=== PATIENT | male | born 1945 | race Caucasian/White ===

== ENCOUNTER 2017-06-15 21:25 | Emergency (ER) | payer OTHER ==
[~2017-06-15] VITALS: Ht 170.2 cm; Wt 99.0 kg
[2017-06-15 21:25] VITALS: BP 122/78; PULSE 65; RESP 16; TEMP 97.7; O2SAT 96
[~2017-06-15 21:25] MED LIST: DILT240C7 PO; HYDR10SO PO; PRAV40 PO; RANI150C PO; RIVA20 PO; XANA2TAB2 PO
--- NOTE | 2017-06-15 22:15 | PD ---
HPI Chief Complaint: Fall Time Seen by Provider: 22:10 Travel History International Travel<30 days: No Contact w/Intl Traveler<30days: No Traveled to known affect area: No History of Present Illness HPI WHILE DRINKING AT A PUB, GOT UP AND APPARENTLY STUMBLED AND FELL, EMS WAS CALLED AND BROUGHT INTO ER FOR FURTHER EVAL PER WITNESSES NO LOC, AND PATIENT GOT UP BY HIMSELF. 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) Musculoskeletal: Yes (LUMBAR DISCOMFORT, ARTHRITIS) Neurologic: No Psychiatric: Yes Reproductive: No Respiratory: Yes (SOB WITH WALKING) Radiation Therapy: Yes Sleep Apnea: Yes Thyroid Disease: No Tetanus Vaccination: Unknown Past Surgical History Abdominal Surgery: Yes (UMBILICAL HERNIA REPAIR CHILD) AICD: No Body Medical Devices: NONE Cardiac Surgery: No Ear Surgery: No Eye Surgery: No Genitourinary Surgery: No Joint Replacement: Yes (LEFT KNEE, RIGHT KNEE) Neurologic Surgery: Yes (LUMBAR FUSION X4) Oral Surgery: No Pacemaker: No Thoracic Surgery: No Other Surgery: Yes Social History Alcohol Use: Yes (6 PK WEEK) Tobacco Use: Yes (4-5 CIGS DAILY) Substance Use: No Allergies-Medications (Allergen,Severity, Reaction): Coded Allergies: Bee Sting (Verified Allergy, Severe, 06/16/17) Valium (Verified Allergy, Severe, BECOMES VIOLENT, 06/16/17) Reported Meds & Prescriptions Reported Meds & Active Scripts Active Walker/Adult/Folding (Device) 1 Mis Mis 1 Ea .ROUTE DIRECTED Keflex (Cephalexin) 500 Mg Cap 500 Mg PO Q8H 5 Days Reported Lortab (Hydrocodone-Acetaminophen) 10-325 Mg Tab 1 Tab PO Q6H PRN Pravastatin 40 Mg Tab 40 Mg PO DAILY Diltiazem HCl ER (Diltiazem HCl Coated Beads) 240 Mg Cap Alprazolam 2 Mg Tab 2 Mg PO Q8H PRN Review of Systems Except as stated in HPI: all other systems reviewed are Neg Physical Exam Narrative GENERAL: SKIN: Warm and dry. ABRASION TO SUPERIOR LIP, AND TO RUE WITHOUT LACERATION HEAD: Atraumatic. Normocephalic. EYES: Pupils equal and round. No scleral icterus. No injection or drainage. ENT: No nasal bleeding or discharge. Mucous membranes pink and moist. NO HEMOTYMPANUM NECK: Trachea midline. No JVD. CARDIOVASCULAR: Regular rate and rhythm. RESPIRATORY: No accessory muscle use. Clear to auscultation. Breath sounds equal bilaterally. GASTROINTESTINAL: Abdomen soft, non-tender, nondistended. MUSCULOSKELETAL: Extremities without clubbing, cyanosis, or edema. No obvious deformities. NEUROLOGICAL: Awake and alert. No obvious cranial nerve deficits. Motor grossly within normal limits. Five out of 5 muscle strength in the arms and legs. Normal speech. PSYCHIATRIC: Appropriate mood and affect; insight and judgment normal. Data Data Last Documented VS Vital Signs Date Time Temp Pulse Resp B/P Pulse Ox O2 Delivery O2 Flow Rate FiO2 06/16/17 02:25 55 16 119/74 97 Room Air 06/15/17 21:[address] Facial Bones W/O Iv Cont (06/15/17 ) Ct Brain W/O Iv Contrast(Rout) (06/15/17 ) Silver Nitrate Applicators (Silver Nitra (06/16/17 02:15) MDM Medical Decision Making Medical Screen Exam Complete: Yes Emergency Medical Condition: Yes Medical Record Reviewed: Yes Differential Diagnosis ICH V FACIAL FRACTURES V ABRASION Narrative Course PATIENT WAS ABLE TO AMBULATE ON OWN BY THE TIME CT HEAD/FACE WERE RETURNED, NO SKULL FX, NO ICH , NO FACIAL FX NOTED EITHER Procedures Procedure Narrative cleaned right lateral tib fib area where there was a 10cm blood blister in place , superiorly there was a 4cm opening which was cauterized with silver nitrate and then dermabond on top. no active bleeding dressed with telfa/dressing. Diagnosis Primary Impression: FACIAL ABRASION Additional Impression: abrasion s/p dermabond Patient Instructions: Abrasion (ED), General Instructions Disposition: 01 DISCHARGE HOME Condition: Stable Vignesh Wheeler MD Jun 15, 2017 22:15
[2017-06-16] VITALS: BP 124/84; PULSE 68; RESP 16; O2SAT 98
--- NOTE | 2017-06-16 00:37 | RADRPT ---
EXAM DATE/TIME: 06/16/2017 00:02 [facility] COMPARISON: No previous studies available for comparison. INDICATIONS : Trauma, pt fell and hit face. RADIATION DOSE: 63.92 CTDIvol (mGy) MEDICAL HISTORY : None SURGICAL HISTORY : None. ENCOUNTER: Initial ACUITY: 1 day PAIN SCALE: 7/10 LOCATION: cranial TECHNIQUE: Multiple contiguous axial images were obtained of the head. Using automated exposure control and adj ustment of the mA and/or kV according to patient size, radiation dose was kept as low as reasonably a chievable to obtain optimal diagnostic quality images. DICOM format image data is available electro nically for review and comparison. FINDINGS: There is mild motion artifact. CEREBRUM: The ventricles are normal for age. No evidence of midline shift, mass lesion, hemorrhage or acute in farction. No extra-axial fluid collections are seen. POSTERIOR FOSSA: The cerebellum and brainstem are intact. The 4th ventricle is midline. The cerebellopontine angle i s unremarkable. EXTRACRANIAL: The visualized portion of the orbits is intact. There is retention cyst in the right maxillary sinus. SKULL: The calvaria is intact. No evidence of skull fracture. CONCLUSION: Negative trauma study. Elder Hyde MD on June 16, 2017 at 0:34 Board Certified Radiologist. This report was verified electronically.
--- NOTE | 2017-06-16 00:39 | RADRPT ---
EXAM DATE/TIME: 06/16/2017 00:02 [facility] COMPARISON: No previous studies available for comparison. INDICATIONS : Trauma, pt fell on face. RADIATION DOSE: 35.57 CTDIvol (mGy) MEDICAL HISTORY : None SURGICAL HISTORY : None. ENCOUNTER: Initial ACUITY: 1 day PAIN SCORE: 7/10 LOCATION: face TECHNIQUE: Volumetric scanning of the facial bones was performed. Using automated exposure control and adjustme nt of the mA and/or kV according to patient size, radiation dose was kept as low as reasonably achiev able to obtain optimal diagnostic quality images. DICOM format image data is available electronicall y for review and comparison. FINDINGS: ORBITS: The orbital and infraorbital osseous structures are intact. The retroconal structures have a normal configuration. No radiopaque foreign bodies are seen. NASAL BONE: The nasal bone and maxillary spine are intact ZYGOMATIC ARCHES: Symmetric without evidence of fracture. SINUSES: The maxillary, ethmoid and frontal sinuses are intact. No air-fluid levels seen. There is a retentio n cyst in inferior right maxillary sinus and mild mucosal thickening in inferior left maxillary sinus . There is also small retention cysts in the left ethmoidal air cells. NASAL CAVITY: The nasal septum is intact and midline. The lacrimal ducts are intact. SOFT TISSUES: No radiopaque foreign bodies seen. No soft-tissue swelling is seen. INTRACRANIAL: No intracranial air seen. CRIBIFORM PLATE: Grossly intact. CONCLUSION: Negative trauma study. Elder Hyde MD on June 16, 2017 at 0:35 Board Certified Radiologist. This report was verified electronically.
[2017-06-16] MEDS ORDERED: SILVER NITR/POTASSIUM NITRATE APPLICATORS TOPICAL ONE (02:15)
[2017-06-16 02:25] VITALS: BP 119/74; PULSE 55; RESP 16; O2SAT 97
[2017-06-16] MEDS ORDERED: HYDR-3535 PO (17:18)
[2017-06-16] MEDS ORDERED: DILT240C (17:18)
[2017-06-16] MEDS ORDERED: PRAV40TA2 PO (17:18)
[2017-06-16] MEDS ORDERED: ALPR2TAB3 PO (17:18)
[2017-06-16] MEDS ORDERED: WALKER/ADULT/FO1 MIS (18:56)
[2017-06-16] MEDS ORDERED: CEPH-460 PO (18:56)
== END 2017-06-16 02:55 | disposition home or self-care (01) ==
LOC: PHED 21:25
DX: S00.511A Abrasion of lip, initial encounter (principal); S80.821A Blister (nonthermal), right lower leg, initial encounter; W01.0XXA Fall on same level from slipping, tripping and stumbling without subsequent striking against object, initial encounter; Y93.9 Activity, unspecified; Y92.9 Unspecified place or not applicable; I10 Essential (primary) hypertension; E78.00 Pure hypercholesterolemia, unspecified; K21.9 Gastro-esophageal reflux disease without esophagitis; F17.210 Nicotine dependence, cigarettes, uncomplicated
CPT/HCPCS: 12013; 70450; 70486

== ENCOUNTER 2017-06-16 16:24 | Emergency (ER) | payer OTHER ==
[~2017-06-16] VITALS: Ht 170.2 cm; Wt 97.0 kg
[2017-06-16 16:32] VITALS: BP 155/92; PULSE 98; RESP 16; TEMP 97.5; O2SAT 97
[2017-06-16] MEDS ORDERED: LIDOCAINE 1%/EPINEPHrine 1:100,000 SOLN 20 ML VIAL INFIL ONE (16:45)
[2017-06-16] MEDS ORDERED: HYDR-3535 PO (17:18)
[2017-06-16] MEDS ORDERED: ALPR2TAB3 PO (17:18)
[2017-06-16] MEDS ORDERED: DILT240C (17:18)
[2017-06-16] MEDS ORDERED: PRAV40TA2 PO (17:18)
--- NOTE | 2017-06-16 17:50 | PD ---
HPI Chief Complaint: Skin Problem Time Seen by Provider: 17:00 Travel History International Travel<30 days: No Contact w/Intl Traveler<30days: No Traveled to known affect area: No History of Present Illness HPI 72-year-old male presents for evaluation of wound on the right lower leg. The patient was seen here yesterday after a fall. He had CT imaging the face and head which were negative. He was sent home. He reports that he had some wounds on the right leg and right arm which were bandaged. He changed the bandages on the right lower leg today and there is no obvious bleeding. He reports that he was sitting and then he noticed that he was bleeding from a wound on the right lower leg. This was bandaged by paramedics according to the patient. He is not on any anticoagulants. He denies any new injuries. No other complaints. 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) Musculoskeletal: Yes (LUMBAR DISCOMFORT, ARTHRITIS) Neurologic: No Psychiatric: Yes Reproductive: No Respiratory: Yes (SOB WITH WALKING) Radiation Therapy: Yes Sleep Apnea: Yes Thyroid Disease: No Tetanus Vaccination: Unknown Influenza Vaccination: No ?: Not Past Surgical History Abdominal Surgery: Yes (UMBILICAL HERNIA REPAIR CHILD) AICD: No Body Medical Devices: NONE Cardiac Surgery: No Ear Surgery: No Eye Surgery: No Genitourinary Surgery: No Joint Replacement: Yes (LEFT KNEE, RIGHT KNEE) Neurologic Surgery: Yes (LUMBAR FUSION X4) Oral Surgery: No Pacemaker: No Thoracic Surgery: No Other Surgery: Yes Social History Alcohol Use: Yes (6 PK WEEK) Tobacco Use: Yes (4-5 CIGS DAILY) Substance Use: No Allergies-Medications (Allergen,Severity, Reaction): Coded Allergies: Bee Sting (Verified Allergy, Severe, 06/16/17) Valium (Verified Allergy, Severe, BECOMES VIOLENT, 06/16/17) Reported Meds & Prescriptions Reported Meds & Active Scripts Active Walker/Adult/Folding (Device) 1 Mis Mis 1 Ea .ROUTE DIRECTED Keflex (Cephalexin) 500 Mg Cap 500 Mg PO Q8H 5 Days Reported Lortab (Hydrocodone-Acetaminophen) 10-325 Mg Tab 1 Tab PO Q6H PRN Pravastatin 40 Mg Tab 40 Mg PO DAILY Diltiazem HCl ER (Diltiazem HCl Coated Beads) 240 Mg Cap Alprazolam 2 Mg Tab 2 Mg PO Q8H PRN Review of Systems Except as stated in HPI: all other systems reviewed are Neg Physical Exam Narrative GENERAL: Well-developed well-nourished male in no acute distress SKIN: Warm and dry. Bandages noted on the right arm, abrasion to the face. The bandage in the right leg was removed revealing a very large hematoma to the lateral right lower leg with a linear 15 cm laceration across. There is some bleeding, no pulsating blood. HEAD: Atraumatic. Normocephalic. EYES: Pupils equal and round. No scleral icterus. No injection or drainage. ENT: No nasal bleeding or discharge. Mucous membranes pink and moist. NECK: Trachea midline. No JVD. CARDIOVASCULAR: Regular rate and rhythm. No murmur appreciated. RESPIRATORY: No accessory muscle use. Clear to auscultation. Breath sounds equal bilaterally. GASTROINTESTINAL: Abdomen soft, non-tender, nondistended. Hepatic and splenic margins not palpable. MUSCULOSKELETAL: Skin as noted above. The compartments of the right lower leg are soft. Distal pulses are intact or distal sensation is intact. He is able to dorsiflex and plantarflex his right ankle and move his toes with no difficulty. NEUROLOGICAL: Awake and alert. No obvious cranial nerve deficits. Motor grossly within normal limits. Normal speech. Data Data Last Documented VS Vital Signs Date Time Temp Pulse Resp B/P Pulse Ox O2 Delivery O2 Flow Rate FiO2 06/16/17 16:32 97.5 98 16 155/92 97 Orders Lidocai-Epi 1%-1:100,000 Inj (Xylocaine- (06/16/17 16:45) Tibia/Fibula (Ap/Lat) (06/16/17 ) Cefazolin Inj (Ancef Inj) (06/16/17 18:00) MDM Medical Decision Making Medical Screen Exam Complete: Yes Emergency Medical Condition: Yes Medical Record Reviewed: Yes Differential Diagnosis Laceration, dehisced hematoma, arterial injury, compartment syndrome, fracture Narrative Course The patient appears to have developed a very large hematoma to the right lower leg from his fall yesterday. It appears that the hematoma has opened up in a linear fashion and he now has a 15 cm laceration across it. After verbal consent was obtained I cleansed the wound and explored it. There was large amount of clotted blood and some oozing blood. There is no obvious arterial bleeding. There is no obvious muscle or bone injury. There is no obvious tendon injury. Laceration was repaired with sutures, he does have quite thin skin and this is likely the reason that his hematoma opened. This will require very close follow-up. He is monitored for 2 hours afterwards with no wound dehiscence. Ice packs were applied and the leg was elevated during this time. He was given IV Ancef. His be discharged with a prescription for walker and Keflex. Recommended that he return tomorrow for wound recheck. Procedures Procedure Narrative Location: Right lower leg Length: 15 cm Number of kleber/sutures: 21 The area was prepped with Betadine. The area was anesthetized locally with 1% lidocaine with epinephrine The area was thoroughly irrigated and explored with no signs of tendon, vascular injury or foreign body. The wound was closed using 3-0 prolene simple interrupted . This was a single layer repair. Patient tolerated procedure well Diagnosis Primary Impression: Hematoma Additional Impression: Laceration of right lower leg Qualified Code: S81.811A - Laceration of right lower leg, initial encounter Additional Instructions: As discussed, return in one day for wound recheck. Elevate the leg as much as possible over the next few days. Ice pack several times a day 20 minutes at a time to the affected area. Sutures need to be removed in approximately 14-18 days. Med/Other Pt SpecificInfo: Prescription(s) given, Wound Care Scripts Walker/Adult/Folding 1 Mis Mis #1 EA .ROUTE DIRECTED Ref 0 Prov:Cici Vega DO 06/16/17 Cephalexin (Keflex)500 Mg [id number] Mg PO Q8H 5 Days Ref 0 Prov:Cici Vega DO 06/16/17 Disposition: 01 DISCHARGE HOME Condition: Stable Bart Duque Jun 16, 2017 17:50
--- NOTE | 2017-06-16 18:25 | RADRPT ---
EXAM DATE/TIME: 06/16/2017 17:55 [facility] COMPARISON: No previous studies available for comparison. INDICATIONS : Right leg pain after falling over curb. MEDICAL HISTORY : None. SURGICAL HISTORY : None. ENCOUNTER: Initial ACUITY: 1 day PAIN SCORE: 8/10 LOCATION: Right Tibia/Fibula FINDINGS: Total knee arthroplasty. Soft tissue injury about the anterior and lateral leg with multiple small a reas of soft tissue gas. There are also several rounded densities in the soft tissues of the anterio r mid calf suggesting radiopaque foreign bodies. The shaft of the tibia and fibula are intact. Ther e is some bowing of the proximal metaphysis of the fibula without evidence of fracture. CONCLUSION: Soft tissue injury mid calf with possible multiple faint radiopaque foreign bodies. No evidence of a cute fracture. Derrell Green MD on June 16, 2017 at 18:22 Board Certified Radiologist. This report was verified electronically.
[2017-06-16] MEDS ORDERED: WALKER/ADULT/FO1 MIS (18:56)
[2017-06-16] MEDS ORDERED: CEPH-460 PO (18:56)
== END 2017-06-16 19:53 | disposition home or self-care (01) ==
LOC: PHEFT 16:24
DX: S81.811A Laceration without foreign body, right lower leg, initial encounter (principal); I10 Essential (primary) hypertension; Z72.0 Tobacco use; W19.XXXA Unspecified fall, initial encounter
CPT/HCPCS: 12005; 73590; 96365; 99284; J0690

== ENCOUNTER 2018-03-29 12:37 | Inpatient (IN) | payer OTHER, MEDICARE ==
--- NOTE | 2018-03-28 20:36 | MH ---
cc: Pedro Luis Acosta DMD DATE OF ADMISSION: 03/29/2018 DATE OF : 1945 HISTORY OF PRESENT ILLNESS: Mr. 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 He had previously undergone resection of that lesion. He was asymptomatic. He was later on noncompliant for followup. Now he presented back to the office recently with pain on the anterior aspect of the mandible with loose dentition. He was complaining about pain into the site. He had a lesion on the anterior floor of the mouth below the tongue coming up to the inferior aspect on the lingual aspect of the mandible with some soft tissue dehiscence that is noted there. The roots of the teeth are noted at that point. An incisional biopsy was done and it came back as squamous cell carcinoma, moderately differentiated. So the patient is going to require a corticotomy of the anterior mandible, extraction of his lower anterior teeth, specific teeth #23, 24, 25, 26, and biopsy of the mandible bone and biopsy of the tissue as we try to excise this tissue. Benefits, risks and indication of the procedure, the procedure in detail and the options of no treatment including alternatives were discussed with this patient. The risks are not limited to any postop pain, infection, bleeding, damage to the adjacent teeth, soft tissue, hard tissue, anesthesia, complications, which include , recurrence of this lesion, further surgeries including resection, radiation, chemo. The patient has been told to be compliant with followups and cessation of alcohol has been reviewed with the patient. PAST MEDICAL HISTORY: Atrial fibrillation, knee replacements, hypertension, arthritis, bruising easily, diabetes, lesion medial aspect of the left eye, snoring, depression, anxiety, fibromyalgia, esophagitis, hyperlipidemia, dementia, edema, heart failure, insomnia, malignant neoplasm of the skin. PAST SURGICAL HISTORY: He had an ablation to his heart, bilateral knee replacements, ablation. INFECTIOUS DISEASES: Past history of MRSA on the left knee. AUTOIMMUNE DISORDER: Fibromyalgia. MEDICATIONS: 1. Lovastatin 20 mg 1 tablet with meal orally once a day. 2. Alprazolam 2 mg, 1 tab orally once a day for 30 days. 3. He is on Empire 10/325 every 6 hours as needed for pain. 4. Ranitidine hydrochloride 300 mg 1 capsule at bedtime. 5. Tamsulosin hydrochloride 0.4 mg 1 capsule orally a day. 6. Diltiazem hydrochloride extended release 180 mg 1 capsule in the morning. He was taking Glucophage extended release 750 mg 1 tablet, but based on his current medication summary by his primary, does not appear that he takes that anymore. ALLERGIES: DENIED. FAMILY HISTORY: Denies any significant family history or any inherited familial disease. SOCIAL HISTORY: Home: He lives alone. He used to smoke previously, still smokes occasionally. Eating: Fair. Alcohol: 6-pack x1 week. Sleeping: Poor. He is retired. Denies any illicit drug use. REVIEW OF SYSTEMS: CONSTITUTIONAL: Weight 200 pounds, height 5 feet, 7 inches. Recent significant weight loss: He reports some due to tongue pain. HEAD: Denies any headache, dizziness, injury or any seizures. Reports some balance problems. EYES: Denies any vision problem, double vision, tearing or blind spots. NOSE: Denies any bleeding, obstruction or discharges. MOUTH: Dental Difficulties: Yes. Denies any gingival bleeding or any dentures. Reports catching of the lower tongue, closure of the of the mouth caused decay to his lower teeth and has caused him pain in that site. THROAT: Denies any hoarseness, soreness any thyroid disease. LYMPH NODES: Denies any local glandular enlargement. RESPIRATORY: Denies any TB or any cough. Has shortness of breath. Denies any asthma, COPD and sleep apnea. Can walk for distances secondary to his generalized pain, arthritis and knee replacement. CARDIOVASCULAR: Denies any pericardial pain. History of hypertension, murmurs, has shortness of breath on excursions, edema. Denies any phlebitis, any rheumatic fever or any heart surgeries. He did have previously atrial fibrillation had an ablation to correct that. GASTROINTESTINAL: Denies any gallbladder or any peptic ulcer disease. GENITOURINARY: Denies UTI, any kidney disease or any venereal disease. MUSCULOSKELETAL: Denies any pain or any muscular weakness, but he does have limitation of movement. He walks very slowly secondary to arthritis and knee replacements. ENDOCRINE: Diabetes mellitus, borderline. Any hormone therapy , any growth disturbances are denied. HEMATOLOGICAL: Denies any anemia, history of bleeding tendencies. Denies any temporary debility. The patient is on aspirin 325 mg. NEUROLOGICAL: Denies any sensory or motor disturbances. PHYSICAL EXAMINATION: VITAL SIGNS: Pulse 79, Blood pressure is 138/92 with oxygen saturation of 97%, ASA 3. GENERAL: Alert, awake and oriented x 3, in no acute distress. HEAD: Normocephalic. EYES: Pupils are equal, round and reactive to light and accommodation. Extraocular movements intact. NOSE: Symmetrical. Airways patent. MOUTH/ORAL: He has a lesion that is noted on the anterior mandible, floor of the mouth on the lingual aspect. There is bony exposure noted towards the lower anterior dentition with mobility of these teeth. Also, there is a well-circumscribed lesion; it is firm, slightly raised on the anterior floor of the mouth of the tongue. It is about 1.5 cm x about 1.5 cm, nonulcerated, tender to palpation. The previous region where the previous cancer was taken at the right lateral border of the tongue, floor of the mouth is asymptomatic. There is no lesion noted, no recurrence of any lesions noted. There is mobility of the tongue, good shape of the tongue. Otherwise the rest of the tissues are pink and well perfused. Mallampati II. Bite is in occlusion. There is no edema intraorally. Good mobility of the tongue. NECK: Positive range of movement. No veronica involvement that is noted. Trachea is midline. CARDIOVASCULAR: Regular rate and rhythm but we can auscultate a murmur. RESPIRATORY: Lungs clear to auscultation bilaterally. ABDOMEN: Nontender, nondistended, soft. GASTROINTESTINAL: Positive bowel sounds. EXTREMITIES: Positive range of movement upper extremities, lower extremities, but they moves slowly. NEUROLOGIC: Cranial nerves II-XII grossly intact. LABORATORY DATA: 01/28/2016: White count is 7.7, H and H 15.0 and 46.2 with platelets of 245. PATHOLOGY REPORT: Dated 02/11/2018, moderately differentiated squamous cell carcinoma, anterior lingual vestibule/tongue, floor of mouth. IMAGING: CT scan of the soft tissues of the neck shows some involvement of the anterior mandible, erosion of the roots of this teeth. No veronica involvement or lymphadenopathy that is noted. There is some soft tissue involvement in he mental region, sublingual region. Chest x-ray PA and lateral: No acute cardiopulmonary disease noted. Normal chest for age. No evidence of metastatic disease. The patient has been cleared by Dr. Mallory of cardiology, moderate risk for general anesthesia. ASSESSMENT AND PLAN: This is a 72-year-old male with squamous cell carcinoma, appears to be in a new location now, anterior mandible, floor of the mouth soft tissue with involvement of teeth. The radiograph in the office shows a periapical radiolucency, it could be secondary to the decay of these teeth, does not appear to be involvement secondary to the malignant neoplasm. So, the plan is to remove his lower anterior dentition, corticotomy which is to remove some of that bone, send the bone for a biopsy, and then removal and biopsy of this lesion, squamous cell carcinoma anterior floor of the mouth of the tongue and send that for biopsy, will send for frozens also. The patient is aware that he may require further surgery including radiation or chemo. Patient has been counseled on smoking/alcohol cessation. The patient is also made aware of risks involving the glands, recurrence of this cancer, further surgeries as required. All questions and concerns were addressed. Pedro Luis Acosta DMD RT/SB , 07:23 PM , 08:35 PM
[~2018-03-29] VITALS: Ht 170.2 cm; Wt 92.2 kg
[~2018-03-29 12:37] MED LIST changes: +ALPR2TAB3 PO; +CEPH-460 PO; +DEXAMETHASONE SOD PHOS 4 MG/ML VIAL IV ONE; +DILT240C PO; -DILT240C7 PO; +GLYCOPYRROLATE 1 MG/5 ML SYRINGE IV PUSH ONE; +HYDR-3583 PO; -HYDR10SO PO; +LACTATED RINGER'S 1000 ML INJ 1,000 ML IV ONE; +LIDOCAINE HCL 1% PF 5 ML SYRINGE OTHER ONE; +NEOSTIGMINE 5 MG/5 ML SYRINGE IV PUSH ONE; +ONDANSETRON HCL 4 MG/2 ML VIAL IV ONE; +PHENYLEPH/NS 1000 MCG/10 ML SYR IV ONE; -PRAV40 PO; +PRAV40TA2 PO; +PROPOFOL 200 MG/20 ML AMP IV ONE; -RANI150C PO; -RIVA20 PO; +ROCURONIUM INJ 50 MG/5 ML SYRINGE IV PUSH ONE; +WALKER/ADULT/FO1 MIS; -XANA2TAB2 PO; +ePHEDrine/NS 25 MG/5 ML SYRINGE IV ONE
[2018-03-29] MEDS ORDERED: METOPROLOL TARTRATE 25 MG TAB PO PRN (13:00)
[2018-03-29] MEDS ORDERED: SODIUM CHLORID 0.9% 500 ML IV PRN (13:00)
[2018-03-29] MEDS ORDERED: CHLORHEXIDINE GLUCONATE 2 % 1 PACK (2 CLOTHS) TOPICAL PRN (13:00)
[2018-03-29] MEDS ORDERED: LACTATED RINGER'S 1000 ML IV PRN (13:00)
[2018-03-29] MEDS ORDERED: POVIDONE IODINE 5% (ANTISEPSIS KIT) 4 APPLICATIONS EACH NARE PRN (13:00)
[2018-03-29] MEDS ORDERED: RANI300T PO (13:53)
[2018-03-29] MEDS ORDERED: TAMS0.4C4 PO (13:53)
[2018-03-29] MEDS ORDERED: GABA100C4 PO (13:53)
[2018-03-29] MEDS ORDERED: FURO40TA PO (13:53)
[2018-03-29] MEDS ORDERED: ASPI-183 PO (13:53)
[2018-03-29] MEDS ORDERED: ceFAZolin INJ 1,000 MG VIAL ONE (14:12)
[2018-03-29] MEDS ORDERED: SODIUM CHLORIDE 0.9% INJ 100 ML ONE (14:13)
[2018-03-29 14:23] LABS: AUTOMATED NEUTROPHIL # 3.4 TH/MM3 (1.8-7.7); BASOPHIL # 0.1 TH/MM3 (0-0.2); EOSINOPHIL # 0.1 TH/MM3 (0-0.4); EOSINOPHIL % 1.5 % (0.0-4.0); HEMATOCRIT 42.5 % (39.0-51.0); HEMOGLOBIN 14.2 GM/DL (13.0-17.0); LYMPH % 27.4 % (9.0-44.0); LYMPHOCYTE # 1.6 TH/MM3 (1.0-4.8); MEAN CELL VOLUME 92.9 FL (80.0-100.0); MEAN CORPUSCULAR HEMOGLOBIN 31.1 PG (27.0-34.0); MEAN CORPUSCULAR HGB CONC 33.5 % (32.0-36.0); MEAN PLATELET VOLUME 8.6 FL (7.0-11.0); MONOCYTE # 0.7 TH/MM3 (0-0.9); NEUT % 58.1 % (16.0-70.0); PLATELET COUNT 178 TH/MM3 (150-450); RED BLOOD COUNT 4.58 MIL/MM3 (4.50-5.90); RED CELL DISTRIBUTION WIDTH 16.1 % (11.6-17.2); WHITE BLOOD COUNT 5.9 TH/MM3 (4.0-11.0)
[2018-03-29] MEDS ORDERED: ACETAMINOPHEN 1000 MG/100 ML 100 ML IV ONE (14:53)
[2018-03-29] MEDS ORDERED: CHLORHEXIDINE GLUCONATE 0.12% 15 ML CUP ONE (15:09)
[2018-03-29] MEDS ORDERED: BACITRACIN TOP OINT 15 GM TUBE ONE (15:10)
[2018-03-29] MEDS ORDERED: LIDOCAINE 2%/EPINEPHrine PF 1:200,000 20ML SDV ONE (15:10)
[2018-03-29] MEDS ORDERED: MICROFIBRILLAR COLLAGEN HEMOSTAT 1 GM PKT ONE (15:11)
[2018-03-29] MEDS ORDERED: BUPIVACAINE/EPINEPHRINE 0.5% PF 10 ML VIAL ONE (16:56)
[2018-03-29] MEDS ORDERED: LIDOCAINE 0.5%/EPINEPHrine 1:200,000 SOLN 50 ML VIAL ONE (16:56)
[2018-03-29] MEDS ORDERED: DO NOT ADM ANY ANTICOAGULANT DRUGS PRN (18:39)
[2018-03-29] MEDS: SODIUM CHLOR 0.9% 1000 ML INJ 1,000 ML IV SCH (19:00)
[2018-03-29] MEDS ORDERED: methylPREDNISolone SOD SUCC 125 MG/2 ML VIAL ONE (19:01)
--- NOTE | 2018-03-29 19:01 | HHI.PR ---
Immediate Post Op Note Procedure Date: March 29, 2018 Pre Op Diagnosis: scca - anterior mandible/floor of mouth , [id number] periodontally involved teeth 23, 24, 25, 26, 27 Post Op Diagnosis: darek Surgeon: Pedro Luis Acosta Ball Maker(s): don colon Procedure: extraction of teeth 23, 24,25,26,27, coricotomy anterior mandible excision of lesion anterior mandible - biopsy of soft tissue/bone with soft tissue frozen sections Complications: none Specimen(s) removed: bone, lesion anterior floor of mouth, with frozens Estimated blood loss: 30cc Anesthesia: General, Local (2%lidocaine with 1:200,000 epi 6 cc; 0.5 marcaine with 1:200,000 epi 6cc) Drains: None Patient to: PACU Patient Condition: Good Date/Time of Procedure: SEE SURGICAL CARE RECORD Pedro Luis Acosta DMD March 29, 2018 19:01
[2018-03-29] MEDS ORDERED: MORPHINE SULFATE 4 MG/ML INJ IV PUSH PRN ×2 (19:30)
[2018-03-29] MEDS ORDERED: NALOXONE HCL 0.4 MG/ML AMP IV PUSH PRN (19:30)
[2018-03-29] MEDS ORDERED: SODIUM CHLORIDE 0.9% FLUSH 10 ML FLUSH IV FLUSH PRN (19:30)
[2018-03-29] MEDS ORDERED: BISACODYL 10 MG SUPP RECTAL PRN (19:30)
[2018-03-29] MEDS ORDERED: MORPHINE SULFATE 4 MG/ML INJ IV PRN (19:45)
[2018-03-29] MEDS ORDERED: ONDANSETRON ODT 4 MG TAB PO PRN (19:45)
[2018-03-29] MEDS ORDERED: ALPRAZolam 1 MG TAB PO PRN (20:00)
[2018-03-29 20:15] VITALS: BP 148/100; PULSE 74; RESP 17; TEMP 97.9; O2SAT 98
[2018-03-29] MEDS ORDERED: TAMSULOSIN HCL 0.4 MG CAP PO SCH (21:00)
--- NOTE | 2018-03-29 21:10 | PD.CONS ---
[facility] By [facility]. Acosta . Reason for Consult Medical management/Perform as attending medical team . Primary Care Physician Non-Staff Diagnoses: (1) Floor of mouth squamous cell carcinoma History of Present Illness Mr. Worrell is a 72-year-old male with a history of squamous cell carcinoma of the tongue, atrial fibrillation, hyperlipidemia, hypertension, gastroesophageal reflux disease, BPH, and arthritis who presented to the hospital on 03/29/2018 for surgical excision of anterior mandible lesion with soft tissue frozen sections and teeth extraction #[address] Acosta[address] [facility] hospitalists were consulted for medical management and pain control in the postoperative period and asked to take over as attending for hospital admission. The patient is seen postoperatively in the ISC unit. He is drowsy and falls asleep frequently during my interview. He reports adequate pain control with current pain regimen. He reports feeling in his normal state of health prior to admission. Review of Systems Except as stated in HPI: all other systems reviewed are Neg Past Family Social History Allergies: Coded Allergies: No Known Allergies (Unverified , 03/29/18) Past Medical History history of squamous cell carcinoma of the tongue, atrial fibrillation, hyperlipidemia, hypertension, gastroesophageal reflux disease, BPH, and arthritis . Past Surgical History Umbilical hernia repair Right rotator cuff repair Bilateral total knee replacement Ablation for atrial fibrillation . Reported Medications Reported Meds & Active Scripts Active Walker/Adult/Folding (Device) 1 Mis Mis 1 Ea .ROUTE DIRECTED Reported Furosemide 40 Mg Tab 40 Mg PO DAILY Ranitidine (Ranitidine HCl) 300 Mg Tab 300 Mg PO DAILY Tamsulosin (Tamsulosin HCl) 0.4 Mg Cap 0.4 Mg PO HS Gabapentin 100 Mg Cap 200 Mg PO TID Aspirin 325 Mg Tab 325 Mg PO DAILY Hydrocodone-Acetaminophen 10-325 mg Tab 1 Tab PO Q4H PRN Pravastatin 40 Mg Tab 40 Mg PO DAILY Diltiazem HCl ER (Diltiazem HCl Coated Beads) 240 Mg Cap 1 Cap PO DAILY Alprazolam 2 Mg Tab 2 Mg PO Q8H PRN . Family History Denies any family history of cancer . Social History Tobacco: States he is smoking 2-3 cigarettes per day and has been smoking off and on for "many years" Alcohol: Denies any alcohol use Illicit Drugs: Denies any illicit drug use . Physical Exam Vital Signs Vital Signs Date Time Temp Pulse Resp B/P (MAP) Pulse Ox O2 Delivery O2 Flow Rate FiO2 03/29/18 20:00 98.5 68 14 144/96 (112) 98 Nasal Cannula 2 03/29/18 19:45 69 14 143/92 (109) 98 Nasal Cannula 2 03/29/18 19:30 72 12 146/87 (106) 99 Nasal Cannula 2 03/29/18 19:15 71 12 148/85 (106) 98 Nasal Cannula 2 03/29/18 19:00 69 12 155/91 (112) 96 Nasal Cannula 2 03/29/18 18:45 82 13 154/94 (114) 100 Nasal Cannula 2 03/29/18 18:38 98.3 68 12 136/90 (105) 100 Simple Mask 8 03/29/18 13:56 97.6 79 20 126/87 (100) 97 Physical Exam CONSTITUTIONAL: This is a chronically ill appearing 72-year-old male patient, in no apparent distress. INTEGUMENTARY: Multiple areas of ecchymosis noted on forearms bilaterally. Dressing over right lower mandible is clean and dry and intact. Cool and dry. HEAD: Normocephalic. EYES: No scleral icterus. No injection or drainage. ENT: Nose without bleeding, purulent drainage. NECK: Trachea midline. No JVD. CARDIOVASCULAR: Regular rate and rhythm without murmurs, gallops, or rubs. Bilateral trace ankle edema noted. Darkish discoloration of bilateral lower extremities consistent with chronic venous insufficiency. RESPIRATORY: Clear to auscultation. Breath sounds diminished at bases but equal bilaterally. No wheezes, rales, or rhonchi. GASTROINTESTINAL: Abdomen soft, non-tender, nondistended. No guarding. MUSCULOSKELETAL: Extremities without clubbing, cyanosis. No calf tenderness. NEUROLOGICAL: Drowsy in the postoperative period but awakened easily. Oriented to person place time and situation. . Laboratory Laboratory Tests Test 03/29/18 14:07 White Blood Count 5.9 Red Blood Count 4.58 Hemoglobin 14.2 Hematocrit 42.5 Mean Corpuscular Volume 92.9 Mean Corpuscular Hemoglobin 31.1 Mean Corpuscular Hemoglobin Concent 33.5 Red Cell Distribution Width 16.1 Platelet Count 178 Mean Platelet Volume 8.6 Neutrophils (%) (Auto) 58.1 Lymphocytes (%) (Auto) 27.4 Monocytes (%) (Auto) 12.0 Eosinophils (%) (Auto) 1.5 Basophils (%) (Auto) 1.0 Neutrophils # (Auto) 3.4 Lymphocytes # (Auto) 1.6 Monocytes # (Auto) 0.7 Eosinophils # (Auto) 0.1 Basophils # (Auto) 0.1 CBC Comment DIFF FINAL Differential Comment Result Diagram: 03/29/18 2929 Assessment and Plan Problem List: (1) Floor of mouth squamous cell carcinoma ICD Code: C04.9 - Malignant neoplasm of floor of mouth, unspecified Status: Acute Assessment and Plan Mr. Worrell is a 72-year-old male with a history of squamous cell carcinoma of the tongue, atrial fibrillation, hyperlipidemia, hypertension, gastroesophageal reflux disease, BPH, and arthritis who presented to the hospital on 03/29/2018 for surgical excision of anterior mandible lesion with soft tissue frozen sections and teeth extraction #[address] Acosta[address] [facility] and pain control in the postoperative period and asked to take over as attending for hospital admission. Squamous cell carcinoma anterior mandible/floor of mouth -Status post teeth extraction #23 through #27, corticotomy of anterior mandible , excision of lesion anterior mandible biopsy soft tissue bone with soft tissue frozen sections by Dr. Acosta -Continue liquid [place] and IV morphine as needed depending on level of pain -Clear liquid diet to advance to full liquid as tolerated per Dr. Acosta's instruction -Post-op management per Dr. Acosta -consult PT to prevent debility Atrial fibrillation status post ablation -Continuous cardiac telemetry to monitor for arrhythmia -Resume home Cardizem BPH -Continue home tamsulosin Hyperlipidemia -Continue home pravastatin GERD -Start formulary Pepcid 20 mg p.o. twice daily to substitute for Zantac 300 mg daily DVT prophylaxis -SCDs/TEDs -chemoprophylaxis when okay with surgeon Discussed Condition With Dr. Singh, patient, and RN Jennifer Jalloh March 29, 2018 21:10
[2018-03-29] MEDS: ceFAZolin 1,000 MG/NS 100 ML IV SCH ×2 (21:48)
[2018-03-29] MEDS: SODIUM CHLORIDE 0.9% FLUSH 10 ML FLUSH IV FLUSH SCH (21:50)
[2018-03-29] MEDS: ACETAMINOPHEN 325MG/HYDROcodone 7.5MG/15ML UDC PO PRN (22:02)
[2018-03-30] VITALS (8 sets, daily range): BP systolic 136–153; BP diastolic 79–111; PULSE 60–88; RESP 12–15; TEMP 97.5–98; O2SAT 94–96
[2018-03-30] MEDS: methylPREDNISolone SOD SUCC 125 MG/2 ML VIAL IV SCH ×2 (00:57→06:29)
[2018-03-30] MEDS: ACETAMINOPHEN 325MG/HYDROcodone 7.5MG/15ML UDC PO PRN (04:05)
[2018-03-30] MEDS: ceFAZolin 1,000 MG/NS 100 ML IV SCH ×2 (04:05)
[2018-03-30 05:05] LABS: AUTOMATED NEUTROPHIL # 4.1 TH/MM3 (1.8-7.7); BASOPHIL % 0.1 % (0.0-2.0); HEMATOCRIT 46.3 % (39.0-51.0); HEMOGLOBIN 15.5 GM/DL (13.0-17.0); LYMPH % 15.8 % (9.0-44.0); LYMPHOCYTE # 0.8 TH/MM3 (1.0-4.8); MEAN CELL VOLUME 93.3 FL (80.0-100.0); MEAN CORPUSCULAR HEMOGLOBIN 31.3 PG (27.0-34.0); MEAN CORPUSCULAR HGB CONC 33.5 % (32.0-36.0); MEAN PLATELET VOLUME 8.9 FL (7.0-11.0); MONO % 1.2 % (0.0-8.0); MONOCYTE # 0.1 TH/MM3 (0-0.9); NEUT % 82.9 % (16.0-70.0); PLATELET COUNT 180 TH/MM3 (150-450); RED BLOOD COUNT 4.96 MIL/MM3 (4.50-5.90); RED CELL DISTRIBUTION WIDTH 16.2 % (11.6-17.2); WHITE BLOOD COUNT 4.9 TH/MM3 (4.0-11.0)
[2018-03-30 05:54] LABS: BICARBONATE 25.1 MEQ/L (21.0-32.0); CALCIUM 8.5 MG/DL (8.5-10.1); CREATININE 0.76 MG/DL (0.60-1.30)
[2018-03-30] MEDS: SODIUM CHLOR 0.9% 1000 ML INJ 1,000 ML IV SCH (06:29)
--- NOTE | 2018-03-30 07:46 | HHI.PR ---
Subjective Remarks POD 1 s/p excision of SCCA anterior mandible/floor of mouth soft tissue/bone biopsy extraction of teeth 23-27 and coricotomy pt seen and examined aaox3 nad tolerating po no complaints, reports feeling the best in 1 month denies f/c/n/v/sob/difficulty breathing/difficulty swallowing wants to go home Objective Vital Signs Date Time Temp Pulse Resp B/P (MAP) Pulse Ox O2 Delivery O2 Flow Rate FiO2 03/30/18 06:00 60 03/30/18 04:00 77 03/30/18 04:00 97.5 77 14 153/111 (125) 96 03/30/18 02:00 69 03/30/18 00:00 77 03/30/18 00:00 97.7 77 12 136/103 (114) 94 03/29/18 20:15 74 03/29/18 20:15 Nasal Cannula 2.00 03/29/18 20:15 97.9 74 17 148/100 (116) 98 03/29/18 20:00 98.5 68 14 144/96 (112) 98 Nasal Cannula 2 03/29/18 19:45 69 14 143/92 (109) 98 Nasal Cannula 2 03/29/18 19:30 72 12 146/87 (106) 99 Nasal Cannula 2 03/29/18 19:15 71 12 148/85 (106) 98 Nasal Cannula 2 03/29/18 19:00 69 12 155/91 (112) 96 Nasal Cannula 2 03/29/18 18:45 82 13 154/94 (114) 100 Nasal Cannula 2 03/29/18 18:38 98.3 68 12 136/90 (105) 100 Simple Mask 8 03/29/18 13:56 97.6 79 20 126/87 (100) 97 I/O 03/29/18 03/29/18 03/29/18 03/30/18 03/30/18 03/30/18 07:00 15:00 23:00 07:00 15:00 23:00 Intake Total 1000 ml 1670 ml Output Total 30 ml 120 ml Balance 970 ml 1550 ml Intake Oral 480 ml IV Total 1000 ml 1190 ml Output Urine Total 120 ml Estimated Blood Loss 30 ml Result Diagram: 03/30/182 03/30/18401 Objective Remarks vss stable, afebrile intraorally - all wound margins well approximated sutures intact no bleeding noted, tissues pink/well perfused good speech/movement of tongue no neck edema/ no elevation floor of mouth/tongue path- pending Assessment and Plan Assessment and Plan POD 1 s/p excision of SCCA anterior mandible/floor of mouth soft tissue/bone biopsy extraction of teeth 23-27 and coricotomy oob to chair/encourage ambulation ok to d/c to home later this afternoon from oms standpoint f/up dr acosta 1 week full liquid diet - avoid hot food x 1 week resume home meds no strenuous activity smoking/alcohol counseling Pedro Luis Acosta DMD March 30, 2018 07:46
[2018-03-30] MEDS: SODIUM CHLORIDE 0.9% FLUSH 10 ML FLUSH IV FLUSH SCH (08:22)
[2018-03-30] MEDS: GABAPENTIN 100 MG CAP PO SCH ×2 (08:23→12:55)
[2018-03-30] MEDS ORDERED: DILTIAZEM-CD 240 MG CAP ER PO SCH (09:00)
[2018-03-30] MEDS ORDERED: FUROSEMIDE 40 MG TAB PO SCH (09:00)
[2018-03-30] MEDS ORDERED: FAMOTIDINE 20 MG TAB PO SCH (09:00)
[2018-03-30] MEDS ORDERED: PRAVASTATIN SOD 40 MG TAB PO SCH (09:00)
--- NOTE | 2018-03-30 09:46 | EKG ---
Date Performed: 03/29/2018 Time Performed: 13:30:01 PTAGE: 72 years EKG: ATRIAL FIBRILLATION RIGHT BUNDLE BRANCH BLOCK ANTERIOR MYOCARDIAL INFARCTION , OF INDETERMI TWIN AGE ABNORMAL ECG Compared to PREVIOUS TRACING , the patient now appears to be in atrial fibrillation. PREVIOUS TRACING : 01/09/2012 06.32 DOCTOR: Kirti Mallory Interpretating Date/Time 03/30/2018 09:45:27
[2018-03-30] MEDS ORDERED: HYDR-3288 PO (10:46)
[2018-03-30] MEDS ORDERED: AUGM500T7 PO (10:47)
[2018-03-30] MEDS ORDERED: PERI0.126 SWISH-SPIT (10:47)
[2018-03-30] MEDS ORDERED: methylPREDNISolone ACETATE 80 MG/ML VIAL IM ONE (13:00)
--- NOTE | 2018-03-30 13:48 | MP ---
cc: Pedro Luis Acosta DMD DATE OF OPERATION: 03/29/2018 PREOPERATIVE DIAGNOSIS: Squamous cell carcinoma, anterior mandible of the floor of mouth, T1 N0 M0, periodontally involved teeth 23, 24, 25, 26, 27. POSTOPERATIVE DIAGNOSIS: Squamous cell carcinoma, anterior mandible of the floor of mouth, T1 N0 M0, periodontally involved teeth 23, 24, 25, 26, 27. PROCEDURES PERFORMED: Extraction of teeth #23, 24, 25, 26 and 27. Also, corticotomy anterior mandible, excision of lesion anterior mandible, biopsy of the soft tissue in the bone, with soft tissue frozen sections. SURGEON: Pedro Luis Acosta DMD [employer]ATOR: Mikhail Coleman. ANESTHESIA: General, also 2% lidocaine with 1:200,000 epinephrine, approximately 6 mL, at the end of the case 0.5% Marcaine with 1:200,000 epinephrine, approximately 6 mL. COMPLICATIONS: None. ESTIMATED BLOOD LOSS: 30 mL. DISPOSITION: The patient tolerated the procedure well, extubated and taken to the PACU. INDICATIONS FOR PROCEDURE: Mr. Worrell had previously history of squamous cell carcinoma that was removed to right lateral tongue and down to the floor of the mouth. He presents again with another area, anterior mandible soft tissue floor of the mouth. He continues to smoke and drink. He also has some periodontally involved teeth that is coming into that region. They are mobile. It is necessary that the patient undergo the extraction of the above teeth, corticotomy and excision of this lesion with frozen specimens. Benefits, risks and indication of the procedure, procedure in detail and the options of no treatment, including alternatives were discussed with this patient. Risks not limited to any postop pain, infection, bleeding, damage to adjacent soft tissue or hard tissue, anesthesia complications, numbness, recurrence of this lesion, partial denture fabricated by his dentist later on, possible implants. Possible further surgeries as required. Possible other teeth may need] chemo and radiation. Did discuss perioperatively again, the plan with his daughter, who lives out of state, Wendi Ansari, phone number is [phone]. All questions and concerns were addressed. Consent is signed and in the chart. PROCEDURE IN DETAIL: The patient was admitted perioperatively. Past medical history reviewed, updated, no changes noted. The patient was taken to the operating suite, put on the table in the supine position. He underwent oral intubation. Eyes were taped shut and all pressure points were padded. At this time, a timeout was taken to identify the patient, the site, the procedure and the surgeon. All were in agreement. The patient was prepped with Betadine solution. The patient was draped in normal sterile fashion. At this point, a bite block was gently placed on the left side of the mouth, back of the throat was suctioned. A moistened Ray-Yvonne was used as a throat pack. 2% lidocaine with 1:200,000 epinephrine was injected inferiorly in a bilateral mental nerve block and over the operative site. The mouth was irrigated with Peridex solution. Examination showed periodontally involved anterior dentition. A 15 blade was used to make an incision sulcular around these teeth, canine to canine and a flap was reflected and the teeth were removed with elevator and forceps. A lot of granulation to inflammatory tissue, it feels very spongy, mushy. I cleaned all that thing out and sent also for a biopsy. I then went down to the bone, healthy bone that is noted. Bleeding good healthy bone. No porosity. No weakness in the bone. I took a rongeur and took a piece of the bone out for biopsy. I took a football bur and split down to bone for a corticotomy. Once again, good healthy, solid, dense bone. No porosity and no weakness noted. Attention was now diverted to the floor of the mouth, near the caruncle, the region where the lesion of the squamous cell carcinoma is, going laterally and over the sites of that region. A lacrimal probe was placed inside the end of the duct and the whole duct was removed. An area around that was dissected for lesions. Frozen specimens were sent, sampling on the right side of the lesion was also done down to the floor of the mouth and to the anterior aspect of the mandible. It came back as not clear, including the deep and the left lateral margin. Went back and took out more tissue. It came back the second time as cleare. We went all the way down to floor of the mouth and region of the muscle. I could see the muscle attachment to the mandible. Once all the frozens were clear, the site was now closed with 3-0 Vicryl suture. It was all irrigated with saline solution. Any bleeders were closed cauterized. I noted some areas since the tissue was removed, unable to attach the soft tissue on the anterior aspect of the mandible down to the floor of the tongue. We will wait for that to granulate in. There is high risk of restriction movement of the tongue or pulling the lip into the mouth. To help facilitate the attachment, we put Elastoplast chin dressing with Mastisol on the outside, just to help suspend the lip back into an approximate area. Good salivary flow that is noted from the ducts at this point. The patient was admitted to the ICU for observation. Pain management. At the end of the case, all sponge and needle counts were all accounted for. LASHAY Etienne/THANIA/maritza , 06:55 PM , 07:57 PM
== END 2018-03-30 13:04 | disposition home or self-care (01) | DRG 129 ==
LOC: HSDC 12:37 → HPAC 19:26 → N03A 20:10
PROVIDERS: ADMIT Hospitalist; ATTEND Hospitalist
PROC: 0WB30ZZ Excision of Oral Cavity and Throat, Open Approach (ICD-10-PCS; 2018-03-29)
PROC: 3E0T3BZ Introduction of Anesthetic Agent into Peripheral Nerves and Plexi, Percutaneous Approach (ICD-10-PCS; 2018-03-29)
PROC: 0CDXXZ1 Extraction of Lower Tooth, Multiple, External Approach (ICD-10-PCS; 2018-03-29)
PROC: 0CB Mouth and Throat, Excision (ICD-10-PCS; 2018-03-29)
PROC: 0NBV0ZX Excision of Left Mandible, Open Approach, Diagnostic (ICD-10-PCS; 2018-03-29)
PROC: 0NBT0ZZ Excision of Right Mandible, Open Approach (ICD-10-PCS; principal; 2018-03-29 15:45)
DX: C04.9 Malignant neoplasm of floor of mouth, unspecified (principal); C79.51 Secondary malignant neoplasm of bone; I11.0 Hypertensive heart disease with heart failure; I50.9 Heart failure, unspecified; F03.90 Unspecified dementia, unspecified severity, without behavioral disturbance, psychotic disturbance, mood disturbance, and anxiety; I48.91 Unspecified atrial fibrillation; M79.7 Fibromyalgia; E78.5 Hyperlipidemia, unspecified; E11.9 Type 2 diabetes mellitus without complications; G47.00 Insomnia, unspecified; I87.2 Venous insufficiency (chronic) (peripheral); N40.0 Benign prostatic hyperplasia without lower urinary tract symptoms; K21.9 Gastro-esophageal reflux disease without esophagitis; R01.1 Cardiac murmur, unspecified; M19.90 Unspecified osteoarthritis, unspecified site; F32.9 Major depressive disorder, single episode, unspecified; F41.9 Anxiety disorder, unspecified; F17.210 Nicotine dependence, cigarettes, uncomplicated; Z79.84 Long term (current) use of oral hypoglycemic drugs; Z85.810 Personal history of malignant neoplasm of tongue; Z86.14 Personal history of Methicillin resistant Staphylococcus aureus infection; Z91.19 Patient's noncompliance with other medical treatment and regimen; Z96.653 Presence of artificial knee joint, bilateral
CPT/HCPCS: 80048; 85025; 88305; 88311; 88331; 93005; J0131; J0690; J1100; J2270; J2370; J2405; J2710; J2930; J3010; J7030; J7120

== ENCOUNTER 2018-12-19 00:32 | Inpatient (IN) ==
[2018-12-19] MEDS ORDERED: Piperacil/Tazo 4.5 GM Premix 4.5 GM/100 ML BAG IV.SIG SCH (00:45)
--- NOTE | 2018-12-19 00:52 | ED ---
HPI General Chief complaint: Altered Mental Status Stated complaint: Poss Ams Time Seen by Provider: 12/19/18 00:38 Source: patient and EMS Mode of arrival: EMS Limitations: no limitations History of Present Illness HPI narrative: 73-year-old male with history of hyperlipidemia, malignant neoplasm of the mandible, pneumonia, A. fib, diabetes type 2, COPD, brought in from [facility] and rehab for evaluation cough, congestion, change in mental status. Patient reports that the symptoms have been going on for a couple of days. His chart was reviewed and shows that he was recently admitted for A. fib with RVR. He presents febrile and slightly hypotensive. He denies chest pain. No abdominal pain. Related Data Home Medications Medication Instructions Recorded Confirmed chlorhexidine gluconate [Paroex 1 dose MUCOUS MEMBRANE DIRECTED 08/31/1802/01 Oral Rinse] lovastatin 20 mg PO HS 08/31/18 12/19/18 ranitidine HCl 300 mg PO DAILY 08/31/18 12/19/18 docusate sodium 50 mg PO DAILY 11/17/18 12/19/18 clotrimazole 10 mg MUCOUS MEMBRANE 5 TIMES A DAY 12/01/18 12/19/18 finasteride 5 mg PO DAILY 12/01/18 12/19/18 gabapentin 300 mg PO TID 12/01/18 12/19/18 acetaminophen [Tylenol] 650 mg PO Q6H PRN 12/19/18 12/19/18 hydrocodone-acetaminophen [[place]] 1 tab PO Q6H PRN 12/19/18 12/19/18 insulin lispro [Humalog U-100 1 sliding scale dose SUBCUT UD 12/19/18 12/19/18 Insulin] Previous Rx's Medication Instructions Recorded apixaban [Eliquis] 5 mg PO BID 30 Days #60 tab 11/22/18 alprazolam 2 mg PO HS #10 mg 12/08/18 aspirin 81 mg PO DAILY tab 12/08/18 metoprolol tartrate 12.5 mg PO BID #60 tab 12/08/18 Allergies Allergy/AdvReac Type Severity Reaction Status Date / Time No Known Allergies Allergy Verified 12/01/18 17:43 Review of Systems ROS: all other systems reviewed are negative [facility] Social History Social History Substance History: No History of Abuse Second Hand Smoke Exposure: No Smoking Status: Never smoker Tobacco Type: Cigarettes How Often Do You Have a Drink Containing Alcohol: Never Recent Travel in [facility] within the Last 8 Weeks: No Recent Out of Country Travel within the Last 8 Weeks: No Exam Narrative Exam Narrative: GENERAL: Well-developed, well-nourished, awake, elderly appearing male, intermittent coughing SKIN: Focused skin assessment warm/dry. HEAD: Atraumatic. Normocephalic. EYES: Pupils equal and round. No scleral icterus. No injection or drainage. ENT: No nasal bleeding or discharge. Mucous membranes pink and dry. Obvious deformity to mandible with several missing teeth NECK: Trachea midline. No JVD. CARDIOVASCULAR: Regular rate and rhythm. RESPIRATORY: Coarse breath sounds bilaterally. GASTROINTESTINAL: Abdomen soft, non-tender, nondistended. Hepatic and splenic margins not palpable. MUSCULOSKELETAL: No obvious deformities. No clubbing. No cyanosis. No edema. NEUROLOGICAL: Awake and alert. No obvious cranial nerve deficits. Motor grossly within normal limits. Normal speech. PSYCHIATRIC: Appropriate mood and affect; insight and judgment normal. Course Initial Documented Vital Signs Temperature 99.2 F 12/19/18 00:37 Pulse Rate 95 H 12/19/18 00:37 Respiratory Rate 20 12/19/18 00:37 Blood Pressure 92/60 L 12/19/18 00:37 Pulse Oximetry 99 12/19/18 00:37 Last Documented Vital Signs Temperature 98.0 F 12/19/18 06:38 Pulse Rate 88 12/19/18 06:38 Respiratory Rate 20 12/19/18 06:38 Blood Pressure 109/69 12/19/18 06:38 Pulse Oximetry 100 12/19/18 06:38 Critical Care Time Critical Care Time: Yes Total Critical Care Time: 38 Attestation: Aggregate critical care time was 38 minutes. Time to perform other separately billable procedures was not included in the critical care time. My time did not include minutes spent treating any other patients simultaneously or on activities that did not directly contribute to the patient's treatment. The services I provided to this patient were to treat and/or prevent clinically significant deterioration that could result in: , permanent disability, worsening clinical condition, septic shock I provided critical care services requiring my management, as noted below: Chart data review, documentation time, medication orders and management, vital sign assessments/reviewing monitor data, ordering and reviewing lab tests, ordering and interpreting/reviewing x-rays and diagnostic studies, care of the patient and discussion of the patient with the admitting physicians. Medical Decision Making MDM Narrative Medical decision making narrative: Vital signs reviewed. The patient presents from a assisted with tachycardia, hypoxia, and fever. He was empirically given IV vancomycin and IV Zosyn to cover for possible H CAP as the patient presents with cough and coarse breath sounds bilaterally with recent hospital admission. Chest x-ray: CONCLUSION: No acute cardiopulmonary process. CBC is essentially unremarkable. CMP is essentially unremarkable. BNP is 1074. Troponin is 4.24. CT pulmonary antrum: CONCLUSION:1. No pulmonary embolus.2. Diffuse process in interstitial markings which could suggest mild edema or underlying interstitial disease. Case discussed with hospitalist Dr. Singh who will admit the patient to her service for cardiology consultation. Patient will be started on a heparin drip. Medical Screen Exam Complete: Yes Emergency Medical Condition: Yes Differential Diagnosis Differential Diagnosis: Sepsis, pneumonia, influenza, colitis, COPD exacerbation , URI, PE Lab Data Result diagrams: 12/19/18 01:06 12/19/18 01:06 Lab Results 12/19/18 12/19/18 12/19/18 Range/Units 01:06 01:06 01:06 WBC 10.2 (4.0-11.0) th/mm3 RBC 4.15 L (4.50-5.90) mil/mm3 Hgb 13.0 (13.0-17.0) gm/dL Hct 39.0 (39.0-51.0) % MCV 94.0 (80.0-100.0) fL MCH 31.2 (27.0-34.0) pg MCHC 33.2 (32.0-36.0) % RDW 14.0 (11.6-17.2) % Plt Count 162 (150-450) th/mm3 MPV 9.6 (7.0-11.0) fL Neut % (Auto) 76.7 H (16.0-70.0) % Lymph % (Auto) 12.8 (9.0-44.0) % [place] % (Auto) 9.9 H (0.0-8.0) % Eos % (Auto) 0.1 (0.0-4.0) % Baso % (Auto) 0.5 (0.0-2.0) % Neut # (Auto) 7.8 H (1.8-7.7) th/mm3 Lymph # (Auto) 1.3 (1.0-4.8) th/mm3 [place] # (Auto) 1.0 H (0.0-0.9) th/mm3 Eos # (Auto) 0.0 (0.0-0.4) th/mm3 Baso # (Auto) 0.0 (0.0-0.2) th/mm3 WBC Differential . Differential Comment Auto diff final PT 12.7 H (9.8-11.6) sec INR 1.3 Ratio APTT 36.7 H (23.4-31.7) sec Sodium (136-145) meq/L Potassium (3.5-5.1) meq/L Chloride (98-107) meq/L Carbon Dioxide (21.0-32.0) meq/L Anion Gap (5-15) meq/L BUN (7-18) mg/dL Creatinine (0.60-1.30) mg/dL Estimated GFR (>89) mL/min Random Glucose (74-106) mg/dL Lactic Acid (0.4-2.0) mmol/L Calcium (8.5-10.1) mg/dL Magnesium (1.5-2.5) mg/dL Total Bilirubin (0.2-1.0) mg/dL AST (15-37) U/L ALT (12-78) U/L Alkaline Phosphatase (45-117) U/L Total Creatine Kinase (39-308) U/L Troponin I (0.02-0.05) ng/mL B-Natriuretic Peptide 1074 H (0-100) pg/mL Total Protein (6.4-8.2) g/dL Albumin (3.4-5.0) g/dL Urine Color (Yellw/Straw) Urine Clarity (Clear) Urine pH (5.0-8.5) Ur Specific [place] (1.002-1.035) Urine Protein (Neg-Trace) mg/dL Urine Glucose (UA) (Negative) mg/dL Urine Ketones (Negative) mg/dL Urine Occult Blood (Negative) Urine Nitrate (Negative) Urine Bilirubin (Negative) Urine Urobilinogen (Less than 2) mg/dL Ur Leukocyte Esterase (Negative) Urine RBC (0-3) /hpf Urine WBC (0-5) /hpf Ur Squamous Epith Cells (0-5) /hpf Urine Mucus (Occasional) /lpf Micro UA Comment Ur Microscopic Review Urine Culture Comments 12/19/18 12/19/18 12/19/18 Range/Units 01:06 01:06 01:55 WBC (4.0-11.0) th/mm3 RBC (4.50-5.90) mil/mm3 Hgb (13.0-17.0) gm/dL Hct (39.0-51.0) % MCV (80.0-100.0) fL MCH (27.0-34.0) pg MCHC (32.0-36.0) % RDW (11.6-17.2) % Plt Count (150-450) th/mm3 MPV (7.0-11.0) fL Neut % (Auto) (16.0-70.0) % Lymph % (Auto) (9.0-44.0) % [place] % (Auto) (0.0-8.0) % Eos % (Auto) (0.0-4.0) % Baso % (Auto) (0.0-2.0) % Neut # (Auto) (1.8-7.7) th/mm3 Lymph # (Auto) (1.0-4.8) th/mm3 [place] # (Auto) (0.0-0.9) th/mm3 Eos # (Auto) (0.0-0.4) th/mm3 Baso # (Auto) (0.0-0.2) th/mm3 WBC Differential Differential Comment PT (9.8-11.6) sec INR Ratio APTT (23.4-31.7) sec Sodium 139 (136-145) meq/L Potassium 3.9 (3.5-5.1) meq/L Chloride 102 (98-107) meq/L Carbon Dioxide 31.1 (21.0-32.0) meq/L Anion Gap 6 (5-15) meq/L BUN 20 H (7-18) mg/dL Creatinine 0.78 (0.60-1.30) mg/dL Estimated GFR Greater than 89 (>89) mL/min Random Glucose 114 H (74-106) mg/dL Lactic Acid 1.7 (0.4-2.0) mmol/L Calcium 7.8 L (8.5-10.1) mg/dL Magnesium 2.1 (1.5-2.5) mg/dL Total Bilirubin 1.3 H (0.2-1.0) mg/dL AST 43 H (15-37) U/L ALT 33 (12-78) U/L Alkaline Phosphatase 134 H (45-117) U/L Total Creatine Kinase 86 (39-308) U/L Troponin I 4.24 H* (0.02-0.05) ng/mL B-Natriuretic Peptide (0-100) pg/mL Total Protein 6.7 (6.4-8.2) g/dL Albumin 2.1 L (3.4-5.0) g/dL Urine Color [place] (Yellw/Straw) Urine Clarity Hazy H (Clear) Urine pH 7.0 (5.0-8.5) Ur Specific [place] 1.020 (1.002-1.035) Urine Protein 100 H (Neg-Trace) mg/dL Urine Glucose (UA) Negative (Negative) mg/dL Urine Ketones Negative (Negative) mg/dL Urine Occult Blood Negative (Negative) Urine Nitrate Negative (Negative) Urine Bilirubin Negative (Negative) Urine Urobilinogen 4.0 H (Less than 2) mg/dL Ur Leukocyte Esterase Negative (Negative) Urine RBC 30 H (0-3) /hpf Urine WBC 4 (0-5) /hpf Ur Squamous Epith Cells <1 (0-5) /hpf Urine Mucus Few H (Occasional) /lpf Micro UA Comment Culture not ind Ur Microscopic Review Not Reportable Urine Culture Comments Culture not ind Imaging Data Radiologist's impression: Chest X-Ray 12/19/18 00:42 CONCLUSION: No acute cardiopulmonary process. Chest CTA 12/19/18 02:39 CONCLUSION: 1. No pulmonary embolus. 2. Diffuse process in interstitial markings which could suggest mild edema or underlying interstitial disease. ECG Data Attestation: I personally reviewed and interpreted this ECG as follows: (A. fib rate 106, chronic changes with old appearing Q waves, no acute ST segment abnormalities, essentially unchanged from prior) Discharge Plan Discharge Disposition Patient Disposition: ED Admit(ED Internal Use Only) Discharge Condition Condition: Stable Discharge Order Discharge Orders: ED Use Only Admit Order (Routine); Ordered 12/19/18 Ordered By: Tu Camara Discharge Details Diagnosis: Non-ST elevation [place] (NSTEMI), Pulmonary edema Physicians Team ED Provider: Tu Camara Primary Care Provider: Primary Care Refugio,Shilpi Attending Provider: Valentín Flaherty Other Providers: Ange Fitzpatrick Status ED Status: Admitted Patient
[2018-12-19] MEDS ORDERED: Vancomycin Inj 1,000 MG in Sodium Chlor 0.9% Inj 250 ML IV.SIG SCH (01:00)
--- NOTE | 2018-12-19 01:13 | XR ---
EXAM DATE: 12/19/2018 1:02 AM EST AGE/SEX: 73 years / Male INDICATIONS: Fever. Congestion. CLINICAL DATA: This is the patient's subsequent encounter. Patient reports that signs and symptoms h ave been present for 3 days and indicates a pain score of Nonresponsive. MEDICAL/SURGICAL HISTORY: Non-responsive. Non-responsive. COMPARISON: [facility] [place], CHEST 1V SINGLE AP, 12/01/2018. . FINDINGS: A single AP view of the chest demonstrates the lungs to be symmetrically aerated without evidence of mass, infiltrate or effusion. The cardiomediastinal contours are unremarkable. There is degenerative change at the glenohumeral joints being worse on the right.. CONCLUSION: No acute cardiopulmonary process. Electronically signed by: Chris Nolen MD Board Certified Radiologist 12/19/2018 1:11 AM EST
[2018-12-19] MEDS ORDERED: Acetaminophen 650 MG Supp RECTAL ONE (01:28)
[2018-12-19 01:38] LABS: Baso % (Auto) 0.5 % (0.0-2.0); Eos % (Auto) 0.1 % (0.0-4.0); Lymph # (Auto) 1.3 th/mm3 (1.0-4.8); Lymph % (Auto) 12.8 % (9.0-44.0); Mean Corpuscular HGB Conc 33.2 % (32.0-36.0); Mean Corpuscular Hemoglobin 31.2 pg (27.0-34.0); Mean Platelet Volume 9.6 fL (7.0-11.0); Mono % (Auto) 9.9 % (0.0-8.0); Neut # (Auto) 7.8 th/mm3 (1.8-7.7); Neut % (Auto) 76.7 % (16.0-70.0); Platelet Count 162 th/mm3 (150-450); Red Blood Count 4.15 mil/mm3 (4.50-5.90); White Blood Count 10.2 th/mm3 (4.0-11.0)
[2018-12-19 01:45] LABS: Activated Partial Thrombo Time 36.7 sec (23.4-31.7); INR 1.3 Ratio; Prothrombin Time 12.7 sec (9.8-11.6)
[2018-12-19 02:02] LABS: Alanine Aminotransferase 33 U/L (12-78); Albumin 2.1 g/dL (3.4-5.0); Anion Gap 6 meq/L (5-15); Aspartate Aminotransferase 43 U/L (15-37); Blood Urea Nitrogen 20 mg/dL (7-18); Calcium 7.8 mg/dL (8.5-10.1); Carbon Dioxide 31.1 meq/L (21.0-32.0); Chloride 102 meq/L (98-107); Glomerular Filtration Rate Greater Than 89 mL/min (>89); Glucose,Random 114 mg/dL (74-106); Magnesium 2.1 mg/dL (1.5-2.5); Potassium 3.9 meq/L (3.5-5.1); Sodium 139 meq/L (136-145)
[2018-12-19 02:04] LABS: Alkaline Phosphatase 134 U/L (45-117); Total Protein 6.7 g/dL (6.4-8.2)
[2018-12-19 02:52] LABS: Creatine Kinase 86 U/L (39-308)
[2018-12-19 02:58] LABS: Bilirubin,Urine Negative (Negative); Clarity,Urine Hazy (Clear); Color,Urine Amber (Yellw/Straw); Glucose,Urine (UA) Negative (Negative); Leukocyte Esterase,Urine Negative (Negative); Mucus,Urine Few /lpf (Occasional); Nitrite,Urine Negative (Negative); Squamous Epithelial Cell,Urine <1 /hpf (0-5)
[2018-12-19 03:30] LABS: Troponin I 4.24 ng/mL (0.02-0.05)
--- NOTE | 2018-12-19 03:38 | CT ---
EXAM DATE: 12/19/2018 3:23 AM EST AGE/SEX: 73 years / Male INDICATIONS: Shortness of breath; rule out pulmonary embolus. CLINICAL DATA: This is the patient's initial encounter. Patient reports that signs and symptoms have been present for 1 day and indicates a pain score of 3/10. MEDICAL/SURGICAL HISTORY: Carcinoma, tongue. Dementia. Diabetes. GERD, Hypertension, COPD, Cardi ovascular disease, Aortic stenosis Total knee replacement, left. Total knee replacement, right. Lum bar fusion RADIATION DOSE: 10.70 CTDI (mGy) COMPARISON: [facility], CHEST 1V SINGLE AP, 12/19/2018. . TECHNIQUE: Volumetric scanning was performed using a multi-row detector CT scanner during bolus infu christopher of 75 ml Visipaque 320 (iodixanol) nonionic water-soluble contrast as a single exam dose. The d lizzette was post processed with a variety of visualization algorithms including full volume maximum inten sity projection and sliding thin slab reformation. Using automated exposure control and adjustment of the mA and/or kV according to patient size, radiation dose was kept as low as reasonably achievable to obtain optimal diagnostic quality images. DICOM format image data is available electronically for review and comparison. FINDINGS: Pulmonary Arteries: No filling defects are seen in the pulmonary arteries out to the subsegmental ve ssels. The left and right pulmonary arteries are normal in diameter. Lung: There is diffuse prominence in interstitial markings. There is calcified granuloma in the post erior medial right lower lobe. Effusion: None. Mediastinum: No evidence of mediastinal or hilar adenopathy. Coronary artery calcifications are pres ent. The spaces are seen at the aortic valve level and at the mitral valve annulus. Other: There is degenerative change in the thoracic and upper lumbar spine. Degenerative changes see n in the glenohumeral joints. The patient has a G-tube. CONCLUSION: 1. No pulmonary embolus. 2. Diffuse process in interstitial markings which could suggest mild edema or underlying interstitia l disease. Electronically signed by: Chris Nolen MD Board Certified Radiologist 12/19/2018 3:37 AM EST
[2018-12-19] MEDS ORDERED: Heparin Drip 25,000 UNIT/250 ML BAG IV.CONT STA (04:11)
[2018-12-19] MEDS: Finasteride 5 MG Tablet PO SCH (09:48)
[2018-12-19 10:03] LABS: Activated Partial Thrombo Time 38.7 sec (23.4-31.7); INR 1.2 Ratio
[2018-12-19] MEDS: Heparin Drip 25,000 UNIT/250 ML BAG IV.CONT PRN (10:39)
[2018-12-19 10:47] LABS: Troponin I 2.89 ng/mL (0.02-0.05)
--- NOTE | 2018-12-19 14:06 | ECG ---
Date Performed: 12/19/2018 Time Performed: 01:39:21 PTAGE: 73 years EKG: ATRIAL FIBRILLATION WITH RAPID VENTRICULAR RESPONSE MARKED RIGHT AXIS DEVIATION RIGHT BUNDL E BRANCH BLOCK ANTEROLATERAL MYOCARDIAL INFARCTION MODERATE T-WAVE ABNORMALITY, CONSIDER INFERIOR ISC HEMIA ABNORMAL ECG Since PREVIOUS TRACING , ST-T changes inferiorly slightly more prominent, heart rate is somewha t faster. PREVIOUS TRACIN12/01/2018 22.27 DOCTOR: Carmelo Manning Interpretating Date/Time 12/19/2018 14:04:34
[2018-12-19] MEDS ORDERED: Dextrose 50% in Water 50 ML Vial IV.PUSH PRN (14:36)
--- NOTE | 2018-12-19 14:42 | P.HPIM ---
History of Present Illness Primary Care Physician: No Primary Care Physician Chief Complaint: Shortness of Breath History of Present Illness: Mr. Worrell is a 73-year-old male. He was sent here from his care facility due to altered mental status in the precense of cough and congestion. He came in secondary to cough and congestion and a change in his mental status. He is found to have A. fib RVR at time of admit. Evidence for NSTEMI is present. Pulmonary Edema is present. 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 fib, hyperlipidemia, diabetes type 2, and COPD. On treatment he is improving thus far. Inpatient Certification Inpatient Certification: I certify that the inpatient services were ordered in accordance with Medicare regulations governing the order. This includes certification that hospital inpatient services are reasonable and necessary and in the case of services not specified as inpatient-only under 42 CFR 419.22(n), that they are appropriately provided as inpatient services in accordance to with the 2-midnight benchmark under 43 CFR 412.3(e) Estimated Total Length of Stay (Days): 3 Plans for Post Hospital Care: Not yet determined Review of Systems Constitutional: No fevers, no chills no night sweats, no fatigue, no weakness Eyes: No eye pain, no blurry vision, no loss of vision ENT: No sore throat, no ear pain, no rhinorrhea Cardiovascular: No chest pain, no tachycardia, no palpitations, no syncope Respiratory: No wheezing, cough, shortness of breath Gastrointestinal: No abdominal pain, no black tarry stools, no bright red blood per rectum, no vomiting, no diarrhea Musculoskeletal: No joint pain, no muscle cramps, no stiffness Integumentary: No rash, no ulcers, no drainage Neurologic: No sensory loss, no loss of motor function, no dizziness Psychiatric: No behavioral changes, no hallucinations, no suicidal ideations [facility] Family History Family History Other Osteoarthritis Social History Social History Substance History: No History of Abuse Second Hand Smoke Exposure: No Smoking Status: Never smoker Tobacco Type: Cigarettes How Often Do You Have a Drink Containing Alcohol: Never Recent Travel in [facility] within the Last 8 Weeks: No Recent Out of Country Travel within the Last 8 Weeks: No Immunization History Tetanus Immunization: <5 Years Medications and Allergies Allergies Allergy/AdvReac Type Severity Reaction Status Date / Time No Known Allergies Allergy Verified 12/01/18 17:43 Home Medications Medication Instructions Recorded Confirmed Type chlorhexidine gluconate [Paroex 1 dose MUCOUS MEMBRANE DIRECTED 08/31/1802/01 History Oral Rinse] lovastatin 20 mg PO HS 08/31/18 12/19/18 History ranitidine HCl 300 mg PO DAILY 08/31/18 12/19/18 History docusate sodium 50 mg PO DAILY 11/17/18 12/19/18 History clotrimazole 10 mg MUCOUS MEMBRANE 5 TIMES A DAY 12/01/18 12/19/18 History finasteride 5 mg PO DAILY 12/01/18 12/19/18 History gabapentin 300 mg PO TID 12/01/18 12/19/18 History acetaminophen [Tylenol] 650 mg PO Q6H PRN 12/19/18 12/19/18 History hydrocodone-acetaminophen [[place]] 1 tab PO Q6H PRN 12/19/18 12/19/18 History insulin lispro [Humalog U-100 1 sliding scale dose SUBCUT UD 12/19/18 12/19/18 History Insulin] Active Medications: Active Medications Albuterol (Albuterol Neb (Prn)) 2.5 mg NEB Q4HR NEB PRN PRN Reason: Dyspnea or Wheezing Aspirin (Ecotrin) 325 mg PO DAILY [facility] Last Admin: 12/19/18 09:49 Dose: 325 mg Finasteride (Proscar) 5 mg PO DAILY [facility] Last Admin: 12/19/18 09:48 Dose: 5 mg Piperacillin/Tazobactam/Dextrose (Zosyn 4.5 Gm Premix) 4.5 gm in 100 mls @ 200 mls/hr IV.SIG ONCE [facility] Last Infusion: 12/19/18 01:59 Dose: Infused Vancomycin HCl 1,000 mg/ (Sodium Chloride) 250 mls @ 250 mls/hr IV.SIG FEEDER CATCHER TOBACCO [facility] Last Infusion: 12/19/18 02:36 Dose: Infused Heparin Sodium/Dextrose (Heparin/D5w 25,000 U/250 Ml) 25,000 unit in 250 mls @ 0 mls/hr IV.CONT TITRATE PRN; Protocol PRN Reason: Per Protocol Last Admin: 12/19/18 10:39 Dose: 1,100 units/hr, 11 mls/hr Ondansetron HCl (Zofran Inj) 4 mg IV.PUSH Q6H PRN PRN Reason: NAUSEA OR VOMITING Pravastatin Sodium (Pravachol) 20 mg PO HS [facility] Sodium Chloride (Ns Inj) 2 ml IV.FLUSH BID [facility] Last Admin: 12/19/18 09:52 Dose: 2 ml Sodium Chloride (Ns Inj) 2 ml IV.FLUSH UNSCH PRN PRN Reason: FLUSH AFTER USING IV ACCESS Physical Exam Vital signs: Vital Signs 12/19/18 00:37 12/19/18 00:55 12/19/18 01:46 Temperature 99.2 F Pulse Rate 95 H 97 H 106 H Respiratory Rate 20 20 20 Blood Pressure 92/60 L 90/65 L 100/65 Pulse Oximetry 99 98 100 12/19/18 03:37 12/19/18 04:39 12/19/18 06:38 Temperature 98.6 F 98.0 F Pulse Rate 92 H 96 H 88 Respiratory Rate 20 18 20 Blood Pressure 92/60 L 107/62 109/69 Pulse Oximetry 99 98 100 12/19/18 07:15 12/19/18 08:24 12/19/18 10:50 Temperature 97.7 F 98.3 F Pulse Rate 90 105 H Respiratory Rate 20 20 16 Blood Pressure 108/77 95/70 L Pulse Oximetry 93 L 100 12/19/18 12:48 12/19/18 12:58 Temperature Pulse Rate 105 H Respiratory Rate 16 Blood Pressure 99/74 L 91/67 L Pulse Oximetry Intake & Output 12/18/18 12/19/18 12/19/18 18:59 06:59 18:59 Intake Total 350 / 350 480 / 480 Output Total 0 / 0 Balance 350 / 350 480 / 480 Weight 81.647 kg Intake: IV 350 / 350 Zosyn 4.5 GM Premix 4.5 gm In 100 / 100 100 ml @ 200 mls/hr IV.SIG ONCE [facility] Rx#:[id number] Vancomycin Inj 1,000 MG In NS 250 / 250 Inj 250 ML @ 250 mls/hr IV.SIG FEEDER CATCHER TOBACCO [facility] Rx#:[id number] Water Bolus Amount 480 / 480 Output: Gastric Drainage 0 / 0 Pre-Hospital Left Upper 0 / 0 Quadrant Narrative: GENERAL: NAD, A&Ox3 HEAD: Normocephalic. NECK: Supple, trachea midline. No lymphadenopathy. EYES: No scleral icterus. No injection or drainage. CARDIOVASCULAR: Regular rate and rhythm without murmurs, gallops, or rubs. RESPIRATORY: Breath sounds equal bilaterally. No accessory muscle use. GASTROINTESTINAL: Abdomen soft, non-tender, nondistended. MUSCULOSKELETAL: No cyanosis, or edema. SKIN: Warm and dry. NEURO: No focal neurological deficits. Results Labs CBC & Chem 7: 12/19/18 01:06 12/19/18 01:06 Imaging Impressions Chest X-Ray 12/19/18 00:42 CONCLUSION: No acute cardiopulmonary process. Chest CTA 12/19/18 02:39 CONCLUSION: 1. No pulmonary embolus. 2. Diffuse process in interstitial markings which could suggest mild edema or underlying interstitial disease. Caprini VTE Risk Assessment Caprini VTE Risk Assessment: Moderate/High Risk (score >= 2) Caprini Risk Assessment Model: Point Value = 1 Point Value = 2 Point Value = 3 Point Value = 5 Age 41-60 Minor surgery BMI > 25 kg/m2 Swollen legs Varicose veins or History of unexplained or recurrent spontaneous Oral contraceptives or hormone replacement Sepsis (< 1 month) Serious lung disease, including pneumonia (< 1 month) Abnormal pulmonary function Acute myocardial infarction Congestive heart failure (< 1 month) History of inflammatory bowel disease Medical patient at bed rest Age 61-74 Arthroscopic surgery Major open surgery (> 45 min) Laparoscopic surgery (> 45 min) Malignancy Confined to bed (> 72 hours) Immobilizing plaster cast Central venous access Age >= 75 History of VTE Family history of VTE Factor V Leiden Prothrombin 40303P Lupus anticoagulant Anticardiolipin antibodies Elevated serum homocysteine Heparin-induced thrombocytopenia Other congenital or acquired thrombophilia Stroke (< 1 month) Elective arthroplasty Hip, pelvis, or leg fracture Acute spinal cord injury (< 1 month) Prophylaxis Regimen: Total Risk Factor Score Risk Level Prophylaxis Regimen 0-1 Low Early ambulation 2 Moderate Order ONE of the following: *Sequential Compression Device (SCD) *Heparin 5000 units SQ BID 3-4 Higher Order ONE of the following medications: *Heparin 5000 units SQ TID *Enoxaparin/Lovenox 40 mg SQ daily (WT < 150 kg, CrCl > 30 mL/min) *Enoxaparin/Lovenox 30 mg SQ daily (WT < 150 kg, CrCl > 10-29 mL/min) *Enoxaparin/Lovenox 30 mg SQ BID (WT < 150 kg, CrCl > 30 mL/min) AND/OR *Sequential Compression Device (SCD) 5 or more Highest Order ONE of the following medications: *Heparin 5000 units SQ TID (Preferred with Epidurals) *Enoxaparin/Lovenox 40 mg SQ daily (WT < 150 kg, CrCl > 30 mL/min) *Enoxaparin/Lovenox 30 mg SQ daily (WT < 150 kg, CrCl > 10-29 mL/min) *Enoxaparin/Lovenox 30 mg SQ BID (WT < 150 kg, CrCl > 30 mL/min) AND *Sequential Compression Device (SCD) Assessment and Plan Plan 73-year-old male admitted secondary to shortness of breath with cough. A. fib RVR present at time of admit. A. fib with RVR NSTEMI Evaluate for ACS Follow cardiac enzymes Aspirin daily When necessary oxygen PRN pain treatments When necessary nitroglycerin for chest pain Follow on telemetry Cardiology consult Heparin IV Pulmonary Edema Rate control Diuresis as needed Respiratory support as needed Oxygen Right bundle branch block Aortic stenosis Mitral stenosis History of myocardial infarction Cardiomyopathy Follow on telemetry Continue baseline treatments Possible HealthCare associated Pneumonia Vancomycin Zosyn Follow clinically Follow CBC Hyperlipidemia Continue present treatment Follow as an outpatient General anxiety disorder Benign prostatic hypertrophy Dementia Gastroesophageal reflux disease Osteoarthritis Fibromyalgia No change to baseline management No exacerbations Cancer of the neck Tongue cancer History of skin cancer Follow as an outpatient Hypertension Continue baseline treatment Follow blood pressures Adjust treatments as needed Diabetes mellitus type 2 Follow blood sugars Insulin sliding scale Diabetic diet Chronic kidney disease Avoid nephrotoxins Follow renal function COPD No exacerbation Follow clinically As needed nebulized treatments Nicotine abuse history Patient counseled to quit DVT prophylaxis Heparin
[2018-12-19] MEDS: Insulin NovoLOG Aspart Correctional Sugar Inj SQ SCH ×2 (14:52→22:07)
[2018-12-19 16:57] LABS: Troponin I 2.21 ng/mL (0.02-0.05)
[2018-12-19] MEDS: Morphine Inj 4 MG/ML Vial IV.PUSH PRN (17:10)
[2018-12-19] MEDS: Clotrimazole 10 MG Troche BUCCAL SCH ×2 (18:26→22:07)
[2018-12-19] MEDS: Gabapentin Liq 250 MG/5 ML UDC PO SCH (22:28)
[2018-12-20 01:25] LABS: Baso # (Auto) 0.1 th/mm3 (0.0-0.2); Baso % (Auto) 0.6 % (0.0-2.0); Hematocrit 35.8 % (39.0-51.0); Hemoglobin 11.9 gm/dL (13.0-17.0); Lymph # (Auto) 1.4 th/mm3 (1.0-4.8); Lymph % (Auto) 9.7 % (9.0-44.0); Mean Corpuscular HGB Conc 33.2 % (32.0-36.0); Mean Corpuscular Hemoglobin 31.2 pg (27.0-34.0); Mean Corpuscular Volume 93.9 fL (80.0-100.0); Mean Platelet Volume 9.1 fL (7.0-11.0); Mono # (Auto) 1.3 th/mm3 (0.0-0.9); Mono % (Auto) 9.1 % (0.0-8.0); Neut # (Auto) 11.4 th/mm3 (1.8-7.7); Neut % (Auto) 80.6 % (16.0-70.0); Platelet Count 177 th/mm3 (150-450); Red Blood Count 3.81 mil/mm3 (4.50-5.90); White Blood Count 14.1 th/mm3 (4.0-11.0)
[2018-12-20 01:37] LABS: Alanine Aminotransferase 27 U/L (12-78); Anion Gap 8 meq/L (5-15); Aspartate Aminotransferase 30 U/L (15-37); Blood Urea Nitrogen 20 mg/dL (7-18); Calcium 8.1 mg/dL (8.5-10.1); Carbon Dioxide 28.9 meq/L (21.0-32.0); Chloride 101 meq/L (98-107); Glomerular Filtration Rate Greater Than 89 mL/min (>89); Glucose,Random 101 mg/dL (74-106); Potassium 3.8 meq/L (3.5-5.1); Sodium 138 meq/L (136-145)
[2018-12-20 01:41] LABS: Alkaline Phosphatase 111 U/L (45-117); Total Protein 6.3 g/dL (6.4-8.2)
[2018-12-20 01:50] LABS: Troponin I 2.61 ng/mL (0.02-0.05)
[2018-12-20] MEDS: Heparin Drip 25,000 UNIT/250 ML BAG IV.CONT PRN (03:31)
[2018-12-20] MEDS: Clotrimazole 10 MG Troche BUCCAL SCH ×5 (05:57→21:06)
[2018-12-20] MEDS: Insulin NovoLOG Aspart Correctional Sugar Inj SQ SCH ×3 (06:57→21:21)
[2018-12-20] MEDS: Finasteride 5 MG Tablet PO SCH (09:37)
[2018-12-20] MEDS: Gabapentin Liq 250 MG/5 ML UDC PO SCH ×3 (09:37→17:53)
[2018-12-20] MEDS: Docusate Sodium 100 MG Capsule PO SCH (09:40)
--- NOTE | 2018-12-20 10:12 | MB ---
cc: Ange Fitzpatrick MD DATE: 12/19/2018 REASON FOR CONSULTATION: Atrial fibrillation, altered mental status, increased troponin, non-ST elevation myocardial infarction. HISTORY OF PRESENT ILLNESS: Mr. Worrell is a 73-year-old gentleman with severe hyperlipidemia, malignant neoplasm of mandible, pneumonia, atrial fibrillation, diabetes mellitus, apparently CVA. He was at [facility]. He was brought to the emergency room due to altered mental status and unresponsiveness. Troponin increased. I was consulted for further evaluation and management. The chart was reviewed. The patient was evaluated. Most information obtained from medical record and talking to the nurses. ALLERGIES: NONE. SOCIAL HISTORY: Negative for smoking and drinking. FAMILY HISTORY: Noncontributory to his current medical condition. MEDICATIONS AT SENIOR LIVING: 1. Lovastatin 20 mg a day. 2. Ranitidine. 3. Clotrimazole. 4. Finasteride 5 mg a day. 5. Neurontin 200 mg 3 times a day. 6. Tylenol. 7. [place]. 8. Insulin. HOSPITAL MEDICATIONS: 1. Heparin drip. 2. Piperacillin and tazobactam were added as well as vancomycin. REVIEW OF SYSTEMS: Cannot be performed. The patient can barely respond. PHYSICAL EXAMINATION: GENERAL: Obtunded. I cannot understand what is he pronouncing. Poorly responds. Can barely open his eyes. VITAL SIGNS: Blood pressure 95/70, pulse 105, respiratory rate 20. LUNGS: Ventilated. CARDIOVASCULAR: S1, S2. Regular. There is a systolic ejection murmur 3/6. ABDOMEN: Soft. No mass. No bruits. EXTREMITIES: No edema. DIAGNOSTIC STUDY: Electrocardiogram showed a junctional rhythm with atrial fibrillation with a very controlled heart rate. LABORATORY DATA: Hemoglobin 13, white blood cell 10.0. INR 1.2. Potassium 3.9. Troponin 4.24 on hospitalization. Currently it is coming down to 2.89. Creatinine 0.78. BNP over 8000. ASSESSMENT AND RECOMMENDATIONS: Mr. Worrell's neurological condition is deteriorating. He can barely respond. His blood pressure is borderline. Troponin is 4.24 on hospitalization, but currently it is coming down. He is DO NOT RESUSCITATE. He has multiple comorbidities. This is not a good candidate for left heart catheterization. My recommendation at this point is continue medical management. I will follow him during hospitalization. His condition is critical. His prognosis is poor. MD TYLER Sadler/jacoby , 11:25 AM , 11:35 AM BETZAIDA
--- NOTE | 2018-12-20 10:27 | P.PN ---
Subjective Interval history: Feeling better Physical Exam Vital signs: Vital Signs 12/19/18 10:50 12/19/18 12:48 12/19/18 12:58 Temperature 98.3 F Pulse Rate 105 H 105 H Respiratory Rate 16 16 Blood Pressure 95/70 L 99/74 L 91/67 L Pulse Oximetry 100 12/19/18 16:05 12/19/18 19:00 12/19/18 20:00 Temperature 98.8 F 99.8 F H Pulse Rate 102 H 117 H 114 H Respiratory Rate 18 20 Blood Pressure 104/69 136/87 Pulse Oximetry 98 95 12/19/18 21:00 12/19/18 22:00 12/19/18 23:00 Temperature Pulse Rate 116 H 118 H 111 H Respiratory Rate Blood Pressure Pulse Oximetry 12/20/18 00:00 12/20/18 01:00 12/20/18 02:00 Temperature 99.5 F Pulse Rate 118 H 112 H 116 H Respiratory Rate 20 Blood Pressure 117/85 Pulse Oximetry 96 12/20/18 03:00 12/20/18 03:46 12/20/18 04:00 Temperature 99.2 F Pulse Rate 114 H 112 H 116 H Respiratory Rate 20 Blood Pressure 129/91 H Pulse Oximetry 95 12/20/18 05:00 12/20/18 06:00 12/20/18 07:00 Temperature Pulse Rate 118 H 116 H 102 H Respiratory Rate Blood Pressure Pulse Oximetry 12/20/18 08:00 Temperature 99.2 F Pulse Rate 111 H Respiratory Rate 18 Blood Pressure 113/64 Pulse Oximetry 96 Intake & Output 12/19/18 12/20/18 12/20/18 18:59 06:59 18:59 Intake Total 720 / 720 650 / 650 Output Total 400 / 400 600 / 600 Balance 320 / 320 50 / 50 Weight 80.1 kg Intake: IV 500 / 500 Heparin/D5W 25,000 U/250 mL 25, 250 / 250 000 unit In 250 ml @ Per Protocol IV.CONT TITRATE PRN Rx #:[id number] Water Bolus Amount 720 / 720 150 / 150 Output: Urine 400 / 400 600 / 600 Gastric Drainage 0 / 0 Pre-Hospital Left Upper 0 / 0 Quadrant - Constitutional no acute distress - Routine HEENT Exam Head: Present: normocephalic Eye: Present: PERRL ENT: Present: mucous membranes moist - Routine Respiratory Exam Present: CTA bilaterally - Routine Cardiovascular Exam Present: S1, S2 - Routine Neurological Exam Present: oriented X3 - Detailed Neurological Exam: Coma Scale Eye Opening: Spontaneous Verbal Response: Oriented Motor Response: Obey commands Matteo Coma Scale Total: 15 Results - Labs CBC & Chem 7: 12/20/18 01:12 12/20/18 01:12 Laboratory Results - last 24 hr 12/19/18 12/19/18 12/19/18 09:43 14:51 16:00 WBC RBC Hgb Hct MCV MCH MCHC RDW Plt Count MPV Neut % (Auto) Lymph % (Auto) Stark % (Auto) Eos % (Auto) Baso % (Auto) Neut # (Auto) Lymph # (Auto) Stark # (Auto) Eos # (Auto) Baso # (Auto) WBC Differential Differential Comment APTT Sodium Potassium Chloride Carbon Dioxide Anion Gap BUN Creatinine Estimated GFR POC Glucose 87 Random Glucose Calcium Total Bilirubin AST ALT Alkaline Phosphatase Total Creatine Kinase 122 121 Troponin I 2.89 H* 2.21 H* Total Protein Albumin 12/19/18 12/19/18 12/20/18 17:57 21:01 01:12 WBC RBC Hgb Hct MCV MCH MCHC RDW Plt Count MPV Neut % (Auto) Lymph % (Auto) Stark % (Auto) Eos % (Auto) Baso % (Auto) Neut # (Auto) Lymph # (Auto) Stark # (Auto) Eos # (Auto) Baso # (Auto) WBC Differential Differential Comment APTT 37.1 H 39.9 H Sodium Potassium Chloride Carbon Dioxide Anion Gap BUN Creatinine Estimated GFR POC Glucose 91 Random Glucose Calcium Total Bilirubin AST ALT Alkaline Phosphatase Total Creatine Kinase Troponin I Total Protein Albumin 12/20/18 12/20/18 12/20/18 01:12 01:12 06:32 WBC 14.1 H RBC 3.81 L Hgb 11.9 L Hct 35.8 L MCV 93.9 MCH 31.2 MCHC 33.2 RDW 14.0 Plt Count 177 MPV 9.1 Neut % (Auto) 80.6 H Lymph % (Auto) 9.7 Stark % (Auto) 9.1 H Eos % (Auto) 0.0 Baso % (Auto) 0.6 Neut # (Auto) 11.4 H Lymph # (Auto) 1.4 Stark # (Auto) 1.3 H Eos # (Auto) 0.0 Baso # (Auto) 0.1 WBC Differential . Differential Comment Auto diff final APTT Sodium 138 Potassium 3.8 Chloride 101 Carbon Dioxide 28.9 Anion Gap 8 BUN 20 H Creatinine 0.69 Estimated GFR Greater than 89 POC Glucose 110 Random Glucose 101 Calcium 8.1 L Total Bilirubin 2.0 H AST 30 ALT 27 Alkaline Phosphatase 111 Total Creatine Kinase Troponin I 2.61 H* Total Protein 6.3 L Albumin 2.0 L Assessment and Plan - Assessment (1) NSTEMI (non-ST elevated myocardial infarction) Code(s): I21.4 - Non-ST elevation (NSTEMI) myocardial infarction Status: Acute Plan: Troponin 2.611 No chest pain Out of bed t9oday No SOB multiple comorbidities Not a good candidate for [facility] Medical management for now Will be observed for an extra 24 hrs (2) Chronic atrial fibrillation Code(s): I48.2 - Chronic atrial fibrillation Status: Chronic Plan: HR controlled Doing better today
--- NOTE | 2018-12-20 11:04 | MB ---
cc: Ange Fitzpatrick MD DATE: 12/19/2018 REASON FOR CONSULTATION: Atrial fibrillation, altered mental status, increased troponin, non-ST elevation myocardial infarction. HISTORY OF PRESENT ILLNESS: Mr. Worrell is a 73-year-old gentleman with severe hyperlipidemia, malignant neoplasm of mandible, pneumonia, atrial fibrillation, diabetes mellitus, apparently CVA. He was at [facility]. He was brought to the emergency room due to altered mental status and unresponsiveness. Troponin increased. I was consulted for further evaluation and management. The chart was reviewed. The patient was evaluated. Most information obtained from medical record and talking to the nurses. ALLERGIES: NONE. SOCIAL HISTORY: Negative for smoking and drinking. FAMILY HISTORY: Noncontributory to his current medical condition. MEDICATIONS AT CUSTODIAL: 1. Lovastatin 20 mg a day. 2. Ranitidine. 3. Clotrimazole. 4. Finasteride 5 mg a day. 5. Neurontin 200 mg 3 times a day. 6. Tylenol. 7. [place]. 8. Insulin. HOSPITAL MEDICATIONS: 1. Heparin drip. 2. Piperacillin and tazobactam were added as well as vancomycin. REVIEW OF SYSTEMS: Cannot be performed. The patient can barely respond. PHYSICAL EXAMINATION: GENERAL: Obtunded. I cannot understand what is he pronouncing. Poorly responds. Can barely open his eyes. VITAL SIGNS: Blood pressure 95/70, pulse 105, respiratory rate 20. LUNGS: Ventilated. CARDIOVASCULAR: S1, S2. Regular. There is a systolic ejection murmur 3/6. ABDOMEN: Soft. No mass. No bruits. EXTREMITIES: No edema. DIAGNOSTIC STUDY: Electrocardiogram showed a junctional rhythm with atrial fibrillation with a very controlled heart rate. LABORATORY DATA: Hemoglobin 13, white blood cell 10.0. INR 1.2. Potassium 3.9. Troponin 4.24 on hospitalization. Currently it is coming down to 2.89. Creatinine 0.78. BNP over 8000. ASSESSMENT AND RECOMMENDATIONS: Mr. Worrell's neurological condition is deteriorating. He can barely respond. His blood pressure is borderline. Troponin is 4.24 on hospitalization, but currently it is coming down. He is DO NOT RESUSCITATE. He has multiple comorbidities. This is not a good candidate for left heart catheterization. My recommendation at this point is continue medical management. I will follow him during hospitalization. His condition is critical. His prognosis is poor. MD TYLER Sadler/jacoby , 11:25 AM , 11:35 AM
[2018-12-20] MEDS ORDERED: Acetaminophen 325 MG Tablet PO PRN (11:22)
[2018-12-20] MEDS ORDERED: Chlorhexidine Gluconate 0.12% Liq 15 ML UDC OROPHARYNG SCH (11:30)
--- NOTE | 2018-12-20 12:14 | P.PNIM ---
Subjective Interval history: No further cardiac workup needed. Patient asymptomatic today. Blood cultures are showing positivity, further monitoring needed. Physical Exam Vital signs: Vital Signs 12/19/18 12:48 12/19/18 12:58 12/19/18 16:05 Temperature 98.8 F Pulse Rate 105 H 102 H Respiratory Rate 16 18 Blood Pressure 99/74 L 91/67 L 104/69 Pulse Oximetry 98 12/19/18 19:00 12/19/18 20:00 12/19/18 21:00 Temperature 99.8 F H Pulse Rate 117 H 114 H 116 H Respiratory Rate 20 Blood Pressure 136/87 Pulse Oximetry 95 12/19/18 22:00 12/19/18 23:00 12/20/18 00:00 Temperature 99.5 F Pulse Rate 118 H 111 H 118 H Respiratory Rate 20 Blood Pressure 117/85 Pulse Oximetry 96 12/20/18 01:00 12/20/18 02:00 12/20/18 03:00 Temperature Pulse Rate 112 H 116 H 114 H Respiratory Rate Blood Pressure Pulse Oximetry 12/20/18 03:46 12/20/18 04:00 12/20/18 05:00 Temperature 99.2 F Pulse Rate 112 H 116 H 118 H Respiratory Rate 20 Blood Pressure 129/91 H Pulse Oximetry 95 12/20/18 06:00 12/20/18 07:00 12/20/18 08:00 Temperature 99.2 F Pulse Rate 116 H 102 H 111 H Respiratory Rate 18 Blood Pressure 113/64 Pulse Oximetry 96 12/20/18 09:00 12/20/18 10:00 Temperature Pulse Rate 115 H 112 H Respiratory Rate Blood Pressure Pulse Oximetry Intake & Output 12/19/18 12/20/18 12/20/18 18:59 06:59 18:59 Intake Total 720 / 720 650 / 650 Output Total 400 / 400 600 / 600 Balance 320 / 320 50 / 50 Weight 80.1 kg Intake: IV 500 / 500 Heparin/D5W 25,000 U/250 mL 25, 250 / 250 000 unit In 250 ml @ Per Protocol IV.CONT TITRATE PRN Rx #:[id number] Water Bolus Amount 720 / 720 150 / 150 Output: Urine 400 / 400 600 / 600 Gastric Drainage 0 / 0 Pre-Hospital Left Upper 0 / 0 Quadrant Narrative: GENERAL: NAD, A&Ox3 HEAD: Normocephalic. NECK: Supple, trachea midline. No lymphadenopathy. Jaw deformity status post surgery. EYES: No scleral icterus. No injection or drainage. CARDIOVASCULAR: Regular rate and rhythm without murmurs, gallops, or rubs. RESPIRATORY: Breath sounds equal bilaterally. No accessory muscle use. GASTROINTESTINAL: Abdomen soft, non-tender, nondistended. MUSCULOSKELETAL: No cyanosis, or edema. SKIN: Warm and dry. NEURO: No focal neurological deficits. Results Labs CBC & Chem 7: 12/20/18 01:12 12/20/18 01:12 Labs: Microbiology 12/19/18 01:00 Blood - Peripheral Aerobic Blood Culture - Preliminary gram variable rods 12/19/18 01:00 Blood - Peripheral Anaerobic Blood Culture - Preliminary gram variable rods 12/19/18 01:06 Blood - Peripheral Aerobic Blood Culture - Preliminary gram variable rods 12/19/18 01:06 Blood - Peripheral Anaerobic Blood Culture - Preliminary gram variable rods Assessment and Plan (1) NSTEMI (non-ST elevated myocardial infarction): Code(s): I21.4 - Non-ST elevation (NSTEMI) myocardial infarction Status: Acute Troponin 2.611 No chest pain Out of bed t9oday No SOB multiple comorbidities Not a good candidate for [facility] Medical management for now Will be observed for an extra 24 hrs (2) Chronic atrial fibrillation: Code(s): I48.2 - Chronic atrial fibrillation Status: Chronic HR controlled Doing better today Plan 73-year-old male admitted secondary to shortness of breath with cough. A. fib RVR present at time of admit. No further cardiac workup needed. Patient's neck and rate controlled rhythm. Resume diet. Resume baseline treatments. Continue monitoring blood cultures. Positive blood cultures Possible bacteremia Continue monitoring blood cultures. Continue vancomycin and Zosyn If blood cultures developing continue to show positivity rather than contaminant , consider ID consult A. fib with RVR NSTEMI RVR resolved Evaluate for ACS Follow cardiac enzymes Aspirin daily When necessary oxygen PRN pain treatments When necessary nitroglycerin for chest pain Follow on telemetry Cardiology consult Heparin IV Pulmonary Edema Rate control Diuresis as needed Respiratory support as needed Oxygen Right bundle branch block Aortic stenosis Mitral stenosis History of myocardial infarction Cardiomyopathy Follow on telemetry Continue baseline treatments Possible HealthCare associated Pneumonia Vancomycin Zosyn Follow clinically Follow CBC Hyperlipidemia Continue present treatment Follow as an outpatient General anxiety disorder Benign prostatic hypertrophy Dementia Gastroesophageal reflux disease Osteoarthritis Fibromyalgia No change to baseline management No exacerbations Cancer of the neck Tongue cancer History of skin cancer Follow as an outpatient Hypertension Continue baseline treatment Follow blood pressures Adjust treatments as needed Diabetes mellitus type 2 Follow blood sugars Insulin sliding scale Diabetic diet Chronic kidney disease Avoid nephrotoxins Follow renal function COPD No exacerbation Follow clinically As needed nebulized treatments Nicotine abuse history Patient counseled to quit DVT prophylaxis Heparin Progress Note: Quality VTE Deep Vein Thrombosis/Pulmonary Embolism Present on Admission: No
--- NOTE | 2018-12-20 14:21 | ECG ---
Date Performed: 12/19/2018 Time Performed: 16:09:38 PTAGE: 73 years EKG: Atrial fibrillation with rapid ventricular response with frequent PVCs or aberrant ventricu lar conduction. Lead(s) unsuitable for analysis: V2 Rightward axis Right bundle branch block Lateral infarct - age undetermined Inferior ST-T changes may be due to myocardial ischemia R-wave progression , cannot rule out old anterior infarction Abnormal ECG Compared to PREVIOUS TRACING , frequent PVCs are now noted. PREVIOUS TRACING DOCTOR: Justin Murrieta Interpretating Date/Time 12/20/2018 14:20:31
--- NOTE | 2018-12-20 15:13 | P.DIET ---
Nutritional Evaluation Type of nutrition evaluation: initial Nutrition consult regarding: Tube Feeding Nutrition screening: [facility] [place] (New TF 12/20/2018) Objective - Diagnosis NSTEMI, pulmonary edema - Objective Body Mass Index: 24.6 [place] body weight: 78 kg (172lbs) % IBW: 102 Body Weight Used for Calculations: Actual (80kg) Energy Needs - Lower Range (kCal/kg): 25 Energy Needs - Upper Range (kCal/kg): 30 Lower Limit kCal/kg (kCals): 2,000 Upper Limit kCal/kg (kCals): 2,400 Lower Limit Protein Factor (Grams per Kg): 1.0 Upper Limit Protein Factor (Grams per Kg): 1.2 Lower Protein Needs (Protein): 80 Upper Protein Needs (Protein): 96 Dietitian Reviewed in Medical Record: Curent medications, Labs, Medical history , Tube feeding Diet Order: TF Objective Comments: PMH; extensive PMH Labs; nutritionally unremarkable Medications; insulin Assessment Assessment: New TF; Pt presents to ED from [facility] with AMS, cough and congestion and is currently at nutritional risk related to dependance on TF. Pt currently has PEG in place and TF order is Jevity 1.5 running @50ml/ hour. Will recommend to increase TF to Jevity 1.5 running at 60mls/ hour to provide 2160kcal, 92g protein and 1094ml free water to best meet pt's assessed nutritional needs. Important to note pt is a diabetic however blood sugars are currently under good control which makes Jevity an appropriate formula at this time. Discussed TF order with RN. Labs and medications reviewed. Will continue to monitor tolerance to TF, blood sugars and clinical course. Recommendations: 1. TF recs; Jevity 1.5 running at 60ml/hour to best meet pt's assessed nutritional needs 2. Monitor blood glucose 3. Monitor tolerance to TF Dietitian to Monitor: Lab values, Glucose level, Intake & Output, Tube feeding tolerance, Medical course
[2018-12-20] MEDS: Metoprolol Tartrate 25 MG Tablet PO SCH (21:05)
[2018-12-20] MEDS: Chlorhexidine Gluconate 0.12% Liq 15 ML UDC SWISH-SPIT SCH (21:12)
[2018-12-21] MEDS: Heparin Drip 25,000 UNIT/250 ML BAG IV.CONT PRN (01:18)
[2018-12-21] MEDS: Clotrimazole 10 MG Troche BUCCAL SCH ×5 (05:27→23:26)
[2018-12-21] MEDS: Insulin NovoLOG Aspart Correctional Sugar Inj SQ SCH ×3 (05:27→23:28)
[2018-12-21 06:24] LABS: Baso # (Auto) 0.1 th/mm3 (0.0-0.2); Baso % (Auto) 0.3 % (0.0-2.0); Eos % (Auto) 0.1 % (0.0-4.0); Hematocrit 39.1 % (39.0-51.0); Lymph # (Auto) 2.1 th/mm3 (1.0-4.8); Lymph % (Auto) 10.9 % (9.0-44.0); Mean Corpuscular HGB Conc 33.3 % (32.0-36.0); Mean Corpuscular Volume 93.1 fL (80.0-100.0); Mean Platelet Volume 10.2 fL (7.0-11.0); Mono # (Auto) 1.8 th/mm3 (0.0-0.9); Mono % (Auto) 9.3 % (0.0-8.0); Neut # (Auto) 15.4 th/mm3 (1.8-7.7); Neut % (Auto) 79.4 % (16.0-70.0); Platelet Count 176 th/mm3 (150-450); Red Cell Distribution Width 14.2 % (11.6-17.2); White Blood Count 19.4 th/mm3 (4.0-11.0)
[2018-12-21 06:59] LABS: Alanine Aminotransferase 31 U/L (12-78); Alkaline Phosphatase 130 U/L (45-117); Total Protein 6.4 g/dL (6.4-8.2)
[2018-12-21 07:00] LABS: Albumin 1.9 g/dL (3.4-5.0); Anion Gap 7 meq/L (5-15); Aspartate Aminotransferase 36 U/L (15-37); Blood Urea Nitrogen 22 mg/dL (7-18); Calcium 8.5 mg/dL (8.5-10.1); Carbon Dioxide 30.7 meq/L (21.0-32.0); Chloride 103 meq/L (98-107); Glomerular Filtration Rate Greater Than 89 mL/min (>89); Glucose,Random 149 mg/dL (74-106); Potassium 3.5 meq/L (3.5-5.1); Sodium 141 meq/L (136-145)
--- NOTE | 2018-12-21 07:33 | P.PNCA ---
Subjective Interval history: No chest pain, writes to communicate. Medications and Allergies Active Medications: Active Medications Acetaminophen (Tylenol) 650 mg PO Q6H PRN PRN Reason: Fever Or Pain Last Admin: 12/20/18 21:06 Dose: 650 mg Albuterol (Albuterol Neb (Prn)) 2.5 mg NEB Q4HR NEB PRN PRN Reason: Dyspnea or Wheezing Apixaban (Eliquis) 5 mg PO BID [facility] Last Admin: 12/20/18 21:05 Dose: 5 mg Aspirin (Ecotrin) 81 mg PO DAILY [facility] Chlorhexidine Gluconate (Peridex 0.12% Liq) 10 ml SWISH-SPIT BID [facility] Last Admin: 12/20/18 21:12 Dose: 10 ml Clotrimazole (Mycelex Xavi) 10 mg BUCCAL 5 TIMES A DAY [facility] Last Admin: 12/21/18 05:27 Dose: 10 mg Dextrose (D50w Vial) 50 ml IV.PUSH UNSCH PRN PRN Reason: PER HYPOGLYCEMIA PROTOCOL Docusate Sodium (Colace) 100 mg PO DAILY [facility] Last Admin: 12/20/18 09:40 Dose: Not Given Famotidine (Pepcid) 20 mg PO DAILY [facility] Finasteride (Proscar) 5 mg PO DAILY [facility] Last Admin: 12/20/18 09:37 Dose: 5 mg Gabapentin (Neurontin Liq) 300 mg PO TID [facility] Last Admin: 12/20/18 17:53 Dose: 300 mg Glucagon (Glucagon Inj) 1 mg OTHER PRN PRN PRN Reason: for Hypoglycemia Protocol Piperacillin/Tazobactam/Dextrose (Zosyn 4.5 Gm Premix) 4.5 gm in 100 mls @ 200 mls/hr IV.SIG ONCE [facility] Last Infusion: 12/19/18 01:59 Dose: Infused Vancomycin HCl 1,000 mg/ (Sodium Chloride) 250 mls @ 250 mls/hr IV.SIG VENDING [employer]AND [employer]PER[employer] [facility] Last Infusion: 12/19/18 02:36 Dose: Infused Heparin Sodium/Dextrose (Heparin/D5w 25,000 U/250 Ml) 25,000 unit in 250 mls @ 0 mls/hr IV.CONT TITRATE PRN; Protocol PRN Reason: Per Protocol Last Admin: 12/21/18 01:18 Dose: 1,400 units/hr, 14 mls/hr Insulin Aspart (Novolog Insulin Correctional Sugar Inj) 0 unit SQ Q8HR [facility]; Protocol Last Admin: 12/21/18 05:27 Dose: Not Given Metoprolol Tartrate (Lopressor) 12.5 mg PO BID [facility] Last Admin: 12/20/18 21:05 Dose: 12.5 mg Morphine Sulfate (Morphine Inj) 2 mg IV.PUSH Q4H PRN PRN Reason: Pain 3 to 6 Last Admin: 12/19/18 17:10 Dose: 2 mg Morphine Sulfate (Morphine Inj) 4 mg IV.PUSH Q4H PRN PRN Reason: Pain 7 to 10 Ondansetron HCl (Zofran Inj) 4 mg IV.PUSH Q6H PRN PRN Reason: NAUSEA OR VOMITING Pravastatin Sodium (Pravachol) 20 mg PO [facility] Last Admin: 12/20/18 21:06 Dose: 20 mg Sodium Chloride (Ns Inj) 2 ml IV.FLUSH BID [facility] Last Admin: 12/20/18 21:06 Dose: 2 ml Sodium Chloride (Ns Inj) 2 ml IV.FLUSH UNSCH PRN PRN Reason: FLUSH AFTER USING IV ACCESS Allergies Allergy/AdvReac Type Severity Reaction Status Date / Time No Known Allergies Allergy Verified 12/01/18 17:43 Home Medications Medication Instructions Recorded Confirmed Type chlorhexidine gluconate [Paroex 1 dose MUCOUS MEMBRANE DIRECTED 08/31/1802/01 History Oral Rinse] lovastatin 20 mg PO HS 08/31/18 12/19/18 History ranitidine HCl 300 mg PO DAILY 08/31/18 12/19/18 History docusate sodium 50 mg PO DAILY 11/17/18 12/19/18 History clotrimazole 10 mg MUCOUS MEMBRANE 5 TIMES A DAY 12/01/18 12/19/18 History finasteride 5 mg PO DAILY 12/01/18 12/19/18 History gabapentin 300 mg PO TID 12/01/18 12/19/18 History acetaminophen [Tylenol] 650 mg PO Q6H PRN 12/19/18 12/19/18 History hydrocodone-acetaminophen [[place]] 1 tab PO Q6H PRN 12/19/18 12/19/18 History insulin lispro [Humalog U-100 1 sliding scale dose SUBCUT UD 12/19/18 12/19/18 History Insulin] Physical Exam Vital signs: Vital Signs 12/20/18 08:00 12/20/18 09:00 12/20/18 10:00 Temperature 99.2 F Pulse Rate 111 H 115 H 112 H Respiratory Rate 18 Blood Pressure 113/64 Pulse Oximetry 96 12/20/18 11:00 12/20/18 12:00 12/20/18 13:00 Temperature 97.9 F Pulse Rate 107 H 105 H 107 H Respiratory Rate 18 Blood Pressure 112/90 Pulse Oximetry 99 12/20/18 14:00 12/20/18 15:00 12/20/18 16:00 Temperature 98.9 F Pulse Rate 111 H 105 H 101 H Respiratory Rate 18 Blood Pressure 147/74 H Pulse Oximetry 100 12/20/18 17:00 12/20/18 18:00 12/20/18 19:00 Temperature Pulse Rate 108 H 100 H 110 H Respiratory Rate Blood Pressure Pulse Oximetry 12/20/18 20:00 12/20/18 21:00 12/20/18 22:00 Temperature 102.1 F H Pulse Rate 116 H 116 H 94 H Respiratory Rate 20 Blood Pressure 108/74 Pulse Oximetry 96 12/20/18 23:00 12/20/18 23:48 12/21/18 00:00 Temperature 100.3 F H Pulse Rate 97 H 99 H 96 H Respiratory Rate 18 Blood Pressure 99/63 L Pulse Oximetry 96 12/21/18 01:00 12/21/18 02:00 12/21/18 02:55 Temperature Pulse Rate 95 H 101 H 98 H Respiratory Rate Blood Pressure Pulse Oximetry 12/21/18 03:04 12/21/18 04:00 12/21/18 05:00 Temperature 98.1 F Pulse Rate 98 H 90 80 Respiratory Rate 16 Blood Pressure 105/69 Pulse Oximetry 96 12/21/18 05:52 Temperature Pulse Rate 91 H Respiratory Rate Blood Pressure Pulse Oximetry Intake & Output 12/20/18 12/21/18 12/21/18 18:59 06:59 18:59 Intake Total 1090 / 1090 Output Total 550 / 550 600 / 600 Balance -550 / -550 490 / 490 Weight 172 lb 2.896 oz Intake: IV 250 / 250 Heparin/D5W 25,000 U/250 mL 25, 250 / 250 000 unit In 250 ml @ Per Protocol IV.CONT TITRATE PRN Rx #:[id number] Tube Feeding 600 / 600 Tube Irrigant 240 / 240 Output: Urine 550 / 550 Urine Amount (Catheter) 600 / 600 Condom 600 / 600 Other: # Incontinent Voids 1 Narrative: GENERAL: Well-developed, well-nourished, NAD. SKIN: Warm and dry. HEAD: Normocephalic. EYES: No scleral icterus. No injection or drainage. NECK: Supple, trachea midline. No JVD or lymphadenopathy. CARDIOVASCULAR: S1, S2, irregular rhythm, mildly tachycardic rate, 2/6 BRADEN, no rub/gallop. RESPIRATORY: Breath sounds equal bilaterally. No accessory muscle use. GASTROINTESTINAL: Abdomen soft, non-tender, nondistended. MUSCULOSKELETAL: No cyanosis, or edema. - Urinary Catheter Management Condom Cath placed during this visit: no Results 12/21/18 05:38 12/21/18 05:38 Cardiac Enzymes 12/19/18 12/19/18 12/20/18 Range/Units 09:43 16:00 01:12 AST 30 (15-37) U/L Troponin I 2.89 H* 2.21 H* 2.61 H* (0.02-0.05) ng/mL 12/21/18 Range/Units 05:38 AST 36 (15-37) U/L Troponin I (0.02-0.05) ng/mL Coagulation 12/19/18 12/19/18 12/20/18 Range/Units 09:43 17:57 01:12 PT 12.0 H (9.8-11.6) sec APTT 38.7 H 37.1 H 39.9 H (23.4-31.7) sec 12/20/18 12/20/18 12/21/18 Range/Units 10:47 21:35 05:38 PT (9.8-11.6) sec APTT 37.8 H 39.4 H 27.3 D (23.4-31.7) sec CBC 12/20/18 Range/Units 01:12 WBC 14.1 H (4.0-11.0) th/mm3 RBC 3.81 L (4.50-5.90) mil/mm3 Hgb 11.9 L (13.0-17.0) gm/dL Hct 35.8 L (39.0-51.0) % Plt Count 177 (150-450) th/mm3 Neut # (Auto) 11.4 H (1.8-7.7) th/mm3 Lymph # (Auto) 1.4 (1.0-4.8) th/mm3 Dane # (Auto) 1.3 H (0.0-0.9) th/mm3 Eos # (Auto) 0.0 (0.0-0.4) th/mm3 Baso # (Auto) 0.1 (0.0-0.2) th/mm3 Comprehensive Metabolic Panel 12/20/18 12/21/18 Range/Units 01:12 05:38 Sodium 138 141 (136-145) meq/L Potassium 3.8 3.5 (3.5-5.1) meq/L Chloride 101 103 (98-107) meq/L Carbon Dioxide 28.9 30.7 (21.0-32.0) meq/L BUN 20 H 22 H (7-18) mg/dL Creatinine 0.69 0.72 (0.60-1.30) mg/dL Calcium 8.1 L 8.5 (8.5-10.1) mg/dL AST 30 36 (15-37) U/L ALT 27 31 (12-78) U/L Alkaline Phosphatase 111 130 H (45-117) U/L Total Protein 6.3 L 6.4 (6.4-8.2) g/dL Albumin 2.0 L 1.9 L (3.4-5.0) g/dL Intake and Output 12/20/18 12/21/18 12/21/18 22:59 06:59 14:59 Intake Total 1090 / 1090 Output Total 550 / 550 600 / 600 Balance -550 / -550 490 / 490 Intake: IV 250 / 250 Heparin/D5W 25,000 U/250 mL 25, 250 / 250 000 unit In 250 ml @ Per Protocol IV.CONT TITRATE PRN Rx #:[id number] Tube Feeding 600 / 600 Tube Irrigant 240 / 240 Output: Urine 550 / 550 Urine Amount (Catheter) 600 / 600 Condom 600 / 600 Other: # Incontinent Voids 1 Weight 172 lb 2.896 oz Assessment and Plan - Assessment (1) NSTEMI (non-ST elevated myocardial infarction) Code(s): I21.4 - Non-ST elevation (NSTEMI) myocardial infarction Status: Acute Plan: Denies chest pain today by shaking his head, difficult to communicate with d/t oral impairment. Writes to communicate, on optimal medical management. Not a good candidate for left heart catheterization or coronary intervention at this time. Stable from cardiology standpoint. Will sign off. Reconsult as needed per my discussion with Dr. Fitzpatrick.
[2018-12-21 07:47] LABS: Lymphocytes 10 % (9-44); Monocytes 4 % (0-8)
[2018-12-21 07:48] LABS: Burr Cells 1+; Platelet Estimate Normal (Normal); Platelet Morphology Normal (Normal)
[2018-12-21] MEDS: Famotidine 20 MG Tablet PO SCH (09:01)
[2018-12-21] MEDS: Finasteride 5 MG Tablet PO SCH (09:02)
[2018-12-21] MEDS: Metoprolol Tartrate 25 MG Tablet PO SCH ×2 (09:02→20:38)
[2018-12-21] MEDS: Gabapentin Liq 250 MG/5 ML UDC PO SCH ×3 (09:02→18:34)
[2018-12-21] MEDS: Docusate Sodium 100 MG Capsule PO SCH (09:03)
[2018-12-21] MEDS: Chlorhexidine Gluconate 0.12% Liq 15 ML UDC SWISH-SPIT SCH ×2 (09:03→20:38)
--- NOTE | 2018-12-21 16:49 | P.CONID ---
History of Present Illness Service: Infectious disease Consult date: 12/21/18 Requesting Physician: Elder Brady Reason for Consult: Evaluate patient with gram-negative bacteremia Primary Care Provider: No Primary Care Physician Chief Complaint: Shortness of Breath History of Present Illness: Patient seen and examined. Records reviewed. Patient is a 73-year-old male, came from a rehab facility, brought into the hospital for evaluation of altered mental status. He was also having cough and congestion. 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 The last surgery was done the first week in November and he had an anterior mandibular resection. He was readmitted December 01 and at that time he had A. fib with RVR. He was evaluated by maxillofacial surgery and he had a PEG tube done to increase his nutrition. Of note during that admission he had 2+ blood cultures with Enterobacter. Patient was felt to have a pneumonia at that time and he was given Levaquin when he was discharged from the hospital. On this admission, patient's mental status seems to have improved. He is awake and interacting. He tries to speak, but his speech is very difficult to understand. He has a cough, and he is pulling a lot of oral secretions that he suctions. He has a cough. He has some shortness of breath, and notes some chest pain in the lower quadrants. He was ruled in for RI during this admission , and cardiology evaluated the patient and was not a good candidate for cardiac catheterization. He had a fever of 102. CT of the chest did not show any pulmonary embolism, but it did show some interstitial infiltrates which could be congestion or interstitial disease. He denies any abdominal pain. He has not had any vomiting. No diarrhea. Patient is voiding without any problem. He currently has a condom cath in place. His urinalysis on this admission is unremarkable. His WBC was 14 on admission, and it is up to 19. 2 blood cultures done on admission are now reported as growing gram-negative neo, possibly on Enterobacter. During his last admission he had an echocardiogram and he has evidence of multiple calcifications in his valve namely mitral and aortic valve. Infectious disease consultation has been requested to assist with evaluation and treatment. Review of Systems Constitutional: Reports chills, Reports fever(s), Denies fatigue, Denies headache(s) Eyes: Denies discharge Ears, Nose, Mouth, and Throat: Reports other (multipe mouth surgeries, secretions pool in his mouth), Denies difficulty swallowing, Denies headache(s) Cardiovascular: Reports chest pain, Reports shortness of breath, Denies foot swelling, Denies generalized swelling, Denies leg swelling Respiratory: Reports chest congestion, Reports cough, Reports excessive phlegm production, Reports shortness of breath, Denies coughing up blood Gastrointestinal: Reports abdominal pain, Denies nausea, Denies pain with swallowing, Denies vomiting Genitourinary: Denies difficulty urinating, Denies painful urination Musculoskeletal: Denies joint pain, Denies joint swelling, Denies neck pain Skin/Breast: Denies sores, Denies wounds PMFSH - History History Provided By: Patient, Medical Record - Medical History Medical History: Medical History (Last Reviewed 12/19/18 @ 01:27 by Maryjane Edward) Aortic stenosis, mild Hyperlipidemia Myocardial infarction Pneumonia Right bundle branch block Afib Anxiety Aortic stenosis Arthritis BPH (benign prostatic hyperplasia) CKD (chronic kidney disease) COPD (chronic obstructive pulmonary disease) Cancer Cancer of neck Cardiomyopathy Dementia Diabetes Fibromyalgia GERD (gastroesophageal reflux disease) History of skin cancer Hypertension Mitral stenosis Presence of orthopedic joint implant Short of breath on exertion Smoker Tongue cancer - Surgical History Surgical History: Surgical History (Last Reviewed 12/19/18 @ 01:27 by Maryjane Edward) History of back surgery History of lumbar fusion History of total bilateral knee replacement Hx of rotator cuff surgery S/P ablation of atrial fibrillation - Family History Family History: Family History Other Osteoarthritis - Tobacco History Second Hand Smoke Exposure: No Smoking Status: Never smoker Tobacco Type: Cigarettes - Alcohol History How Often Do You Have a Drink Containing Alcohol: Never - Substance Use History Substance History: No History of Abuse - Travel History Recent Travel in the [place] Within the Last 8 Weeks: No Recent Travel Out of the Country Within the Last 8 Weeks: No - Immunization History Tetanus Immunization: <5 Years Medications and Allergies Active Medications: Active Medications Acetaminophen (Tylenol) 650 mg PO Q6H PRN PRN Reason: Fever Or Pain Last Admin: 12/20/18 21:06 Dose: 650 mg Albuterol (Albuterol Neb (Prn)) 2.5 mg NEB Q4HR NEB PRN PRN Reason: Dyspnea or Wheezing Apixaban (Eliquis) 5 mg PO BID [facility] Last Admin: 12/21/18 09:02 Dose: 5 mg Aspirin (Ecotrin) 81 mg PO DAILY [facility] Last Admin: 12/21/18 09:02 Dose: 81 mg Chlorhexidine Gluconate (Peridex 0.12% Liq) 10 ml SWISH-SPIT BID [facility] Last Admin: 12/21/18 09:03 Dose: 10 ml Clotrimazole (Mycelex Xavi) 10 mg BUCCAL 5 TIMES A DAY [facility] Last Admin: 12/21/18 14:43 Dose: 10 mg Dextrose (D50w Vial) 50 ml IV.PUSH UNSCH PRN PRN Reason: PER HYPOGLYCEMIA PROTOCOL Docusate Sodium (Colace) 100 mg PO DAILY [facility] Last Admin: 12/21/18 09:03 Dose: Not Given Famotidine (Pepcid) 20 mg PO DAILY [facility] Last Admin: 12/21/18 09:01 Dose: 20 mg Finasteride (Proscar) 5 mg PO DAILY [facility] Last Admin: 12/21/18 09:02 Dose: 5 mg Gabapentin (Neurontin Liq) 300 mg PO TID [facility] Last Admin: 12/21/18 14:43 Dose: 300 mg Glucagon (Glucagon Inj) 1 mg OTHER PRN PRN PRN Reason: for Hypoglycemia Protocol Piperacillin/Tazobactam/Dextrose (Zosyn 4.5 Gm Premix) 4.5 gm in 100 mls @ 200 mls/hr IV.SIG ONCE [facility] Last Infusion: 12/19/18 01:59 Dose: Infused Vancomycin HCl 1,000 mg/ (Sodium Chloride) 250 mls @ 250 mls/hr IV.SIG MANAGER MAINTENANCE [facility] Last Infusion: 12/19/18 02:36 Dose: Infused Insulin Aspart (Novolog Insulin Correctional Sugar Inj) 0 unit SQ Q8HR [facility]; Protocol Last Admin: 12/21/18 15:56 Dose: Not Given Metoprolol Tartrate (Lopressor) 12.5 mg PO BID [facility] Last Admin: 12/21/18 09:02 Dose: 12.5 mg Morphine Sulfate (Morphine Inj) 2 mg IV.PUSH Q4H PRN PRN Reason: Pain 3 to 6 Last Admin: 12/19/18 17:10 Dose: 2 mg Morphine Sulfate (Morphine Inj) 4 mg IV.PUSH Q4H PRN PRN Reason: Pain 7 to 10 Ondansetron HCl (Zofran Inj) 4 mg IV.PUSH Q6H PRN PRN Reason: NAUSEA OR VOMITING Pravastatin Sodium (Pravachol) 20 mg PO [facility] Last Admin: 12/20/18 21:06 Dose: 20 mg Sodium Chloride (Ns Inj) 2 ml IV.FLUSH BID [facility] Last Admin: 12/21/18 09:03 Dose: 2 ml Sodium Chloride (Ns Inj) 2 ml IV.FLUSH UNSCH PRN PRN Reason: FLUSH AFTER USING IV ACCESS Allergies Allergy/AdvReac Type Severity Reaction Status Date / Time No Known Allergies Allergy Verified 12/01/18 17:43 Home Medications Medication Instructions Recorded Confirmed Type chlorhexidine gluconate [Paroex 1 dose MUCOUS MEMBRANE DIRECTED 08/31/1802/01 History Oral Rinse] lovastatin 20 mg PO HS 08/31/18 12/19/18 History ranitidine HCl 300 mg PO DAILY 08/31/18 12/19/18 History docusate sodium 50 mg PO DAILY 11/17/18 12/19/18 History clotrimazole 10 mg MUCOUS MEMBRANE 5 TIMES A DAY 12/01/18 12/19/18 History finasteride 5 mg PO DAILY 12/01/18 12/19/18 History gabapentin 300 mg PO TID 12/01/18 12/19/18 History acetaminophen [Tylenol] 650 mg PO Q6H PRN 12/19/18 12/19/18 History hydrocodone-acetaminophen [[place]] 1 tab PO Q6H PRN 12/19/18 12/19/18 History insulin lispro [Humalog U-100 1 sliding scale dose SUBCUT UD 12/19/18 12/19/18 History Insulin] Exam Vital signs: Vital Signs 12/20/18 17:00 12/20/18 18:00 12/20/18 19:00 Temperature Pulse Rate 108 H 100 H 110 H Respiratory Rate Blood Pressure Pulse Oximetry 12/20/18 20:00 12/20/18 21:00 12/20/18 22:00 Temperature 102.1 F H Pulse Rate 116 H 116 H 94 H Respiratory Rate 20 Blood Pressure 108/74 Pulse Oximetry 96 12/20/18 23:00 12/20/18 23:48 12/21/18 00:00 Temperature 100.3 F H Pulse Rate 97 H 99 H 96 H Respiratory Rate 18 Blood Pressure 99/63 L Pulse Oximetry 96 12/21/18 01:00 12/21/18 02:00 12/21/18 02:55 Temperature Pulse Rate 95 H 101 H 98 H Respiratory Rate Blood Pressure Pulse Oximetry 12/21/18 03:04 12/21/18 04:00 12/21/18 05:00 Temperature 98.1 F Pulse Rate 98 H 90 80 Respiratory Rate 16 Blood Pressure 105/69 Pulse Oximetry 96 12/21/18 05:52 12/21/18 07:00 12/21/18 08:00 Temperature 97.7 F Pulse Rate 91 H 100 H 95 H Respiratory Rate 16 Blood Pressure 119/70 Pulse Oximetry 100 12/21/18 09:00 12/21/18 10:00 12/21/18 11:00 Temperature Pulse Rate 103 H 94 H 100 H Respiratory Rate Blood Pressure Pulse Oximetry 12/21/18 12:00 12/21/18 13:00 12/21/18 14:00 Temperature 98.1 F Pulse Rate 107 H 112 H 117 H Respiratory Rate 18 Blood Pressure 128/76 Pulse Oximetry 97 12/21/18 15:00 12/21/18 16:00 Temperature Pulse Rate 105 H 106 H Respiratory Rate Blood Pressure Pulse Oximetry Intake & Output 12/20/18 12/21/18 12/21/18 18:59 06:59 18:59 Intake Total 1090 / 1090 50 / 50 Output Total 550 / 550 600 / 600 Balance -550 / -550 490 / 490 50 / 50 Weight 78.1 kg Intake: IV 250 / 250 50 / 50 Heparin/D5W 25,000 U/250 mL 25, 250 / 250 50 / 50 000 unit In 250 ml @ Per Protocol IV.CONT TITRATE PRN Rx #:[id number] Tube Feeding 600 / 600 Tube Irrigant 240 / 240 Output: Urine 550 / 550 Urine Amount (Catheter) 600 / 600 Condom 600 / 600 Other: # Incontinent Voids 1 Narrative: Physical examination GENERAL: Patient is a well-nourished, well-developed male, awake and alert, not in respiratory distress. He keeps his mouth open, and secretions pooling in his mouth SKIN: Warm and dry. No generalized rash, no ecchymoses and no evidence of embolic lesions noted HEAD: Atraumatic. Normocephalic. No temporal wasting, or tenderness. EYES: [place] conjunctiva. He has petechia bilateral lower lids. No hemorrhage. Pupils equal, round and reactive to light. Extraocular movements full and intact. No scleral icterus. No injection or drainage. EARS, NOSE AND THROAT: Nose without bleeding or purulent nasal discharge. No sinus tenderness. Mucous membranes pink and moist. A lot of secretions pooling at floor of mouth, some white coating on tongue, tongue not moving. NECK: Supple and not tender, no meningeal signs CARDIOVASCULAR: Regular rate and rhythm. HAs harsh systolic murmur L precordium and base of the heart RESPIRATORY: Coarse BS bilaterally ABDOMEN: Soft, non-tender, nondistended. Bowel sounds present and normoactive. No guarding. No rebound. PEG site ok. EXTREMITIES: No clubbing, cyanosis, or edema. Scars both knees, knees looks ok. No calf tenderness. Well perfused and warm. NEUROLOGICAL: Awake and alert. Cranial nerves grossly intact. Motor grossly within normal limits. PSYCHIATRIC: Normal affect, calm and cooperative. LINE: No evidence of infection Results - Labs CBC & Chem 7: 12/21/18 05:38 12/21/18 05:38 Labs: Laboratory Results - last 24 hr 12/20/18 12/20/18 12/21/18 21:11 21:35 05:02 WBC RBC Hgb Hct MCV MCH MCHC RDW Plt Count MPV Prelim Diff (Auto) Neut % (Auto) Lymph % (Auto) [place] % (Auto) Eos % (Auto) Baso % (Auto) Neut # (Auto) Lymph # (Auto) [place] # (Auto) Eos # (Auto) Baso # (Auto) WBC Differential Seg Neuts % (Manual) Band Neuts % (Manual) Lymphocytes % (Manual) Monocytes % (Manual) Basophils % (Manual) Abs Neuts (Manual) Differential Comment Platelet Estimate Platelet Morphology [place] Cells Keratocytes APTT 39.4 H Sodium Potassium Chloride Carbon Dioxide Anion Gap BUN Creatinine Estimated GFR POC Glucose 147 H 139 H Random Glucose Calcium Total Bilirubin AST ALT Alkaline Phosphatase Total Protein Albumin 12/21/18 12/21/18 12/21/18 05:38 05:38 05:38 WBC 19.4 H RBC 4.20 L Hgb 13.0 Hct 39.1 MCV 93.1 MCH 31.0 MCHC 33.3 RDW 14.2 Plt Count 176 MPV 10.2 Prelim Diff (Auto) Slide review pending Neut % (Auto) 79.4 H Lymph % (Auto) 10.9 [place] % (Auto) 9.3 H Eos % (Auto) 0.1 Baso % (Auto) 0.3 Neut # (Auto) 15.4 H Lymph # (Auto) 2.1 [place] # (Auto) 1.8 H Eos # (Auto) 0.0 Baso # (Auto) 0.1 WBC Differential Manual diff final Seg Neuts % (Manual) 79 H Band Neuts % (Manual) 6 Lymphocytes % (Manual) 10 Monocytes % (Manual) 4 Basophils % (Manual) 1 Abs Neuts (Manual) 16.5 H Differential Comment . Platelet Estimate Normal Platelet Morphology Normal Wood Cells 1+ H Keratocytes Occ H APTT 27.3 D Sodium 141 Potassium 3.5 Chloride 103 Carbon Dioxide 30.7 Anion Gap 7 BUN 22 H Creatinine 0.72 Estimated GFR Greater than 89 POC Glucose Random Glucose 149 H Calcium 8.5 Total Bilirubin 1.3 H AST 36 ALT 31 Alkaline Phosphatase 130 H Total Protein 6.4 Albumin 1.9 L 12/21/18 10:36 WBC RBC Hgb Hct MCV MCH MCHC RDW Plt Count MPV Prelim Diff (Auto) Neut % (Auto) Lymph % (Auto) [place] % (Auto) Eos % (Auto) Baso % (Auto) Neut # (Auto) Lymph # (Auto) [place] # (Auto) Eos # (Auto) Baso # (Auto) WBC Differential Seg Neuts % (Manual) Band Neuts % (Manual) Lymphocytes % (Manual) Monocytes % (Manual) Basophils % (Manual) Abs Neuts (Manual) Differential Comment Platelet Estimate Platelet Morphology Wood Cells Keratocytes APTT Sodium Potassium Chloride Carbon Dioxide Anion Gap BUN Creatinine Estimated GFR POC Glucose 142 H Random Glucose Calcium Total Bilirubin AST ALT Alkaline Phosphatase Total Protein Albumin - Imaging Chest X-Ray 12/19/18 00:42 CONCLUSION: No acute cardiopulmonary process. Chest CTA 12/19/18 02:39 CONCLUSION: 1. No pulmonary embolus. 2. Diffuse process in interstitial markings which could suggest mild edema or underlying interstitial disease. Assessment and Plan - Plan Impression Recurrent Enterobacter sepsis, very worrisome for endovascular infection -He has valvular heart disease on his echocardiogram last November NSTEMI Hx oral CA, has had surgeries Risk for recurrent PNA Recommendation Continue Zosyn for now Also on Vanco Repeat BC Repeat echo - would be difficult to do МАРИНА Follow C/S Monitor progress I will determine course of treatment depending on the results of the workup I will follow along with you Thank you for this consultation Explained plan to the patient Discussed with RN D/W Dr Brady (HEPAS)
--- NOTE | 2018-12-21 17:12 | P.PNIM ---
Subjective Interval history: The patient was getting an echocardiogram done. He indicated he was feeling well. He did try to say and write things on paper that were very unclear. He appeared comfortable. Discussed with nursing and infectious disease. Physical Exam Vital signs: Vital Signs 12/20/18 18:00 12/20/18 19:00 12/20/18 20:00 Temperature 102.1 F H Pulse Rate 100 H 110 H 116 H Respiratory Rate 20 Blood Pressure 108/74 Pulse Oximetry 96 12/20/18 21:00 12/20/18 22:00 12/20/18 23:00 Temperature Pulse Rate 116 H 94 H 97 H Respiratory Rate Blood Pressure Pulse Oximetry 12/20/18 23:48 12/21/18 00:00 12/21/18 01:00 Temperature 100.3 F H Pulse Rate 99 H 96 H 95 H Respiratory Rate 18 Blood Pressure 99/63 L Pulse Oximetry 96 12/21/18 02:00 12/21/18 02:55 12/21/18 03:04 Temperature 98.1 F Pulse Rate 101 H 98 H 98 H Respiratory Rate 16 Blood Pressure 105/69 Pulse Oximetry 96 12/21/18 04:00 12/21/18 05:00 12/21/18 05:52 Temperature Pulse Rate 90 80 91 H Respiratory Rate Blood Pressure Pulse Oximetry 12/21/18 07:00 12/21/18 08:00 12/21/18 09:00 Temperature 97.7 F Pulse Rate 100 H 95 H 103 H Respiratory Rate 16 Blood Pressure 119/70 Pulse Oximetry 100 12/21/18 10:00 12/21/18 11:00 12/21/18 12:00 Temperature 98.1 F Pulse Rate 94 H 100 H 107 H Respiratory Rate 18 Blood Pressure 128/76 Pulse Oximetry 97 12/21/18 13:00 12/21/18 14:00 12/21/18 15:00 Temperature Pulse Rate 112 H 117 H 105 H Respiratory Rate Blood Pressure Pulse Oximetry 12/21/18 16:00 12/21/18 17:00 Temperature 98.9 F Pulse Rate 106 H 97 H Respiratory Rate 18 Blood Pressure 101/72 Pulse Oximetry 97 Intake & Output 12/20/18 12/21/18 12/21/18 18:59 06:59 18:59 Intake Total 1090 / 1090 50 / 50 Output Total 550 / 550 600 / 600 Balance -550 / -550 490 / 490 50 / 50 Weight 78.1 kg Intake: IV 250 / 250 50 / 50 Heparin/D5W 25,000 U/250 mL 25, 250 / 250 50 / 50 000 unit In 250 ml @ Per Protocol IV.CONT TITRATE PRN Rx #:[id number] Tube Feeding 600 / 600 Tube Irrigant 240 / 240 Output: Urine 550 / 550 Urine Amount (Catheter) 600 / 600 Condom 600 / 600 Other: # Incontinent Voids 1 Narrative: GENERAL: NAD, difficult to understand speech. HEAD: Normocephalic. NECK: Supple, trachea midline. No lymphadenopathy. Jaw deformity status post surgery. EYES: No scleral icterus. No injection or drainage. CARDIOVASCULAR: Regular rate and rhythm. Systolic murmur appreciated. RESPIRATORY: Breath sounds equal bilaterally. No accessory muscle use. GASTROINTESTINAL: Abdomen soft, non-tender, nondistended. MUSCULOSKELETAL: No cyanosis, or edema. SKIN: Warm and dry. NEURO: No focal neurological deficits. Urinary Catheter Management Condom: Cath placed during this visit: no Results Labs CBC & Chem 7: 12/21/18 05:38 12/21/18 05:38 Labs: Microbiology 12/19/18 01:00 Blood - Peripheral Aerobic Blood Culture - Preliminary Enterobacter species 12/19/18 01:00 Blood - Peripheral Anaerobic Blood Culture - Preliminary Enterobacter species 12/19/18 01:06 Blood - Peripheral Aerobic Blood Culture - Preliminary Enterobacter species 12/19/18 01:06 Blood - Peripheral Anaerobic Blood Culture - Preliminary Enterobacter species Assessment and Plan (1) NSTEMI (non-ST elevated myocardial infarction): Code(s): I21.4 - Non-ST elevation (NSTEMI) myocardial infarction Status: Acute Plan 73-year-old male admitted secondary to shortness of breath with cough. A. fib RVR present at time of admit. Bacteremia ID consult appreciated. -Continue vancomycin and Zosyn. -echo pending. -repeat BCs. A. fib with RVR/NSTEMI/CAD/ Cardiology consult appreciated. -Aspirin daily -When necessary oxygen -Follow on telemetry -Eliquis. Pulmonary Edema -Diuresis as needed -Respiratory support as needed -Oxygen as needed. -repeat CXR. Possible HealthCare associated Pneumonia -Vancomycin/Zosyn -ID following. Cancer of the neck/Tongue cancer/History of skin cancer Speech following. -continue tube feeds. -Follow as an outpatient Diabetes mellitus type 2 -Follow blood sugars -Insulin sliding scale -Diabetic diet COPD CTA indicative of mild edema or ILD. -nebs. -repeat CXR. -Patient counseled to quit smoking. DVT prophylaxis Heparin Progress Note: Quality VTE Deep Vein Thrombosis/Pulmonary Embolism Present on Admission: No
--- NOTE | 2018-12-21 17:45 | XR ---
EXAM DATE: 12/21/2018 5:39 PM EST AGE/SEX: 73 years / Male INDICATIONS: Short of breath. CLINICAL DATA: This is the patient's subsequent encounter. Patient reports that signs and symptoms h ave been present for 2 weeks and indicates a pain score of 0/10. MEDICAL/SURGICAL HISTORY: . Carcinoma, tongue. Dementia. Diabetes. GERD, Hypertension, COPD, Ca rdiovascular disease, Aortic stenosis . Total knee replacement, left. Total knee replacement, right . Lumbar fusion COMPARISON: C, CHEST 1V SINGLE AP, 12/19/2018. . FINDINGS: A single AP view of the chest demonstrates the lungs to be symmetrically aerated without evidence of mass, infiltrate or effusion. The cardiomediastinal contours are unremarkable. Osseous structures a re intact. CONCLUSION: The lungs are clear. Electronically signed by: Dixon Bingham MD Board Certified Radiologist 12/21/2018 5:43 PM EST
[2018-12-21] MEDS: Morphine Inj 4 MG/ML Vial IV.PUSH PRN (20:37)
[2018-12-22] MEDS: Clotrimazole 10 MG Troche BUCCAL SCH ×4 (05:09→17:24)
[2018-12-22] MEDS: Morphine Inj 4 MG/ML Vial IV.PUSH PRN (05:13)
[2018-12-22 06:32] LABS: Baso # (Auto) 0.1 th/mm3 (0.0-0.2); Baso % (Auto) 0.3 % (0.0-2.0); Eos % (Auto) 0.1 % (0.0-4.0); Lymph # (Auto) 0.8 th/mm3 (1.0-4.8); Lymph % (Auto) 5.3 % (9.0-44.0); Mean Corpuscular HGB Conc 33.4 % (32.0-36.0); Mean Corpuscular Hemoglobin 31.3 pg (27.0-34.0); Mean Corpuscular Volume 93.6 fL (80.0-100.0); Mean Platelet Volume 9.9 fL (7.0-11.0); Mono # (Auto) 1.3 th/mm3 (0.0-0.9); Mono % (Auto) 8.2 % (0.0-8.0); Neut # (Auto) 13.7 th/mm3 (1.8-7.7); Neut % (Auto) 86.1 % (16.0-70.0); Platelet Count 190 th/mm3 (150-450); Red Blood Count 4.17 mil/mm3 (4.50-5.90); Red Cell Distribution Width 14.2 % (11.6-17.2); White Blood Count 15.9 th/mm3 (4.0-11.0)
[2018-12-22 06:45] LABS: Anion Gap 7 meq/L (5-15); Blood Urea Nitrogen 19 mg/dL (7-18); Calcium 8.3 mg/dL (8.5-10.1); Carbon Dioxide 32.5 meq/L (21.0-32.0); Chloride 103 meq/L (98-107); Glomerular Filtration Rate Greater Than 89 mL/min (>89); Glucose,Random 132 mg/dL (74-106); Phosphorus 2.3 mg/dL (2.5-4.9); Potassium 3.5 meq/L (3.5-5.1); Sodium 142 meq/L (136-145)
[2018-12-22] MEDS: Insulin NovoLOG Aspart Correctional Sugar Inj SQ SCH ×2 (07:33→13:16)
[2018-12-22] MEDS: Famotidine 20 MG Tablet PO SCH (09:02)
[2018-12-22] MEDS: Metoprolol Tartrate 25 MG Tablet PO SCH ×2 (09:02→22:15)
[2018-12-22] MEDS: Finasteride 5 MG Tablet PO SCH (09:03)
[2018-12-22] MEDS: Chlorhexidine Gluconate 0.12% Liq 15 ML UDC SWISH-SPIT SCH ×2 (09:03→22:16)
[2018-12-22] MEDS: Docusate Sodium 100 MG Capsule PO SCH (09:04)
[2018-12-22] MEDS: Gabapentin Liq 250 MG/5 ML UDC PO SCH ×3 (09:04→17:24)
--- NOTE | 2018-12-22 10:27 | P.PNID ---
Subjective Remarks: Patient is a 73-year-old male, came from a rehab facility, brought into the hospital for evaluation of altered mental status. He was also having cough and congestion. 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 The last surgery was done the first week in November and he had an anterior mandibular resection. He was readmitted December 01 and at that time he had A. fib with RVR. He was evaluated by maxillofacial surgery and he had a PEG tube done to increase his nutrition. Of note during that admission he had 2+ blood cultures with Enterobacter. Patient was felt to have a pneumonia at that time and he was given Levaquin when he was discharged from the hospital. On this admission, patient's mental status seems to have improved. He is awake and interacting. He tries to speak, but his speech is very difficult to understand. He has a cough, and he is pulling a lot of oral secretions that he suctions. He has a cough. He has some shortness of breath, and notes some chest pain in the lower quadrants. He was ruled in for NE during this admission , and cardiology evaluated the patient and was not a good candidate for cardiac catheterization. He had a fever of 102. CT of the chest did not show any pulmonary embolism, but it did show some interstitial infiltrates which could be congestion or interstitial disease. He denies any abdominal pain. He has not had any vomiting. No diarrhea. Patient is voiding without any problem. He currently has a condom cath in place. His urinalysis on this admission is unremarkable. His WBC was 14 on admission, and it is up to 19. 2 blood cultures done on admission are now reported as growing gram-negative neo, possibly on Enterobacter. During his last admission he had an echocardiogram and he has evidence of multiple calcifications in his valve namely mitral and aortic valve. Infectious disease consultation has been requested to assist with evaluation and treatment. Notes reviewed Temps 99+ BC yesterday all with GNR Adm BC with Enterobacter WBC slightly lower Had some SOB - CXR clear Antibiotics: Zosyn Past Medical History: Reviewed Allergies/Adverse Reactions: Allergies No Known Allergies Allergy (Verified 12/01/18 17:43) Objective Vital Signs 12/21/18 11:00 12/21/18 12:00 12/21/18 13:00 Temperature 98.1 F Pulse Rate 100 H 107 H 112 H Respiratory Rate 18 Blood Pressure 128/76 Pulse Oximetry 97 12/21/18 14:00 12/21/18 15:00 12/21/18 16:00 Temperature 98.9 F Pulse Rate 117 H 105 H 106 H Respiratory Rate 18 Blood Pressure 101/72 Pulse Oximetry 97 12/21/18 17:00 12/21/18 18:00 12/21/18 19:00 Temperature Pulse Rate 97 H 94 H 96 H Respiratory Rate Blood Pressure Pulse Oximetry 12/21/18 20:00 12/21/18 21:00 12/21/18 22:00 Temperature 97.6 F Pulse Rate 96 H 96 H 94 H Respiratory Rate 19 Blood Pressure 106/67 Pulse Oximetry 100 12/21/18 23:00 12/22/18 00:00 12/22/18 01:00 Temperature 97.4 F L Pulse Rate 100 H 100 H 96 H Respiratory Rate 20 Blood Pressure 98/62 L Pulse Oximetry 97 12/22/18 02:00 12/22/18 03:00 12/22/18 04:00 Temperature 99.4 F Pulse Rate 96 H 114 H 100 H Respiratory Rate 22 Blood Pressure 121/88 Pulse Oximetry 94 L 12/22/18 05:00 12/22/18 06:00 12/22/18 07:00 Temperature Pulse Rate 114 H 116 H 122 H Respiratory Rate Blood Pressure Pulse Oximetry 12/22/18 08:00 Temperature 98.2 F Pulse Rate 118 H Respiratory Rate 22 Blood Pressure 102/66 Pulse Oximetry 94 L Intake & Output 12/21/18 12/22/18 12/22/18 18:59 06:59 18:59 Intake Total 50 / 50 544 / 544 Output Total 400 / 400 450 / 450 Balance -350 / -350 94 / 94 Weight 78.4 kg Intake: IV 50 / 50 Heparin/D5W 25,000 U/250 mL 25, 50 / 50 000 unit In 250 ml @ Per Protocol IV.CONT TITRATE PRN Rx #:[id number] Tube Feeding 344 / 344 Water Bolus Amount 200 / 200 Output: Urine 400 / 400 Urine Amount (Catheter) 450 / 450 Condom 450 / 450 Other: Date of Last Bowel Movement 12/20/18 12/19/18 01:06 Blood - Peripheral Aerobic Blood Culture - Final Enterobacter cloacae 12/19/18 01:06 Blood - Peripheral Anaerobic Blood Culture - Final Enterobacter cloacae 12/19/18 01:00 Blood - Peripheral Aerobic Blood Culture - Final Enterobacter cloacae 12/19/18 01:00 Blood - Peripheral Anaerobic Blood Culture - Final Enterobacter cloacae 12/21/18 19:08 Blood - Peripheral Aerobic Blood Culture - Pending 12/21/18 19:08 Blood - Peripheral Anaerobic Blood Culture - Pending 12/21/18 18:32 Blood - Peripheral Aerobic Blood Culture - Pending 12/21/18 18:32 Blood - Peripheral Anaerobic Blood Culture - Pending 12/21/18 18:25 Blood - Peripheral Aerobic Blood Culture - Pending 12/21/18 18:25 Blood - Peripheral Anaerobic Blood Culture - Pending Lab - Hematology Results 12/21/18 12/22/18 05:38 06:07 WBC 19.4 H 15.9 H RBC 4.20 L 4.17 L Hgb 13.0 13.0 Hct 39.1 39.0 MCV 93.1 93.6 MCH 31.0 31.3 MCHC 33.3 33.4 RDW 14.2 14.2 Plt Count 176 190 MPV 10.2 9.9 Prelim Diff (Auto) Slide review pending Neut % (Auto) 79.4 H 86.1 H Lymph % (Auto) 10.9 5.3 L [place] % (Auto) 9.3 H 8.2 H Eos % (Auto) 0.1 0.1 Baso % (Auto) 0.3 0.3 Neut # (Auto) 15.4 H 13.7 H Lymph # (Auto) 2.1 0.8 L [place] # (Auto) 1.8 H 1.3 H Eos # (Auto) 0.0 0.0 Baso # (Auto) 0.1 0.1 WBC Differential Manual diff final . Seg Neuts % (Manual) 79 H Band Neuts % (Manual) 6 Lymphocytes % (Manual) 10 Monocytes % (Manual) 4 Basophils % (Manual) 1 Abs Neuts (Manual) 16.5 H Differential Comment . Auto diff final Platelet Estimate Normal Platelet Morphology Normal [place] Cells 1+ H Keratocytes Occ H Lab - Chemistry Results 12/20/18 12/20/18 12/21/18 12:37 21:11 05:02 Sodium Potassium Chloride Carbon Dioxide Anion Gap BUN Creatinine Estimated GFR POC Glucose 125 H 147 H 139 H Random Glucose Calcium Phosphorus Magnesium Total Bilirubin AST ALT Alkaline Phosphatase Total Protein Albumin 12/21/18 12/21/18 12/21/18 05:38 10:36 23:27 Sodium 141 Potassium 3.5 Chloride 103 Carbon Dioxide 30.7 Anion Gap 7 BUN 22 H Creatinine 0.72 Estimated GFR Greater than 89 POC Glucose 142 H 149 H Random Glucose 149 H Calcium 8.5 Phosphorus Magnesium Total Bilirubin 1.3 H AST 36 ALT 31 Alkaline Phosphatase 130 H Total Protein 6.4 Albumin 1.9 L 12/22/18 06:07 Sodium 142 Potassium 3.5 Chloride 103 Carbon Dioxide 32.5 H Anion Gap 7 BUN 19 H Creatinine 0.70 Estimated GFR Greater than 89 POC Glucose Random Glucose 132 H Calcium 8.3 L Phosphorus 2.3 L Magnesium 2.0 Total Bilirubin AST ALT Alkaline Phosphatase Total Protein Albumin Imaging: ITS Impressions Chest CTA 12/19/18 02:39 CONCLUSION: 1. No pulmonary embolus. 2. Diffuse process in interstitial markings which could suggest mild edema or underlying interstitial disease. Chest X-Ray 12/21/18 17:17 CONCLUSION: The lungs are clear. Physical Exam: GENERAL: awake and alert, not in respiratory distress. He keeps his mouth open, and secretions pooling in his mouth SKIN: Warm and dry. No generalized rash, no ecchymoses and no evidence of embolic lesions noted HEAD: Atraumatic. Normocephalic. No temporal wasting, or tenderness. EYES: [place] conjunctiva. He has petechia bilateral lower lids. No hemorrhage. Pupils equal, round and reactive to light. Extraocular movements full and intact. No scleral icterus. No injection or drainage. EARS, NOSE AND THROAT: Nose without bleeding or purulent nasal discharge. No sinus tenderness. Mucous membranes pink and moist. A lot of secretions pooling at floor of mouth, some white coating on tongue, tongue not moving. NECK: Supple and not tender, no meningeal signs CARDIOVASCULAR: Regular rate and rhythm. HAs harsh systolic murmur L precordium and base of the heart RESPIRATORY: Coarse BS bilaterally ABDOMEN: Soft, non-tender, nondistended. Bowel sounds present and normoactive. No guarding. No rebound. PEG site ok. EXTREMITIES: No clubbing, cyanosis, or edema. Scars both knees, knees looks ok. No calf tenderness. Well perfused and warm. NEUROLOGICAL: Awake and alert. Cranial nerves grossly intact. Motor grossly within normal limits. PSYCHIATRIC: Normal affect, calm and cooperative. LINE: No evidence of infection Assessment and Plan - Plan Impression Recurrent Enterobacter sepsis, very worrisome for endovascular infection -He has valvular heart disease on his echocardiogram last November NSTEMI Hx oral CA, has had surgeries Risk for recurrent PNA Recommendation Continue Zosyn for now Repeat BC to document clearing Repeat echo - would be difficult to do МАРИНА Follow C/S Monitor progress CT A/P
[2018-12-22] MEDS ORDERED: Diatrizoate Meglum/Diatrizoate Sod Liq 9 ML UDC PO ONE (10:45)
--- NOTE | 2018-12-22 11:51 | P.PNIM ---
Subjective Interval history: The patient was resting in bed comfortably. He did not feel like writing on his white board. Discussed with nursing who reported that the patient's daughter wished to speak over the phone. The patient's daughter was curious about the status of water around the patient's heart. She was updated with the clinical condition of her father. Physical Exam Vital signs: Vital Signs 12/21/18 12:00 12/21/18 13:00 12/21/18 14:00 Temperature 98.1 F Pulse Rate 107 H 112 H 117 H Respiratory Rate 18 Blood Pressure 128/76 Pulse Oximetry 97 12/21/18 15:00 12/21/18 16:00 12/21/18 17:00 Temperature 98.9 F Pulse Rate 105 H 106 H 97 H Respiratory Rate 18 Blood Pressure 101/72 Pulse Oximetry 97 12/21/18 18:00 12/21/18 19:00 12/21/18 20:00 Temperature 97.6 F Pulse Rate 94 H 96 H 96 H Respiratory Rate 19 Blood Pressure 106/67 Pulse Oximetry 100 12/21/18 21:00 12/21/18 22:00 12/21/18 23:00 Temperature Pulse Rate 96 H 94 H 100 H Respiratory Rate Blood Pressure Pulse Oximetry 12/22/18 00:00 12/22/18 01:00 12/22/18 02:00 Temperature 97.4 F L Pulse Rate 100 H 96 H 96 H Respiratory Rate 20 Blood Pressure 98/62 L Pulse Oximetry 97 12/22/18 03:00 12/22/18 04:00 12/22/18 05:00 Temperature 99.4 F Pulse Rate 114 H 100 H 114 H Respiratory Rate 22 Blood Pressure 121/88 Pulse Oximetry 94 L 12/22/18 06:00 12/22/18 07:00 12/22/18 08:00 Temperature 98.2 F Pulse Rate 116 H 122 H 118 H Respiratory Rate 22 Blood Pressure 102/66 Pulse Oximetry 94 L Intake & Output 12/21/18 12/22/18 12/22/18 18:59 06:59 18:59 Intake Total 50 / 50 544 / 544 Output Total 400 / 400 450 / 450 Balance -350 / -350 94 / 94 Weight 78.4 kg Intake: IV 50 / 50 Heparin/D5W 25,000 U/250 mL 25, 50 / 50 000 unit In 250 ml @ Per Protocol IV.CONT TITRATE PRN Rx #:[id number] Tube Feeding 344 / 344 Water Bolus Amount 200 / 200 Output: Urine 400 / 400 Urine Amount (Catheter) 450 / 450 Condom 450 / 450 Other: Date of Last Bowel Movement 12/20/18 Narrative: GENERAL: NAD, difficult to understand speech. HEAD: Normocephalic. NECK: Supple, trachea midline. No lymphadenopathy. Jaw deformity status post surgery. EYES: No scleral icterus. No injection or drainage. CARDIOVASCULAR: Regular rate and rhythm. Systolic murmur appreciated. RESPIRATORY: Breath sounds equal bilaterally. No accessory muscle use. GASTROINTESTINAL: Abdomen soft, non-tender, nondistended. MUSCULOSKELETAL: No cyanosis, or edema. SKIN: Warm and dry. NEURO: No focal neurological deficits. Urinary Catheter Management Condom: Cath placed during this visit: no Results Labs CBC & Chem 7: 12/22/18 06:07 12/22/18 06:07 Labs: Microbiology 12/21/18 19:08 Blood - Peripheral Aerobic Blood Culture - Preliminary gram negative rods 12/21/18 19:08 Blood - Peripheral Anaerobic Blood Culture - Preliminary gram negative rods 12/21/18 18:32 Blood - Peripheral Aerobic Blood Culture - Preliminary gram negative rods 12/21/18 18:32 Blood - Peripheral Anaerobic Blood Culture - Preliminary gram negative rods 12/21/18 18:25 Blood - Peripheral Aerobic Blood Culture - Preliminary gram negative rods 12/21/18 18:25 Blood - Peripheral Anaerobic Blood Culture - Preliminary gram negative rods 12/19/18 01:06 Blood - Peripheral Aerobic Blood Culture - Final Enterobacter cloacae 12/19/18 01:06 Blood - Peripheral Anaerobic Blood Culture - Final Enterobacter cloacae 12/19/18 01:00 Blood - Peripheral Aerobic Blood Culture - Final Enterobacter cloacae 12/19/18 01:00 Blood - Peripheral Anaerobic Blood Culture - Final Enterobacter cloacae Imaging Imaging: Impressions Chest X-Ray 12/21/18 17:17 CONCLUSION: The lungs are clear. Assessment and Plan Plan 73-year-old male admitted secondary to shortness of breath with cough. A. fib RVR present at time of admit. Bacteremia ID consult appreciated. Consider abdominal infection vs infection from recent jaw surgery. -Continue vancomycin and Zosyn. -repeat echo pending. -follow repeat BCs. -CT abdomen/pelvis and neck with contrast pending. -follow up with ID. A. fib with RVR/NSTEMI/CAD/ Cardiology consult appreciated. -Aspirin daily -When necessary oxygen -Follow on telemetry -Eliquis. Possible HealthCare associated Pneumonia Repeat CXR with clear lungs. -Vancomycin/Zosyn -ID following. Cancer of the neck/Tongue cancer/History of skin cancer Speech following. -continue tube feeds. -Follow as an outpatient. -ct neck pending. Diabetes mellitus type 2 Well controlled. -Follow blood sugars. -Insulin sliding scale. -Diabetic diet. COPD CTA indicative of mild edema or ILD. -nebs. -Patient counseled to quit smoking. DVT prophylaxis: Heparin Progress Note: Quality VTE Deep Vein Thrombosis/Pulmonary Embolism Present on Admission: No
[2018-12-22] MEDS: Sodium Chloride 0.45 % Inj 1,000 ML IV.CONT SCH (12:27)
--- NOTE | 2018-12-22 15:37 | CT ---
EXAM DATE: 12/22/2018 3:28 PM EST AGE/SEX: 73 years / Male INDICATIONS: Abdominal pain and recent gastrostomy tube placement. Patient being evaluated for possi ble abscess. CLINICAL DATA: This is the patient's initial encounter. Patient reports that signs and symptoms have been present for 2 days and indicates a pain score of 4/10. MEDICAL/SURGICAL HISTORY: Diabetes. Myocardial infarction. Hypertension. Dementia. None. ORAL CONTRAST: Prescribed oral contrast ingested. RADIATION DOSE: 15.75 CTDI (mGy) COMPARISON: No prior exams available for comparison. TECHNIQUE: Multiple contiguous axial images were obtained through the abdomen and pelvis following b olus infusion of 50 ml Omnipaque 350 (iohexol) nonionic water-soluble contrast as a single exam dos e. Prescribed oral contrast ingested. Using automated exposure control and adjustment of the mA and/ or kV according to patient size, radiation dose was kept as low as reasonably achievable to obtain op timal diagnostic quality images. DICOM format image data is available electronically for review and comparison. FINDINGS: Lower Lungs: The visualized lower lungs are clear. Moderate cardiomegaly is noted with transvenous pa cer in place. Coronary artery calcifications are noted. There is a minimal left pleural effusion. The re is a calcified granuloma in the right lower lobe. Liver: The liver has a homogeneous density without space-occupying lesion. There is no dilation of th e biliary tree. There is mild hepatic steatosis. Images are rotated by streak and motion artifact. Th ere are small calcified gallstones layering dependently in the gallbladder. Spleen: Homogeneous density without enlargement. Pancreas: Unremarkable without mass or calcification. Kidneys: Normal in size and shape. No evidence of mass or hydronephrosis. Adrenal Glands: Unremarkable. Aorta: Atherosclerotic changes are noted in the aorta with extensive calcification and tortuosity. There is no focal aneurysm. Bowel/Mesentery: A gastrostomy tube is present with the catheter in the mid stomach. Contrast is not ed segmentally in the colon. There is no focal wall thickening or inflammatory change. There are mult iple loops of nondilated air-containing small bowel with multiple small air-fluid levels. There is no free air or abnormal fluid collection. There is a moderate amount of stool present in the distal col on. Abdominal Wall: Intact. Retroperitoneum: No evidence of adenopathy in the retrocrural, para-aortic, or deep pelvic regions. Bladder: Contours are smooth. Reproductive Organs: No abnormal masses or calcifications seen. Inguinal: The inguinal region is unremarkable without evidence of adenopathy. Bony Structures: Osteopenia, degenerative change and mild scoliosis are present. There are remote po stsurgical changes throughout the lumbar spine. The sacroiliac joints are partially fused. CONCLUSION: 1. Nonspecific, nonobstructive bowel gas pattern with no evidence of abscess. There is a moderate am ount of stool in the distal colon. Could indicate mild fecal impaction. 2. Gastrostomy tube in place with the tip in the mid stomach. 3. Multiple small gallstones. 4. Cardiomegaly and small left pleural effusion. Electronically signed by: Elder Hyde MD Board Certified Radiologist 12/22/2018 3:36 PM EST
--- NOTE | 2018-12-22 15:58 | CT ---
EXAM DATE: 12/22/2018 3:35 PM EST AGE/SEX: 73 years / Male INDICATIONS: Abscess. CLINICAL DATA: This is the patient's initial encounter. Patient reports that signs and symptoms have been present for 3 days and indicates a pain score of 5/10. MEDICAL/SURGICAL HISTORY: Myocardial infarction. Diabetes. Hypertension. Dementia. None. RADIATION DOSE: 14.86 CTDI (mGy) COMPARISON: POI, MR SOFT TISSUE NECK W AND W/O CONTRAST, 08/24/2018. . TECHNIQUE: Helical acquisition was performed using a multirow detector CT scanner during the adminis tration of 50 ml Omnipaque 350 (iohexol) nonionic water-soluble contrast as a single exam dose. Usi ng automated exposure control and adjustment of the mA and/or kV according to patient size, radiation dose was kept as low as reasonably achievable to obtain optimal diagnostic quality images. DICOM fo rmat image data is available electronically for review and comparison. FINDINGS: Patient has a history of previous surgery angle of the mandible to the left of midline for Osteomyelitis with reconstruction. On today's exam a large plate is seen bridging the arch of the mandible a large collection of air pre sent underneath the tongue. There is mild soft tissue induration on the left side of the mandible endplate with a a tiny focal co llection of air present in what looks like a small soft tissue type pimple. Moderate artifact is pres ent from the plate and even with artifact I don't think there is a deep space abscess. The submandibu lar gland and parotid glands appear normal. There is no defined fluid collection present. In the mid neck there is no adenopathy. Extensive atherosclerotic vascular calcifications are seen ab out both carotids worse on the left than the right. There is no adenopathy in the low neck. CONCLUSION: 1. Extensive reconstruction with a mandibular large plate in this patient history of myelitis. 2. Small focal possible pointing abscess measuring less than 1 cm on the left in angle of the mandib le. 3. Extensive artifact with distortion of normal tissue planes however I don't see a deep space absce ss. 4. If subclinical infection suspected a bone gallium scanning may be the only way to sort this out. Electronically signed by: Sean Davenport MD Board Certified Radiologist 12/22/2018 3:56 PM EST
[2018-12-22] MEDS ORDERED: Lidocaine 1%/Epinephrine 1:100,000 Inj 30 ML Vial ONE (17:02)
--- NOTE | 2018-12-22 18:44 | MB ---
cc: Pedro Luis Acosta DMD Pedro Luis Acosta DMD DATE: 12/22/2018 HISTORY OF PRESENT ILLNESS: Mr. 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 This happened on 11/18/2018. Then, he was readmitted back in the hospital several weeks later after that for an atrial fibrillation episode. He is back again in the hospital on 12/19/2018 secondary to cough and congestion and change in his mental status. We did the surgery in 11/2018. I had seen the patient in my office about 1-1/2 weeks ago approximately. He was awake, alert and oriented x3, in no acute distress. All the wounds in the mouth and the neck are all stable. Some food that was sitting underneath the floor of the tongue, but other than that, he had no issues or any problems from a maxillofacial surgery standpoint. I was consulted today because Mr. Worrell has an elevated white count, and his blood cultures are positive for bacteremia. I have seen and examined Mr. Worrell this evening. His nurse is at bedside. He is alert, awake, and oriented x3, in no acute distress, but he is sleeping and easily arousable. PAST MEDICAL HISTORY: Significant for atrial fibrillation. He also has history of fibromyalgia, MRSA the left knee, ablation of his heart, bilateral knee replacements, hypertension, esophagitis, hyperlipidemia, heart failure. PAST SURGICAL HISTORY: Bilateral knee replacements. Ablation to his heart. MEDICATIONS: 1. Ranitidine. 2. Clotrimazole. 3. Lovastatin. 4. Neurontin. 5. Tylenol. 6. [place]. 7. Insulin. 8. He was on heparin drip previously. 9. He was also on Eliquis. PHYSICAL EXAMINATION: FACE AND NECK: Face and neck have been palpated. Upon exam, neck wound margins are well approximated. There a little edema at the inferior border of the mandible on the left side where the plate ends and where the resection was done. Pressing on it just gives me a little area of small amount of straw/clear fluid that came out from previous area where the wound ended on the left side or where the Don[place]son drain previously was removed, but no pus is noted. There is no erythema. There is no tenderness noted. There is no neck edema that is noted. Intraorally, tissues look pink and well perfused. There are no clinical signs of any infection, any bleeding, any pus or any edema. The plate on the lower right hand side is slightly exposed, but rest of it on the left side is all completely closed as far as I can tell at this point. It is clean without any odor or any discharge that is noted. No elevation of floor of the mouth or the tongue. The wound is healing and intact mostly in this point. CT scan of the bones, soft tissue of the neck also shows questionable abscess on the left side of the mandible, but it could be also a collection of air also. Clinically, I am not able to palpate any collection in his neck or in his mouth. VITAL SIGNS: Temperature 98.3, pulse is 109, blood pressure 91/55. LABORATORY DATA: White count is 15.9 today. On admission on 12/19/2018, it was 10.2 with H and H 13.0 and 39.0 with platelets of 190. Microbiology: Aerobic blood cultures coming back as gram-negative rods. Also, aerobic blood culture also came back as Enterobacter cloacae. ASSESSMENT AND PLAN: This is a 73-year-old male status post resection of his mandible and soft tissue floor of the mouth for squamous cell carcinoma in 11/2018. He now re-presents back with another admission for altered mental status/cough and congestion. He was at the [facility]. He had an elevated troponin there. Non-ST elevation myocardial infarction. Atrial fibrillation. At this point, I plan to do just on the lower left side of his mandible just to see where there is a small edema that is just make sure there is no collection there. I prepped that site with Betadine solution. Lidocaine 1% with 1:100,000 epinephrine was injected into this site, about 1-1.5 mL. I then took a needle and aspirated that site. No pus, no discharge, no drainage or anything came out of that area. I think the edema is just where the contour of the bone ends and where the plate is. Questionable seroma, but at this point I do not find any gross evidence again of palpation of the neck. There is no erythema. There are no clinical signs of any pus or any purulence in the wound. The wound is mostly stable intraorally. I did discuss this with Dr. Fitzpatrick. Infectious diseases on board as noted. So, I will continue with his antibiotics. At this point, there is no surgical intervention needed from maxillofacial surgery standpoint. We will continue to monitor him and continue the antibiotics. I did explain all this to Mr. Worrell. His heart is being worked up now just to rule out any endocarditis. Echo will be also done as per Dr. Fitzpatrick. We will continue to follow. LASHAY Etienne/sadia , 05:25 PM , 05:41 PM
[2018-12-22 19:17] LABS: Thyroid Stimulating Hormone 1.26 uIU/mL (0.358-3.740)
[2018-12-23] MEDS: Insulin NovoLOG Aspart Correctional Sugar Inj SQ SCH ×4 (00:04→22:07)
[2018-12-23 05:11] LABS: Baso # (Auto) 0.1 th/mm3 (0.0-0.2); Baso % (Auto) 0.3 % (0.0-2.0); Hematocrit 34.3 % (39.0-51.0); Hemoglobin 11.7 gm/dL (13.0-17.0); Lymph # (Auto) 1.4 th/mm3 (1.0-4.8); Lymph % (Auto) 6.8 % (9.0-44.0); Mean Corpuscular HGB Conc 34.1 % (32.0-36.0); Mean Corpuscular Hemoglobin 31.6 pg (27.0-34.0); Mean Corpuscular Volume 92.4 fL (80.0-100.0); Mean Platelet Volume 10.4 fL (7.0-11.0); Mono # (Auto) 1.5 th/mm3 (0.0-0.9); Mono % (Auto) 7.3 % (0.0-8.0); Neut # (Auto) 17.3 th/mm3 (1.8-7.7); Neut % (Auto) 85.6 % (16.0-70.0); Platelet Count 186 th/mm3 (150-450); Red Blood Count 3.71 mil/mm3 (4.50-5.90); Red Cell Distribution Width 14.4 % (11.6-17.2); White Blood Count 20.2 th/mm3 (4.0-11.0)
[2018-12-23 05:33] LABS: Anion Gap 8 meq/L (5-15); Blood Urea Nitrogen 16 mg/dL (7-18); Calcium 7.6 mg/dL (8.5-10.1); Carbon Dioxide 30.3 meq/L (21.0-32.0); Chloride 99 meq/L (98-107); Glomerular Filtration Rate Greater Than 89 mL/min (>89); Glucose,Random 122 mg/dL (74-106); Potassium 3.4 meq/L (3.5-5.1); Sodium 137 meq/L (136-145)
[2018-12-23 08:10] LABS: Lymphocytes 3 % (9-44); Monocytes 6 % (0-8); Platelet Estimate Normal (Normal); Toxic Granulation 1+; Toxic Vacuolation Present
[2018-12-23 08:11] LABS: Ovalocytes 1+
[2018-12-23] MEDS ORDERED: Potassium Chlor 20 mEq Premix 20 MEQ/100 ML PIGGYBACK IV.SIG ONE (08:39)
[2018-12-23] MEDS: Chlorhexidine Gluconate 0.12% Liq 15 ML UDC SWISH-SPIT SCH ×2 (09:54→22:06)
[2018-12-23] MEDS: Finasteride 5 MG Tablet PO SCH (09:55)
[2018-12-23] MEDS: Famotidine 20 MG Tablet PO SCH (09:55)
[2018-12-23] MEDS: Metoprolol Tartrate 25 MG Tablet PO SCH ×2 (09:55→22:04)
[2018-12-23] MEDS: Gabapentin Liq 250 MG/5 ML UDC PO SCH ×3 (09:55→17:40)
[2018-12-23] MEDS: Docusate Sodium 100 MG Capsule PO SCH ×2 (09:55→10:50)
[2018-12-23] MEDS: Sodium Chloride 0.45 % Inj 1,000 ML IV.CONT SCH (10:01)
--- NOTE | 2018-12-23 11:14 | P.PNIM ---
Subjective Interval history: The patient appeared comfortable in bed. He indicated that he was not sure what was going on. He did not feel like writing on his white board. He had some discomfort in the lower extremities. Physical Exam Vital signs: Vital Signs 12/22/18 12:00 12/22/18 13:00 12/22/18 14:00 Temperature 100.0 F H Pulse Rate 94 H 90 94 H Respiratory Rate 16 Blood Pressure 93/60 L Pulse Oximetry 97 12/22/18 16:00 12/22/18 17:00 12/22/18 18:00 Temperature 98.3 F Pulse Rate 109 H 98 H 96 H Respiratory Rate 16 Blood Pressure 91/55 L Pulse Oximetry 95 12/22/18 19:00 12/22/18 19:29 12/22/18 21:00 Temperature 98.9 F Pulse Rate 93 H 98 H 93 H Respiratory Rate 16 Blood Pressure 103/66 Pulse Oximetry 96 12/22/18 22:00 12/22/18 23:00 12/22/18 23:49 Temperature 98.8 F Pulse Rate 114 H 107 H 109 H Respiratory Rate 16 Blood Pressure 148/69 H Pulse Oximetry 96 12/23/18 00:00 12/23/18 01:00 12/23/18 02:00 Temperature Pulse Rate 113 H 112 H 112 H Respiratory Rate Blood Pressure Pulse Oximetry 12/23/18 02:57 12/23/18 04:00 12/23/18 05:00 Temperature 99 F Pulse Rate 100 H 104 H 111 H Respiratory Rate 18 Blood Pressure 95/60 L Pulse Oximetry 98 12/23/18 06:00 12/23/18 07:57 Temperature 99.1 F Pulse Rate 98 H 103 H Respiratory Rate 15 Blood Pressure 110/67 Pulse Oximetry 97 Intake & Output 12/22/18 12/23/18 12/23/18 18:59 06:59 18:59 Intake Total 862 / 862 490 / 490 Output Total 200 / 200 450 / 450 Balance 662 / 662 -450 / -450 490 / 490 Weight 77.6 kg Intake: IV 255 / 255 490 / 490 1/2 Normal Saline Inj 1,000 ML 255 / 255 490 / 490 @ 50 mls/hr IV.CONT .Q20H [facility] Rx#:[id number] Tube Feeding 382 / 382 Water Bolus Amount 225 / 225 Output: Urine 200 / 200 450 / 450 Other: # Incontinent Voids 3 4 Date of Last Bowel Movement 12/22/18 12/22/18 # Bowel Movements 1 Narrative: GENERAL: NAD, difficult to understand speech. HEAD: Normocephalic. NECK: Supple, trachea midline. No lymphadenopathy. Jaw deformity status post surgery. EYES: No scleral icterus. No injection or drainage. CARDIOVASCULAR: Regular rate and rhythm. Systolic murmur appreciated. RESPIRATORY: Breath sounds equal bilaterally. No accessory muscle use. GASTROINTESTINAL: Abdomen soft, non-tender, nondistended. MUSCULOSKELETAL: No cyanosis, or edema. SKIN: Warm and dry. NEURO: No focal neurological deficits. Urinary Catheter Management Condom: Cath placed during this visit: no Results Labs CBC & Chem 7: 12/23/18 03:31 12/23/18 03:31 Labs: Microbiology 12/21/18 19:08 Blood - Peripheral Aerobic Blood Culture - Final Enterobacter cloacae 12/21/18 19:08 Blood - Peripheral Anaerobic Blood Culture - Final Enterobacter cloacae 12/21/18 18:32 Blood - Peripheral Aerobic Blood Culture - Final Enterobacter cloacae 12/21/18 18:32 Blood - Peripheral Anaerobic Blood Culture - Final Enterobacter cloacae 12/21/18 18:25 Blood - Peripheral Aerobic Blood Culture - Final Enterobacter cloacae 12/21/18 18:25 Blood - Peripheral Anaerobic Blood Culture - Final Enterobacter cloacae 12/19/18 01:06 Blood - Peripheral Aerobic Blood Culture - Final Enterobacter cloacae 12/19/18 01:06 Blood - Peripheral Anaerobic Blood Culture - Final Enterobacter cloacae 12/19/18 01:00 Blood - Peripheral Aerobic Blood Culture - Final Enterobacter cloacae 12/19/18 01:00 Blood - Peripheral Anaerobic Blood Culture - Final Enterobacter cloacae Imaging Imaging: Impressions Abdomen/Pelvis CT 12/22/18 00:00 CONCLUSION: 1. Nonspecific, nonobstructive bowel gas pattern with no evidence of abscess. There is a moderate amount of stool in the distal colon. Could indicate mild fecal impaction. 2. Gastrostomy tube in place with the tip in the mid stomach. 3. Multiple small gallstones. 4. Cardiomegaly and small left pleural effusion. Soft Tissue Neck CT 12/22/18 00:00 CONCLUSION: 1. Extensive reconstruction with a mandibular large plate in this patient history of myelitis. 2. Small focal possible pointing abscess measuring less than 1 cm on the left in angle of the mandible. 3. Extensive artifact with distortion of normal tissue planes however I don't see a deep space abscess. 4. If subclinical infection suspected a bone gallium scanning may be the only way to sort this out. Assessment and Plan Plan 73-year-old male admitted secondary to shortness of breath with cough. A. fib RVR present at time of admit. Bacteremia Blood cultures positive for Enterobacter cloacae. ID consult appreciated. CT abdomen/pelvis negative. CT neck with ? small abscess left mandible. Oral surgery consult appreciated, no infection identified. -Continue vancomycin and Zosyn. -repeat echo pending. -follow repeat BCs. -follow up with ID. A. fib with RVR/NSTEMI/CAD/ Cardiology consult appreciated. -Aspirin daily and Eliquis. -When necessary oxygen -Follow on telemetry. Possible HealthCare associated Pneumonia Repeat CXR with clear lungs. -continue Vancomycin/Zosyn. -ID following. Cancer of the neck/Tongue cancer/History of skin cancer Speech following. -continue tube feeds. -Follow as an outpatient. Diabetes mellitus type 2 Well controlled. -Follow blood sugars. -Insulin sliding scale. -Diabetic diet. COPD CTA indicative of mild edema or ILD. -nebs. -Patient counseled to quit smoking. DVT prophylaxis: Heparin Progress Note: Quality VTE Deep Vein Thrombosis/Pulmonary Embolism Present on Admission: No
--- NOTE | 2018-12-23 13:04 | P.PNID ---
Subjective Remarks: Patient is a 73-year-old male, came from a rehab facility, brought into the hospital for evaluation of altered mental status. He was also having cough and congestion. 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 The last surgery was done the first week in November and he had an anterior mandibular resection. He was readmitted December 01 and at that time he had A. fib with RVR. He was evaluated by maxillofacial surgery and he had a PEG tube done to increase his nutrition. Of note during that admission he had 2+ blood cultures with Enterobacter. Patient was felt to have a pneumonia at that time and he was given Levaquin when he was discharged from the hospital. On this admission, patient's mental status seems to have improved. He is awake and interacting. He tries to speak, but his speech is very difficult to understand. He has a cough, and he is pulling a lot of oral secretions that he suctions. He has a cough. He has some shortness of breath, and notes some chest pain in the lower quadrants. He was ruled in for DC during this admission , and cardiology evaluated the patient and was not a good candidate for cardiac catheterization. He had a fever of 102. CT of the chest did not show any pulmonary embolism, but it did show some interstitial infiltrates which could be congestion or interstitial disease. He denies any abdominal pain. He has not had any vomiting. No diarrhea. Patient is voiding without any problem. He currently has a condom cath in place. His urinalysis on this admission is unremarkable. His WBC was 14 on admission, and it is up to 19. 2 blood cultures done on admission are now reported as growing gram-negative neo, possibly on Enterobacter. During his last admission he had an echocardiogram and he has evidence of multiple calcifications in his valve namely mitral and aortic valve. Infectious disease consultation has been requested to assist with evaluation and treatment. 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 CT A/P no abscess CT neck noted OMFS evaluation - no evidence of infection Has back pain - old problem but worse No knee pain Antibiotics: Zosyn Past Medical History: Reviewed Allergies/Adverse Reactions: Allergies No Known Allergies Allergy (Verified 12/01/18 17:43) Objective Vital Signs 12/22/18 14:00 12/22/18 16:00 12/22/18 17:00 Temperature 98.3 F Pulse Rate 94 H 109 H 98 H Respiratory Rate 16 Blood Pressure 91/55 L Pulse Oximetry 95 12/22/18 18:00 12/22/18 19:00 12/22/18 19:29 Temperature 98.9 F Pulse Rate 96 H 93 H 98 H Respiratory Rate 16 Blood Pressure 103/66 Pulse Oximetry 96 12/22/18 21:00 12/22/18 22:00 12/22/18 23:00 Temperature Pulse Rate 93 H 114 H 107 H Respiratory Rate Blood Pressure Pulse Oximetry 12/22/18 23:49 12/23/18 00:00 12/23/18 01:00 Temperature 98.8 F Pulse Rate 109 H 113 H 112 H Respiratory Rate 16 Blood Pressure 148/69 H Pulse Oximetry 96 12/23/18 02:00 12/23/18 02:57 12/23/18 04:00 Temperature 99 F Pulse Rate 112 H 100 H 104 H Respiratory Rate 18 Blood Pressure 95/60 L Pulse Oximetry 98 12/23/18 05:00 12/23/18 06:00 12/23/18 07:57 Temperature 99.1 F Pulse Rate 111 H 98 H 103 H Respiratory Rate 15 Blood Pressure 110/67 Pulse Oximetry 97 12/23/18 11:18 Temperature Pulse Rate 80 Respiratory Rate 16 Blood Pressure 99/71 L Pulse Oximetry 97 Intake & Output 12/22/18 12/23/18 12/23/18 18:59 06:59 18:59 Intake Total 862 / 862 540 / 540 Output Total 200 / 200 450 / 450 Balance 662 / 662 -450 / -450 540 / 540 Weight 77.6 kg Intake: IV 255 / 255 540 / 540 1/2 Normal Saline Inj 1,000 ML 255 / 255 540 / 540 @ 50 mls/hr IV.CONT .Q20H [facility] Rx#:[id number] Tube Feeding 382 / 382 Water Bolus Amount 225 / 225 Output: Urine 200 / 200 450 / 450 Other: # Incontinent Voids 3 4 Date of Last Bowel Movement 12/22/18 12/22/18 12/22/18 # Bowel Movements 1 12/21/18 19:08 Blood - Peripheral Aerobic Blood Culture - Final Enterobacter cloacae 12/21/18 19:08 Blood - Peripheral Anaerobic Blood Culture - Final Enterobacter cloacae 12/21/18 18:32 Blood - Peripheral Aerobic Blood Culture - Final Enterobacter cloacae 12/21/18 18:32 Blood - Peripheral Anaerobic Blood Culture - Final Enterobacter cloacae 12/21/18 18:25 Blood - Peripheral Aerobic Blood Culture - Final Enterobacter cloacae 12/21/18 18:25 Blood - Peripheral Anaerobic Blood Culture - Final Enterobacter cloacae 12/23/18 03:31 Blood - Peripheral Aerobic Blood Culture - Pending 12/23/18 03:31 Blood - Peripheral Anaerobic Blood Culture - Pending 12/19/18 01:06 Blood - Peripheral Aerobic Blood Culture - Final Enterobacter cloacae 12/19/18 01:06 Blood - Peripheral Anaerobic Blood Culture - Final Enterobacter cloacae 12/19/18 01:00 Blood - Peripheral Aerobic Blood Culture - Final Enterobacter cloacae 12/19/18 01:00 Blood - Peripheral Anaerobic Blood Culture - Final Enterobacter cloacae Lab - Hematology Results 12/22/18 12/23/18 06:07 03:31 WBC 15.9 H 20.2 H RBC 4.17 L 3.71 L Hgb 13.0 11.7 L Hct 39.0 34.3 L MCV 93.6 92.4 MCH 31.3 31.6 MCHC 33.4 34.1 RDW 14.2 14.4 Plt Count 190 186 MPV 9.9 10.4 Prelim Diff (Auto) Slide review pending Neut % (Auto) 86.1 H 85.6 H Lymph % (Auto) 5.3 L 6.8 L [place] % (Auto) 8.2 H 7.3 Eos % (Auto) 0.1 0.0 Baso % (Auto) 0.3 0.3 Neut # (Auto) 13.7 H 17.3 H Lymph # (Auto) 0.8 L 1.4 [place] # (Auto) 1.3 H 1.5 H Eos # (Auto) 0.0 0.0 Baso # (Auto) 0.1 0.1 WBC Differential . Manual diff final Seg Neuts % (Manual) 77 H Band Neuts % (Manual) 14 H Lymphocytes % (Manual) 3 L Monocytes % (Manual) 6 Abs Neuts (Manual) 18.4 H Differential Comment Auto diff final . Toxic Granulation 1+ H Toxic Vacuolation Present H Platelet Estimate Normal Platelet Morphology Enlarged H Ovalocytes 1+ H Keratocytes Occ H Lab - Chemistry Results 12/21/18 12/22/18 12/22/18 23:27 06:07 06:07 Sodium 142 Potassium 3.5 Chloride 103 Carbon Dioxide 32.5 H Anion Gap 7 BUN 19 H Creatinine 0.70 Estimated GFR Greater than 89 POC Glucose 149 H Random Glucose 132 H Calcium 8.3 L Phosphorus 2.3 L Magnesium 2.0 Ammonia Vitamin B12 583 TSH 1.260 12/22/18 12/22/18 12/22/18 13:14 18:00 23:29 Sodium Potassium Chloride Carbon Dioxide Anion Gap BUN Creatinine Estimated GFR POC Glucose 102 123 H Random Glucose Calcium Phosphorus Magnesium Ammonia 11 Vitamin B12 TSH 12/23/18 12/23/18 03:31 05:23 Sodium 137 Potassium 3.4 L Chloride 99 Carbon Dioxide 30.3 Anion Gap 8 BUN 16 Creatinine 0.59 L Estimated GFR Greater than 89 POC Glucose 133 H Random Glucose 122 H Calcium 7.6 L Phosphorus Magnesium Ammonia Vitamin B12 TSH Imaging: ITS Impressions Chest CTA 12/19/18 02:39 CONCLUSION: 1. No pulmonary embolus. 2. Diffuse process in interstitial markings which could suggest mild edema or underlying interstitial disease. Chest X-Ray 12/21/18 17:17 CONCLUSION: The lungs are clear. Abdomen/Pelvis CT 12/22/18 00:00 CONCLUSION: 1. Nonspecific, nonobstructive bowel gas pattern with no evidence of abscess. There is a moderate amount of stool in the distal colon. Could indicate mild fecal impaction. 2. Gastrostomy tube in place with the tip in the mid stomach. 3. Multiple small gallstones. 4. Cardiomegaly and small left pleural effusion. Soft Tissue Neck CT 12/22/18 00:00 CONCLUSION: 1. Extensive reconstruction with a mandibular large plate in this patient history of myelitis. 2. Small focal possible pointing abscess measuring less than 1 cm on the left in angle of the mandible. 3. Extensive artifact with distortion of normal tissue planes however I don't see a deep space abscess. 4. If subclinical infection suspected a bone gallium scanning may be the only way to sort this out. Physical Exam: GENERAL: awake and alert, not in respiratory distress. He keeps his mouth open, and secretions pooling in his mouth SKIN: Warm and dry. No generalized rash, no ecchymoses and no evidence of embolic lesions noted HEAD: Atraumatic. Normocephalic. No temporal wasting, or tenderness. EYES: [place] conjunctiva. He has petechia bilateral lower lids. No hemorrhage. Pupils equal, round and reactive to light. Extraocular movements full and intact. No scleral icterus. No injection or drainage. EARS, NOSE AND THROAT: Nose without bleeding or purulent nasal discharge. No sinus tenderness. Mucous membranes pink and moist. A lot of secretions pooling at floor of mouth, some white coating on tongue, tongue not moving. NECK: Supple and not tender, no meningeal signs CARDIOVASCULAR: Regular rate and rhythm. HAs harsh systolic murmur L precordium and base of the heart RESPIRATORY: Coarse BS bilaterally ABDOMEN: Soft, non-tender, nondistended. Bowel sounds present and normoactive. No guarding. No rebound. PEG site ok. EXTREMITIES: No clubbing, cyanosis, or edema. Scars both knees, knees looks ok. NEUROLOGICAL: Awake and alert. Cranial nerves grossly intact. Motor grossly within normal limits. PSYCHIATRIC: Normal affect, calm and cooperative. LINE: No evidence of infection Assessment and Plan - Plan Impression Recurrent Enterobacter sepsis, very worrisome for endovascular infection -He has valvular heart disease on his echocardiogram last November NSTEMI Hx oral CA, has had surgeries Risk for recurrent PNA Recommendation Change Zosyn to Invanz Await echo Repeat BC to document clearing MRI lumbar spine Follow C/S Monitor progress D/W Dr Brady
[2018-12-23] MEDS: Morphine Inj 4 MG/ML Vial IV.PUSH PRN ×2 (17:12→22:34)
[2018-12-23] MEDS ORDERED: Gadobutrol PF 7.5 MMOL/7.5 ML Vial (for RAD) IV.SIG ONE (20:00)
[2018-12-23] MEDS ORDERED: ASP: Other exception documentation: ( ) OTHER PRN (20:24)
--- NOTE | 2018-12-23 20:30 | MR ---
EXAM DATE: 12/23/2018 8:10 PM EST AGE/SEX: 73 years / Male INDICATIONS: Pain. CLINICAL DATA: This is the patient's initial encounter. Patient reports that signs and symptoms have been present for 3 days and indicates a pain score of 8/10. MEDICAL/SURGICAL HISTORY: Diabetes mellitus type II. Carcinoma, head and neck. Hypertension. Total knee replacement, left. Total knee replacement, right. Resection of anterior mandible. [place] [facility] [place], 12/22/2018. . TECHNIQUE: Multiplanar, multisequence MRI examination of the lumbar spine was performed without and with 7.5 ml Gadavist (gadobutrol) contrast as a single exam dose. FINDINGS: Vertebra: The most caudal-appearing lumbar vertebra is numbered as L5. There is a peripherally enhanc ing peripherally calcified posterior paraspinal fluid collection which measures 2.1 x 3.2 x 7.0 cm. T his appears chronic in etiology. There are likely postsurgical features of prior laminectomies at L2- L5. There is intact sagittal alignment. Prominent Modic endplate changes are noted at L2-3. Discs: Diffuse disc desiccation throughout the lumbar spine with disc space narrowing most notably a t L1-2, L2-3 and L4-5. POST-CONTRAST: No focal abnormal areas of enhancement are seen. Conus: Normal level and configuration. Paraspinal Soft Tissues: No significantfocal renal abnormalities in the visualized kidneys. Visualize d aorta is non-aneurysmal. No Retroperitoneal adenopathy. T12-L1: Diffuse disc bulge with mild bilateral facet hypertrophy. Mild effacement anterior thecal sa c. No significant neural foraminal stenosis. L1-L2: Diffuse disc bulge with broad-based posterior central disc protrusion. Bilateral facet hyper trophy, most notably in the left. Mild effacement of the left lateral recess anteriorly by disc and p osteriorly by facet osteophytes. Mild caudal left neural foraminal narrowing. L2-L3: Probable prior laminectomy. Prominent left facet hypertrophy effacing the posterior lateral recess. Mild diffuse disc bulge effacing the anterior thecal sac. Mild caudal bilateral neural forami nal narrowing. L3-L4: Probable prior laminectomy with posterior disc osteophytes and prominent bilateral facet hyp ertrophy resulting in moderate central canal narrowing. Mild to moderate caudal bilateral neural fora samy narrowing. L4-L5: Probable prior laminectomy with peripherally calcified fluid intensity lesion/collection pos teriorly. Central canal is patent. Neural foramina are patent. L5-S1: Probable prior laminectomy with peripherally calcified fluid intensity lesion/collection pos teriorly. Central canal is patent. Mild caudal bilateral neural foraminal narrowing. CONCLUSION: 1. Suspect postsurgical features of prior laminectomies at L2-L5 with peripherally calcified posteri or paraspinal fluid intensity collection measuring 2.1 x 3.2 x 7.0 cm centered at L4-5 level. This ma y reflect a chronic resolved postoperative hematoma, complicated seroma or infection. Clinical correl ation with prior surgical history is recommended. If patient has no history of previous surgery, diff erential consideration would include a expansile lesion involving the posterior processes of primaril y L3-L5. 2. Multilevel degenerative spondylosis of the lumbar spine with moderate central canal narrowing at L3-4 level. 3. Please see above for detailed description of each level. Electronically signed by: Devin Gardiner MD Board Certified Radiologist 12/23/2018 8:29 PM EST
[2018-12-24] MEDS: Insulin NovoLOG Aspart Correctional Sugar Inj SQ SCH ×3 (06:25→22:26)
[2018-12-24 08:37] LABS: Baso # (Auto) 0.1 th/mm3 (0.0-0.2); Baso % (Auto) 0.3 % (0.0-2.0); Eos % (Auto) 0.1 % (0.0-4.0); Hematocrit 33.9 % (39.0-51.0); Hemoglobin 11.3 gm/dL (13.0-17.0); Lymph # (Auto) 1.3 th/mm3 (1.0-4.8); Lymph % (Auto) 6.9 % (9.0-44.0); Mean Corpuscular HGB Conc 33.4 % (32.0-36.0); Mean Corpuscular Volume 92.7 fL (80.0-100.0); Mean Platelet Volume 9.8 fL (7.0-11.0); Mono # (Auto) 1.5 th/mm3 (0.0-0.9); Mono % (Auto) 8.3 % (0.0-8.0); Neut # (Auto) 15.4 th/mm3 (1.8-7.7); Neut % (Auto) 84.4 % (16.0-70.0); Platelet Count 198 th/mm3 (150-450); Red Blood Count 3.66 mil/mm3 (4.50-5.90); Red Cell Distribution Width 14.3 % (11.6-17.2); White Blood Count 18.2 th/mm3 (4.0-11.0)
[2018-12-24 09:05] LABS: Anion Gap 7 meq/L (5-15); Blood Urea Nitrogen 18 mg/dL (7-18); Calcium 7.9 mg/dL (8.5-10.1); Chloride 99 meq/L (98-107); Glomerular Filtration Rate Greater Than 89 mL/min (>89); Glucose,Random 129 mg/dL (74-106); Magnesium 2.1 mg/dL (1.5-2.5); Potassium 3.6 meq/L (3.5-5.1); Sodium 137 meq/L (136-145)
--- NOTE | 2018-12-24 09:51 | P.PNID ---
Subjective Remarks: Patient is a 73-year-old male, came from a rehab facility, brought into the hospital for evaluation of altered mental status. He was also having cough and congestion. 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 The last surgery was done the first week in November and he had an anterior mandibular resection. He was readmitted December 01 and at that time he had A. fib with RVR. He was evaluated by maxillofacial surgery and he had a PEG tube done to increase his nutrition. Of note during that admission he had 2+ blood cultures with Enterobacter. Patient was felt to have a pneumonia at that time and he was given Levaquin when he was discharged from the hospital. On this admission, patient's mental status seems to have improved. He is awake and interacting. He tries to speak, but his speech is very difficult to understand. He has a cough, and he is pulling a lot of oral secretions that he suctions. He has a cough. He has some shortness of breath, and notes some chest pain in the lower quadrants. He was ruled in for MO during this admission , and cardiology evaluated the patient and was not a good candidate for cardiac catheterization. He had a fever of 102. CT of the chest did not show any pulmonary embolism, but it did show some interstitial infiltrates which could be congestion or interstitial disease. He denies any abdominal pain. He has not had any vomiting. No diarrhea. Patient is voiding without any problem. He currently has a condom cath in place. His urinalysis on this admission is unremarkable. His WBC was 14 on admission, and it is up to 19. 2 blood cultures done on admission are now reported as growing gram-negative neo, possibly on Enterobacter. During his last admission he had an echocardiogram and he has evidence of multiple calcifications in his valve namely mitral and aortic valve. Infectious disease consultation has been requested to assist with evaluation and treatment. 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 - 2/3-12/23, and he has (+) BC from Nov 2017 Patient has had back surgeries, he said 4, last one in 1987, never been treated for any infection in his back CT A/P no abscess CT neck noted OMFS evaluation - no evidence of infection Has back pain - old problem but worse No knee pain - 2 previous knee arthroplasty Antibiotics: Invanz Past Medical History: Reviewed Allergies/Adverse Reactions: Allergies No Known Allergies Allergy (Verified 12/01/18 17:43) Objective Vital Signs 12/23/18 10:00 12/23/18 11:00 12/23/18 11:18 Temperature Pulse Rate 100 H 104 H 80 Respiratory Rate 16 Blood Pressure 99/71 L Pulse Oximetry 97 12/23/18 12:00 12/23/18 13:00 12/23/18 14:00 Temperature Pulse Rate 92 H 92 H 92 H Respiratory Rate Blood Pressure Pulse Oximetry 12/23/18 14:50 12/23/18 15:00 12/23/18 16:00 Temperature Pulse Rate 100 H 106 H 92 H Respiratory Rate 17 Blood Pressure 97/60 L Pulse Oximetry 99 12/23/18 17:00 12/23/18 18:00 12/23/18 19:00 Temperature Pulse Rate 100 H 108 H 138 H Respiratory Rate Blood Pressure Pulse Oximetry 12/23/18 20:00 12/23/18 21:00 12/23/18 22:00 Temperature Pulse Rate 92 H 124 H 116 H Respiratory Rate 20 Blood Pressure 85/64 L Pulse Oximetry 100 12/23/18 23:00 12/23/18 23:08 12/24/18 00:00 Temperature Pulse Rate 110 H 96 H Respiratory Rate 20 22 Blood Pressure 100/62 Pulse Oximetry 98 12/24/18 01:00 12/24/18 02:00 12/24/18 03:00 Temperature Pulse Rate 96 H 94 H 96 H Respiratory Rate Blood Pressure Pulse Oximetry 12/24/18 04:00 12/24/18 05:00 12/24/18 06:00 Temperature Pulse Rate 94 H 94 H 94 H Respiratory Rate 18 Blood Pressure Pulse Oximetry 100 12/24/18 08:00 Temperature 98.2 F Pulse Rate 87 Respiratory Rate 18 Blood Pressure 89/66 L Pulse Oximetry 94 L Intake & Output 12/23/18 12/24/18 12/24/18 18:59 06:59 18:59 Intake Total 740 / 740 1910 / 1910 Output Total 900 / 900 450 / 450 Balance -160 / -160 1460 / 1460 Weight 80.5 kg Intake: IV 740 / 740 1/2 Normal Saline Inj 1,000 ML 540 / 540 @ 50 mls/hr IV.CONT .Q20H [facility] Rx#:[id number] INVanz Inj 1,000 MG In NS Inj 100 / 100 100 ML @ 100 mls/hr IV.SIG Q24H [facility] Rx#:[id number] KCl 20 mEq Premix Inj 20 meq In 100 / 100 100 ml @ 50 mls/hr IV.SIG ONCE ONE Rx#:[id number] Tube Feeding 550 / 550 Water Bolus Amount 1360 / 1360 Output: Urine 900 / 900 Urine Amount (Catheter) 450 / 450 Condom 450 / 450 Gastric Drainage 0 / 0 Pre-Hospital Left Upper 0 / 0 Quadrant Other: # Incontinent Voids 2 Date of Last Bowel Movement 12/23/18 12/23/18 # Bowel Movements 1 1 12/24/18 08:14 Blood - Peripheral Aerobic Blood Culture - Pending 12/24/18 08:14 Blood - Peripheral Anaerobic Blood Culture - Pending 12/23/18 03:31 Blood - Peripheral Aerobic Blood Culture - Pending 12/23/18 03:31 Blood - Peripheral Anaerobic Blood Culture - Preliminary gram negative rods 12/21/18 19:08 Blood - Peripheral Aerobic Blood Culture - Final Enterobacter cloacae 12/21/18 19:08 Blood - Peripheral Anaerobic Blood Culture - Final Enterobacter cloacae 12/21/18 18:32 Blood - Peripheral Aerobic Blood Culture - Final Enterobacter cloacae 12/21/18 18:32 Blood - Peripheral Anaerobic Blood Culture - Final Enterobacter cloacae 12/21/18 18:25 Blood - Peripheral Aerobic Blood Culture - Final Enterobacter cloacae 12/21/18 18:25 Blood - Peripheral Anaerobic Blood Culture - Final Enterobacter cloacae 12/19/18 01:06 Blood - Peripheral Aerobic Blood Culture - Final Enterobacter cloacae 12/19/18 01:06 Blood - Peripheral Anaerobic Blood Culture - Final Enterobacter cloacae 12/19/18 01:00 Blood - Peripheral Aerobic Blood Culture - Final Enterobacter cloacae 12/19/18 01:00 Blood - Peripheral Anaerobic Blood Culture - Final Enterobacter cloacae Lab - Hematology Results 12/23/18 12/24/18 03:31 08:14 WBC 20.2 H 18.2 H RBC 3.71 L 3.66 L Hgb 11.7 L 11.3 L Hct 34.3 L 33.9 L MCV 92.4 92.7 MCH 31.6 31.0 MCHC 34.1 33.4 RDW 14.4 14.3 Plt Count 186 198 MPV 10.4 9.8 Prelim Diff (Auto) Slide review pending Neut % (Auto) 85.6 H 84.4 H Lymph % (Auto) 6.8 L 6.9 L [place] % (Auto) 7.3 8.3 H Eos % (Auto) 0.0 0.1 Baso % (Auto) 0.3 0.3 Neut # (Auto) 17.3 H 15.4 H Lymph # (Auto) 1.4 1.3 [place] # (Auto) 1.5 H 1.5 H Eos # (Auto) 0.0 0.0 Baso # (Auto) 0.1 0.1 WBC Differential Manual diff final . Seg Neuts % (Manual) 77 H Band Neuts % (Manual) 14 H Lymphocytes % (Manual) 3 L Monocytes % (Manual) 6 Abs Neuts (Manual) 18.4 H Differential Comment . Auto diff final Toxic Granulation 1+ H Toxic Vacuolation Present H Platelet Estimate Normal Platelet Morphology Enlarged H Ovalocytes 1+ H Keratocytes Occ H Lab - Chemistry Results 12/22/18 12/22/18 12/22/18 06:07 13:14 18:00 Sodium Potassium Chloride Carbon Dioxide Anion Gap BUN Creatinine Estimated GFR POC Glucose 102 Random Glucose Calcium Magnesium Ammonia 11 Vitamin B12 583 TSH 1.260 12/22/18 12/23/18 12/23/18 23:29 03:31 05:23 Sodium 137 Potassium 3.4 L Chloride 99 Carbon Dioxide 30.3 Anion Gap 8 BUN 16 Creatinine 0.59 L Estimated GFR Greater than 89 POC Glucose 123 H 133 H Random Glucose 122 H Calcium 7.6 L Magnesium Ammonia Vitamin B12 TSH 12/23/18 12/23/18 12/24/18 13:42 22:01 06:19 Sodium Potassium Chloride Carbon Dioxide Anion Gap BUN Creatinine Estimated GFR POC Glucose 139 H 102 152 H Random Glucose Calcium Magnesium Ammonia Vitamin B12 TSH 12/24/18 08:14 Sodium 137 Potassium 3.6 Chloride 99 Carbon Dioxide 31.0 Anion Gap 7 BUN 18 Creatinine 0.64 Estimated GFR Greater than 89 POC Glucose Random Glucose 129 H Calcium 7.9 L Magnesium 2.1 Ammonia Vitamin B12 TSH Imaging: ITS Impressions Chest CTA 12/19/18 02:39 CONCLUSION: 1. No pulmonary embolus. 2. Diffuse process in interstitial markings which could suggest mild edema or underlying interstitial disease. Chest X-Ray 12/21/18 17:17 CONCLUSION: The lungs are clear. Abdomen/Pelvis CT 12/22/18 00:00 CONCLUSION: 1. Nonspecific, nonobstructive bowel gas pattern with no evidence of abscess. There is a moderate amount of stool in the distal colon. Could indicate mild fecal impaction. 2. Gastrostomy tube in place with the tip in the mid stomach. 3. Multiple small gallstones. 4. Cardiomegaly and small left pleural effusion. Soft Tissue Neck CT 12/22/18 00:00 CONCLUSION: 1. Extensive reconstruction with a mandibular large plate in this patient history of myelitis. 2. Small focal possible pointing abscess measuring less than 1 cm on the left in angle of the mandible. 3. Extensive artifact with distortion of normal tissue planes however I don't see a deep space abscess. 4. If subclinical infection suspected a bone gallium scanning may be the only way to sort this out. Lumbar Spine MRI 12/23/18 00:00 CONCLUSION: 1. Suspect postsurgical features of prior laminectomies at L2-L5 with peripherally calcified posterior paraspinal fluid intensity collection measuring 2.1 x 3.2 x 7.0 cm centered at L4-5 level. This may reflect a chronic resolved postoperative hematoma, complicated seroma or infection. Clinical correlation with prior surgical history is recommended. If patient has no history of previous surgery, differential consideration would include a expansile lesion involving the posterior processes of primarily L3-L5. 2. Multilevel degenerative spondylosis of the lumbar spine with moderate central canal narrowing at L3-4 level. 3. Please see above for detailed description of each level. Physical Exam: GENERAL: awake and alert, not in respiratory distress. SKIN: Warm and dry. No generalized rash, no ecchymoses and no evidence of embolic lesions noted HEAD: Atraumatic. Normocephalic. No temporal wasting, or tenderness. EYES: [place] conjunctiva. No scleral icterus. No injection or drainage. EARS, NOSE AND THROAT: Nose without bleeding or purulent nasal discharge. No sinus tenderness. Mucous membranes pink and moist. A lot of secretions pooling at floor of mouth, some white coating on tongue, tongue not moving. NECK: Supple and not tender, no meningeal signs CARDIOVASCULAR: Regular rate and rhythm. HAs harsh systolic murmur L precordium and base of the heart RESPIRATORY: Coarse BS bilaterally ABDOMEN: Soft, non-tender, nondistended. Bowel sounds present and normoactive. No guarding. No rebound. PEG site ok. EXTREMITIES: No clubbing, cyanosis, or edema. Scars both knees, knees looks ok. BACK: Scar noted, no tenderness, no swelling, no redness, no open wound NEUROLOGICAL: Awake and alert. Cranial nerves grossly intact. Motor grossly within normal limits. PSYCHIATRIC: Normal affect, calm and cooperative. LINE: No evidence of infection Assessment and Plan - Plan Impression Recurrent Enterobacter sepsis, very worrisome for endovascular infection -He has valvular heart disease on his echocardiogram last November NSTEMI Hx oral CA, has had surgeries Risk for recurrent PNA Recommendation Continue Invanz Await echo Repeat BC to document clearing Get neurosurgical opinion regarding the abnormal fluid collection WBC scan Follow C/S Ideally МАРИНА, but likely not a good candidate for МАРИНА with all his mouth surgeries done Monitor progress D/W Dr Brady
[2018-12-24] MEDS: Chlorhexidine Gluconate 0.12% Liq 15 ML UDC SWISH-SPIT SCH ×2 (09:56→22:26)
[2018-12-24] MEDS: Docusate Sodium 100 MG Capsule PO SCH (09:57)
[2018-12-24] MEDS: Finasteride 5 MG Tablet PO SCH (09:57)
[2018-12-24] MEDS: Famotidine 20 MG Tablet PO SCH (09:57)
[2018-12-24] MEDS: Metoprolol Tartrate 25 MG Tablet PO SCH ×2 (09:58→22:38)
[2018-12-24] MEDS: Gabapentin Liq 250 MG/5 ML UDC PO SCH ×3 (09:58→19:30)
--- NOTE | 2018-12-24 10:49 | ECHRPT ---
Indication: VEG CONCLUSIONS The left ventricular systolic function is normal with an estimated ejection fraction in the range of 55-60%. Moderate concentric left ventricular hypertrophy. Severe mitral annular calcification. [id number] mitral valve regurgitation. Mild aortic valve regurgitation. There is trace tricuspid valve regurgitation. BP: / HR: Rhythm: MEASUREMENTS (Male / Female) Normal Values Technical Quality:Technically difficult study 2D ECHO LV Diastolic Diameter PLAX 2.6 cm 4.2 - 5.9 / 3.9 - 5.3 cm LV Systolic Diameter PLAX 2.1 cm IVS Diastolic Thickness 1.7 cm 0.6 - 1.0 / 0.6 - 0.9 cm LVPW Diastolic Thickness 1.5 cm 0.6 - 1.0 / 0.6 - 0.9 cm LV Relative Wall Thickness 1.2 RV Internal Dim ED PLAX 4.3 cm Aortic Root Diameter 3.6 cm LA Systolic Diameter LX 4.1 cm 3.0 - 4.0 / 2.7 - 3.8 cm FINDINGS LEFT VENTRICLE Normal left ventricular size. Moderate concentric left ventricular hypertrophy. The left ventricular systolic function is normal with an estimated ejection fraction in the range of 55-60%. RIGHT VENTRICLE Grossly normal LEFT ATRIUM The left atrial size is mildly dilated. RIGHT ATRIUM The right atrial size is mildly dilated. ATRIAL SEPTUM The interatrial septum not well visualized. AORTA The aortic root and proximal ascending aorta are normal in size on limited imaging. MITRAL VALVE [id number] mitral valve regurgitation. Severe mitral annular calcification. AORTIC VALVE Trileaflet aortic valve. Diffuse calcification of the aortic valve. Mild aortic valve regurgitation. Not enough information to evaluate for aortic stenosis TRICUSPID VALVE Mild thickening of the tricuspid valve leaflets. There is trace tricuspid valve regurgitation. No tricuspid valve stenosis. PULMONARY VALVE The pulmonary valve is not well visualized. VESSELS The inferior vena cava was not well visualized. PERICARDIUM No pericardial effusion. Azeem Escobedo DO (Electronically Signed) Final Date:24 December 2018 10:49
--- NOTE | 2018-12-24 11:36 | P.PNIM ---
Subjective Interval history: The patient was resting comfortably in bed. He stated that the pain was tolerable. Nursing was at the bedside. Discussed with his daughter over the phone. Also discussed with infectious disease. Physical Exam Vital signs: Vital Signs 12/23/18 12:00 12/23/18 13:00 12/23/18 14:00 Temperature Pulse Rate 92 H 92 H 92 H Respiratory Rate Blood Pressure Pulse Oximetry 12/23/18 14:50 12/23/18 15:00 12/23/18 16:00 Temperature Pulse Rate 100 H 106 H 92 H Respiratory Rate 17 Blood Pressure 97/60 L Pulse Oximetry 99 12/23/18 17:00 12/23/18 18:00 12/23/18 19:00 Temperature Pulse Rate 100 H 108 H 138 H Respiratory Rate Blood Pressure Pulse Oximetry 12/23/18 20:00 12/23/18 21:00 12/23/18 22:00 Temperature Pulse Rate 92 H 124 H 116 H Respiratory Rate 20 Blood Pressure 85/64 L Pulse Oximetry 100 12/23/18 23:00 12/23/18 23:08 12/24/18 00:00 Temperature Pulse Rate 110 H 96 H Respiratory Rate 20 22 Blood Pressure 100/62 Pulse Oximetry 98 12/24/18 01:00 12/24/18 02:00 12/24/18 03:00 Temperature Pulse Rate 96 H 94 H 96 H Respiratory Rate Blood Pressure Pulse Oximetry 12/24/18 04:00 12/24/18 05:00 12/24/18 06:00 Temperature Pulse Rate 94 H 94 H 94 H Respiratory Rate 18 Blood Pressure Pulse Oximetry 100 12/24/18 08:00 Temperature 98.2 F Pulse Rate 87 Respiratory Rate 18 Blood Pressure 89/66 L Pulse Oximetry 94 L Intake & Output 12/23/18 12/24/18 12/24/18 18:59 06:59 18:59 Intake Total 740 / 740 1910 / 1910 Output Total 900 / 900 450 / 450 Balance -160 / -160 1460 / 1460 Weight 80.5 kg Intake: IV 740 / 740 1/2 Normal Saline Inj 1,000 ML 540 / 540 @ 50 mls/hr IV.CONT .Q20H [facility] Rx#:[id number] INVanz Inj 1,000 MG In NS Inj 100 / 100 100 ML @ 100 mls/hr IV.SIG Q24H [facility] Rx#:[id number] KCl 20 mEq Premix Inj 20 meq In 100 / 100 100 ml @ 50 mls/hr IV.SIG ONCE ONE Rx#:[id number] Tube Feeding 550 / 550 Water Bolus Amount 1360 / 1360 Output: Urine 900 / 900 Urine Amount (Catheter) 450 / 450 Condom 450 / 450 Gastric Drainage 0 / 0 Pre-Hospital Left Upper 0 / 0 Quadrant Other: # Incontinent Voids 2 Date of Last Bowel Movement 12/23/18 12/23/18 # Bowel Movements 1 1 Narrative: GENERAL: NAD, difficult to understand speech. HEAD: Normocephalic. NECK: Supple, trachea midline. No lymphadenopathy. Jaw deformity status post surgery. EYES: No scleral icterus. No injection or drainage. CARDIOVASCULAR: Regular rate and rhythm. Systolic murmur appreciated. RESPIRATORY: Breath sounds equal bilaterally. No accessory muscle use. GASTROINTESTINAL: Abdomen soft, non-tender, nondistended. MUSCULOSKELETAL: No cyanosis, or edema. SKIN: Warm and dry. NEURO: No focal neurological deficits. Urinary Catheter Management Condom: Cath placed during this visit: no Results Labs CBC & Chem 7: 12/24/18 08:14 12/24/18 08:14 Labs: Microbiology 12/23/18 03:31 Blood - Peripheral Aerobic Blood Culture - Preliminary gram negative rods 12/23/18 03:31 Blood - Peripheral Anaerobic Blood Culture - Preliminary gram negative rods 12/21/18 19:08 Blood - Peripheral Aerobic Blood Culture - Final Enterobacter cloacae 12/21/18 19:08 Blood - Peripheral Anaerobic Blood Culture - Final Enterobacter cloacae 12/21/18 18:32 Blood - Peripheral Aerobic Blood Culture - Final Enterobacter cloacae 12/21/18 18:32 Blood - Peripheral Anaerobic Blood Culture - Final Enterobacter cloacae 12/21/18 18:25 Blood - Peripheral Aerobic Blood Culture - Final Enterobacter cloacae 12/21/18 18:25 Blood - Peripheral Anaerobic Blood Culture - Final Enterobacter cloacae Imaging Imaging: Impressions Lumbar Spine MRI 12/23/18 00:00 CONCLUSION: 1. Suspect postsurgical features of prior laminectomies at L2-L5 with peripherally calcified posterior paraspinal fluid intensity collection measuring 2.1 x 3.2 x 7.0 cm centered at L4-5 level. This may reflect a chronic resolved postoperative hematoma, complicated seroma or infection. Clinical correlation with prior surgical history is recommended. If patient has no history of previous surgery, differential consideration would include a expansile lesion involving the posterior processes of primarily L3-L5. 2. Multilevel degenerative spondylosis of the lumbar spine with moderate central canal narrowing at L3-4 level. 3. Please see above for detailed description of each level. Assessment and Plan Plan 73-year-old male admitted secondary to shortness of breath with cough. A. fib RVR present at time of admit. Bacteremia Blood cultures positive for Enterobacter cloacae. ID consult appreciated. CT abdomen/pelvis negative. CT neck with ? small abscess left mandible. Oral surgery consult appreciated, no infection identified. Echo without obvious evidence of vegetation. MRI L spine: Suspect postsurgical features of prior laminectomies at L2-L5 with peripherally calcified posterior paraspinal fluid intensity collection measuring 2.1 x 3.2 x 7.0 cm centered at L4-5 level; This may reflect a chronic resolved postoperative hematoma, complicated seroma or infection. -Continue Invanz per ID. -WBC scan pending. -neurosurgery consult requested. -follow repeat BCs. A. fib with RVR/NSTEMI/CAD/ Cardiology consult appreciated. -Aspirin daily and Eliquis. -When necessary oxygen. -Follow on telemetry. Possible HealthCare associated Pneumonia Repeat CXR with clear lungs. -continue antibiotics per ID. Cancer of the neck/Tongue cancer/History of skin cancer Speech following. -continue tube feeds. -PT eval. -Follow as an outpatient. Diabetes mellitus type 2 Well controlled. -Follow blood sugars. -Insulin sliding scale. -Diabetic diet. COPD CTA indicative of mild edema or ILD. -nebs. -Patient counseled to quit smoking. DVT prophylaxis: Heparin Progress Note: Quality VTE Deep Vein Thrombosis/Pulmonary Embolism Present on Admission: No
[2018-12-24] MEDS ORDERED: Potassium Chlor 20 mEq Premix 20 MEQ/100 ML PIGGYBACK IV.SIG ONE (11:42)
--- NOTE | 2018-12-24 12:19 | P.CONNS ---
History of Present Illness Service: ID Primary Care Provider: No Primary Care Physician Chief Complaint: Shortness of Breath History of Present Illness: Patient is a 73-year-old male, came from a rehab facility, brought into the hospital for evaluation of altered mental status. He was also having cough and congestion. 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 The last surgery was done the first week in November and he had an anterior mandibular resection. He was readmitted December 01 and at that time he had A. fib with RVR. He was evaluated by maxillofacial surgery and he had a PEG tube done to increase his nutrition. Of note during that admission he had 2+ blood cultures with Enterobacter. Patient was felt to have a pneumonia at that time and he was given Levaquin when he was discharged from the hospital. On this admission, patient's mental status seems to have improved. He is awake and interacting. He tries to speak, but his speech is very difficult to understand. He has a cough, and he is pulling a lot of oral secretions that he suctions. He has a cough. He has some shortness of breath, and notes some chest pain in the lower quadrants. He was ruled in for HI during this admission , and cardiology evaluated the patient and was not a good candidate for cardiac catheterization. He had a fever of 102. CT of the chest did not show any pulmonary embolism, but it did show some interstitial infiltrates which could be congestion or interstitial disease. He denies any abdominal pain. He has not had any vomiting. No diarrhea. Patient is voiding without any problem. He currently has a condom cath in place. His urinalysis on this admission is unremarkable. His WBC was 14 on admission, and it is up to 19. 2 blood cultures done on admission are now reported as growing gram-negative neo, possibly on Enterobacter. During his last admission he had an echocardiogram and he has evidence of multiple calcifications in his valve namely mitral and aortic valve. Infectious disease consultation has been requested to assist with evaluation and treatment. 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, and he has (+) BC from Nov 2017 Patient has had back surgeries, he said 4, last one in 1987, never been treated for any infection in his back CT A/P no abscess CT neck noted OMFS evaluation - no evidence of infection Has back pain - old problem but worse No knee pain - 2 previous knee arthroplasty PMFSH - History History Provided By: Patient, Medical Record - Medical History Medical History: Medical History (Last Reviewed 12/23/18 @ 13:43 by Joselyn Eaton) Aortic stenosis, mild Hyperlipidemia Myocardial infarction Pneumonia Right bundle branch block Afib Anxiety Aortic stenosis Arthritis BPH (benign prostatic hyperplasia) CKD (chronic kidney disease) COPD (chronic obstructive pulmonary disease) Cancer Cancer of neck Cardiomyopathy Dementia Diabetes Fibromyalgia GERD (gastroesophageal reflux disease) History of skin cancer Hypertension Mitral stenosis Presence of orthopedic joint implant Short of breath on exertion Smoker Tongue cancer - Surgical History Surgical History: Surgical History (Last Reviewed 12/23/18 @ 13:42 by Joselyn Eaton) History of back surgery History of lumbar fusion History of total bilateral knee replacement Hx of rotator cuff surgery S/P ablation of atrial fibrillation - Family History Family History: Family History (Last Reviewed 12/23/18 @ 13:43 by Joselyn Eaton) Other Osteoarthritis - Tobacco History Second Hand Smoke Exposure: No Smoking Status: Never smoker Tobacco Type: Cigarettes - Alcohol History How Often Do You Have a Drink Containing Alcohol: Never - Substance Use History Substance History: No History of Abuse - Travel History Recent Travel in the [place] Within the Last 8 Weeks: No Recent Travel Out of the Country Within the Last 8 Weeks: No - Immunization History Tetanus Immunization: <5 Years Medications and Allergies Active Medications: Active Medications Acetaminophen (Tylenol) 650 mg PO Q6H PRN PRN Reason: Fever Or Pain Last Admin: 12/20/18 21:06 Dose: 650 mg Albuterol (Albuterol Neb (Prn)) 2.5 mg NEB Q4HR NEB PRN PRN Reason: Dyspnea or Wheezing Apixaban (Eliquis) 5 mg PO BID [facility] Last Admin: 12/24/18 09:57 Dose: 5 mg Aspirin (Ecotrin) 81 mg PO DAILY [facility] Last Admin: 12/24/18 09:57 Dose: 81 mg Chlorhexidine Gluconate (Peridex 0.12% Liq) 10 ml SWISH-SPIT BID [facility] Last Admin: 12/24/18 09:56 Dose: 10 ml Dextrose (D50w Vial) 50 ml IV.PUSH UNSCH PRN PRN Reason: PER HYPOGLYCEMIA PROTOCOL Docusate Sodium (Colace) 100 mg PO DAILY [facility] Last Admin: 12/24/18 09:57 Dose: Not Given Famotidine (Pepcid) 20 mg PO DAILY [facility] Last Admin: 02/08/19 09:57 Dose: 20 mg Finasteride (Proscar) 5 mg PO DAILY [facility] Last Admin: 12/24/18 09:57 Dose: 5 mg Gabapentin (Neurontin Liq) 300 mg PO TID [facility] Last Admin: 12/24/18 09:58 Dose: 300 mg Glucagon (Glucagon Inj) 1 mg OTHER PRN PRN PRN Reason: for Hypoglycemia Protocol Ertapenem 1,000 mg/ Sodium (Chloride) 100 mls @ 100 mls/hr IV.SIG Q24H [facility] Last Infusion: 12/23/18 15:16 Dose: Infused Potassium Chloride (Kcl 20 Meq Premix Inj) 20 meq in 100 mls @ 50 mls/hr IV.SIG ONCE ONE Stop: 12/24/18 13:41 Insulin Aspart (Novolog Insulin Correctional Sugar Inj) 0 unit SQ Q8HR [facility]; Protocol Last Admin: 12/24/18 06:25 Dose: Not Given Metoprolol Tartrate (Lopressor) 12.5 mg PO BID [facility] Last Admin: 12/24/18 09:58 Dose: 12.5 mg Miscellaneous Medication (Asp Crit: Other Exception Documentation) 1 each OTHER UNSCH PRN PRN Reason: PHARMACY DOCUMENTATION Stop: 12/24/18 20:23 Morphine Sulfate (Morphine Inj) 2 mg IV.PUSH Q4H PRN PRN Reason: Pain 3 to 6 Last Admin: 12/23/18 22:34 Dose: 2 mg Morphine Sulfate (Morphine Inj) 4 mg IV.PUSH Q4H PRN PRN Reason: Pain 7 to 10 Last Admin: 12/23/18 17:12 Dose: 4 mg Ondansetron HCl (Zofran Inj) 4 mg IV.PUSH Q6H PRN PRN Reason: NAUSEA OR VOMITING Last Admin: 12/23/18 22:34 Dose: 4 mg Pravastatin Sodium (Pravachol) 20 mg PO HS [facility] Last Admin: 12/23/18 22:04 Dose: 20 mg Sodium Chloride (Ns Inj) 2 ml IV.FLUSH BID [facility] Last Admin: 12/24/18 09:59 Dose: 2 ml Sodium Chloride (Ns Inj) 2 ml IV.FLUSH UNSCH PRN PRN Reason: FLUSH AFTER USING IV ACCESS Allergies Allergy/AdvReac Type Severity Reaction Status Date / Time No Known Allergies Allergy Verified 12/01/18 17:43 Home Medications Medication Instructions Recorded Confirmed Type chlorhexidine gluconate [Paroex 1 dose MUCOUS MEMBRANE DIRECTED 08/31/1802/01 History Oral Rinse] lovastatin 20 mg PO HS 08/31/18 12/19/18 History ranitidine HCl 300 mg PO DAILY 08/31/18 12/19/18 History docusate sodium 50 mg PO DAILY 11/17/18 12/19/18 History clotrimazole 10 mg MUCOUS MEMBRANE 5 TIMES A DAY 12/01/18 12/19/18 History finasteride 5 mg PO DAILY 12/01/18 12/19/18 History gabapentin 300 mg PO TID 12/01/18 12/19/18 History acetaminophen [Tylenol] 650 mg PO Q6H PRN 12/19/18 12/19/18 History hydrocodone-acetaminophen [Hulbert] 1 tab PO Q6H PRN 12/19/18 12/19/18 History insulin lispro [Humalog U-100 1 sliding scale dose SUBCUT UD 12/19/18 12/19/18 History Insulin] Exam Vital signs: Vital Signs 12/23/18 13:00 12/23/18 14:00 12/23/18 14:50 Temperature Pulse Rate 92 H 92 H 100 H Respiratory Rate 17 Blood Pressure 97/60 L Pulse Oximetry 99 12/23/18 15:00 12/23/18 16:00 12/23/18 17:00 Temperature Pulse Rate 106 H 92 H 100 H Respiratory Rate Blood Pressure Pulse Oximetry 12/23/18 18:00 12/23/18 19:00 12/23/18 20:00 Temperature Pulse Rate 108 H 138 H 92 H Respiratory Rate 20 Blood Pressure 85/64 L Pulse Oximetry 100 12/23/18 21:00 12/23/18 22:00 12/23/18 23:00 Temperature Pulse Rate 124 H 116 H 110 H Respiratory Rate Blood Pressure Pulse Oximetry 12/23/18 23:08 12/24/18 00:00 12/24/18 01:00 Temperature Pulse Rate 96 H 96 H Respiratory Rate 20 22 Blood Pressure 100/62 Pulse Oximetry 98 12/24/18 02:00 12/24/18 03:00 12/24/18 04:00 Temperature Pulse Rate 94 H 96 H 94 H Respiratory Rate 18 Blood Pressure Pulse Oximetry 100 12/24/18 05:00 02/08/19 06:00 12/24/18 08:00 Temperature 98.2 F Pulse Rate 94 H 94 H 87 Respiratory Rate 18 Blood Pressure 89/66 L Pulse Oximetry 94 L Intake & Output 12/23/18 12/24/18 12/24/18 18:59 06:59 18:59 Intake Total 740 / 740 1910 / 1910 Output Total 900 / 900 450 / 450 Balance -160 / -160 1460 / 1460 Weight 80.5 kg Intake: IV 740 / 740 1/2 Normal Saline Inj 1,000 ML 540 / 540 @ 50 mls/hr IV.CONT .Q20H [facility] Rx#:[id number] INVanz Inj 1,000 MG In NS Inj 100 / 100 100 ML @ 100 mls/hr IV.SIG Q24H [facility] Rx#:[id number] KCl 20 mEq Premix Inj 20 meq In 100 / 100 100 ml @ 50 mls/hr IV.SIG ONCE ONE Rx#:[id number] Tube Feeding 550 / 550 Water Bolus Amount 1360 / 1360 Output: Urine 900 / 900 Urine Amount (Catheter) 450 / 450 Condom 450 / 450 Gastric Drainage 0 / 0 Pre-Hospital Left Upper 0 / 0 Quadrant Other: # Incontinent Voids 2 Date of Last Bowel Movement 12/23/18 12/23/18 # Bowel Movements 1 1 Narrative: A&O Speech difficult due to mandibular process Moves all extremities x 4 with full strength Able to relate history of 4 back surgeries, last 1987 Results - Laboratory Findings CBC and BMP: 12/24/18 08:14 12/24/18 08:14 Abnormal lab findings: Abnormal Labs 12/19/18 12/19/18 12/19/18 01:06 01:06 01:06 WBC RBC 4.15 L Hgb Hct Neut % (Auto) 76.7 H Lymph % (Auto) [place] % (Auto) 9.9 H Neut # (Auto) 7.8 H Lymph # (Auto) [place] # (Auto) 1.0 H Seg Neuts % (Manual) Band Neuts % (Manual) Lymphocytes % (Manual) Abs Neuts (Manual) Toxic Granulation Toxic Vacuolation Platelet Morphology Ovalocytes Wood Cells Keratocytes PT 12.7 H APTT 36.7 H Potassium Carbon Dioxide BUN Creatinine POC Glucose Random Glucose Calcium Phosphorus Total Bilirubin AST Alkaline Phosphatase Troponin I B-Natriuretic Peptide 1074 H Total Protein Albumin Urine Clarity Urine Protein Urine Urobilinogen Urine RBC Urine Mucus 12/19/18 12/19/18 12/19/18 01:06 01:55 09:43 WBC RBC Hgb Hct Neut % (Auto) Lymph % (Auto) [place] % (Auto) Neut # (Auto) Lymph # (Auto) [place] # (Auto) Seg Neuts % (Manual) Band Neuts % (Manual) Lymphocytes % (Manual) Abs Neuts (Manual) Toxic Granulation Toxic Vacuolation Platelet Morphology Ovalocytes [place] Cells Keratocytes PT 12.0 H APTT 38.7 H Potassium Carbon Dioxide BUN 20 H Creatinine POC Glucose Random Glucose 114 H Calcium 7.8 L Phosphorus Total Bilirubin 1.3 H AST 43 H Alkaline Phosphatase 134 H Troponin I 4.24 H* B-Natriuretic Peptide Total Protein Albumin 2.1 L Urine Clarity Hazy H Urine Protein 100 H Urine Urobilinogen 4.0 H Urine RBC 30 H Urine Mucus Few H 12/19/18 12/19/18 12/19/18 09:43 16:00 17:57 WBC RBC Hgb Hct Neut % (Auto) Lymph % (Auto) [place] % (Auto) Neut # (Auto) Lymph # (Auto) [place] # (Auto) Seg Neuts % (Manual) Band Neuts % (Manual) Lymphocytes % (Manual) Abs Neuts (Manual) Toxic Granulation Toxic Vacuolation Platelet Morphology Ovalocytes Wood Cells Keratocytes PT APTT 37.1 H Potassium Carbon Dioxide BUN Creatinine POC Glucose Random Glucose Calcium Phosphorus Total Bilirubin AST Alkaline Phosphatase Troponin I 2.89 H* 2.21 H* B-Natriuretic Peptide Total Protein Albumin Urine Clarity Urine Protein Urine Urobilinogen Urine RBC Urine Mucus 12/20/18 12/20/18 12/20/18 01:12 01:12 01:12 WBC 14.1 H RBC 3.81 L Hgb 11.9 L Hct 35.8 L Neut % (Auto) 80.6 H Lymph % (Auto) [place] % (Auto) 9.1 H Neut # (Auto) 11.4 H Lymph # (Auto) [place] # (Auto) 1.3 H Seg Neuts % (Manual) Band Neuts % (Manual) Lymphocytes % (Manual) Abs Neuts (Manual) Toxic Granulation Toxic Vacuolation Platelet Morphology Ovalocytes Wood Cells Keratocytes PT APTT 39.9 H Potassium Carbon Dioxide BUN 20 H Creatinine POC Glucose Random Glucose Calcium 8.1 L Phosphorus Total Bilirubin 2.0 H AST Alkaline Phosphatase Troponin I 2.61 H* B-Natriuretic Peptide Total Protein 6.3 L Albumin 2.0 L Urine Clarity Urine Protein Urine Urobilinogen Urine RBC Urine Mucus 12/20/18 12/20/18 12/20/18 10:47 12:37 21:11 WBC RBC Hgb Hct Neut % (Auto) Lymph % (Auto) [place] % (Auto) Neut # (Auto) Lymph # (Auto) [place] # (Auto) Seg Neuts % (Manual) Band Neuts % (Manual) Lymphocytes % (Manual) Abs Neuts (Manual) Toxic Granulation Toxic Vacuolation Platelet Morphology Ovalocytes Wood Cells Keratocytes PT APTT 37.8 H Potassium Carbon Dioxide BUN Creatinine POC Glucose 125 H 147 H Random Glucose Calcium Phosphorus Total Bilirubin AST Alkaline Phosphatase Troponin I B-Natriuretic Peptide Total Protein Albumin Urine Clarity Urine Protein Urine Urobilinogen Urine RBC Urine Mucus 12/20/18 12/21/18 12/21/18 21:35 05:02 05:38 WBC 19.4 H RBC 4.20 L Hgb Hct Neut % (Auto) 79.4 H Lymph % (Auto) [place] % (Auto) 9.3 H Neut # (Auto) 15.4 H Lymph # (Auto) [place] # (Auto) 1.8 H Seg Neuts % (Manual) 79 H Band Neuts % (Manual) Lymphocytes % (Manual) Abs Neuts (Manual) 16.5 H Toxic Granulation Toxic Vacuolation Platelet Morphology Ovalocytes Wood Cells 1+ H Keratocytes Occ H PT APTT 39.4 H Potassium Carbon Dioxide BUN Creatinine POC Glucose 139 H Random Glucose Calcium Phosphorus Total Bilirubin AST Alkaline Phosphatase Troponin I B-Natriuretic Peptide Total Protein Albumin Urine Clarity Urine Protein Urine Urobilinogen Urine RBC Urine Mucus 12/21/18 12/21/18 12/21/18 05:38 10:36 23:27 WBC RBC Hgb Hct Neut % (Auto) Lymph % (Auto) [place] % (Auto) Neut # (Auto) Lymph # (Auto) [place] # (Auto) Seg Neuts % (Manual) Band Neuts % (Manual) Lymphocytes % (Manual) Abs Neuts (Manual) Toxic Granulation Toxic Vacuolation Platelet Morphology Ovalocytes Wood Cells Keratocytes PT APTT Potassium Carbon Dioxide BUN 22 H Creatinine POC Glucose 142 H 149 H Random Glucose 149 H Calcium Phosphorus Total Bilirubin 1.3 H AST Alkaline Phosphatase 130 H Troponin I B-Natriuretic Peptide Total Protein Albumin 1.9 L Urine Clarity Urine Protein Urine Urobilinogen Urine RBC Urine Mucus 12/22/18 12/22/18 12/22/18 06:07 06:07 23:29 WBC 15.9 H RBC 4.17 L Hgb Hct Neut % (Auto) 86.1 H Lymph % (Auto) 5.3 L [place] % (Auto) 8.2 H Neut # (Auto) 13.7 H Lymph # (Auto) 0.8 L [place] # (Auto) 1.3 H Seg Neuts % (Manual) Band Neuts % (Manual) Lymphocytes % (Manual) Abs Neuts (Manual) Toxic Granulation Toxic Vacuolation Platelet Morphology Ovalocytes Wood Cells Keratocytes PT APTT Potassium Carbon Dioxide 32.5 H BUN 19 H Creatinine POC Glucose 123 H Random Glucose 132 H Calcium 8.3 L Phosphorus 2.3 L Total Bilirubin AST Alkaline Phosphatase Troponin I B-Natriuretic Peptide Total Protein Albumin Urine Clarity Urine Protein Urine Urobilinogen Urine RBC Urine Mucus 12/23/18 12/23/18 12/23/18 03:31 03:31 05:23 WBC 20.2 H RBC 3.71 L Hgb 11.7 L Hct 34.3 L Neut % (Auto) 85.6 H Lymph % (Auto) 6.8 L [place] % (Auto) Neut # (Auto) 17.3 H Lymph # (Auto) [place] # (Auto) 1.5 H Seg Neuts % (Manual) 77 H Band Neuts % (Manual) 14 H Lymphocytes % (Manual) 3 L Abs Neuts (Manual) 18.4 H Toxic Granulation 1+ H Toxic Vacuolation Present H Platelet Morphology Enlarged H Ovalocytes 1+ H Wood Cells Keratocytes Occ H PT APTT Potassium 3.4 L Carbon Dioxide BUN Creatinine 0.59 L POC Glucose 133 H Random Glucose 122 H Calcium 7.6 L Phosphorus Total Bilirubin AST Alkaline Phosphatase Troponin I B-Natriuretic Peptide Total Protein Albumin Urine Clarity Urine Protein Urine Urobilinogen Urine RBC Urine Mucus 12/23/18 12/24/18 12/24/18 13:42 06:19 08:14 WBC 18.2 H RBC 3.66 L Hgb 11.3 L Hct 33.9 L Neut % (Auto) 84.4 H Lymph % (Auto) 6.9 L [place] % (Auto) 8.3 H Neut # (Auto) 15.4 H Lymph # (Auto) [place] # (Auto) 1.5 H Seg Neuts % (Manual) Band Neuts % (Manual) Lymphocytes % (Manual) Abs Neuts (Manual) Toxic Granulation Toxic Vacuolation Platelet Morphology Ovalocytes [place] Cells Keratocytes PT APTT Potassium Carbon Dioxide BUN Creatinine POC Glucose 139 H 152 H Random Glucose Calcium Phosphorus Total Bilirubin AST Alkaline Phosphatase Troponin I B-Natriuretic Peptide Total Protein Albumin Urine Clarity Urine Protein Urine Urobilinogen Urine RBC Urine Mucus 12/24/18 08:14 WBC RBC Hgb Hct Neut % (Auto) Lymph % (Auto) [place] % (Auto) Neut # (Auto) Lymph # (Auto) [place] # (Auto) Seg Neuts % (Manual) Band Neuts % (Manual) Lymphocytes % (Manual) Abs Neuts (Manual) Toxic Granulation Toxic Vacuolation Platelet Morphology Ovalocytes Wood Cells Keratocytes PT APTT Potassium Carbon Dioxide BUN Creatinine POC Glucose Random Glucose 129 H Calcium 7.9 L Phosphorus Total Bilirubin AST Alkaline Phosphatase Troponin I B-Natriuretic Peptide Total Protein Albumin Urine Clarity Urine Protein Urine Urobilinogen Urine RBC Urine Mucus - Diagnostic Findings Additional findings: MRI L-spine report 1. Suspect postsurgical features of prior laminectomies at L2-L5 with peripherally calcified posterior paraspinal fluid intensity collection measuring 2.1 x 3.2 x 7.0 cm centered at L4-5 level. This may reflect a chronic resolved postoperative hematoma, complicated seroma or infection. Clinical correlation with prior surgical history is recommended. If patient has no history of previous surgery, differential consideration would include a expansile lesion involving the posterior processes of primarily L3-L5. Assessment and Plan - Plan Given the prior 4 back surgeries, last in 1987 and the calcified nature of the fluid collection correlating CT and MRI, I think this was a seroma that calcified. His incision looks clean and he does not endorse back pain. At this point I feel these fluid collections are benign. If there is difficulty in treating his infection or eradicating the source or there is suspicion that these are infected, IR could try an aspiration. At this point in time, my index of suspicion that these are infected is low. Please call with questions.
[2018-12-24] MEDS: Morphine Inj 4 MG/ML Vial IV.PUSH PRN ×2 (15:11→21:18)
--- NOTE | 2018-12-24 17:51 | P.PN ---
Subjective Interval history: 73-year-old male admitted secondary to shortness of breath/ altered mental status/ cough. A. fib RVR present at admission s/p scca/mandible resection with reconstruction Nov 2018 - discharged home; then subsequent admission for AFIB/ PEG placed and discharged to rehab increase in wbc/ blood cultures + pt seen and examined, aaox3 nad, nurse at bedside talking better/ writing today, no complaints more alert today s/p nuclear imaging today . Physical Exam Vital signs: Vital Signs 12/23/18 18:00 12/23/18 19:00 12/23/18 20:00 Temperature Pulse Rate 108 H 138 H 92 H Respiratory Rate 20 Blood Pressure 85/64 L Pulse Oximetry 100 12/23/18 21:00 12/23/18 22:00 12/23/18 23:00 Temperature Pulse Rate 124 H 116 H 110 H Respiratory Rate Blood Pressure Pulse Oximetry 12/23/18 23:08 12/24/18 00:00 12/24/18 01:00 Temperature Pulse Rate 96 H 96 H Respiratory Rate 20 22 Blood Pressure 100/62 Pulse Oximetry 98 12/24/18 02:00 12/24/18 03:00 12/24/18 04:00 Temperature Pulse Rate 94 H 96 H 94 H Respiratory Rate 18 Blood Pressure Pulse Oximetry 100 12/24/18 05:00 12/24/18 06:00 12/24/18 07:00 Temperature Pulse Rate 94 H 94 H 92 H Respiratory Rate Blood Pressure Pulse Oximetry 12/24/18 08:00 12/24/18 09:00 12/24/18 10:00 Temperature 98.2 F Pulse Rate 94 H 94 H 94 H Respiratory Rate 18 Blood Pressure 89/66 L Pulse Oximetry 94 L 12/24/18 11:00 12/24/18 12:00 12/24/18 13:00 Temperature 97.7 F Pulse Rate 77 73 80 Respiratory Rate 18 Blood Pressure 82/58 L Pulse Oximetry 99 12/24/18 14:00 12/24/18 14:40 12/24/18 15:00 Temperature Pulse Rate 92 H 88 Respiratory Rate Blood Pressure 87/64 L Pulse Oximetry 12/24/18 16:00 Temperature Pulse Rate 97 H Respiratory Rate Blood Pressure Pulse Oximetry Intake & Output 12/23/18 12/24/18 12/24/18 18:59 06:59 18:59 Intake Total 740 / 740 1910 / 1910 Output Total 900 / 900 450 / 450 Balance -160 / -160 1460 / 1460 Weight 80.5 kg Intake: IV 740 / 740 1/2 Normal Saline Inj 1,000 ML 540 / 540 @ 50 mls/hr IV.CONT .Q20H [facility] Rx#:[id number] INVanz Inj 1,000 MG In NS Inj 100 / 100 100 ML @ 100 mls/hr IV.SIG Q24H [facility] Rx#:[id number] KCl 20 mEq Premix Inj 20 meq In 100 / 100 100 ml @ 50 mls/hr IV.SIG ONCE ONE Rx#:[id number] Tube Feeding 550 / 550 Water Bolus Amount 1360 / 1360 Output: Urine 900 / 900 Urine Amount (Catheter) 450 / 450 Condom 450 / 450 Gastric Drainage 0 / 0 Pre-Hospital Left Upper 0 / 0 Quadrant Other: # Incontinent Voids 2 Date of Last Bowel Movement 12/23/18 12/23/18 12/23/18 # Bowel Movements 1 1 - Constitutional no acute distress - Routine HEENT Exam Head: Present: normocephalic ENT: Present: oropharynx clear Comments: no neck edema. trach midline no discharge noted neck/ no palpable collection noted no erythema/no tenderness intraorally , tissues pink/well perfused, small area of plate exposure inside right lower lip region hardware/mandible stable mouth/neck - all wound margins well approximated no signs of infection bleeding pus edema better movement of tongue ct scan neck - no drainable collection noted, hardware in place ID/Neuro input noted - Urinary Catheter Management Condom Cath placed during this visit: no Results - Labs CBC & Chem 7: 12/24/18 08:14 12/24/18 08:14 Laboratory Results - last 24 hr 12/23/18 12/24/18 12/24/18 22:01 06:19 08:14 WBC 18.2 H RBC 3.66 L Hgb 11.3 L Hct 33.9 L MCV 92.7 MCH 31.0 MCHC 33.4 RDW 14.3 Plt Count 198 MPV 9.8 Neut % (Auto) 84.4 H Lymph % (Auto) 6.9 L [place] % (Auto) 8.3 H Eos % (Auto) 0.1 Baso % (Auto) 0.3 Neut # (Auto) 15.4 H Lymph # (Auto) 1.3 [place] # (Auto) 1.5 H Eos # (Auto) 0.0 Baso # (Auto) 0.1 WBC Differential . Differential Comment Auto diff final Sodium Potassium Chloride Carbon Dioxide Anion Gap BUN Creatinine Estimated GFR POC Glucose 102 152 H Random Glucose Calcium Magnesium 12/24/18 08:14 WBC RBC Hgb Hct MCV MCH MCHC RDW Plt Count MPV Neut % (Auto) Lymph % (Auto) [place] % (Auto) Eos % (Auto) Baso % (Auto) Neut # (Auto) Lymph # (Auto) [place] # (Auto) Eos # (Auto) Baso # (Auto) WBC Differential Differential Comment Sodium 137 Potassium 3.6 Chloride 99 Carbon Dioxide 31.0 Anion Gap 7 BUN 18 Creatinine 0.64 Estimated GFR Greater than 89 POC Glucose Random Glucose 129 H Calcium 7.9 L Magnesium 2.1 Microbiology 12/23/18 03:31 Blood - Peripheral Aerobic Blood Culture - Preliminary gram negative rods 12/23/18 03:31 Blood - Peripheral Anaerobic Blood Culture - Preliminary gram negative rods - Imaging Impressions Lumbar Spine MRI 12/23/18 00:00 CONCLUSION: 1. Suspect postsurgical features of prior laminectomies at L2-L5 with peripherally calcified posterior paraspinal fluid intensity collection measuring 2.1 x 3.2 x 7.0 cm centered at L4-5 level. This may reflect a chronic resolved postoperative hematoma, complicated seroma or infection. Clinical correlation with prior surgical history is recommended. If patient has no history of previous surgery, differential consideration would include a expansile lesion involving the posterior processes of primarily L3-L5. 2. Multilevel degenerative spondylosis of the lumbar spine with moderate central canal narrowing at L3-4 level. 3. Please see above for detailed description of each level. Assessment and Plan - Plan 73-year-old male admitted secondary to shortness of breath/ cough/ altered mental status A. fib RVR present at admission s/p scca/mandible resection with reconstruction Nov 2018- discharged home; then subsequent admission for AFIB/ PEG placed and discharged to rehab now with increased wbc/ + blood cultures does not appear to be from oral/neck wounds/surgery- d/w dr. matt kilgore for popsicles
[2018-12-25] MEDS: Insulin NovoLOG Aspart Correctional Sugar Inj SQ SCH ×3 (06:16→21:50)
[2018-12-25] MEDS: Finasteride 5 MG Tablet PO SCH (10:02)
[2018-12-25] MEDS: Famotidine 20 MG Tablet PO SCH (10:02)
[2018-12-25] MEDS: Gabapentin Liq 250 MG/5 ML UDC PO SCH ×3 (10:02→18:30)
[2018-12-25] MEDS: Docusate Sodium 100 MG Capsule PO SCH (10:02)
[2018-12-25] MEDS: Metoprolol Tartrate 25 MG Tablet PO SCH ×2 (10:03→21:39)
--- NOTE | 2018-12-25 12:08 | NM ---
EXAM DATE: 12/25/2018 10:05 AM EST AGE/SEX: 73 years / Male INDICATIONS: Infection. Sepsis. CLINICAL DATA: This is the patient's subsequent encounter. Patient reports that signs and symptoms h ave been present for 1 month and indicates a pain score of 0/10. MEDICAL/SURGICAL HISTORY: Hypertension. Carcinoma, head and neck. Gastroesophageal reflux dis ease. Total knee replacement, left. Total knee replacement, right. COMPARISON: No prior exams available for comparison. DOSE: 20.7 mCi Tc99m Ceretec labeled white blood cells IV PLANAR IMAGIN min 3 hr , 24 hrs SPECT IMAGIN hr IMAGING: SPECT/CT imaging with fusion was performed. RADIATION DOSE: 3.83 CTDIvol(mGy) TECHNIQUE: Following the in vitro labeling of autologous white cells and reinjection, whole body sca n was performed at the specified times. Imaging was performed at specified times in sagittal, axial and coronal planes. Attenuation correction was performed with computed tomography and both the atten uation correction and non-attenuation corrected data sets were reviewed. FINDINGS: Patient is status post resection of the anterior body of the mandible with plate fixation. Along the anterior margin of the left mandibular remnant is some focal uptake. Elongated uptake seen in the soft tissues medially of the left mid leg, potentially artifactual but p lease correlate clinically for any swelling, erythema or other evidence of inflammation/infection. CONCLUSION: 1. Nonspecific uptake along the anterior margin of the left mandibular remnant. 2. Nonspecific uptake in the soft tissues medially of the left leg at the level of the mid tibia sha ft. Electronically signed by: Chris Lee MD Board Certified Radiologist 12/25/2018 12:07 PM EST
[2018-12-25] MEDS: Chlorhexidine Gluconate 0.12% Liq 15 ML UDC SWISH-SPIT SCH ×2 (13:31→21:39)
[2018-12-25] MEDS ORDERED: Hyoscyamine Liq Drops 0.125 MG/ML 15 ML Bottle SL PRN (13:34)
--- NOTE | 2018-12-25 13:38 | P.PNIM ---
Subjective Interval history: The patient was resting comfortably in bed. His daughter was at the bedside. Their questions were answered. The patient was looking forward to drinking Ensure. He wanted to work with speech therapy. He denied any acute complaints. He has been having secretions. Physical Exam Vital signs: Vital Signs 12/24/18 14:00 12/24/18 14:40 12/24/18 15:00 Temperature Pulse Rate 92 H 88 Respiratory Rate Blood Pressure 87/64 L Pulse Oximetry 12/24/18 16:00 12/24/18 17:00 12/24/18 17:24 Temperature 97.6 F Pulse Rate 97 H 88 82 Respiratory Rate 16 Blood Pressure 91/65 L Pulse Oximetry 97 12/24/18 18:00 12/24/18 19:00 12/24/18 20:00 Temperature 98.1 F Pulse Rate 94 H 95 H 88 Respiratory Rate 18 Blood Pressure 88/60 L Pulse Oximetry 100 12/24/18 21:00 12/24/18 22:00 12/24/18 23:00 Temperature Pulse Rate 84 84 97 H Respiratory Rate Blood Pressure Pulse Oximetry 12/25/18 00:00 12/25/18 01:00 12/25/18 02:00 Temperature 97.6 F Pulse Rate 112 H 96 H 105 H Respiratory Rate 17 Blood Pressure 91/71 L Pulse Oximetry 96 12/25/18 03:00 12/25/18 04:00 12/25/18 05:00 Temperature 97.8 F Pulse Rate 100 H 106 H 99 H Respiratory Rate 18 Blood Pressure 103/62 Pulse Oximetry 93 L 12/25/18 06:00 12/25/18 07:00 12/25/18 08:00 Temperature 99.5 F Pulse Rate 116 H 107 H 106 H Respiratory Rate 18 Blood Pressure 81/55 L Pulse Oximetry 96 12/25/18 09:00 12/25/18 10:00 12/25/18 11:00 Temperature Pulse Rate 102 H 90 107 H Respiratory Rate Blood Pressure 90/60 L Pulse Oximetry 12/25/18 11:14 Temperature 97.7 F Pulse Rate 92 H Respiratory Rate 18 Blood Pressure 96/73 L Pulse Oximetry 95 Intake & Output 12/24/18 12/25/18 12/25/18 18:59 06:59 18:59 Intake Total 175 / 175 Output Total 500 / 500 200 / 200 Balance -500 / -500 -25 / -25 Weight 80.1 kg Intake: IV 175 / 175 INVanz Inj 1,000 MG In NS Inj 100 / 100 100 ML @ 100 mls/hr IV.SIG Q24H [facility] Rx#:[id number] KCl 20 mEq Premix Inj 20 meq In 75 / 75 100 ml @ 50 mls/hr IV.SIG ONCE ONE Rx#:[id number] Output: Urine 500 / 500 200 / 200 Other: # Incontinent Voids 1 2 Date of Last Bowel Movement 12/23/18 12/23/18 Narrative: GENERAL: NAD, difficult to understand speech, has secretions. HEAD: Normocephalic. NECK: Supple, trachea midline. No lymphadenopathy. Jaw deformity status post surgery. EYES: No scleral icterus. No injection or drainage. CARDIOVASCULAR: Regular rate and rhythm. Systolic murmur appreciated. RESPIRATORY: Breath sounds equal bilaterally. No accessory muscle use. GASTROINTESTINAL: Abdomen soft, non-tender, nondistended. MUSCULOSKELETAL: No cyanosis, or edema. SKIN: Warm and dry. NEURO: No focal neurological deficits. Urinary Catheter Management Condom: Cath placed during this visit: no Results Labs CBC & Chem 7: 12/24/18 08:14 12/24/18 08:14 Labs: Microbiology 12/24/18 08:14 Blood - Peripheral Aerobic Blood Culture - Preliminary No growth in 1 day 12/24/18 08:14 Blood - Peripheral Anaerobic Blood Culture - Preliminary No growth in 1 day 12/23/18 03:31 Blood - Peripheral Aerobic Blood Culture - Final Enterobacter cloacae 12/23/18 03:31 Blood - Peripheral Anaerobic Blood Culture - Final Enterobacter cloacae Imaging Imaging: Impressions WBC Scan Nuclear Medicine 12/24/18 00:00 CONCLUSION: 1. Nonspecific uptake along the anterior margin of the left mandibular remnant. 2. Nonspecific uptake in the soft tissues medially of the left leg at the level of the mid tibia shaft. Assessment and Plan Plan 73-year-old male admitted secondary to shortness of breath with cough. A. fib RVR present at time of admit. Bacteremia Blood cultures positive for Enterobacter cloacae. ID consult appreciated. CT abdomen/pelvis negative. CT neck with ? small abscess left mandible. Oral surgery consult appreciated, no infection identified. Echo without obvious evidence of vegetation. MRI L spine: Suspect postsurgical features of prior laminectomies at L2-L5 with peripherally calcified posterior paraspinal fluid intensity collection measuring 2.1 x 3.2 x 7.0 cm centered at L4-5 level; This may reflect a chronic resolved postoperative hematoma, complicated seroma or infection. Neurosurgery consult appreciated. Fluid collection unlikely related to infection. White blood cell scan with nonspecific uptake along the anterior margin of the left mandibular remnant as well as nonspecific uptake in the soft tissues medially of the left leg at the level of the mid tibia shaft. -Continue Invanz per ID. -follow repeat BCs. A. fib with RVR/NSTEMI/CAD/ Cardiology consult appreciated. -Aspirin daily and Eliquis. -When necessary oxygen. -Follow on telemetry. Possible HealthCare associated Pneumonia Repeat CXR with clear lungs. -continue antibiotics per ID. 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 -Levsin as needed. -Speech following. -continue tube feeds. -PT and OT. -Follow as an outpatient. Diabetes mellitus type 2 Well controlled. -Follow blood sugars. -Insulin sliding scale. -Diabetic diet. COPD CTA indicative of mild edema or ILD. -nebs. -Patient counseled to quit smoking. DVT prophylaxis: Heparin Progress Note: Quality VTE Deep Vein Thrombosis/Pulmonary Embolism Present on Admission: No
[2018-12-25] MEDS ORDERED: Amikacin Consult Pharmacy OTHER PRN (17:58)
--- NOTE | 2018-12-25 18:00 | P.PNID ---
Subjective Remarks: Patient is a 73-year-old male, came from a rehab facility, brought into the hospital for evaluation of altered mental status. He was also having cough and congestion. 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 The last surgery was done the first week in November and he had an anterior mandibular resection. He was readmitted December 01 and at that time he had A. fib with RVR. He was evaluated by maxillofacial surgery and he had a PEG tube done to increase his nutrition. Of note during that admission he had 2+ blood cultures with Enterobacter. Patient was felt to have a pneumonia at that time and he was given Levaquin when he was discharged from the hospital. On this admission, patient's mental status seems to have improved. He is awake and interacting. He tries to speak, but his speech is very difficult to understand. He has a cough, and he is pulling a lot of oral secretions that he suctions. He has a cough. He has some shortness of breath, and notes some chest pain in the lower quadrants. He was ruled in for GA during this admission , and cardiology evaluated the patient and was not a good candidate for cardiac catheterization. He had a fever of 102. CT of the chest did not show any pulmonary embolism, but it did show some interstitial infiltrates which could be congestion or interstitial disease. He denies any abdominal pain. He has not had any vomiting. No diarrhea. Patient is voiding without any problem. He currently has a condom cath in place. His urinalysis on this admission is unremarkable. His WBC was 14 on admission, and it is up to 19. 2 blood cultures done on admission are now reported as growing gram-negative neo, possibly on Enterobacter. During his last admission he had an echocardiogram and he has evidence of multiple calcifications in his valve namely mitral and aortic valve. Infectious disease consultation has been requested to assist with evaluation and treatment. 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 - 2/3-12/23, and he has (+) BC from Nov 2017 Patient has had back surgeries, he said 4, last one in 1987, never been treated for any infection in his back CT A/P no abscess CT neck noted OMFS evaluation - no evidence of infection Has back pain - old problem but worse No knee pain - 2 previous knee arthroplasty Antibiotics: Invanz Past Medical History: Reviewed Allergies/Adverse Reactions: Allergies No Known Allergies Allergy (Verified 12/01/18 17:43) Objective Vital Signs 12/24/18 19:00 12/24/18 20:00 12/24/18 21:00 Temperature 98.1 F Pulse Rate 95 H 88 84 Respiratory Rate 18 Blood Pressure 88/60 L Pulse Oximetry 100 12/24/18 22:00 12/24/18 23:00 12/25/18 00:00 Temperature 97.6 F Pulse Rate 84 97 H 112 H Respiratory Rate 17 Blood Pressure 91/71 L Pulse Oximetry 96 12/25/18 01:00 12/25/18 02:00 12/25/18 03:00 Temperature Pulse Rate 96 H 105 H 100 H Respiratory Rate Blood Pressure Pulse Oximetry 12/25/18 04:00 12/25/18 05:00 12/25/18 06:00 Temperature 97.8 F Pulse Rate 106 H 99 H 116 H Respiratory Rate 18 Blood Pressure 103/62 Pulse Oximetry 93 L 12/25/18 07:00 12/25/18 08:00 12/25/18 09:00 Temperature 99.5 F Pulse Rate 107 H 106 H 102 H Respiratory Rate 18 Blood Pressure 81/55 L Pulse Oximetry 96 12/25/18 10:00 12/25/18 11:00 12/25/18 11:14 Temperature 97.7 F Pulse Rate 90 107 H 92 H Respiratory Rate 18 Blood Pressure 90/60 L 96/73 L Pulse Oximetry 95 12/25/18 16:00 Temperature 97.5 F L Pulse Rate 81 Respiratory Rate 18 Blood Pressure 85/60 L Pulse Oximetry 95 Intake & Output 12/24/18 12/25/18 12/25/18 18:59 06:59 18:59 Intake Total 175 / 175 100 / 100 Output Total 500 / 500 200 / 200 Balance -500 / -500 -25 / -25 100 / 100 Weight 80.1 kg Intake: IV 175 / 175 100 / 100 INVanz Inj 1,000 MG In NS Inj 100 / 100 100 / 100 100 ML @ 100 mls/hr IV.SIG Q24H [facility] Rx#:[id number] KCl 20 mEq Premix Inj 20 meq In 75 / 75 100 ml @ 50 mls/hr IV.SIG ONCE ONE Rx#:[id number] Output: Urine 500 / 500 200 / 200 Other: # Incontinent Voids 1 2 Date of Last Bowel Movement 12/23/18 12/23/18 12/23/18 12/24/18 08:14 Blood - Peripheral Aerobic Blood Culture - Preliminary No growth in 1 day 12/24/18 08:14 Blood - Peripheral Anaerobic Blood Culture - Preliminary No growth in 1 day 12/23/18 03:31 Blood - Peripheral Aerobic Blood Culture - Final Enterobacter cloacae 12/23/18 03:31 Blood - Peripheral Anaerobic Blood Culture - Final Enterobacter cloacae 12/25/18 06:25 Blood - Peripheral Aerobic Blood Culture - Pending 12/25/18 06:25 Blood - Peripheral Anaerobic Blood Culture - Pending 12/21/18 19:08 Blood - Peripheral Aerobic Blood Culture - Final Enterobacter cloacae 12/21/18 19:08 Blood - Peripheral Anaerobic Blood Culture - Final Enterobacter cloacae 12/21/18 18:32 Blood - Peripheral Aerobic Blood Culture - Final Enterobacter cloacae 12/21/18 18:32 Blood - Peripheral Anaerobic Blood Culture - Final Enterobacter cloacae 12/21/18 18:25 Blood - Peripheral Aerobic Blood Culture - Final Enterobacter cloacae 12/21/18 18:25 Blood - Peripheral Anaerobic Blood Culture - Final Enterobacter cloacae Lab - Hematology Results 12/24/18 08:14 WBC 18.2 H RBC 3.66 L Hgb 11.3 L Hct 33.9 L MCV 92.7 MCH 31.0 MCHC 33.4 RDW 14.3 Plt Count 198 MPV 9.8 Neut % (Auto) 84.4 H Lymph % (Auto) 6.9 L [place] % (Auto) 8.3 H Eos % (Auto) 0.1 Baso % (Auto) 0.3 Neut # (Auto) 15.4 H Lymph # (Auto) 1.3 [place] # (Auto) 1.5 H Eos # (Auto) 0.0 Baso # (Auto) 0.1 WBC Differential . Differential Comment Auto diff final Lab - Chemistry Results 12/23/18 12/24/18 12/24/18 22:01 06:19 08:14 Sodium 137 Potassium 3.6 Chloride 99 Carbon Dioxide 31.0 Anion Gap 7 BUN 18 Creatinine 0.64 Estimated GFR Greater than 89 POC Glucose 102 152 H Random Glucose 129 H Calcium 7.9 L Magnesium 2.1 12/24/18 12/25/18 12/25/18 22:26 06:02 14:34 Sodium Potassium Chloride Carbon Dioxide Anion Gap BUN Creatinine Estimated GFR POC Glucose 118 H 116 H 110 Random Glucose Calcium Magnesium Imaging: ITS Impressions Chest CTA 12/19/18 02:39 CONCLUSION: 1. No pulmonary embolus. 2. Diffuse process in interstitial markings which could suggest mild edema or underlying interstitial disease. Chest X-Ray 12/21/18 17:17 CONCLUSION: The lungs are clear. Abdomen/Pelvis CT 12/22/18 00:00 CONCLUSION: 1. Nonspecific, nonobstructive bowel gas pattern with no evidence of abscess. There is a moderate amount of stool in the distal colon. Could indicate mild fecal impaction. 2. Gastrostomy tube in place with the tip in the mid stomach. 3. Multiple small gallstones. 4. Cardiomegaly and small left pleural effusion. Soft Tissue Neck CT 12/22/18 00:00 CONCLUSION: 1. Extensive reconstruction with a mandibular large plate in this patient history of myelitis. 2. Small focal possible pointing abscess measuring less than 1 cm on the left in angle of the mandible. 3. Extensive artifact with distortion of normal tissue planes however I don't see a deep space abscess. 4. If subclinical infection suspected a bone gallium scanning may be the only way to sort this out. Lumbar Spine MRI 12/23/18 00:00 CONCLUSION: 1. Suspect postsurgical features of prior laminectomies at L2-L5 with peripherally calcified posterior paraspinal fluid intensity collection measuring 2.1 x 3.2 x 7.0 cm centered at L4-5 level. This may reflect a chronic resolved postoperative hematoma, complicated seroma or infection. Clinical correlation with prior surgical history is recommended. If patient has no history of previous surgery, differential consideration would include a expansile lesion involving the posterior processes of primarily L3-L5. 2. Multilevel degenerative spondylosis of the lumbar spine with moderate central canal narrowing at L3-4 level. 3. Please see above for detailed description of each level. WBC Scan Nuclear Medicine 12/24/18 00:00 CONCLUSION: 1. Nonspecific uptake along the anterior margin of the left mandibular remnant. 2. Nonspecific uptake in the soft tissues medially of the left leg at the level of the mid tibia shaft. Physical Exam: GENERAL: awake and alert, not in respiratory distress. SKIN: Warm and dry. No generalized rash, no ecchymoses and no evidence of embolic lesions noted HEAD: Atraumatic. Normocephalic. No temporal wasting, or tenderness. EYES: Grant conjunctiva. No scleral icterus. No injection or drainage. EARS, NOSE AND THROAT: Nose without bleeding or purulent nasal discharge. No sinus tenderness. Mucous membranes pink and moist. A lot of secretions pooling at floor of mouth, some white coating on tongue, tongue not moving. NECK: Supple and not tender, no meningeal signs CARDIOVASCULAR: Regular rate and rhythm. HAs harsh systolic murmur L precordium and base of the heart RESPIRATORY: Coarse BS bilaterally ABDOMEN: Soft, non-tender, nondistended. Bowel sounds present and normoactive. No guarding. No rebound. PEG site ok. EXTREMITIES: No clubbing, cyanosis, or edema. Scars both knees, knees looks ok. BACK: Scar noted, no tenderness, no swelling, no redness, no open wound NEUROLOGICAL: Awake and alert. Cranial nerves grossly intact. Motor grossly within normal limits. PSYCHIATRIC: Normal affect, calm and cooperative. LINE: No evidence of infection Assessment and Plan - Plan Impression Recurrent Enterobacter sepsis, very worrisome for endovascular infection -He has valvular heart disease on his echocardiogram last November NSTEMI Hx oral CA, has had surgeries Risk for recurrent PNA Recommendation Discontinue Invanz Start Meropenem IV (more continuous regimen for endocarditis and spinal abscess treatment. Start Amikacin IV Reviewed literature and found above regimen. ECHO reviewed. discuss with Cardiology if МАРИНА can be done. Patient has a murmur for a long time. Reviewed MRI and WBC scan. Needs a IR guided biopsy in my opinion. Negative WBC scan does not rule out spine infection. Also concern the jaw surgeries (concern for underlying osteomyelitis) or PEG tube insertion as sources of infection. dw patients POA plan of care as well as with patient. Patient nods understanding of plan. Critical thinking,literature review, timmy Sher and pt/family.
[2018-12-25] MEDS: SODIUM CHLOR 0.9% IV.SIG SCH (21:33)
[2018-12-25] MEDS: AMIKACIN IV.SIG SCH (21:33)
[2018-12-26] MEDS: Insulin NovoLOG Aspart Correctional Sugar Inj SQ SCH ×3 (05:40→21:53)
[2018-12-26 06:47] LABS: Baso # (Auto) 0.1 th/mm3 (0.0-0.2); Baso % (Auto) 0.4 % (0.0-2.0); Eos # (Auto) 0.1 th/mm3 (0.0-0.4); Eos % (Auto) 0.3 % (0.0-4.0); Hematocrit 34.6 % (39.0-51.0); Hemoglobin 11.5 gm/dL (13.0-17.0); Lymph % (Auto) 10.9 % (9.0-44.0); Mean Corpuscular HGB Conc 33.3 % (32.0-36.0); Mean Corpuscular Hemoglobin 31.3 pg (27.0-34.0); Mean Corpuscular Volume 94.1 fL (80.0-100.0); Mean Platelet Volume 10.2 fL (7.0-11.0); Mono # (Auto) 1.4 th/mm3 (0.0-0.9); Mono % (Auto) 7.4 % (0.0-8.0); Neut # (Auto) 15.2 th/mm3 (1.8-7.7); Platelet Count 243 th/mm3 (150-450); Red Blood Count 3.68 mil/mm3 (4.50-5.90); Red Cell Distribution Width 14.6 % (11.6-17.2); White Blood Count 18.8 th/mm3 (4.0-11.0)
[2018-12-26 07:25] LABS: Anion Gap 6 meq/L (5-15); Blood Urea Nitrogen 17 mg/dL (7-18); Calcium 7.8 mg/dL (8.5-10.1); Carbon Dioxide 29.5 meq/L (21.0-32.0); Chloride 104 meq/L (98-107); Glomerular Filtration Rate Greater Than 89 mL/min (>89); Glucose,Random 115 mg/dL (74-106); Magnesium 2.1 mg/dL (1.5-2.5); Potassium 3.9 meq/L (3.5-5.1); Sodium 139 meq/L (136-145)
[2018-12-26] MEDS ORDERED: Pharmacy Ordered Lab Info OTHER ONE (08:00)
[2018-12-26] MEDS: Morphine Inj 4 MG/ML Vial IV.PUSH PRN (08:04)
[2018-12-26] MEDS: Metoprolol Tartrate 25 MG Tablet PO SCH ×2 (09:14→21:47)
[2018-12-26] MEDS: Chlorhexidine Gluconate 0.12% Liq 15 ML UDC SWISH-SPIT SCH ×2 (09:14→21:49)
[2018-12-26] MEDS: Gabapentin Liq 250 MG/5 ML UDC PO SCH ×3 (09:14→17:24)
[2018-12-26] MEDS: Famotidine 20 MG Tablet PO SCH (09:15)
[2018-12-26] MEDS: Docusate Sodium 100 MG Capsule PO SCH (09:15)
[2018-12-26] MEDS: Finasteride 5 MG Tablet PO SCH (09:15)
--- NOTE | 2018-12-26 10:39 | P.PNIM ---
Subjective Interval history: The patient was asking if he could drink something. He does not recall working with speech therapy. He denies any prior history of stroke. He understands that we are holding his aspirin and Eliquis in order to attempt a tap of the fluid collection as well as a possible МАРИНА. He had complaints of arthritis pain. Discussed with nursing. Physical Exam Vital signs: Vital Signs 12/25/18 11:00 12/25/18 11:14 12/25/18 12:00 Temperature 97.7 F Pulse Rate 107 H 92 H 92 H Respiratory Rate 18 Blood Pressure 96/73 L Pulse Oximetry 95 12/25/18 13:00 12/25/18 14:00 12/25/18 15:00 Temperature Pulse Rate 90 86 87 Respiratory Rate Blood Pressure Pulse Oximetry 12/25/18 16:00 12/25/18 17:00 12/25/18 18:00 Temperature 97.5 F L Pulse Rate 84 84 90 Respiratory Rate 18 Blood Pressure 85/60 L Pulse Oximetry 95 12/25/18 19:00 12/25/18 20:00 12/25/18 21:00 Temperature 97 F L Pulse Rate 89 82 84 Respiratory Rate 16 Blood Pressure 83/57 L Pulse Oximetry 97 12/25/18 22:00 12/25/18 23:00 12/26/18 00:00 Temperature Pulse Rate 88 82 86 Respiratory Rate 16 Blood Pressure 88/64 L Pulse Oximetry 96 12/26/18 01:00 12/26/18 02:00 12/26/18 03:00 Temperature Pulse Rate 88 88 97 H Respiratory Rate Blood Pressure Pulse Oximetry 12/26/18 03:52 12/26/18 04:00 12/26/18 05:00 Temperature Pulse Rate 87 84 98 H Respiratory Rate 18 Blood Pressure 89/64 L Pulse Oximetry 95 12/26/18 06:00 12/26/18 07:59 Temperature 98.7 F Pulse Rate 90 97 H Respiratory Rate 18 Blood Pressure 105/71 Pulse Oximetry 98 Intake & Output 12/25/18 12/26/18 12/26/18 18:59 06:59 18:59 Intake Total 100 / 100 1453.2 / 1453.2 100 / 100 Output Total 550 / 550 800 / 800 Balance -450 / -450 653.2 / 653.2 100 / 100 Weight 80 kg Intake: IV 100 / 100 453.2 / 453.2 100 / 100 Amikin Inj 800 MG In NS Inj 250 253.2 / 253.2 ML @ 250 mls/hr IV.SIG Q24H [facility] Rx#:[id number] INVanz Inj 1,000 MG In NS Inj 100 / 100 100 ML @ 100 mls/hr IV.SIG Q24H [facility] Rx#:[id number] Merrem Inj 1,000 MG In NS Inj 200 / 200 100 / 100 100 ML @ 200 mls/hr IV.SIG Q8H [facility] Rx#:[id number] Tube Feeding 600 / 600 Water Bolus Amount 400 / 400 Output: Urine 550 / 550 800 / 800 Other: # Incontinent Voids 1 Date of Last Bowel Movement 12/23/18 Narrative: GENERAL: NAD, difficult to understand speech. HEAD: Normocephalic. NECK: Supple, trachea midline. No lymphadenopathy. Jaw deformity status post surgery. EYES: No scleral icterus. No injection or drainage. CARDIOVASCULAR: Regular rate and rhythm. Systolic murmur appreciated. RESPIRATORY: Breath sounds equal bilaterally. No accessory muscle use. GASTROINTESTINAL: Abdomen soft, non-tender, nondistended. PEG tube in place, no signs of infection. MUSCULOSKELETAL: No cyanosis, or edema. SKIN: Warm and dry. NEURO: No focal neurological deficits. Urinary Catheter Management Condom: Cath placed during this visit: no Results Labs CBC & Chem 7: 12/26/18 05:18 12/26/18 05:18 Labs: Microbiology 12/24/18 08:14 Blood - Peripheral Aerobic Blood Culture - Preliminary No growth in 1 day 12/24/18 08:14 Blood - Peripheral Anaerobic Blood Culture - Preliminary No growth in 1 day 12/23/18 03:31 Blood - Peripheral Aerobic Blood Culture - Final Enterobacter cloacae 12/23/18 03:31 Blood - Peripheral Anaerobic Blood Culture - Final Enterobacter cloacae Imaging Imaging: Impressions WBC Scan Nuclear Medicine 12/24/18 00:00 CONCLUSION: 1. Nonspecific uptake along the anterior margin of the left mandibular remnant. 2. Nonspecific uptake in the soft tissues medially of the left leg at the level of the mid tibia shaft. Assessment and Plan Plan 73-year-old male admitted secondary to shortness of breath with cough. A. fib RVR present at time of admit. Bacteremia Blood cultures positive for Enterobacter cloacae. ID consult appreciated. CT abdomen/pelvis negative. CT neck with ? small abscess left mandible. Oral surgery consult appreciated, no infection identified. Echo without obvious evidence of vegetation. MRI L spine: Suspect postsurgical features of prior laminectomies at L2-L5 with peripherally calcified posterior paraspinal fluid intensity collection measuring 2.1 x 3.2 x 7.0 cm centered at L4-5 level; This may reflect a chronic resolved postoperative hematoma, complicated seroma or infection. Neurosurgery consult appreciated. Fluid collection unlikely related to infection. White blood cell scan with nonspecific uptake along the anterior margin of the left mandibular remnant as well as nonspecific uptake in the soft tissues medially of the left leg at the level of the mid tibia shaft. -Continue meropenem and amikacin per ID. -follow repeat BCs. -Consult IR for tap and culture of fluid collection in the lumbar spine. -Plan for МАРИНА. A. fib with RVR/NSTEMI/CAD/ Cardiology consult appreciated. -Aspirin daily and Eliquis on hold for upcoming procedures. -When necessary oxygen. -Follow on telemetry. Possible HealthCare associated Pneumonia Repeat CXR with clear lungs. -continue antibiotics per ID. 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 -Levsin as needed. -Speech following. Strict n.p.o. recommended. -continue tube feeds. -PT and OT. -Follow as an outpatient. Diabetes mellitus type 2 Well controlled. -Follow blood sugars. -Insulin sliding scale. -Diabetic diet. COPD CTA indicative of mild edema or ILD. -nebs. -Patient counseled to quit smoking. DVT prophylaxis: Heparin Progress Note: Quality VTE Deep Vein Thrombosis/Pulmonary Embolism Present on Admission: No
[2018-12-26] MEDS: Docusate Sodium Liq 100 MG/10 ML UDC G-TUBE SCH (12:25)
--- NOTE | 2018-12-26 15:53 | P.PNID ---
Subjective Remarks: Patient is a 73-year-old male, came from a rehab facility, brought into the hospital for evaluation of altered mental status. He was also having cough and congestion. 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 The last surgery was done the first week in November and he had an anterior mandibular resection. He was readmitted December 01 and at that time he had A. fib with RVR. He was evaluated by maxillofacial surgery and he had a PEG tube done to increase his nutrition. Of note during that admission he had 2+ blood cultures with Enterobacter. Patient was felt to have a pneumonia at that time and he was given Levaquin when he was discharged from the hospital. On this admission, patient's mental status seems to have improved. He is awake and interacting. He tries to speak, but his speech is very difficult to understand. He has a cough, and he is pulling a lot of oral secretions that he suctions. He has a cough. He has some shortness of breath, and notes some chest pain in the lower quadrants. He was ruled in for MT during this admission , and cardiology evaluated the patient and was not a good candidate for cardiac catheterization. He had a fever of 102. CT of the chest did not show any pulmonary embolism, but it did show some interstitial infiltrates which could be congestion or interstitial disease. He denies any abdominal pain. He has not had any vomiting. No diarrhea. Patient is voiding without any problem. He currently has a condom cath in place. His urinalysis on this admission is unremarkable. His WBC was 14 on admission, and it is up to 19. 2 blood cultures done on admission are now reported as growing gram-negative neo, possibly on Enterobacter. During his last admission he had an echocardiogram and he has evidence of multiple calcifications in his valve namely mitral and aortic valve. Infectious disease consultation has been requested to assist with evaluation and treatment. 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 - 2/3-12/23, and he has (+) BC from Nov 2017 Patient has had back surgeries, he said 4, last one in 1987, never been treated for any infection in his back CT A/P no abscess CT neck noted OMFS evaluation - no evidence of infection Has back pain - old problem but worse No knee pain - 2 previous knee arthroplasty Antibiotics: Invanz Past Medical History: Reviewed Allergies/Adverse Reactions: Allergies No Known Allergies Allergy (Verified 12/01/18 17:43) Objective Vital Signs 12/25/18 16:00 12/25/18 17:00 12/25/18 18:00 Temperature 97.5 F L Pulse Rate 84 84 90 Respiratory Rate 18 Blood Pressure 85/60 L Pulse Oximetry 95 12/25/18 19:00 12/25/18 20:00 12/25/18 21:00 Temperature 97 F L Pulse Rate 89 82 84 Respiratory Rate 16 Blood Pressure 83/57 L Pulse Oximetry 97 12/25/18 22:00 12/25/18 23:00 12/26/18 00:00 Temperature Pulse Rate 88 82 86 Respiratory Rate 16 Blood Pressure 88/64 L Pulse Oximetry 96 12/26/18 01:00 12/26/18 02:00 12/26/18 03:00 Temperature Pulse Rate 88 88 97 H Respiratory Rate Blood Pressure Pulse Oximetry 12/26/18 03:52 12/26/18 04:00 12/26/18 05:00 Temperature Pulse Rate 87 84 98 H Respiratory Rate 18 Blood Pressure 89/64 L Pulse Oximetry 95 12/26/18 06:00 12/26/18 07:00 12/26/18 07:59 Temperature 98.7 F Pulse Rate 90 89 97 H Respiratory Rate 18 Blood Pressure 105/71 Pulse Oximetry 98 12/26/18 08:00 12/26/18 09:00 12/26/18 10:00 Temperature Pulse Rate 96 H 96 H 88 Respiratory Rate Blood Pressure Pulse Oximetry 12/26/18 11:00 12/26/18 12:00 Temperature 98.6 F Pulse Rate 93 H 86 Respiratory Rate 18 Blood Pressure 105/64 Pulse Oximetry 97 Intake & Output 12/25/18 12/26/18 12/26/18 18:59 06:59 18:59 Intake Total 100 / 100 1453.2 / 1453.2 100 / 100 Output Total 550 / 550 800 / 800 Balance -450 / -450 653.2 / 653.2 100 / 100 Weight 80 kg Intake: IV 100 / 100 453.2 / 453.2 100 / 100 Amikin Inj 800 MG In NS Inj 250 253.2 / 253.2 ML @ 250 mls/hr IV.SIG Q24H [facility] Rx#:[id number] INVanz Inj 1,000 MG In NS Inj 100 / 100 100 ML @ 100 mls/hr IV.SIG Q24H [facility] Rx#:[id number] Merrem Inj 1,000 MG In NS Inj 200 / 200 100 / 100 100 ML @ 200 mls/hr IV.SIG Q8H [facility] Rx#:[id number] Tube Feeding 600 / 600 Water Bolus Amount 400 / 400 Output: Urine 550 / 550 800 / 800 Other: # Incontinent Voids 1 Date of Last Bowel Movement 12/23/18 12/24/18 08:14 Blood - Peripheral Aerobic Blood Culture - Preliminary No growth in 2 days 12/24/18 08:14 Blood - Peripheral Anaerobic Blood Culture - Preliminary gram negative rods 12/25/18 06:25 Blood - Peripheral Aerobic Blood Culture - Preliminary No growth in 1 day 12/25/18 06:25 Blood - Peripheral Anaerobic Blood Culture - Preliminary No growth in 1 day 12/23/18 03:31 Blood - Peripheral Aerobic Blood Culture - Final Enterobacter cloacae 12/23/18 03:31 Blood - Peripheral Anaerobic Blood Culture - Final Enterobacter cloacae Lab - Hematology Results 12/26/18 05:18 WBC 18.8 H RBC 3.68 L Hgb 11.5 L Hct 34.6 L MCV 94.1 MCH 31.3 MCHC 33.3 RDW 14.6 Plt Count 243 MPV 10.2 Neut % (Auto) 81.0 H Lymph % (Auto) 10.9 [place] % (Auto) 7.4 Eos % (Auto) 0.3 Baso % (Auto) 0.4 Neut # (Auto) 15.2 H Lymph # (Auto) 2.0 [place] # (Auto) 1.4 H Eos # (Auto) 0.1 Baso # (Auto) 0.1 WBC Differential . Differential Comment Auto diff final Lab - Chemistry Results 12/24/18 12/25/18 12/25/18 22:26 06:02 14:34 Sodium Potassium Chloride Carbon Dioxide Anion Gap BUN Creatinine Estimated GFR POC Glucose 118 H 116 H 110 Random Glucose Calcium Magnesium 12/25/18 12/26/18 12/26/18 21:49 05:18 05:39 Sodium 139 Potassium 3.9 Chloride 104 Carbon Dioxide 29.5 Anion Gap 6 BUN 17 Creatinine 0.52 L Estimated GFR Greater than 89 POC Glucose 110 127 H Random Glucose 115 H Calcium 7.8 L Magnesium 2.1 Imaging: ITS Impressions Chest CTA 12/19/18 02:39 CONCLUSION: 1. No pulmonary embolus. 2. Diffuse process in interstitial markings which could suggest mild edema or underlying interstitial disease. Chest X-Ray 12/21/18 17:17 CONCLUSION: The lungs are clear. Abdomen/Pelvis CT 12/22/18 00:00 CONCLUSION: 1. Nonspecific, nonobstructive bowel gas pattern with no evidence of abscess. There is a moderate amount of stool in the distal colon. Could indicate mild fecal impaction. 2. Gastrostomy tube in place with the tip in the mid stomach. 3. Multiple small gallstones. 4. Cardiomegaly and small left pleural effusion. Soft Tissue Neck CT 12/22/18 00:00 CONCLUSION: 1. Extensive reconstruction with a mandibular large plate in this patient history of myelitis. 2. Small focal possible pointing abscess measuring less than 1 cm on the left in angle of the mandible. 3. Extensive artifact with distortion of normal tissue planes however I don't see a deep space abscess. 4. If subclinical infection suspected a bone gallium scanning may be the only way to sort this out. Lumbar Spine MRI 12/23/18 00:00 CONCLUSION: 1. Suspect postsurgical features of prior laminectomies at L2-L5 with peripherally calcified posterior paraspinal fluid intensity collection measuring 2.1 x 3.2 x 7.0 cm centered at L4-5 level. This may reflect a chronic resolved postoperative hematoma, complicated seroma or infection. Clinical correlation with prior surgical history is recommended. If patient has no history of previous surgery, differential consideration would include a expansile lesion involving the posterior processes of primarily L3-L5. 2. Multilevel degenerative spondylosis of the lumbar spine with moderate central canal narrowing at L3-4 level. 3. Please see above for detailed description of each level. WBC Scan Nuclear Medicine 12/24/18 00:00 CONCLUSION: 1. Nonspecific uptake along the anterior margin of the left mandibular remnant. 2. Nonspecific uptake in the soft tissues medially of the left leg at the level of the mid tibia shaft. Physical Exam: GENERAL: awake and alert, not in respiratory distress. SKIN: Warm and dry. No generalized rash, no ecchymoses and no evidence of embolic lesions noted HEAD: Atraumatic. Normocephalic. No temporal wasting, or tenderness. EYES: [place] conjunctiva. No scleral icterus. No injection or drainage. EARS, NOSE AND THROAT: Nose without bleeding or purulent nasal discharge. No sinus tenderness. Mucous membranes pink and moist. A lot of secretions pooling at floor of mouth, some white coating on tongue, tongue not moving. NECK: Supple and not tender, no meningeal signs CARDIOVASCULAR: Regular rate and rhythm. HAs harsh systolic murmur L precordium and base of the heart RESPIRATORY: Coarse BS bilaterally ABDOMEN: Soft, non-tender, nondistended. Bowel sounds present and normoactive. No guarding. No rebound. PEG site ok. EXTREMITIES: No clubbing, cyanosis, or edema. Scars both knees, knees looks ok. BACK: Scar noted, no tenderness, no swelling, no redness, no open wound NEUROLOGICAL: Awake and alert. Cranial nerves grossly intact. Motor grossly within normal limits. PSYCHIATRIC: Normal affect, calm and cooperative. LINE: No evidence of infection Assessment and Plan - Plan Impression Recurrent Enterobacter sepsis, very worrisome for endovascular infection -He has valvular heart disease on his echocardiogram last November NSTEMI Hx oral CA, has had surgeries Risk for recurrent PNA Recommendation Continue Meropenem IV (more continuous regimen for endocarditis and spinal abscess treatment. Continue Amikacin IV ECHO reviewed. to discuss with Cardiology if МАРИНА can be done. Reviewed MRI and WBC scan. Needs a IR guided biopsy in my opinion. Orders entered. Negative WBC scan does not rule out spine infection. Also concern the jaw surgeries (concern for underlying osteomyelitis) or PEG tube insertion as sources of infection. dw patients POA plan of care as well as with patient. Patient nods understanding of plan. dw and pt daughter. Patients daughter says she is also the POA. I updated her about the events. to resume care in am.
[2018-12-26] MEDS: AMIKACIN IV.SIG SCH (21:44)
[2018-12-26] MEDS: SODIUM CHLOR 0.9% IV.SIG SCH (21:44)
[2018-12-27] MEDS: Insulin NovoLOG Aspart Correctional Sugar Inj SQ SCH ×3 (06:05→22:00)
[2018-12-27] MEDS: Docusate Sodium Liq 100 MG/10 ML UDC G-TUBE SCH (09:34)
[2018-12-27] MEDS: Gabapentin Liq 250 MG/5 ML UDC PO SCH ×3 (09:38→18:05)
[2018-12-27] MEDS: Metoprolol Tartrate 25 MG Tablet PO SCH ×2 (09:38→20:32)
[2018-12-27] MEDS: Famotidine 20 MG Tablet PO SCH (09:39)
[2018-12-27] MEDS: Chlorhexidine Gluconate 0.12% Liq 15 ML UDC SWISH-SPIT SCH ×2 (09:39→20:33)
[2018-12-27] MEDS: Finasteride 5 MG Tablet PO SCH (09:39)
[2018-12-27] MEDS ORDERED: fentaNYL Citrate Inj 250 MCG/5 ML Ampul ONE (11:26)
--- NOTE | 2018-12-27 11:57 | P.PNIM ---
Subjective Interval history: The patient was resting comfortably in bed. His daughter was at the bedside. The patient was not very talkative. He did endorse some depression. He was about to go for his procedure. Discussed with nursing. Physical Exam Vital signs: Vital Signs 12/26/18 12:00 12/26/18 13:00 12/26/18 14:00 Temperature 98.6 F Pulse Rate 86 100 H 92 H Respiratory Rate 18 Blood Pressure 105/64 Pulse Oximetry 97 12/26/18 15:00 12/26/18 16:00 12/26/18 17:00 Temperature 98.2 F Pulse Rate 94 H 96 H 92 H Respiratory Rate 16 Blood Pressure 98/69 L Pulse Oximetry 97 12/26/18 18:00 12/26/18 19:00 12/26/18 20:00 Temperature 97.7 F Pulse Rate 96 H 93 H 90 Respiratory Rate 18 Blood Pressure 100/70 Pulse Oximetry 97 12/26/18 21:00 12/26/18 22:00 12/26/18 23:00 Temperature Pulse Rate 92 H 88 90 Respiratory Rate Blood Pressure Pulse Oximetry 12/27/18 00:00 12/27/18 01:00 12/27/18 02:00 Temperature Pulse Rate 88 88 82 Respiratory Rate 18 Blood Pressure 105/71 Pulse Oximetry 98 12/27/18 03:00 12/27/18 04:00 12/27/18 05:00 Temperature Pulse Rate 87 90 90 Respiratory Rate 20 Blood Pressure 120/90 Pulse Oximetry 96 12/27/18 06:00 12/27/18 07:00 12/27/18 08:00 Temperature 97.7 F Pulse Rate 90 98 H 99 H Respiratory Rate 22 Blood Pressure 123/86 Pulse Oximetry 94 L 12/27/18 09:00 12/27/18 10:00 Temperature Pulse Rate 89 92 H Respiratory Rate Blood Pressure Pulse Oximetry Intake & Output 12/26/18 12/27/18 12/27/18 18:59 06:59 18:59 Intake Total 200 / 200 1453.2 / 1453.2 Output Total 400 / 400 825 / 825 Balance -200 / -200 628.2 / 628.2 Weight 79.9 kg Intake: IV 200 / 200 353.2 / 353.2 Amikin Inj 800 MG In NS Inj 250 253.2 / 253.2 ML @ 250 mls/hr IV.SIG Q24H [facility] Rx#:[id number] Merrem Inj 1,000 MG In NS Inj 200 / 200 100 / 100 100 ML @ 200 mls/hr IV.SIG Q8H [facility] Rx#:[id number] Tube Feeding 600 / 600 Water Bolus Amount 500 / 500 Output: Urine 400 / 400 825 / 825 Other: # Incontinent Voids 2 1 Date of Last Bowel Movement 12/23/18 12/27/18 Narrative: GENERAL: NAD, difficult to understand speech. HEAD: Normocephalic. NECK: Supple, trachea midline. No lymphadenopathy. Jaw deformity status post surgery. EYES: No scleral icterus. No injection or drainage. CARDIOVASCULAR: Regular rate and rhythm. Systolic murmur appreciated. RESPIRATORY: Breath sounds equal bilaterally. No accessory muscle use. GASTROINTESTINAL: Abdomen soft, non-tender, nondistended. PEG tube in place, no signs of infection. MUSCULOSKELETAL: No cyanosis, or edema. SKIN: Warm and dry. NEURO: No focal neurological deficits. Urinary Catheter Management Condom: Cath placed during this visit: no Results Labs CBC & Chem 7: 12/26/18 05:18 12/26/18 05:18 Labs: Microbiology 12/24/18 08:14 Blood - Peripheral Aerobic Blood Culture - Preliminary No growth in 3 days 12/24/18 08:14 Blood - Peripheral Anaerobic Blood Culture - Preliminary gram negative rods 12/25/18 06:25 Blood - Peripheral Aerobic Blood Culture - Preliminary No growth in 2 days 12/25/18 06:25 Blood - Peripheral Anaerobic Blood Culture - Preliminary No growth in 2 days Assessment and Plan Plan 73-year-old male admitted secondary to shortness of breath with cough. A. fib RVR present at time of admit. Bacteremia Blood cultures positive for Enterobacter cloacae. ID consult appreciated. CT abdomen/pelvis negative. CT neck with ? small abscess left mandible. Oral surgery consult appreciated, no infection identified. Echo without obvious evidence of vegetation. MRI L spine: Suspect postsurgical features of prior laminectomies at L2-L5 with peripherally calcified posterior paraspinal fluid intensity collection measuring 2.1 x 3.2 x 7.0 cm centered at L4-5 level; This may reflect a chronic resolved postoperative hematoma, complicated seroma or infection. Neurosurgery consult appreciated. Fluid collection unlikely related to infection. White blood cell scan with nonspecific uptake along the anterior margin of the left mandibular remnant as well as nonspecific uptake in the soft tissues medially of the left leg at the level of the mid tibia shaft. -Continue meropenem and amikacin per ID. -follow repeat BCs. -Consulted IR for tap and culture of fluid collection in the lumbar spine. Procedure scheduled for 12/27. -considering МАРИНА. A. fib with RVR/NSTEMI/CAD/ Cardiology consult appreciated. -Aspirin daily and Eliquis on hold for IR procedure 12/27. -When necessary oxygen. -Follow on telemetry. Possible HealthCare associated Pneumonia Repeat CXR with clear lungs. -continue antibiotics per ID. 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 -Levsin as needed. -Speech following. Strict n.p.o. recommended. -continue tube feeds. On hold for procedure 12/27. -PT and OT. -Follow as an outpatient. Diabetes mellitus type 2 Well controlled. -Follow blood sugars. -Insulin sliding scale. -Diabetic diet. COPD CTA indicative of mild edema or ILD. -nebs. -Patient counseled to quit smoking. Social issues Pt's daughter would like to become the health care proxy. -case management consult has been placed. DVT prophylaxis: Eliquis on hold Discharge Planning: Awaiting further work-up for bacteremia. Follow up with ID. Progress Note: Quality VTE Deep Vein Thrombosis/Pulmonary Embolism Present on Admission: No
--- NOTE | 2018-12-27 12:17 | P.DIET ---
Nutritional Evaluation Type of nutrition evaluation: follow-up Nutrition consult regarding: Tube Feeding [place] [facility] [place] Objective - Diagnosis NSTEMI, pulmonary edema - Objective [place] body weight: 78 kg (172lbs) % IBW: 102 Body Weight Used for Calculations: Actual (80kg) Energy Needs - Lower Range (kCal/kg): 25 Energy Needs - Upper Range (kCal/kg): 30 Lower Limit kCal/kg (kCals): 2,000 Upper Limit kCal/kg (kCals): 2,400 Lower Limit Protein Factor (Grams per Kg): 1.0 Upper Limit Protein Factor (Grams per Kg): 1.2 Lower Protein Needs (Protein): 80 Upper Protein Needs (Protein): 96 Dietitian Reviewed in Medical Record: Curent medications, Labs, Medical history , Tube feeding Diet Order: TF Objective Comments: PMH; extensive PMH Labs; POC glucose 116 120 127 Medications; insulin Assessment Assessment: Pt remains at nutritional risk related to dependence on TF. Pt receiving TF of Jev[place] 1.5 @ 50ml/hr via PEG now and tolerating. Per MD note pt may possible undergo a МАРИНА soon. ST recs reviewed, pt failed PO trials, remains strictly NPO and tube feeding via PEG. Will continue to monitor tolerance to TF, blood sugars and clinical course. Brought forward (12/20/18): Important to note pt is a diabetic however blood sugars are currently under good control which makes Jevity an appropriate formula at this time. Discussed TF order with RN. Labs and medications reviewed. Recommendations: 1. TF recs; Jevity 1.5 running at 60ml/hour to best meet pt's assessed nutritional needs 2. Monitor blood glucose 3. Monitor tolerance to TF Dietitian to Monitor: Lab values, Glucose level, Intake & Output, Tube feeding tolerance, Weight change, Medical course
--- NOTE | 2018-12-27 14:41 | P.PNID ---
Subjective Remarks: Patient is a 73-year-old male, came from a rehab facility, brought into the hospital for evaluation of altered mental status. He was also having cough and congestion. 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 The last surgery was done the first week in November and he had an anterior mandibular resection. He was readmitted December 01 and at that time he had A. fib with RVR. He was evaluated by maxillofacial surgery and he had a PEG tube done to increase his nutrition. Of note during that admission he had 2+ blood cultures with Enterobacter. Patient was felt to have a pneumonia at that time and he was given Levaquin when he was discharged from the hospital. On this admission, patient's mental status seems to have improved. He is awake and interacting. He tries to speak, but his speech is very difficult to understand. He has a cough, and he is pooling a lot of oral secretions that he suctions. He has a cough. He has some shortness of breath, and notes some chest pain in the lower quadrants. He was ruled in for [place] during this admission , and cardiology evaluated the patient and was not a good candidate for cardiac catheterization. He had a fever of 102. CT of the chest did not show any pulmonary embolism, but it did show some interstitial infiltrates which could be congestion or interstitial disease. He denies any abdominal pain. He has not had any vomiting. No diarrhea. Patient is voiding without any problem. He currently has a condom cath in place. His urinalysis on this admission is unremarkable. His WBC was 14 on admission, and it is up to 19. 2 blood cultures done on admission are now reported as growing gram-negative neo, possibly on Enterobacter. During his last admission he had an echocardiogram and he has evidence of multiple calcifications in his valve namely mitral and aortic valve. Infectious disease consultation has been requested to assist with evaluation and treatment. Notes reviewed Temps ok Just came back from IR A little sleepy BC from 12/24 with GNR All BC with Enterobacter cloacae - 12/19-12/23, and he has (+) BC from Nov 2017 Echo with significant calcifications in his AV and MV Patient has had back surgeries, he said 4, last one in 1987, never been treated for any infection in his back CT A/P no abscess CT neck noted - no deep abscess seen. has large plate anteriorly OMFS evaluation - no evidence of infection Has back pain - old problem but worse No knee pain - 2 previous knee arthroplasty WBC scan with some uptake in anterior mandible, and L leg Surgery on the mandible - 11/18 Gastrostomy - 12/07 His first (+) BC 12/01 Antibiotics: Meropenem Amikacin Past Medical History: Reviewed Allergies/Adverse Reactions: Allergies No Known Allergies Allergy (Verified 12/01/18 17:43) Objective Vital Signs 12/26/18 15:00 12/26/18 16:00 12/26/18 17:00 Temperature 98.2 F Pulse Rate 94 H 96 H 92 H Respiratory Rate 16 Blood Pressure 98/69 L Pulse Oximetry 97 12/26/18 18:00 12/26/18 19:00 12/26/18 20:00 Temperature 97.7 F Pulse Rate 96 H 93 H 90 Respiratory Rate 18 Blood Pressure 100/70 Pulse Oximetry 97 12/26/18 21:00 12/26/18 22:00 12/26/18 23:00 Temperature Pulse Rate 92 H 88 90 Respiratory Rate Blood Pressure Pulse Oximetry 12/27/18 00:00 12/27/18 01:00 12/27/18 02:00 Temperature Pulse Rate 88 88 82 Respiratory Rate 18 Blood Pressure 105/71 Pulse Oximetry 98 12/27/18 03:00 12/27/18 04:00 12/27/18 05:00 Temperature Pulse Rate 87 90 90 Respiratory Rate 20 Blood Pressure 120/90 Pulse Oximetry 96 12/27/18 06:00 12/27/18 07:00 12/27/18 08:00 Temperature 97.7 F Pulse Rate 90 98 H 99 H Respiratory Rate 22 Blood Pressure 123/86 Pulse Oximetry 94 L 12/27/18 09:00 12/27/18 10:00 12/27/18 11:00 Temperature Pulse Rate 89 92 H 90 Respiratory Rate Blood Pressure Pulse Oximetry 12/27/18 11:15 Temperature Pulse Rate 98 H Respiratory Rate 22 Blood Pressure Pulse Oximetry Intake & Output 12/26/18 12/27/18 12/27/18 18:59 06:59 18:59 Intake Total 200 / 200 1453.2 / 1453.2 100 / 100 Output Total 400 / 400 825 / 825 Balance -200 / -200 628.2 / 628.2 100 / 100 Weight 79.9 kg Intake: IV 200 / 200 353.2 / 353.2 100 / 100 Amikin Inj 800 MG In NS Inj 250 253.2 / 253.2 ML @ 250 mls/hr IV.SIG Q24H [facility] Rx#:[id number] Merrem Inj 1,000 MG In NS Inj 200 / 200 100 / 100 100 / 100 100 ML @ 200 mls/hr IV.SIG Q8H [facility] Rx#:[id number] Tube Feeding 600 / 600 Water Bolus Amount 500 / 500 Output: Urine 400 / 400 825 / 825 Other: # Incontinent Voids 2 1 Date of Last Bowel Movement 12/23/18 12/27/18 12/27/18 11:57 Tissue - Other Gram Stain - Pending 12/27/18 11:57 Tissue - Other Wound Culture - Pending 12/27/18 11:57 Fluid - Other Fungal Smear - Pending 12/27/18 11:57 Fluid - Other Fungal Culture - Pending 12/27/18 11:57 Fluid - Other Acid Fast Bacilli Smear - Pending 12/27/18 11:57 Fluid - Other Mycobacterial Culture - Pending 12/24/18 08:14 Blood - Peripheral Aerobic Blood Culture - Preliminary gram negative rods 12/24/18 08:14 Blood - Peripheral Anaerobic Blood Culture - Preliminary gram negative rods 12/25/18 06:25 Blood - Peripheral Aerobic Blood Culture - Preliminary No growth in 2 days 12/25/18 06:25 Blood - Peripheral Anaerobic Blood Culture - Preliminary No growth in 2 days 12/27/18 06:46 Blood - Peripheral Aerobic Blood Culture - Pending 12/27/18 06:46 Blood - Peripheral Anaerobic Blood Culture - Pending 12/23/18 03:31 Blood - Peripheral Aerobic Blood Culture - Final Enterobacter cloacae 12/23/18 03:31 Blood - Peripheral Anaerobic Blood Culture - Final Enterobacter cloacae Lab - Hematology Results 12/26/18 05:18 WBC 18.8 H RBC 3.68 L Hgb 11.5 L Hct 34.6 L MCV 94.1 MCH 31.3 MCHC 33.3 RDW 14.6 Plt Count 243 MPV 10.2 Neut % (Auto) 81.0 H Lymph % (Auto) 10.9 Schley % (Auto) 7.4 Eos % (Auto) 0.3 Baso % (Auto) 0.4 Neut # (Auto) 15.2 H Lymph # (Auto) 2.0 Schley # (Auto) 1.4 H Eos # (Auto) 0.1 Baso # (Auto) 0.1 WBC Differential . Differential Comment Auto diff final Lab - Chemistry Results 12/25/18 12/25/18 12/26/18 14:34 21:49 05:18 Sodium 139 Potassium 3.9 Chloride 104 Carbon Dioxide 29.5 Anion Gap 6 BUN 17 Creatinine 0.52 L Estimated GFR Greater than 89 POC Glucose 110 110 Random Glucose 115 H Calcium 7.8 L Magnesium 2.1 12/26/18 12/27/18 05:39 13:11 Sodium Potassium Chloride Carbon Dioxide Anion Gap BUN Creatinine Estimated GFR POC Glucose 127 H 123 H Random Glucose Calcium Magnesium Imaging: ITS Impressions Chest CTA 12/19/18 02:39 CONCLUSION: 1. No pulmonary embolus. 2. Diffuse process in interstitial markings which could suggest mild edema or underlying interstitial disease. Chest X-Ray 12/21/18 17:17 CONCLUSION: The lungs are clear. Abdomen/Pelvis CT 12/22/18 00:00 CONCLUSION: 1. Nonspecific, nonobstructive bowel gas pattern with no evidence of abscess. There is a moderate amount of stool in the distal colon. Could indicate mild fecal impaction. 2. Gastrostomy tube in place with the tip in the mid stomach. 3. Multiple small gallstones. 4. Cardiomegaly and small left pleural effusion. Soft Tissue Neck CT 12/22/18 00:00 CONCLUSION: 1. Extensive reconstruction with a mandibular large plate in this patient history of myelitis. 2. Small focal possible pointing abscess measuring less than 1 cm on the left in angle of the mandible. 3. Extensive artifact with distortion of normal tissue planes however I don't see a deep space abscess. 4. If subclinical infection suspected a bone gallium scanning may be the only way to sort this out. Lumbar Spine MRI 12/23/18 00:00 CONCLUSION: 1. Suspect postsurgical features of prior laminectomies at L2-L5 with peripherally calcified posterior paraspinal fluid intensity collection measuring 2.1 x 3.2 x 7.0 cm centered at L4-5 level. This may reflect a chronic resolved postoperative hematoma, complicated seroma or infection. Clinical correlation with prior surgical history is recommended. If patient has no history of previous surgery, differential consideration would include a expansile lesion involving the posterior processes of primarily L3-L5. 2. Multilevel degenerative spondylosis of the lumbar spine with moderate central canal narrowing at L3-4 level. 3. Please see above for detailed description of each level. WBC Scan Nuclear Medicine 12/24/18 00:00 CONCLUSION: 1. Nonspecific uptake along the anterior margin of the left mandibular remnant. 2. Nonspecific uptake in the soft tissues medially of the left leg at the level of the mid tibia shaft. Physical Exam: GENERAL: slightly lethargic, opens eyes, NAD. SKIN: Warm and dry. No generalized rash, no ecchymoses and no evidence of embolic lesions noted HEAD: Atraumatic. Normocephalic. No temporal wasting, or tenderness. EYES: [place] conjunctiva. No scleral icterus. No injection or drainage. EARS, NOSE AND THROAT: Nose without bleeding or purulent nasal discharge. Moist mucosa, a lot of secretions pooling at floor of mouth. Has pink skin on anterior mandible over the healed incision, not swollen. Tongue not moving. NECK: Supple and not tender, no meningeal signs CARDIOVASCULAR: Regular rate and rhythm. HAs harsh systolic murmur L precordium and base of the heart RESPIRATORY: Coarse BS bilaterally. Decreased at bases ABDOMEN: Soft, non-tender, nondistended. Bowel sounds present and normoactive. No guarding. No rebound. PEG site ok. EXTREMITIES: No clubbing, cyanosis, or edema. Scars both knees, knees looks ok. NEUROLOGICAL: Stable, non-focal PSYCHIATRIC: Normal affect, calm and cooperative. LINE: No evidence of infection Assessment and Plan - Plan Impression Recurrent Enterobacter sepsis, high grade bacteremia, very worrisome for endovascular infection -He has valvular heart disease, has significant calcification in AV and MV - ?other focus: had recent mandibular reconstructrion and has plate, and also with fluid collection in lumbar spine region NSTEMI Hx oral CA, has had surgeries Risk for recurrent PNA Recommendation Continue Meropenem IV (more continuous regimen for endocarditis and spinal abscess treatment. Continue Amikacin IV D/W Dr Fitzpatrick - he will evaluate if feasible to do МАРИНА Follow results of back aspiration May need to ask OMFS to reevaluate possibility of the mandibular plate being involved in infection ECHO reviewed. to discuss with Cardiology if МАРИНА can be done.
[2018-12-27] MEDS: SODIUM CHLOR 0.9% IV.SIG SCH (20:26)
[2018-12-27] MEDS: AMIKACIN IV.SIG SCH (20:26)
[2018-12-27] MEDS ORDERED: Pharmacy Ordered Lab Info OTHER ONE (22:00)
[2018-12-28] MEDS: Insulin NovoLOG Aspart Correctional Sugar Inj SQ SCH ×3 (06:31→22:28)
[2018-12-28 07:08] LABS: Baso # (Auto) 0.1 th/mm3 (0.0-0.2); Baso % (Auto) 0.3 % (0.0-2.0); Eos % (Auto) 0.1 % (0.0-4.0); Hematocrit 36.6 % (39.0-51.0); Hemoglobin 12.1 gm/dL (13.0-17.0); Lymph # (Auto) 1.6 th/mm3 (1.0-4.8); Lymph % (Auto) 7.5 % (9.0-44.0); Mean Corpuscular Hemoglobin 30.8 pg (27.0-34.0); Mean Corpuscular Volume 93.3 fL (80.0-100.0); Mean Platelet Volume 9.7 fL (7.0-11.0); Mono # (Auto) 1.4 th/mm3 (0.0-0.9); Mono % (Auto) 6.6 % (0.0-8.0); Neut % (Auto) 85.5 % (16.0-70.0); Platelet Count 270 th/mm3 (150-450); Red Blood Count 3.92 mil/mm3 (4.50-5.90); Red Cell Distribution Width 14.8 % (11.6-17.2)
[2018-12-28 07:53] LABS: Anion Gap 4 meq/L (5-15); Blood Urea Nitrogen 14 mg/dL (7-18); Calcium 8.2 mg/dL (8.5-10.1); Carbon Dioxide 29.9 meq/L (21.0-32.0); Chloride 102 meq/L (98-107); Glomerular Filtration Rate Greater Than 89 mL/min (>89); Glucose,Random 104 mg/dL (74-106); Potassium 3.9 meq/L (3.5-5.1); Sodium 136 meq/L (136-145)
[2018-12-28] MEDS: Docusate Sodium Liq 100 MG/10 ML UDC G-TUBE SCH (09:06)
[2018-12-28] MEDS: Metoprolol Tartrate 25 MG Tablet PO SCH ×2 (09:07→22:23)
[2018-12-28] MEDS: Finasteride 5 MG Tablet PO SCH (09:09)
[2018-12-28] MEDS: Gabapentin Liq 250 MG/5 ML UDC PO SCH ×3 (09:09→17:20)
[2018-12-28] MEDS: Famotidine 20 MG Tablet PO SCH (09:09)
[2018-12-28] MEDS: Chlorhexidine Gluconate 0.12% Liq 15 ML UDC SWISH-SPIT SCH ×2 (09:10→22:23)
--- NOTE | 2018-12-28 09:48 | IR ---
EXAM DATE: 12/27/2018 12:23 PM EST AGE/SEX: 73 years / Male INDICATIONS: Patient with L4-5 paraspinal fluid collection in need of aspiration. CLINICAL DATA: This is the patient's initial encounter. Patient reports that signs and symptoms have been present for 1 week and indicates a pain score of 7/10. MEDICAL/SURGICAL HISTORY: Diabetes. Hypertension. Carcinoma, head and neck. COPD, Pulmonary edema, A-Fib, HLD Total knee replacement, left. Total knee replacement, right. Resection of anterio r mandible, G-tube COMPARISON: No prior exams available for comparison. FLUORO TIME (min): 0 IMAGE SERIES: 3 RADIATION DOSE: 0.6mGy CAK SITE: Right low back FLUID: Total volume of 5 cc of clear, red fluid was removed. Fluid was sent to lab for ordered studie s. MEDICATION(S): 25mcg fentanyl (Sublimaze) IV 0.5mg lorazepam (Ativan) IV DEVICE(S): 22G spinal needle L4-5 . . PROCEDURE : 1. Ultrasound guidance 2. Image guided aspiration and fluid collection. The risks, benefits and alternatives to the procedure were explained and verbal and written consent w as obtained. The site was prepped in sterile fashion. Full sterile technique was used, including ca p, mask, sterile gloves and gown and a large sterile sheet. Hand hygiene and 2% chlorhexidine and/or betadine/alcohol prep was utilized per protocol for cutaneous antisepsis. The skin and subcutaneous tissues were infiltrated with local anesthetic solution. Ultrasound evaluation of the lower posterior lumbar soft tissues confirms a midline echogenic fluid c ollection. Skin overlying the collection was prepped and draped in usual sterile fashion. 21-gauge sp inal needle was advanced into the collection and approximately 5 cc of straw-colored fluid was remove d. No additional fluid could be removed. Needle was then withdrawn. CONCLUSION: 1. Uncomplicated image guided aspiration. Electronically signed by: Devin Gardiner MD Board Certified Radiologist 12/28/2018 9:47 AM EST
--- NOTE | 2018-12-28 15:13 | P.PNID ---
Subjective Remarks: Patient is a 73-year-old male, came from a rehab facility, brought into the hospital for evaluation of altered mental status. He was also having cough and congestion. 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 The last surgery was done the first week in November and he had an anterior mandibular resection. He was readmitted December 01 and at that time he had A. fib with RVR. He was evaluated by maxillofacial surgery and he had a PEG tube done to increase his nutrition. Of note during that admission he had 2+ blood cultures with Enterobacter. Patient was felt to have a pneumonia at that time and he was given Levaquin when he was discharged from the hospital. On this admission, patient's mental status seems to have improved. He is awake and interacting. He tries to speak, but his speech is very difficult to understand. He has a cough, and he is pooling a lot of oral secretions that he suctions. He has a cough. He has some shortness of breath, and notes some chest pain in the lower quadrants. He was ruled in for [place] during this admission , and cardiology evaluated the patient and was not a good candidate for cardiac catheterization. He had a fever of 102. CT of the chest did not show any pulmonary embolism, but it did show some interstitial infiltrates which could be congestion or interstitial disease. He denies any abdominal pain. He has not had any vomiting. No diarrhea. Patient is voiding without any problem. He currently has a condom cath in place. His urinalysis on this admission is unremarkable. His WBC was 14 on admission, and it is up to 19. 2 blood cultures done on admission are now reported as growing gram-negative neo, possibly on Enterobacter. During his last admission he had an echocardiogram and he has evidence of multiple calcifications in his valve namely mitral and aortic valve. Infectious disease consultation has been requested to assist with evaluation and treatment. Notes reviewed Temps 99+ No new complaints Last (+) BC 12/24 All BC with Enterobacter cloacae - 2-12/24, and he has (+) BC from Nov 2017 Echo with significant calcifications in his AV and MV Patient has had back surgeries, he said 4, last one in 1987, never been treated for any infection in his back CT A/P no abscess CT neck noted - no deep abscess seen. has large plate anteriorly OMFS evaluation - no evidence of infection Has back pain - old problem but worse No knee pain - 2 previous knee arthroplasty WBC scan with some uptake in anterior mandible, and L leg Surgery on the mandible - 11/18 Gastrostomy - 12/07 His first (+) BC 12/01 Antibiotics: Meropenem Amikacin Past Medical History: Reviewed Allergies/Adverse Reactions: Allergies No Known Allergies Allergy (Verified 12/01/18 17:43) Objective Vital Signs 12/27/18 16:00 12/27/18 17:00 12/27/18 18:00 Temperature Pulse Rate 100 H 88 100 H Respiratory Rate 20 Blood Pressure 114/79 Pulse Oximetry 98 12/27/18 20:00 12/27/18 21:00 12/27/18 22:00 Temperature 97.7 F Pulse Rate 99 H 90 90 Respiratory Rate 18 Blood Pressure 105/77 Pulse Oximetry 97 12/27/18 23:00 12/28/18 00:00 12/28/18 01:00 Temperature 98.7 F Pulse Rate 92 H 101 H 106 H Respiratory Rate 18 Blood Pressure 112/80 Pulse Oximetry 96 12/28/18 02:00 12/28/18 03:00 12/28/18 04:00 Temperature 99.6 F Pulse Rate 106 H 110 H 110 H Respiratory Rate 18 Blood Pressure 133/98 H Pulse Oximetry 96 12/28/18 05:00 12/28/18 06:00 12/28/18 07:00 Temperature Pulse Rate 106 H 104 H 107 H Respiratory Rate Blood Pressure Pulse Oximetry 12/28/18 08:00 12/28/18 09:00 12/28/18 10:00 Temperature 99.2 F Pulse Rate 106 H 110 H 94 H Respiratory Rate 18 Blood Pressure 102/75 Pulse Oximetry 95 12/28/18 11:00 12/28/18 12:00 12/28/18 13:00 Temperature 97.3 F L Pulse Rate 97 H 96 H 94 H Respiratory Rate 18 Blood Pressure 87/60 L Pulse Oximetry 99 12/28/18 13:25 12/28/18 14:00 Temperature Pulse Rate 91 H Respiratory Rate Blood Pressure 97/70 L Pulse Oximetry Intake & Output 12/27/18 12/28/18 12/28/18 18:59 06:59 18:59 Intake Total 1100 / 1100 1223.2 / 1223.2 100 / 100 Balance 1100 / 1100 1223.2 / 1223.2 100 / 100 Weight 78.9 kg Intake: IV 200 / 200 353.2 / 353.2 100 / 100 Amikin Inj 800 MG In NS Inj 250 253.2 / 253.2 ML @ 250 mls/hr IV.SIG Q24H [facility] Rx#:[id number] Merrem Inj 1,000 MG In NS Inj 200 / 200 100 / 100 100 / 100 100 ML @ 200 mls/hr IV.SIG Q8H [facility] Rx#:[id number] Oral 0 / 0 0 / 0 Tube Feeding 650 / 650 470 / 470 Tube Irrigant 200 / 200 Water Bolus Amount 50 / 50 400 / 400 Other: # Voids 4 # Incontinent Voids 4 3 Date of Last Bowel Movement 12/27/18 12/28/18 12/28/18 # Incontinent Bowel Movements 1 12/27/18 11:57 Tissue - Other Gram Stain - Final 12/27/18 11:57 Tissue - Other Wound Culture - Preliminary No growth in 24 hours 12/27/18 06:46 Blood - Peripheral Aerobic Blood Culture - Preliminary No growth in 1 day 12/27/18 06:46 Blood - Peripheral Anaerobic Blood Culture - Preliminary No growth in 1 day 12/25/18 06:25 Blood - Peripheral Aerobic Blood Culture - Preliminary No growth in 3 days 12/25/18 06:25 Blood - Peripheral Anaerobic Blood Culture - Preliminary No growth in 3 days 12/24/18 08:14 Blood - Peripheral Aerobic Blood Culture - Final Enterobacter cloacae 12/24/18 08:14 Blood - Peripheral Anaerobic Blood Culture - Final Enterobacter cloacae 12/28/18 06:00 Blood - Peripheral Aerobic Blood Culture - Pending 12/28/18 06:00 Blood - Peripheral Anaerobic Blood Culture - Pending 12/27/18 11:57 Fluid - Other Fungal Smear - Final No fungal elements seen 12/27/18 11:57 Fluid - Other Fungal Culture - Pending 12/27/18 11:57 Fluid - Other Acid Fast Bacilli Smear - Pending 12/27/18 11:57 Fluid - Other Mycobacterial Culture - Pending Lab - Hematology Results 12/28/18 06:00 WBC 21.0 H RBC 3.92 L Hgb 12.1 L Hct 36.6 L MCV 93.3 MCH 30.8 MCHC 33.0 RDW 14.8 Plt Count 270 MPV 9.7 Neut % (Auto) 85.5 H Lymph % (Auto) 7.5 L Jack % (Auto) 6.6 Eos % (Auto) 0.1 Baso % (Auto) 0.3 Neut # (Auto) 18.0 H Lymph # (Auto) 1.6 Jack # (Auto) 1.4 H Eos # (Auto) 0.0 Baso # (Auto) 0.1 WBC Differential . Differential Comment Auto diff final Lab - Chemistry Results 12/27/18 12/28/18 12/28/18 13:11 06:00 08:52 Sodium 136 Potassium 3.9 Chloride 102 Carbon Dioxide 29.9 Anion Gap 4 L BUN 14 Creatinine 0.52 L Estimated GFR Greater than 89 POC Glucose 123 H 131 H Random Glucose 104 Calcium 8.2 L 12/28/18 14:37 Sodium Potassium Chloride Carbon Dioxide Anion Gap BUN Creatinine Estimated GFR POC Glucose 126 H Random Glucose Calcium Imaging: ITS Impressions Chest CTA 12/19/18 02:39 CONCLUSION: 1. No pulmonary embolus. 2. Diffuse process in interstitial markings which could suggest mild edema or underlying interstitial disease. Chest X-Ray 12/21/18 17:17 CONCLUSION: The lungs are clear. Abdomen/Pelvis CT 12/22/18 00:00 CONCLUSION: 1. Nonspecific, nonobstructive bowel gas pattern with no evidence of abscess. There is a moderate amount of stool in the distal colon. Could indicate mild fecal impaction. 2. Gastrostomy tube in place with the tip in the mid stomach. 3. Multiple small gallstones. 4. Cardiomegaly and small left pleural effusion. Soft Tissue Neck CT 12/22/18 00:00 CONCLUSION: 1. Extensive reconstruction with a mandibular large plate in this patient history of myelitis. 2. Small focal possible pointing abscess measuring less than 1 cm on the left in angle of the mandible. 3. Extensive artifact with distortion of normal tissue planes however I don't see a deep space abscess. 4. If subclinical infection suspected a bone gallium scanning may be the only way to sort this out. Lumbar Spine MRI 12/23/18 00:00 CONCLUSION: 1. Suspect postsurgical features of prior laminectomies at L2-L5 with peripherally calcified posterior paraspinal fluid intensity collection measuring 2.1 x 3.2 x 7.0 cm centered at L4-5 level. This may reflect a chronic resolved postoperative hematoma, complicated seroma or infection. Clinical correlation with prior surgical history is recommended. If patient has no history of previous surgery, differential consideration would include a expansile lesion involving the posterior processes of primarily L3-L5. 2. Multilevel degenerative spondylosis of the lumbar spine with moderate central canal narrowing at L3-4 level. 3. Please see above for detailed description of each level. WBC Scan Nuclear Medicine 12/24/18 00:00 CONCLUSION: 1. Nonspecific uptake along the anterior margin of the left mandibular remnant. 2. Nonspecific uptake in the soft tissues medially of the left leg at the level of the mid tibia shaft. Abscess Drainage X-Ray 12/27/18 00:00 CONCLUSION: 1. Uncomplicated image guided aspiration. Physical Exam: GENERAL: awake and alert, NAD. SKIN: Warm and dry. No generalized rash, no ecchymoses and no evidence of embolic lesions noted HEAD: Atraumatic. Normocephalic. No temporal wasting, or tenderness. EYES: [place] conjunctiva. No scleral icterus. No injection or drainage. EARS, NOSE AND THROAT: Nose without bleeding or purulent nasal discharge. Moist mucosa, a lot of secretions pooling at floor of mouth. The color on anterior mandible is less pink, tender on right side, not indurated, healed incision, not swollen. Tongue not moving. NECK: Supple and not tender, no meningeal signs CARDIOVASCULAR: Regular rate and rhythm. HAs harsh systolic murmur L precordium and base of the heart RESPIRATORY: Coarse BS bilaterally. Decreased at bases ABDOMEN: Soft, non-tender, nondistended. Bowel sounds present and normoactive. No guarding. No rebound. PEG site ok. EXTREMITIES: No clubbing, cyanosis, or edema. Scars both knees, knees looks ok. NEUROLOGICAL: Stable, non-focal PSYCHIATRIC: Normal affect, calm and cooperative. LINE: No evidence of infection Assessment and Plan - Plan Impression Recurrent Enterobacter sepsis, high grade bacteremia, very worrisome for endovascular infection -He has valvular heart disease, has significant calcification in AV and MV - ?other focus: had recent mandibular reconstructrion and has plate, and also with fluid collection in lumbar spine region NSTEMI Hx oral CA, has had surgeries Risk for recurrent PNA Recommendation Continue Meropenem IV (more continuous regimen for endocarditis and spinal abscess treatment. Continue Amikacin IV D/W Dr Fitzpatrick - he will evaluate if feasible to do МАРИНА Follow results of back aspiration May need to ask OMFS to reevaluate possibility of the mandibular plate being involved in infection Spoke with daughter and answered all her questions
--- NOTE | 2018-12-28 17:09 | P.PNIM ---
Subjective Interval history: Nursing denies any setback since last night. Daughter is at the bedside, says that the patient's right-sided jaw is mostly what is tender. Patient apparently went for procedure yesterday of lumbar biopsy. Physical Exam Vital signs: Vital Signs 12/27/18 18:00 12/27/18 20:00 12/27/18 21:00 Temperature 97.7 F Pulse Rate 100 H 99 H 90 Respiratory Rate 18 Blood Pressure 105/77 Pulse Oximetry 97 12/27/18 22:00 12/27/18 23:00 12/28/18 00:00 Temperature 98.7 F Pulse Rate 90 92 H 101 H Respiratory Rate 18 Blood Pressure 112/80 Pulse Oximetry 96 12/28/18 01:00 12/28/18 02:00 12/28/18 03:00 Temperature Pulse Rate 106 H 106 H 110 H Respiratory Rate Blood Pressure Pulse Oximetry 12/28/18 04:00 12/28/18 05:00 12/28/18 06:00 Temperature 99.6 F Pulse Rate 110 H 106 H 104 H Respiratory Rate 18 Blood Pressure 133/98 H Pulse Oximetry 96 12/28/18 07:00 12/28/18 08:00 12/28/18 09:00 Temperature 99.2 F Pulse Rate 107 H 106 H 110 H Respiratory Rate 18 Blood Pressure 102/75 Pulse Oximetry 95 12/28/18 10:00 12/28/18 11:00 12/28/18 12:00 Temperature 97.3 F L Pulse Rate 94 H 97 H 96 H Respiratory Rate 18 Blood Pressure 87/60 L Pulse Oximetry 99 12/28/18 13:00 12/28/18 13:25 12/28/18 14:00 Temperature Pulse Rate 94 H 91 H Respiratory Rate Blood Pressure 97/70 L Pulse Oximetry 12/28/18 15:00 12/28/18 16:00 Temperature 98.6 F Pulse Rate 86 89 Respiratory Rate 18 Blood Pressure 92/71 L Pulse Oximetry 98 Intake & Output 12/27/18 12/28/18 12/28/18 18:59 06:59 18:59 Intake Total 1100 / 1100 1223.2 / 1223.2 100 / 100 Balance 1100 / 1100 1223.2 / 1223.2 100 / 100 Weight 78.9 kg Intake: IV 200 / 200 353.2 / 353.2 100 / 100 Amikin Inj 800 MG In NS Inj 250 253.2 / 253.2 ML @ 250 mls/hr IV.SIG Q24H [facility] Rx#:[id number] Merrem Inj 1,000 MG In NS Inj 200 / 200 100 / 100 100 / 100 100 ML @ 200 mls/hr IV.SIG Q8H [facility] Rx#:[id number] Oral 0 / 0 0 / 0 Tube Feeding 650 / 650 470 / 470 Tube Irrigant 200 / 200 Water Bolus Amount 50 / 50 400 / 400 Other: # Voids 4 # Incontinent Voids 4 3 Date of Last Bowel Movement 12/27/18 12/28/18 12/28/18 # Incontinent Bowel Movements 1 Narrative: Heart sounds regular rhythm, no murmurs Clear lungs bilaterally, unlabored breathing No lower extremity edema Plate in position over the left jaw Urinary Catheter Management Condom: Cath placed during this visit: no Results Labs CBC & Chem 7: 12/28/18 06:00 12/28/18 06:00 Labs: Microbiology 12/27/18 11:57 Tissue - Other Gram Stain - Final 12/27/18 11:57 Tissue - Other Wound Culture - Preliminary No growth in 24 hours 12/27/18 06:46 Blood - Peripheral Aerobic Blood Culture - Preliminary No growth in 1 day 12/27/18 06:46 Blood - Peripheral Anaerobic Blood Culture - Preliminary No growth in 1 day 12/25/18 06:25 Blood - Peripheral Aerobic Blood Culture - Preliminary No growth in 3 days 12/25/18 06:25 Blood - Peripheral Anaerobic Blood Culture - Preliminary No growth in 3 days 12/24/18 08:14 Blood - Peripheral Aerobic Blood Culture - Final Enterobacter cloacae 12/24/18 08:14 Blood - Peripheral Anaerobic Blood Culture - Final Enterobacter cloacae 12/27/18 11:57 Fluid - Other Fungal Smear - Final No fungal elements seen Imaging Imaging: Impressions Abscess Drainage X-Ray 12/27/18 00:00 CONCLUSION: 1. Uncomplicated image guided aspiration. Assessment and Plan Plan 73-year-old male admitted secondary to shortness of breath with cough. A. fib RVR present at time of admit. Bacteremia Blood cultures positive for Enterobacter cloacae. ID consult appreciated. CT abdomen/pelvis negative. CT neck with ? small abscess left mandible. Oral surgery consult appreciated, no infection identified. Echo without obvious evidence of vegetation. MRI L spine: Suspect postsurgical features of prior laminectomies at L2-L5 with peripherally calcified posterior paraspinal fluid intensity collection measuring 2.1 x 3.2 x 7.0 cm centered at L4-5 level; This may reflect a chronic resolved postoperative hematoma, complicated seroma or infection. Neurosurgery consult appreciated. Fluid collection unlikely related to infection. White blood cell scan with nonspecific uptake along the anterior margin of the left mandibular remnant as well as nonspecific uptake in the soft tissues medially of the left leg at the level of the mid tibia shaft. -Continue meropenem and amikacin per ID. -follow repeat BCs neg -s/p lumbar fluid collection drainage, results pendings -considering МАРИНА. A. fib with RVR/NSTEMI/CAD/ Cardiology consult appreciated. -resume aspirin and continue to hold eliquis while inhouse, cover with lovenox until discharge -When necessary oxygen. -Follow on telemetry. Possible HealthCare associated Pneumonia Repeat CXR with clear lungs. -continue antibiotics per ID. 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 -Levsin as needed. -Speech following. peg tube placed -continue tube feeds. -PT and OT. -Follow as an outpatient. Diabetes mellitus type 2 Well controlled. -Follow blood sugars. -Insulin sliding scale. -Diabetic diet. COPD CTA indicative of mild edema or ILD. -nebs. -Patient counseled to quit smoking. Social issues Pt's daughter would like to become the health care proxy. -case management consult has been placed. DVT prophylaxis: starting lovenox while inpt, eliquis to resume upon discharge Discharge Planning: Awaiting further work-up for bacteremia. Follow up with ID. Progress Note: Quality VTE Deep Vein Thrombosis/Pulmonary Embolism Present on Admission: No
[2018-12-28] MEDS ORDERED: Pharmacy Ordered Lab Info OTHER ONE (19:30)
[2018-12-28] MEDS: SODIUM CHLOR 0.9% IV.SIG SCH (20:12)
[2018-12-28] MEDS: AMIKACIN IV.SIG SCH (20:12)
[2018-12-28] MEDS: Enoxaparin Inj 80 MG/0.8 ML Syringe SQ SCH (22:29)
[2018-12-29] MEDS: Insulin NovoLOG Aspart Correctional Sugar Inj SQ SCH ×3 (06:00→23:16)
[2018-12-29] MEDS ORDERED: Enoxaparin Inj 80 MG/0.8 ML Syringe SQ SCH (09:15)
[2018-12-29] MEDS: Gabapentin Liq 250 MG/5 ML UDC PO SCH ×3 (10:33→19:25)
[2018-12-29] MEDS: Enoxaparin Inj 80 MG/0.8 ML Syringe SQ SCH ×2 (10:36→20:20)
[2018-12-29] MEDS: Famotidine 20 MG Tablet PO SCH (10:37)
[2018-12-29] MEDS: Finasteride 5 MG Tablet PO SCH (10:37)
[2018-12-29] MEDS: Metoprolol Tartrate 25 MG Tablet PO SCH ×2 (10:37→20:19)
[2018-12-29] MEDS: Docusate Sodium Liq 100 MG/10 ML UDC G-TUBE SCH (10:38)
[2018-12-29] MEDS: Chlorhexidine Gluconate 0.12% Liq 15 ML UDC SWISH-SPIT SCH ×2 (10:39→20:19)
[2018-12-29 15:45] LABS: Baso # (Auto) 0.1 th/mm3 (0.0-0.2); Baso % (Auto) 0.4 % (0.0-2.0); Eos % (Auto) 0.1 % (0.0-4.0); Hematocrit 35.1 % (39.0-51.0); Hemoglobin 12.1 gm/dL (13.0-17.0); Lymph # (Auto) 1.9 th/mm3 (1.0-4.8); Lymph % (Auto) 11.9 % (9.0-44.0); Mean Corpuscular HGB Conc 34.4 % (32.0-36.0); Mean Corpuscular Hemoglobin 31.7 pg (27.0-34.0); Mean Corpuscular Volume 92.3 fL (80.0-100.0); Mean Platelet Volume 9.3 fL (7.0-11.0); Mono # (Auto) 1.4 th/mm3 (0.0-0.9); Mono % (Auto) 8.9 % (0.0-8.0); Neut # (Auto) 12.7 th/mm3 (1.8-7.7); Neut % (Auto) 78.7 % (16.0-70.0); Platelet Count 248 th/mm3 (150-450); Red Cell Distribution Width 15.1 % (11.6-17.2); White Blood Count 16.1 th/mm3 (4.0-11.0)
[2018-12-29] MEDS: Morphine Inj 4 MG/ML Vial IV.PUSH PRN (17:16)
[2018-12-29] MEDS: AMIKACIN IV.SIG SCH (20:32)
[2018-12-29] MEDS: SODIUM CHLOR 0.9% IV.SIG SCH (20:32)
[2018-12-30] MEDS: Insulin NovoLOG Aspart Correctional Sugar Inj SQ SCH ×3 (06:23→22:19)
[2018-12-30 06:27] LABS: Glomerular Filtration Rate Greater Than 89 mL/min (>89)
[2018-12-30] MEDS: Famotidine 20 MG Tablet PO SCH (08:11)
[2018-12-30] MEDS: Gabapentin Liq 250 MG/5 ML UDC PO SCH ×3 (08:11→18:17)
[2018-12-30] MEDS: Docusate Sodium Liq 100 MG/10 ML UDC G-TUBE SCH (08:12)
[2018-12-30] MEDS: Metoprolol Tartrate 25 MG Tablet PO SCH ×2 (08:12→20:39)
[2018-12-30] MEDS: Chlorhexidine Gluconate 0.12% Liq 15 ML UDC SWISH-SPIT SCH ×2 (08:13→20:40)
[2018-12-30] MEDS: Finasteride 5 MG Tablet PO SCH (08:15)
[2018-12-30] MEDS: Enoxaparin Inj 80 MG/0.8 ML Syringe SQ SCH ×2 (11:02→20:39)
[2018-12-30] MEDS: Morphine Inj 4 MG/ML Vial IV.PUSH PRN (11:02)
--- NOTE | 2018-12-30 13:10 | P.PNID ---
Subjective Remarks: Patient is a 73-year-old male, came from a rehab facility, brought into the hospital for evaluation of altered mental status. He was also having cough and congestion. 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 The last surgery was done the first week in November and he had an anterior mandibular resection. He was readmitted December 01 and at that time he had A. fib with RVR. He was evaluated by maxillofacial surgery and he had a PEG tube done to increase his nutrition. Of note during that admission he had 2+ blood cultures with Enterobacter. Patient was felt to have a pneumonia at that time and he was given Levaquin when he was discharged from the hospital. On this admission, patient's mental status seems to have improved. He is awake and interacting. He tries to speak, but his speech is very difficult to understand. He has a cough, and he is pooling a lot of oral secretions that he suctions. He has a cough. He has some shortness of breath, and notes some chest pain in the lower quadrants. He was ruled in for TX during this admission , and cardiology evaluated the patient and was not a good candidate for cardiac catheterization. He had a fever of 102. CT of the chest did not show any pulmonary embolism, but it did show some interstitial infiltrates which could be congestion or interstitial disease. He denies any abdominal pain. He has not had any vomiting. No diarrhea. Patient is voiding without any problem. He currently has a condom cath in place. His urinalysis on this admission is unremarkable. His WBC was 14 on admission, and it is up to 19. 2 blood cultures done on admission are now reported as growing gram-negative neo, possibly on Enterobacter. During his last admission he had an echocardiogram and he has evidence of multiple calcifications in his valve namely mitral and aortic valve. Infectious disease consultation has been requested to assist with evaluation and treatment. Notes reviewed Temps ok No new complaints Up in chair Not on O2 Hearing ok NO dizziness Not SOB Last (+) BC 12/24 All BC with Enterobacter cloacae - 12/19-12/24, and he has (+) BC from Nov 2017 Echo with significant calcifications in his AV and MV Patient has had back surgeries, he said 4, last one in 1987, never been treated for any infection in his back CT A/P no abscess CT neck noted - no deep abscess seen. has large plate anteriorly OMFS evaluation - no evidence of infection Spoke with Dr Acosta - yesterday; no clinical evidence of infection of jaw area ; no swelling, no redness No knee pain - 2 previous knee arthroplasty WBC scan with some uptake in anterior mandible, and L leg Surgery on the mandible - 11/18 Gastrostomy - 12/07 His first (+) BC 12/01 Antibiotics: Meropenem Amikacin Past Medical History: Reviewed Allergies/Adverse Reactions: Allergies No Known Allergies Allergy (Verified 12/01/18 17:43) Objective Vital Signs 12/29/18 14:00 12/29/18 15:00 12/29/18 15:45 Temperature 97.3 F L Pulse Rate 88 84 89 Respiratory Rate 16 Blood Pressure 85/55 L Pulse Oximetry 99 12/29/18 16:00 12/29/18 19:00 12/29/18 19:46 Temperature 98.3 F Pulse Rate 86 89 94 H Respiratory Rate 18 Blood Pressure 94/64 L Pulse Oximetry 93 L 12/29/18 19:47 12/29/18 21:00 12/29/18 22:00 Temperature Pulse Rate 88 99 H 97 H Respiratory Rate Blood Pressure Pulse Oximetry 12/30/18 00:00 12/30/18 01:00 12/30/18 02:00 Temperature 98.8 F Pulse Rate 89 91 H 93 H Respiratory Rate 18 Blood Pressure 120/74 Pulse Oximetry 98 12/30/18 03:00 12/30/18 04:00 12/30/18 05:00 Temperature 97.8 F Pulse Rate 92 H 96 H 85 Respiratory Rate 16 Blood Pressure 98/68 L Pulse Oximetry 96 12/30/18 06:00 12/30/18 07:00 12/30/18 08:00 Temperature Pulse Rate 80 95 H 98 H Respiratory Rate Blood Pressure Pulse Oximetry 12/30/18 08:03 12/30/18 09:00 12/30/18 10:00 Temperature 98 F Pulse Rate 101 H 100 H 94 H Respiratory Rate 18 Blood Pressure 114/68 Pulse Oximetry 98 12/30/18 11:14 Temperature 97.9 F Pulse Rate 87 Respiratory Rate 18 Blood Pressure 97/65 L Pulse Oximetry 100 Intake & Output 12/29/18 12/30/18 12/30/18 18:59 06:59 18:59 Intake Total 100 / 100 704 / 704 100 / 100 Output Total 400 / 400 800 / 800 Balance -300 / -300 -96 / -96 100 / 100 Weight 78.6 kg Intake: IV 100 / 100 704 / 704 100 / 100 Amikin Inj 1,000 MG In NS Inj 504 / 504 500 ML @ 250 mls/hr IV.SIG Q24H [facility] Rx#:[id number] Merrem Inj 1,000 MG In NS Inj 100 / 100 200 / 200 100 / 100 100 ML @ 200 mls/hr IV.SIG Q8H [facility] Rx#:[id number] Output: Urine 400 / 400 800 / 800 Other: # Incontinent Voids 2 Date of Last Bowel Movement 12/28/18 12/28/18 12/30/18 12/28/18 06:00 Blood - Peripheral Aerobic Blood Culture - Preliminary No growth in 2 days 12/28/18 06:00 Blood - Peripheral Anaerobic Blood Culture - Preliminary No growth in 2 days 12/27/18 06:46 Blood - Peripheral Aerobic Blood Culture - Preliminary No growth in 3 days 12/27/18 06:46 Blood - Peripheral Anaerobic Blood Culture - Preliminary No growth in 3 days 12/25/18 06:25 Blood - Peripheral Aerobic Blood Culture - Final No growth in 5 days 12/25/18 06:25 Blood - Peripheral Anaerobic Blood Culture - Final No growth in 5 days 12/27/18 11:57 Tissue - Other Gram Stain - Final 12/27/18 11:57 Tissue - Other Wound Culture - Final No growth in 72 hours (aerobically and anaerobically ) 12/27/18 11:57 Fluid - Other Acid Fast Bacilli Smear - Final No acid fast bacilli seen 12/27/18 11:57 Fluid - Other Mycobacterial Culture - Pending 12/24/18 08:14 Blood - Peripheral Aerobic Blood Culture - Final Enterobacter cloacae 12/24/18 08:14 Blood - Peripheral Anaerobic Blood Culture - Final Enterobacter cloacae 12/27/18 11:57 Fluid - Other Fungal Smear - Final No fungal elements seen 12/27/18 11:57 Fluid - Other Fungal Culture - Pending Lab - Hematology Results 12/29/18 15:33 WBC 16.1 H RBC 3.80 L Hgb 12.1 L Hct 35.1 L MCV 92.3 MCH 31.7 MCHC 34.4 RDW 15.1 Plt Count 248 MPV 9.3 Neut % (Auto) 78.7 H Lymph % (Auto) 11.9 Andrews % (Auto) 8.9 H Eos % (Auto) 0.1 Baso % (Auto) 0.4 Neut # (Auto) 12.7 H Lymph # (Auto) 1.9 Andrews # (Auto) 1.4 H Eos # (Auto) 0.0 Baso # (Auto) 0.1 WBC Differential . Differential Comment Auto diff final Lab - Chemistry Results 12/28/18 12/29/18 12/30/18 14:37 19:56 05:34 Creatinine 0.51 L Estimated GFR Greater than 89 POC Glucose 126 H 132 H 12/30/18 06:16 Creatinine Estimated GFR POC Glucose 126 H Imaging: ITS Impressions Chest CTA 12/19/18 02:39 CONCLUSION: 1. No pulmonary embolus. 2. Diffuse process in interstitial markings which could suggest mild edema or underlying interstitial disease. Chest X-Ray 12/21/18 17:17 CONCLUSION: The lungs are clear. Abdomen/Pelvis CT 12/22/18 00:00 CONCLUSION: 1. Nonspecific, nonobstructive bowel gas pattern with no evidence of abscess. There is a moderate amount of stool in the distal colon. Could indicate mild fecal impaction. 2. Gastrostomy tube in place with the tip in the mid stomach. 3. Multiple small gallstones. 4. Cardiomegaly and small left pleural effusion. Soft Tissue Neck CT 12/22/18 00:00 CONCLUSION: 1. Extensive reconstruction with a mandibular large plate in this patient history of myelitis. 2. Small focal possible pointing abscess measuring less than 1 cm on the left in angle of the mandible. 3. Extensive artifact with distortion of normal tissue planes however I don't see a deep space abscess. 4. If subclinical infection suspected a bone gallium scanning may be the only way to sort this out. Lumbar Spine MRI 12/23/18 00:00 CONCLUSION: 1. Suspect postsurgical features of prior laminectomies at L2-L5 with peripherally calcified posterior paraspinal fluid intensity collection measuring 2.1 x 3.2 x 7.0 cm centered at L4-5 level. This may reflect a chronic resolved postoperative hematoma, complicated seroma or infection. Clinical correlation with prior surgical history is recommended. If patient has no history of previous surgery, differential consideration would include a expansile lesion involving the posterior processes of primarily L3-L5. 2. Multilevel degenerative spondylosis of the lumbar spine with moderate central canal narrowing at L3-4 level. 3. Please see above for detailed description of each level. WBC Scan Nuclear Medicine 12/24/18 00:00 CONCLUSION: 1. Nonspecific uptake along the anterior margin of the left mandibular remnant. 2. Nonspecific uptake in the soft tissues medially of the left leg at the level of the mid tibia shaft. Abscess Drainage X-Ray 12/27/18 00:00 CONCLUSION: 1. Uncomplicated image guided aspiration. Physical Exam: GENERAL: awake and alert, NAD. SKIN: Warm and dry. No generalized rash, no ecchymoses and no evidence of embolic lesions noted HEAD: Atraumatic. Normocephalic. No temporal wasting, or tenderness. EYES: [place] conjunctiva. No scleral icterus. No injection or drainage. EARS, NOSE AND THROAT: Nose without bleeding or purulent nasal discharge. Moist mucosa, a lot of secretions pooling at floor of mouth. The color on anterior mandible is normal, tender on right side, not indurated, healed incision, not swollen. NECK: Supple and not tender, no meningeal signs CARDIOVASCULAR: Regular rate and rhythm. HAs harsh systolic murmur L precordium and base of the heart RESPIRATORY: Coarse BS bilaterally. Decreased at bases ABDOMEN: Soft, non-tender, nondistended. Bowel sounds present and normoactive. No guarding. No rebound. PEG site ok. EXTREMITIES: No clubbing, cyanosis, or edema. Scars both knees, knees looks ok. NEUROLOGICAL: Stable, non-focal PSYCHIATRIC: Normal affect, calm and cooperative. LINE: No evidence of infection Assessment and Plan - Plan Impression Recurrent Enterobacter sepsis, high grade bacteremia, very worrisome for endovascular infection -He has valvular heart disease, has significant calcification in AV and MV - ?other focus: had recent mandibular reconstructrion and has plate, and also with fluid collection in lumbar spine region NSTEMI Hx oral CA, has had surgeries Risk for recurrent PNA Recommendation Continue Meropenem IV (more continuous regimen for endocarditis and spinal abscess treatment. Continue Amikacin IV Follow creatinine Follow for side effects of AMikacin (hearing, vestibular, nephrotoxicity) I spoke with [facility] - they will do additional susceptibility testing to Zerbaxa, Avycaz and Vabomere Monitor progress
--- NOTE | 2018-12-30 15:21 | P.PNIM ---
Subjective Interval history: RN denies any setbacks since last night. Pt himself has no new complaints. Physical Exam Vital signs: Vital Signs 12/29/18 15:45 12/29/18 16:00 12/29/18 19:00 Temperature 97.3 F L Pulse Rate 89 86 89 Respiratory Rate 16 Blood Pressure 85/55 L Pulse Oximetry 99 12/29/18 19:46 12/29/18 19:47 12/29/18 21:00 Temperature 98.3 F Pulse Rate 94 H 88 99 H Respiratory Rate 18 Blood Pressure 94/64 L Pulse Oximetry 93 L 12/29/18 22:00 12/30/18 00:00 12/30/18 01:00 Temperature 98.8 F Pulse Rate 97 H 89 91 H Respiratory Rate 18 Blood Pressure 120/74 Pulse Oximetry 98 12/30/18 02:00 12/30/18 03:00 12/30/18 04:00 Temperature 97.8 F Pulse Rate 93 H 92 H 96 H Respiratory Rate 16 Blood Pressure 98/68 L Pulse Oximetry 96 12/30/18 05:00 12/30/18 06:00 12/30/18 07:00 Temperature Pulse Rate 85 80 95 H Respiratory Rate Blood Pressure Pulse Oximetry 12/30/18 08:00 12/30/18 08:03 12/30/18 09:00 Temperature 98 F Pulse Rate 98 H 101 H 100 H Respiratory Rate 18 Blood Pressure 114/68 Pulse Oximetry 98 12/30/18 10:00 12/30/18 11:14 Temperature 97.9 F Pulse Rate 94 H 87 Respiratory Rate 18 Blood Pressure 97/65 L Pulse Oximetry 100 Intake & Output 12/29/18 12/30/18 12/30/18 18:59 06:59 18:59 Intake Total 100 / 100 704 / 704 100 / 100 Output Total 400 / 400 800 / 800 Balance -300 / -300 -96 / -96 100 / 100 Weight 78.6 kg Intake: IV 100 / 100 704 / 704 100 / 100 Amikin Inj 1,000 MG In NS Inj 504 / 504 500 ML @ 250 mls/hr IV.SIG Q24H [facility] Rx#:[id number] Merrem Inj 1,000 MG In NS Inj 100 / 100 200 / 200 100 / 100 100 ML @ 200 mls/hr IV.SIG Q8H [facility] Rx#:[id number] Output: Urine 400 / 400 800 / 800 Other: # Incontinent Voids 2 Date of Last Bowel Movement 12/28/18 12/28/18 12/30/18 Narrative: Heart sounds regular rhythm, no murmurs Clear lungs bilaterally, unlabored breathing No lower extremity edema Plate in position over the left jaw Sitting up in chair, pleasant demeanor and affect no acute distress Urinary Catheter Management Condom: Cath placed during this visit: no Results Labs CBC & Chem 7: 12/29/18 15:33 12/30/18 05:34 Labs: Microbiology 12/24/18 08:14 Blood - Peripheral Aerobic Blood Culture - Final Enterobacter cloacae 12/24/18 08:14 Blood - Peripheral Anaerobic Blood Culture - Preliminary Enterobacter cloacae 12/28/18 06:00 Blood - Peripheral Aerobic Blood Culture - Preliminary No growth in 2 days 12/28/18 06:00 Blood - Peripheral Anaerobic Blood Culture - Preliminary No growth in 2 days 12/27/18 06:46 Blood - Peripheral Aerobic Blood Culture - Preliminary No growth in 3 days 12/27/18 06:46 Blood - Peripheral Anaerobic Blood Culture - Preliminary No growth in 3 days 12/25/18 06:25 Blood - Peripheral Aerobic Blood Culture - Final No growth in 5 days 12/25/18 06:25 Blood - Peripheral Anaerobic Blood Culture - Final No growth in 5 days 12/27/18 11:57 Tissue - Other Gram Stain - Final 12/27/18 11:57 Tissue - Other Wound Culture - Final No growth in 72 hours (aerobically and anaerobically ) 12/27/18 11:57 Fluid - Other Acid Fast Bacilli Smear - Final No acid fast bacilli seen Assessment and Plan Plan 73-year-old male admitted secondary to shortness of breath with cough. A. fib RVR present at time of admit. Bacteremia Blood cultures positive for Enterobacter cloacae. ID consult appreciated. CT abdomen/pelvis negative. CT neck with ? small abscess left mandible. Oral surgery consult appreciated, no infection identified. Echo without obvious evidence of vegetation. MRI L spine: Suspect postsurgical features of prior laminectomies at L2-L5 with peripherally calcified posterior paraspinal fluid intensity collection measuring 2.1 x 3.2 x 7.0 cm centered at L4-5 level; This may reflect a chronic resolved postoperative hematoma, complicated seroma or infection. Neurosurgery consult appreciated. Fluid collection unlikely related to infection. White blood cell scan with nonspecific uptake along the anterior margin of the left mandibular remnant as well as nonspecific uptake in the soft tissues medially of the left leg at the level of the mid tibia shaft. -Continue meropenem and amikacin per ID. -follow repeat BCs neg -s/p lumbar fluid collection drainage, negative culture results -considering МАРИНА. A. fib with RVR/NSTEMI/CAD/ Cardiology consult appreciated. -resume aspirin and continue to hold eliquis while inhouse, cover with lovenox until discharge -When necessary oxygen. -Follow on telemetry. Possible HealthCare associated Pneumonia Repeat CXR with clear lungs. -continue antibiotics per ID. Awaiting further sensitivities. 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 -Levsin as needed. -Speech following. peg tube placed -continue tube feeds. -PT and OT. -Follow as an outpatient. Diabetes mellitus type 2 Well controlled. -Follow blood sugars. -Insulin sliding scale. -Diabetic diet. COPD CTA indicative of mild edema or ILD. -nebs. -Patient counseled to quit smoking. Social issues Pt's daughter would like to become the health care proxy. -case management consult has been placed. DVT prophylaxis: starting lovenox while inpt, eliquis to resume upon discharge Discharge Planning: Awaiting further work-up for bacteremia. Follow up with ID. Progress Note: Quality VTE Deep Vein Thrombosis/Pulmonary Embolism Present on Admission: No
[2018-12-30] MEDS: SODIUM CHLOR 0.9% IV.SIG SCH (20:38)
[2018-12-30] MEDS: AMIKACIN IV.SIG SCH (20:38)
[2018-12-31] MEDS: Insulin NovoLOG Aspart Correctional Sugar Inj SQ SCH ×3 (05:40→23:10)
[2018-12-31] MEDS: Enoxaparin Inj 80 MG/0.8 ML Syringe SQ SCH ×2 (10:07→23:08)
[2018-12-31] MEDS: Finasteride 5 MG Tablet PO SCH (10:07)
[2018-12-31] MEDS: Gabapentin Liq 250 MG/5 ML UDC PO SCH ×3 (10:07→18:16)
[2018-12-31] MEDS: Chlorhexidine Gluconate 0.12% Liq 15 ML UDC SWISH-SPIT SCH ×2 (10:08→23:08)
[2018-12-31] MEDS: Famotidine 20 MG Tablet PO SCH (10:08)
[2018-12-31] MEDS: Docusate Sodium Liq 100 MG/10 ML UDC G-TUBE SCH (10:08)
[2018-12-31] MEDS: Metoprolol Tartrate 25 MG Tablet PO SCH ×2 (10:09→23:09)
[2018-12-31] MEDS: Acetaminophen-HYDROcodone 325/7.5 Liq 15 ML UDC NG/OG PRN ×2 (13:12→23:08)
--- NOTE | 2018-12-31 14:24 | P.PNID ---
Subjective Remarks: Patient is a 73-year-old male, came from a rehab facility, brought into the hospital for evaluation of altered mental status. He was also having cough and congestion. 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 The last surgery was done the first week in November and he had an anterior mandibular resection. He was readmitted December 01 and at that time he had A. fib with RVR. He was evaluated by maxillofacial surgery and he had a PEG tube done to increase his nutrition. Of note during that admission he had 2+ blood cultures with Enterobacter. Patient was felt to have a pneumonia at that time and he was given Levaquin when he was discharged from the hospital. On this admission, patient's mental status seems to have improved. He is awake and interacting. He tries to speak, but his speech is very difficult to understand. He has a cough, and he is pooling a lot of oral secretions that he suctions. He has a cough. He has some shortness of breath, and notes some chest pain in the lower quadrants. He was ruled in for SC during this admission , and cardiology evaluated the patient and was not a good candidate for cardiac catheterization. He had a fever of 102. CT of the chest did not show any pulmonary embolism, but it did show some interstitial infiltrates which could be congestion or interstitial disease. He denies any abdominal pain. He has not had any vomiting. No diarrhea. Patient is voiding without any problem. He currently has a condom cath in place. His urinalysis on this admission is unremarkable. His WBC was 14 on admission, and it is up to 19. 2 blood cultures done on admission are now reported as growing gram-negative neo, possibly on Enterobacter. During his last admission he had an echocardiogram and he has evidence of multiple calcifications in his valve namely mitral and aortic valve. Infectious disease consultation has been requested to assist with evaluation and treatment. Notes reviewed Temps ok No new complaints Has been sitting up in chair almost daily, at least one hour Not on O2 Hearing ok NO dizziness Not SOB No rash or itching No diarrhea Creatinine ok WBC still elevated No new (+) BC Last (+) BC 12/24 All BC with Enterobacter cloacae - 2-12/24, and he has (+) BC from Nov 2017 Echo with significant calcifications in his AV and MV Patient has had back surgeries, he said 4, last one in 1987, never been treated for any infection in his back CT A/P no abscess CT neck noted - no deep abscess seen. has large plate anteriorly OMFS evaluation - no evidence of infection Spoke with Dr Acosta - 12/29, no clinical evidence of infection of jaw area; no swelling, no redness No knee pain - 2 previous knee arthroplasty WBC scan with some uptake in anterior mandible, and L leg Surgery on the mandible - 11/18 Gastrostomy - 12/07 His first (+) BC 12/01 Antibiotics: Meropenem Amikacin Past Medical History: Reviewed Allergies/Adverse Reactions: Allergies No Known Allergies Allergy (Verified 12/01/18 17:43) Objective Vital Signs 12/30/18 18:15 12/30/18 19:00 12/30/18 20:00 Temperature 98.5 F 98.0 F Pulse Rate 92 H 86 102 H Respiratory Rate 18 18 Blood Pressure 106/73 106/73 Pulse Oximetry 100 98 12/30/18 21:00 12/30/18 22:00 12/30/18 23:00 Temperature Pulse Rate 92 H 106 H 92 H Respiratory Rate Blood Pressure Pulse Oximetry 12/31/18 00:00 12/31/18 01:00 12/31/18 02:00 Temperature 97.8 F Pulse Rate 80 88 87 Respiratory Rate 18 Blood Pressure 116/78 Pulse Oximetry 98 12/31/18 03:00 12/31/18 03:54 12/31/18 04:00 Temperature 98.7 F Pulse Rate 93 H 100 H 86 Respiratory Rate 18 Blood Pressure 121/73 Pulse Oximetry 94 L 12/31/18 05:00 12/31/18 05:57 12/31/18 07:00 Temperature Pulse Rate 74 87 99 H Respiratory Rate Blood Pressure Pulse Oximetry 12/31/18 08:00 12/31/18 09:00 12/31/18 10:00 Temperature 97.9 F Pulse Rate 100 H 96 H 110 H Respiratory Rate 16 Blood Pressure 114/72 Pulse Oximetry 97 Intake & Output 12/30/18 12/31/18 12/31/18 18:59 06:59 18:59 Intake Total 680 / 680 604 / 604 Output Total 780 / 780 Balance -100 / -100 604 / 604 Weight 79.2 kg Intake: IV 200 / 200 604 / 604 Amikin Inj 1,000 MG In NS Inj 504 / 504 500 ML @ 250 mls/hr IV.SIG Q24H [facility] Rx#:[id number] Merrem Inj 1,000 MG In NS Inj 200 / 200 100 / 100 100 ML @ 200 mls/hr IV.SIG Q8H [facility] Rx#:[id number] Oral 480 / 480 Output: Urine 780 / 780 Other: Date of Last Bowel Movement 12/30/18 12/31/18 # Bowel Movements 1 12/28/18 06:00 Blood - Peripheral Aerobic Blood Culture - Preliminary No growth in 3 days 12/28/18 06:00 Blood - Peripheral Anaerobic Blood Culture - Preliminary No growth in 3 days 12/27/18 06:46 Blood - Peripheral Aerobic Blood Culture - Preliminary No growth in 4 days 12/27/18 06:46 Blood - Peripheral Anaerobic Blood Culture - Preliminary No growth in 4 days 12/24/18 08:14 Blood - Peripheral Aerobic Blood Culture - Final Enterobacter cloacae 12/24/18 08:14 Blood - Peripheral Anaerobic Blood Culture - Preliminary Enterobacter cloacae 12/25/18 06:25 Blood - Peripheral Aerobic Blood Culture - Final No growth in 5 days 12/25/18 06:25 Blood - Peripheral Anaerobic Blood Culture - Final No growth in 5 days 12/27/18 11:57 Tissue - Other Gram Stain - Final 12/27/18 11:57 Tissue - Other Wound Culture - Final No growth in 72 hours (aerobically and anaerobically ) 12/27/18 11:57 Fluid - Other Acid Fast Bacilli Smear - Final No acid fast bacilli seen 12/27/18 11:57 Fluid - Other Mycobacterial Culture - Pending Lab - Hematology Results 12/29/18 15:33 WBC 16.1 H RBC 3.80 L Hgb 12.1 L Hct 35.1 L MCV 92.3 MCH 31.7 MCHC 34.4 RDW 15.1 Plt Count 248 MPV 9.3 Neut % (Auto) 78.7 H Lymph % (Auto) 11.9 Robertson % (Auto) 8.9 H Eos % (Auto) 0.1 Baso % (Auto) 0.4 Neut # (Auto) 12.7 H Lymph # (Auto) 1.9 Robertson # (Auto) 1.4 H Eos # (Auto) 0.0 Baso # (Auto) 0.1 WBC Differential . Differential Comment Auto diff final Lab - Chemistry Results 12/29/18 12/30/1819 19:56 05:34 06:16 Creatinine 0.51 L Estimated GFR Greater than 89 POC Glucose 132 H 126 H 12/30/18 12/30/18 12/31/18 15:05 22:19 05:40 Creatinine Estimated GFR POC Glucose 125 H 102 120 H 12/31/18 13:37 Creatinine Estimated GFR POC Glucose 123 H Imaging: ITS Impressions Chest CTA 12/19/18 02:39 CONCLUSION: 1. No pulmonary embolus. 2. Diffuse process in interstitial markings which could suggest mild edema or underlying interstitial disease. Chest X-Ray 12/21/18 17:17 CONCLUSION: The lungs are clear. Abdomen/Pelvis CT 12/22/18 00:00 CONCLUSION: 1. Nonspecific, nonobstructive bowel gas pattern with no evidence of abscess. There is a moderate amount of stool in the distal colon. Could indicate mild fecal impaction. 2. Gastrostomy tube in place with the tip in the mid stomach. 3. Multiple small gallstones. 4. Cardiomegaly and small left pleural effusion. Soft Tissue Neck CT 12/22/18 00:00 CONCLUSION: 1. Extensive reconstruction with a mandibular large plate in this patient history of myelitis. 2. Small focal possible pointing abscess measuring less than 1 cm on the left in angle of the mandible. 3. Extensive artifact with distortion of normal tissue planes however I don't see a deep space abscess. 4. If subclinical infection suspected a bone gallium scanning may be the only way to sort this out. Lumbar Spine MRI 12/23/18 00:00 CONCLUSION: 1. Suspect postsurgical features of prior laminectomies at L2-L5 with peripherally calcified posterior paraspinal fluid intensity collection measuring 2.1 x 3.2 x 7.0 cm centered at L4-5 level. This may reflect a chronic resolved postoperative hematoma, complicated seroma or infection. Clinical correlation with prior surgical history is recommended. If patient has no history of previous surgery, differential consideration would include a expansile lesion involving the posterior processes of primarily L3-L5. 2. Multilevel degenerative spondylosis of the lumbar spine with moderate central canal narrowing at L3-4 level. 3. Please see above for detailed description of each level. WBC Scan Nuclear Medicine 12/24/18 00:00 CONCLUSION: 1. Nonspecific uptake along the anterior margin of the left mandibular remnant. 2. Nonspecific uptake in the soft tissues medially of the left leg at the level of the mid tibia shaft. Abscess Drainage X-Ray 12/27/18 00:00 CONCLUSION: 1. Uncomplicated image guided aspiration. Physical Exam: GENERAL: awake and alert, NAD. SKIN: Warm and dry. No generalized rash, no ecchymoses and no evidence of embolic lesions noted HEAD: Atraumatic. Normocephalic. No temporal wasting, or tenderness. EYES: [place] conjunctiva. No scleral icterus. No injection or drainage. EARS, NOSE AND THROAT: Nose without bleeding or purulent nasal discharge. Moist mucosa, secretions less today. The color on anterior mandible is normal, not indurated, healed incision, not swollen. NECK: Supple and not tender, no meningeal signs CARDIOVASCULAR: Regular rate and rhythm. HAs harsh systolic murmur L precordium and base of the heart RESPIRATORY: Coarse BS bilaterally. Decreased at bases ABDOMEN: Soft, non-tender, nondistended. Bowel sounds present and normoactive. No guarding. No rebound. PEG site ok. EXTREMITIES: No clubbing, cyanosis, or edema. Scars both knees, knees looks ok. NEUROLOGICAL: Stable, non-focal PSYCHIATRIC: Normal affect, calm and cooperative. LINE: No evidence of infection Assessment and Plan - Plan Impression Recurrent Enterobacter sepsis, high grade bacteremia, very worrisome for endovascular infection -He has valvular heart disease, has significant calcification in AV and MV - ?other focus: had recent mandibular reconstructrion and has plate, and also with fluid collection in lumbar spine region - lumbar fluid negative - as per D/C OMFS, clinically mandible looks ok NSTEMI Hx oral CA, has had surgeries Risk for recurrent PNA Recommendation Continue Meropenem IV (more continuous regimen for endocarditis and spinal abscess treatment. Continue Amikacin IV Follow creatinine Follow for side effects of AMikacin (hearing, vestibular, nephrotoxicity) I spoke with [facility] - they will do additional susceptibility testing to Zerbaxa, Avycaz and Vabomere Monitor progress If stable, and BC negative, possibly look at PICC next week He will need a long course of IV Abx Explained ubaldo to patient and daughter - told him that he will be referred to Dr Wilkinson for outpatient ID followup, and when he is ready for D/C, will need to find SNF that will take him with the two ABx I will be OOT 01/01-01/09 Other ID MD covering in my absence
[2018-12-31] MEDS: SODIUM CHLOR 0.9% IV.SIG SCH (23:07)
[2018-12-31] MEDS: AMIKACIN IV.SIG SCH (23:07)
[2019-01-01] MEDS: Insulin NovoLOG Aspart Correctional Sugar Inj SQ SCH ×3 (06:23→21:50)
[2019-01-01] MEDS: Gabapentin Liq 250 MG/5 ML UDC PO SCH ×4 (08:32→17:40)
[2019-01-01] MEDS: Chlorhexidine Gluconate 0.12% Liq 15 ML UDC SWISH-SPIT SCH ×2 (08:32→21:44)
[2019-01-01] MEDS: Enoxaparin Inj 80 MG/0.8 ML Syringe SQ SCH ×2 (08:32→21:44)
[2019-01-01] MEDS: Metoprolol Tartrate 25 MG Tablet PO SCH ×2 (08:33→21:44)
[2019-01-01] MEDS: Famotidine 20 MG Tablet PO SCH (08:33)
[2019-01-01] MEDS: Finasteride 5 MG Tablet PO SCH (08:33)
[2019-01-01] MEDS: Docusate Sodium Liq 100 MG/10 ML UDC G-TUBE SCH ×2 (08:33→08:36)
--- NOTE | 2019-01-01 14:04 | P.PNIM ---
Subjective Interval history: No deteriorations noted since last night. Nursing reports the patient has for me to stop morphine over to liquid hydrocodone. Physical Exam Vital signs: Vital Signs 12/31/18 15:00 12/31/18 16:00 12/31/18 17:00 Temperature 97.0 F L Pulse Rate 102 H 98 H 94 H Respiratory Rate 16 Blood Pressure 100/58 L Pulse Oximetry 98 12/31/18 18:00 12/31/18 19:00 12/31/18 20:00 Temperature Pulse Rate 93 H 96 H 82 Respiratory Rate 18 Blood Pressure Pulse Oximetry 98 12/31/18 21:00 12/31/18 22:00 12/31/18 23:00 Temperature Pulse Rate 84 88 92 H Respiratory Rate Blood Pressure Pulse Oximetry 01/01/19 00:00 01/01/19 00:20 01/01/19 01:00 Temperature Pulse Rate 71 74 Respiratory Rate 20 18 Blood Pressure 114/80 Pulse Oximetry 98 01/01/19 02:00 01/01/19 03:00 01/01/19 04:00 Temperature Pulse Rate 76 74 89 Respiratory Rate 20 Blood Pressure 112/79 Pulse Oximetry 98 01/01/19 05:00 01/01/19 06:00 01/01/19 07:00 Temperature Pulse Rate 84 84 92 H Respiratory Rate Blood Pressure Pulse Oximetry 01/01/19 08:00 01/01/19 09:00 01/01/19 10:00 Temperature 98 F Pulse Rate 88 106 H 88 Respiratory Rate 18 Blood Pressure 118/76 Pulse Oximetry 94 L 01/01/19 11:00 01/01/19 12:00 01/01/19 13:00 Temperature 97.7 F Pulse Rate 85 88 86 Respiratory Rate 18 Blood Pressure 120/84 Pulse Oximetry 98 Intake & Output 12/31/18 01/01/19 01/01/19 18:59 06:59 18:59 Intake Total 500 / 500 100 / 100 200 / 200 Output Total 500 / 500 625 / 625 Balance 0 / 0 -525 / -525 200 / 200 Weight 79.6 kg Intake: IV 100 / 100 100 / 100 200 / 200 Merrem Inj 1,000 MG In NS Inj 100 / 100 100 / 100 200 / 200 100 ML @ 200 mls/hr IV.SIG Q8H [facility] Rx#:[id number] Tube Feeding 400 / 400 Output: Urine 500 / 500 625 / 625 Other: Date of Last Bowel Movement 12/31/18 12/31/18 Narrative: Heart sounds regular rhythm, no murmurs Clear lungs bilaterally, unlabored breathing No lower extremity edema Plate in position over the left jaw Sitting up in chair, pleasant demeanor and affect no acute distress Overall unchanged physical exam since yesterday Urinary Catheter Management Condom: Cath placed during this visit: no Results Labs CBC & Chem 7: 12/29/18 15:33 12/30/18 05:34 Labs: Microbiology 12/28/18 06:00 Blood - Peripheral Aerobic Blood Culture - Preliminary No growth in 4 days 12/28/18 06:00 Blood - Peripheral Anaerobic Blood Culture - Preliminary No growth in 4 days 12/27/18 06:46 Blood - Peripheral Aerobic Blood Culture - Final No growth in 5 days 12/27/18 06:46 Blood - Peripheral Anaerobic Blood Culture - Final No growth in 5 days 12/24/18 08:14 Blood - Peripheral Aerobic Blood Culture - Final Enterobacter cloacae 12/24/18 08:14 Blood - Peripheral Anaerobic Blood Culture - Final Enterobacter cloacae Assessment and Plan Plan 73-year-old male admitted secondary to shortness of breath with cough. A. fib RVR present at time of admit. Bacteremia Blood cultures positive for Enterobacter cloacae. ID consult appreciated. CT abdomen/pelvis negative. CT neck with ? small abscess left mandible. Oral surgery consult appreciated, no infection identified. Echo without obvious evidence of vegetation. MRI L spine: Suspect postsurgical features of prior laminectomies at L2-L5 with peripherally calcified posterior paraspinal fluid intensity collection measuring 2.1 x 3.2 x 7.0 cm centered at L4-5 level; This may reflect a chronic resolved postoperative hematoma, complicated seroma or infection. Neurosurgery consult appreciated. Fluid collection unlikely related to infection. White blood cell scan with nonspecific uptake along the anterior margin of the left mandibular remnant as well as nonspecific uptake in the soft tissues medially of the left leg at the level of the mid tibia shaft. -Continue meropenem and amikacin per ID. -follow repeat BCs neg -s/p lumbar fluid collection drainage, negative culture results -considering МАРИНА. A. fib with RVR/NSTEMI/CAD/ Cardiology consult appreciated. -resume aspirin and continue to hold eliquis while inhouse, cover with lovenox until discharge -When necessary oxygen. -Follow on telemetry. Possible HealthCare associated Pneumonia Repeat CXR with clear lungs. -continue antibiotics per ID. Awaiting further sensitivities. 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 -Levsin as needed. -Speech following. peg tube placed -continue tube feeds. -PT and OT. Diabetes mellitus type 2 Well controlled. -Follow blood sugars. -Insulin sliding scale. -Diabetic diet. COPD CTA indicative of mild edema or ILD. -nebs. -Patient counseled to quit smoking. Social issues Pt's daughter would like to become the health care proxy. -case management consult has been placed. DVT prophylaxis: lovenox while inpt, eliquis to resume upon discharge Discharge Planning: Awaiting further work-up for bacteremia. Follow up with ID. Progress Note: Quality VTE Deep Vein Thrombosis/Pulmonary Embolism Present on Admission: No
--- NOTE | 2019-01-01 14:05 | P.PNIM ---
Subjective Interval history: Nursing denies any deterioration since last night. Patient himself has no new complaints. Does affirm the hydrocodone liquid better control his pain and IV morphine. Physical Exam Vital signs: Vital Signs 12/31/18 15:00 12/31/18 16:00 12/31/18 17:00 Temperature 97.0 F L Pulse Rate 102 H 98 H 94 H Respiratory Rate 16 Blood Pressure 100/58 L Pulse Oximetry 98 12/31/18 18:00 12/31/18 19:00 12/31/18 20:00 Temperature Pulse Rate 93 H 96 H 82 Respiratory Rate 18 Blood Pressure Pulse Oximetry 98 12/31/18 21:00 12/31/18 22:00 12/31/18 23:00 Temperature Pulse Rate 84 88 92 H Respiratory Rate Blood Pressure Pulse Oximetry 01/01/19 00:00 01/01/19 00:20 01/01/19 01:00 Temperature Pulse Rate 71 74 Respiratory Rate 20 18 Blood Pressure 114/80 Pulse Oximetry 98 01/01/19 02:00 01/01/19 03:00 01/01/19 04:00 Temperature Pulse Rate 76 74 89 Respiratory Rate 20 Blood Pressure 112/79 Pulse Oximetry 98 01/01/19 05:00 01/01/19 06:00 01/01/19 07:00 Temperature Pulse Rate 84 84 92 H Respiratory Rate Blood Pressure Pulse Oximetry 01/01/19 08:00 01/01/19 09:00 01/01/19 10:00 Temperature 98 F Pulse Rate 88 106 H 88 Respiratory Rate 18 Blood Pressure 118/76 Pulse Oximetry 94 L 01/01/19 11:00 01/01/19 12:00 01/01/19 13:00 Temperature 97.7 F Pulse Rate 85 88 86 Respiratory Rate 18 Blood Pressure 120/84 Pulse Oximetry 98 Intake & Output 12/31/18 01/01/19 01/01/19 18:59 06:59 18:59 Intake Total 500 / 500 100 / 100 200 / 200 Output Total 500 / 500 625 / 625 Balance 0 / 0 -525 / -525 200 / 200 Weight 79.6 kg Intake: IV 100 / 100 100 / 100 200 / 200 Merrem Inj 1,000 MG In NS Inj 100 / 100 100 / 100 200 / 200 100 ML @ 200 mls/hr IV.SIG Q8H [facility] Rx#:[id number] Tube Feeding 400 / 400 Output: Urine 500 / 500 625 / 625 Other: Date of Last Bowel Movement 12/31/18 12/31/18 Narrative: Heart sounds regular rhythm, no murmurs Clear lungs bilaterally, unlabored breathing No lower extremity edema Plate in position within the left jaw Lying in bed, sleeping, easily awoken, no acute distress Urinary Catheter Management Condom: Cath placed during this visit: no Results Labs CBC & Chem 7: 12/29/18 15:33 12/30/18 05:34 Labs: Microbiology 12/28/18 06:00 Blood - Peripheral Aerobic Blood Culture - Preliminary No growth in 4 days 12/28/18 06:00 Blood - Peripheral Anaerobic Blood Culture - Preliminary No growth in 4 days 12/27/18 06:46 Blood - Peripheral Aerobic Blood Culture - Final No growth in 5 days 12/27/18 06:46 Blood - Peripheral Anaerobic Blood Culture - Final No growth in 5 days 12/24/18 08:14 Blood - Peripheral Aerobic Blood Culture - Final Enterobacter cloacae 12/24/18 08:14 Blood - Peripheral Anaerobic Blood Culture - Final Enterobacter cloacae Assessment and Plan Plan 73-year-old male admitted secondary to shortness of breath with cough. A. fib RVR present at time of admit. Bacteremia Blood cultures positive for Enterobacter cloacae. ID consult appreciated. CT abdomen/pelvis negative. CT neck with ? small abscess left mandible. Oral surgery consult appreciated, no infection identified. Echo without obvious evidence of vegetation. MRI L spine: Suspect postsurgical features of prior laminectomies at L2-L5 with peripherally calcified posterior paraspinal fluid intensity collection measuring 2.1 x 3.2 x 7.0 cm centered at L4-5 level; This may reflect a chronic resolved postoperative hematoma, complicated seroma or infection. Neurosurgery consult appreciated. Fluid collection unlikely related to infection. White blood cell scan with nonspecific uptake along the anterior margin of the left mandibular remnant as well as nonspecific uptake in the soft tissues medially of the left leg at the level of the mid tibia shaft. -Continue meropenem and amikacin per ID. -follow repeat BCs neg -s/p lumbar fluid collection drainage, negative culture results -considering МАРИНА. A. fib with RVR/NSTEMI/CAD/ Cardiology consult appreciated. - aspirin, continue to hold eliquis while inhouse, cover with lovenox until discharge -When necessary oxygen. -Follow on telemetry. Possible HealthCare associated Pneumonia Repeat CXR with clear lungs. -continue antibiotics per ID. Awaiting further sensitivities. 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 -Levsin as needed. -Speech following. peg tube placed -continue tube feeds. -PT and OT. Diabetes mellitus type 2 Well controlled. -Follow blood sugars. -Insulin sliding scale. -Diabetic diet. COPD CTA indicative of mild edema or ILD. -nebs. -Patient counseled to quit smoking. Social issues Pt's daughter would like to become the health care proxy. -case management consult has been placed. DVT prophylaxis: lovenox while inpt, eliquis to resume upon discharge Progress Note: Quality VTE Deep Vein Thrombosis/Pulmonary Embolism Present on Admission: No
[2019-01-01] MEDS: SODIUM CHLOR 0.9% IV.SIG SCH (20:19)
[2019-01-01] MEDS: AMIKACIN IV.SIG SCH (20:19)
[2019-01-01] MEDS: Acetaminophen-HYDROcodone 325/7.5 Liq 15 ML UDC NG/OG PRN (21:45)
[2019-01-02] MEDS: Insulin NovoLOG Aspart Correctional Sugar Inj SQ SCH ×3 (05:20→22:17)
[2019-01-02] MEDS: Enoxaparin Inj 80 MG/0.8 ML Syringe SQ SCH ×2 (08:44→22:29)
[2019-01-02] MEDS: Metoprolol Tartrate 25 MG Tablet PO SCH ×2 (08:44→22:30)
[2019-01-02] MEDS: Docusate Sodium Liq 100 MG/10 ML UDC G-TUBE SCH (08:44)
[2019-01-02] MEDS: Famotidine 20 MG Tablet PO SCH (08:44)
[2019-01-02] MEDS: Gabapentin Liq 250 MG/5 ML UDC PO SCH ×3 (08:45→18:03)
[2019-01-02] MEDS: Finasteride 5 MG Tablet PO SCH (08:45)
[2019-01-02] MEDS: Chlorhexidine Gluconate 0.12% Liq 15 ML UDC SWISH-SPIT SCH ×2 (08:45→22:31)
[2019-01-02] MEDS: Acetaminophen-HYDROcodone 325/7.5 Liq 15 ML UDC NG/OG PRN (12:53)
--- NOTE | 2019-01-02 16:15 | P.PNIM ---
Subjective Interval history: Nursing denies any deterioration since last night. Patient has no new complaints. Is watching TV. Physical Exam Vital signs: Vital Signs 01/01/19 17:00 01/01/19 18:00 01/01/19 19:00 Temperature Pulse Rate 92 H 104 H 102 H Respiratory Rate Blood Pressure Pulse Oximetry 01/01/19 20:00 01/01/19 21:00 01/01/19 22:00 Temperature 97.1 F L Pulse Rate 90 90 94 H Respiratory Rate 16 Blood Pressure 110/76 Pulse Oximetry 99 01/01/19 23:00 01/01/19 23:19 01/02/19 00:00 Temperature Pulse Rate 94 H 98 H Respiratory Rate 18 18 Blood Pressure Pulse Oximetry 01/02/19 01:00 01/02/19 02:00 01/02/19 03:00 Temperature Pulse Rate 86 88 98 H Respiratory Rate Blood Pressure Pulse Oximetry 01/02/19 04:00 01/02/19 05:00 01/02/19 06:00 Temperature Pulse Rate 105 H 98 H 84 Respiratory Rate Blood Pressure Pulse Oximetry 01/02/19 07:00 01/02/19 08:00 01/02/19 09:00 Temperature 98.1 F Pulse Rate 95 H 104 H 106 H Respiratory Rate 18 Blood Pressure 116/73 Pulse Oximetry 98 01/02/19 10:00 01/02/19 11:00 01/02/19 12:00 Temperature 98.2 F Pulse Rate 80 89 88 Respiratory Rate 18 Blood Pressure 91/60 L Pulse Oximetry 99 01/02/19 13:00 01/02/19 14:00 01/02/19 15:00 Temperature Pulse Rate 84 84 81 Respiratory Rate Blood Pressure Pulse Oximetry 01/02/19 16:00 Temperature 98.0 F Pulse Rate 82 Respiratory Rate 18 Blood Pressure 102/66 Pulse Oximetry 96 Intake & Output 01/01/19 01/02/19 01/02/19 18:59 06:59 18:59 Intake Total 200 / 200 704 / 704 Output Total 650 / 650 1450 / 1450 Balance -450 / -450 -746 / -746 Weight 78.5 kg Intake: IV 200 / 200 704 / 704 Amikin Inj 1,000 MG In NS Inj 504 / 504 500 ML @ 250 mls/hr IV.SIG Q24H [facility] Rx#:[id number] Merrem Inj 1,000 MG In NS Inj 200 / 200 200 / 200 100 ML @ 200 mls/hr IV.SIG Q8H [facility] Rx#:[id number] Oral 0 / 0 Output: Urine 650 / 650 1450 / 1450 Other: # Voids 4 Date of Last Bowel Movement 12/31/18 Narrative: Heart sounds regular rhythm, 4/6 ejection murmur Clear lungs bilaterally, unlabored breathing No lower extremity edema Plate in position within the left jaw Lying in bed, sleeping, easily awoken, no acute distress Urinary Catheter Management Condom: Cath placed during this visit: no Results Labs CBC & Chem 7: 12/29/18 15:33 12/30/18 05:34 Labs: Microbiology 12/28/18 06:00 Blood - Peripheral Aerobic Blood Culture - Final No growth in 5 days 12/28/18 06:00 Blood - Peripheral Anaerobic Blood Culture - Final No growth in 5 days Assessment and Plan Plan 73-year-old male admitted secondary to shortness of breath with cough. A. fib RVR present at time of admit. Bacteremia Blood cultures positive for Enterobacter cloacae. ID consult appreciated. CT abdomen/pelvis negative. CT neck with ? small abscess left mandible. Oral surgery consult appreciated, no infection identified. Echo without obvious evidence of vegetation. MRI L spine: Suspect postsurgical features of prior laminectomies at L2-L5 with peripherally calcified posterior paraspinal fluid intensity collection measuring 2.1 x 3.2 x 7.0 cm centered at L4-5 level; This may reflect a chronic resolved postoperative hematoma, complicated seroma or infection. Neurosurgery consult appreciated. Fluid collection unlikely related to infection. White blood cell scan with nonspecific uptake along the anterior margin of the left mandibular remnant as well as nonspecific uptake in the soft tissues medially of the left leg at the level of the mid tibia shaft. -Continue meropenem and amikacin per ID. -follow repeat BCs neg -s/p lumbar fluid collection drainage, negative culture results -considering МАРИНА. A. fib with RVR/NSTEMI/CAD/ Cardiology consult appreciated. - aspirin, continue to hold eliquis while inhouse, cover with lovenox until discharge Stable at this time with Lopressor twice daily Possible HealthCare associated Pneumonia Repeat CXR with clear lungs. -continue antibiotics per ID - merrem. Mycobacterial cultures pending. Otherwise all other are negative so far. 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 -Levsin as needed. -Speech following. peg tube placed -continue tube feeds. -PT and OT. Diabetes mellitus type 2 Well controlled. -Follow blood sugars. -Insulin sliding scale. -Diabetic diet. COPD CTA indicative of mild edema or ILD. -nebs. -Patient counseled to quit smoking. Social issues Pt's daughter would like to become the health care proxy. -case management consult has been placed. DVT prophylaxis: lovenox while inpt, eliquis to resume upon discharge Progress Note: Quality VTE Deep Vein Thrombosis/Pulmonary Embolism Present on Admission: No
[2019-01-02 20:23] LABS: Glomerular Filtration Rate Greater Than 89 mL/min (>89)
[2019-01-02] MEDS: AMIKACIN IV.SIG SCH (22:30)
[2019-01-02] MEDS: SODIUM CHLOR 0.9% IV.SIG SCH (22:30)
[2019-01-03] MEDS: Insulin NovoLOG Aspart Correctional Sugar Inj SQ SCH ×3 (05:08→21:38)
[2019-01-03] MEDS: Enoxaparin Inj 80 MG/0.8 ML Syringe SQ SCH ×2 (09:14→20:01)
[2019-01-03] MEDS: Finasteride 5 MG Tablet PO SCH (09:14)
[2019-01-03] MEDS: Famotidine 20 MG Tablet PO SCH (09:14)
[2019-01-03] MEDS: Gabapentin Liq 250 MG/5 ML UDC PO SCH ×3 (09:14→18:49)
[2019-01-03] MEDS: Metoprolol Tartrate 25 MG Tablet PO SCH ×2 (09:14→20:00)
[2019-01-03] MEDS: Acetaminophen-HYDROcodone 325/7.5 Liq 15 ML UDC NG/OG PRN ×2 (09:15→21:39)
[2019-01-03] MEDS: Docusate Sodium Liq 100 MG/10 ML UDC G-TUBE SCH (09:15)
[2019-01-03] MEDS: Chlorhexidine Gluconate 0.12% Liq 15 ML UDC SWISH-SPIT SCH ×2 (09:16→20:00)
--- NOTE | 2019-01-03 11:19 | P.PNIM ---
Subjective Interval history: Nursing denies any changes since last night patient says he had a good night last night. He watched the race yesterday on TV. Physical Exam Vital signs: Vital Signs 01/02/19 12:00 01/02/19 13:00 01/02/19 14:00 Temperature 98.2 F Pulse Rate 88 84 84 Respiratory Rate 18 Blood Pressure 91/60 L Pulse Oximetry 99 01/02/19 15:00 01/02/19 16:00 01/02/19 17:00 Temperature 98.0 F Pulse Rate 81 82 80 Respiratory Rate 18 Blood Pressure 102/66 Pulse Oximetry 96 01/02/19 18:00 01/02/19 19:00 01/02/19 20:00 Temperature Pulse Rate 86 86 87 Respiratory Rate 16 Blood Pressure 122/82 Pulse Oximetry 100 01/03/19 00:00 01/03/19 01:00 01/03/19 02:00 Temperature Pulse Rate 98 H 72 76 Respiratory Rate 18 Blood Pressure 116/73 Pulse Oximetry 96 01/03/19 03:00 01/03/19 04:00 01/03/19 05:00 Temperature Pulse Rate 76 79 84 Respiratory Rate 18 Blood Pressure Pulse Oximetry 97 01/03/19 05:32 01/03/19 06:00 01/03/19 07:00 Temperature Pulse Rate 80 56 L 103 H Respiratory Rate Blood Pressure Pulse Oximetry 01/03/19 08:00 01/03/19 09:00 01/03/19 10:00 Temperature 97.7 F Pulse Rate 90 90 82 Respiratory Rate 18 Blood Pressure 109/73 Pulse Oximetry 99 Intake & Output 01/02/19 01/03/19 01/03/19 18:59 06:59 18:59 Intake Total 100 / 100 704 / 704 Output Total 525 / 525 575 / 575 Balance -425 / -425 129 / 129 Weight 77.3 kg Intake: IV 100 / 100 704 / 704 Amikin Inj 1,000 MG In NS Inj 504 / 504 500 ML @ 250 mls/hr IV.SIG Q24H [facility] Rx#:[id number] Merrem Inj 1,000 MG In NS Inj 100 / 100 200 / 200 100 ML @ 200 mls/hr IV.SIG Q8H [facility] Rx#:[id number] Oral 0 / 0 Output: Urine 525 / 525 575 / 575 Other: Date of Last Bowel Movement 12/31/18 12/31/18 Narrative: Heart sounds regular rhythm, 4/6 ejection murmur Clear lungs bilaterally, unlabored breathing No lower extremity edema Plate in position within the left jaw Lying in bed, sleeping, easily awoken, no acute distress Largely unchanged physical exam since yesterday Urinary Catheter Management Condom: Cath placed during this visit: no Results Labs CBC & Chem 7: 12/29/18 15:33 01/02/19 19:21 Labs: Microbiology 12/28/18 06:00 Blood - Peripheral Aerobic Blood Culture - Final No growth in 5 days 12/28/18 06:00 Blood - Peripheral Anaerobic Blood Culture - Final No growth in 5 days Assessment and Plan Plan 73-year-old male admitted w/ encephaloapthy, elevated troponins, and pulmonary edema. Cardiology recommended medical management setting the patient was a poor candidate for left heart cath. Patient was found to be bacteremic from recurrent Enterobacter cloacae. Was started on antibiotics w/ ID assistance, also had a fluid collection around his lumbar spine which is likely secondary to a postoperative hematoma as this was also negative cultures after an IR procedure for drainage. Patient's encephalopathy significantly improved. 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 Pending placement for custodial facility. Bacteremia Blood cultures positive for Enterobacter cloacae. ID consult appreciated. CT abdomen/pelvis negative. CT neck with ? small abscess left mandible. Oral surgery consult appreciated, no infection identified. Echo without obvious evidence of vegetation. MRI L spine: Suspect postsurgical features of prior laminectomies at L2-L5 with peripherally calcified posterior paraspinal fluid intensity collection measuring 2.1 x 3.2 x 7.0 cm centered at L4-5 level; This may reflect a chronic resolved postoperative hematoma, complicated seroma or infection. Neurosurgery consult appreciated. Fluid collection unlikely related to infection. White blood cell scan with nonspecific uptake along the anterior margin of the left mandibular remnant as well as nonspecific uptake in the soft tissues medially of the left leg at the level of the mid tibia shaft. -Continue meropenem and amikacin per ID. -follow repeat BCs neg -s/p lumbar fluid collection drainage, negative culture results -considering МАРИНА. A. fib with RVR/NSTEMI/CAD/ Cardiology consult appreciated. - aspirin, continue to hold eliquis while inhouse, cover with lovenox until discharge Stable at this time with Lopressor twice daily -possible outpt stress test Possible HealthCare associated Pneumonia Repeat CXR with clear lungs. -continue antibiotics per ID - merrem. Mycobacterial cultures pending. Otherwise all other are negative so far. -Anticipate PICC line once SNF secured Cancer of the neck/Tongue cancer/History of skin cancer Has copious secretions. -Levsin as needed. -Speech following. peg tube placed -continue tube feeds. -PT and OT. Diabetes mellitus type 2 Well controlled. -Follow blood sugars. -Insulin sliding scale. -Diabetic diet. COPD CTA indicative of mild edema or ILD. -nebs. -Patient counseled to quit smoking. Social issues Pt's daughter would like to become the health care proxy. -case management consult has been placed. DVT prophylaxis: lovenox while inpt, eliquis to resume upon discharge Pending placement for custodial facility. PICC line to be ordered by ID once SNF secured that is willing to accept abx. Progress Note: Quality VTE Deep Vein Thrombosis/Pulmonary Embolism Present on Admission: No
--- NOTE | 2019-01-03 12:41 | P.PNID ---
Subjective Remarks: Patient is a 73-year-old male, came from a rehab facility, brought into the hospital for evaluation of altered mental status. He was also having cough and congestion. 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 The last surgery was done the first week in November and he had an anterior mandibular resection. He was readmitted December 01 and at that time he had A. fib with RVR. He was evaluated by maxillofacial surgery and he had a PEG tube done to increase his nutrition. Of note during that admission he had 2+ blood cultures with Enterobacter. Patient was felt to have a pneumonia at that time and he was given Levaquin when he was discharged from the hospital. On this admission, patient's mental status seems to have improved. He is awake and interacting. He tries to speak, but his speech is very difficult to understand. He has a cough, and he is pooling a lot of oral secretions that he suctions. He has a cough. He has some shortness of breath, and notes some chest pain in the lower quadrants. He was ruled in for NE during this admission , and cardiology evaluated the patient and was not a good candidate for cardiac catheterization. He had a fever of 102. CT of the chest did not show any pulmonary embolism, but it did show some interstitial infiltrates which could be congestion or interstitial disease. He denies any abdominal pain. He has not had any vomiting. No diarrhea. Patient is voiding without any problem. He currently has a condom cath in place. His urinalysis on this admission is unremarkable. His WBC was 14 on admission, and it is up to 19. 2 blood cultures done on admission are now reported as growing gram-negative neo, possibly on Enterobacter. During his last admission he had an echocardiogram and he has evidence of multiple calcifications in his valve namely mitral and aortic valve. Infectious disease consultation has been requested to assist with evaluation and treatment. Notes reviewed Temps ok No new complaints Has been sitting up in chair almost daily, at least one hour Creatinine ok WBC still elevated No new (+) BC Last (+) BC 12/24 All BC with Enterobacter cloacae - 12/19-12/24, and he has (+) BC from Nov 2017 Echo with significant calcifications in his AV and MV CT A/P no abscess CT neck noted - no deep abscess seen. has large plate anteriorly WBC scan with some uptake in anterior mandible, and L leg Surgery on the mandible - 11/18 Gastrostomy - 12/07 His first (+) BC 12/01 Antibiotics: Meropenem Amikacin Past Medical History: Reviewed Allergies/Adverse Reactions: Allergies No Known Allergies Allergy (Verified 12/01/18 17:43) Objective Vital Signs 01/02/19 13:00 01/02/19 14:00 01/02/19 15:00 Temperature Pulse Rate 84 84 81 Respiratory Rate Blood Pressure Pulse Oximetry 01/02/19 16:00 01/02/19 17:00 01/02/19 18:00 Temperature 98.0 F Pulse Rate 82 80 86 Respiratory Rate 18 Blood Pressure 102/66 Pulse Oximetry 96 01/02/19 19:00 01/02/19 20:00 01/03/19 00:00 Temperature Pulse Rate 86 87 98 H Respiratory Rate 16 18 Blood Pressure 122/82 116/73 Pulse Oximetry 100 96 01/03/19 01:00 01/03/19 02:00 01/03/19 03:00 Temperature Pulse Rate 72 76 76 Respiratory Rate Blood Pressure Pulse Oximetry 01/03/19 04:00 01/03/19 05:00 01/03/19 05:32 Temperature Pulse Rate 79 84 80 Respiratory Rate 18 Blood Pressure Pulse Oximetry 97 01/03/19 06:00 01/03/19 07:00 01/03/19 08:00 Temperature 97.7 F Pulse Rate 56 L 103 H 90 Respiratory Rate 18 Blood Pressure 109/73 Pulse Oximetry 99 01/03/19 09:00 01/03/19 10:00 01/03/19 11:00 Temperature Pulse Rate 90 82 74 Respiratory Rate Blood Pressure Pulse Oximetry 01/03/19 12:00 Temperature 96.7 F L Pulse Rate 82 Respiratory Rate 18 Blood Pressure 101/71 Pulse Oximetry 98 Intake & Output 01/02/19 01/03/19 01/03/19 18:59 06:59 18:59 Intake Total 100 / 100 704 / 704 100 / 100 Output Total 525 / 525 575 / 575 Balance -425 / -425 129 / 129 100 / 100 Weight 77.3 kg Intake: IV 100 / 100 704 / 704 100 / 100 Amikin Inj 1,000 MG In NS Inj 504 / 504 500 ML @ 250 mls/hr IV.SIG Q24H [facility] Rx#:[id number] Merrem Inj 1,000 MG In NS Inj 100 / 100 200 / 200 100 / 100 100 ML @ 200 mls/hr IV.SIG Q8H [facility] Rx#:[id number] Oral 0 / 0 Output: Urine 525 / 525 575 / 575 Other: Date of Last Bowel Movement 12/31/18 12/31/18 12/28/18 06:00 Blood - Peripheral Aerobic Blood Culture - Final No growth in 5 days 12/28/18 06:00 Blood - Peripheral Anaerobic Blood Culture - Final No growth in 5 days 12/27/18 06:46 Blood - Peripheral Aerobic Blood Culture - Final No growth in 5 days 12/27/18 06:46 Blood - Peripheral Anaerobic Blood Culture - Final No growth in 5 days 12/24/18 08:14 Blood - Peripheral Aerobic Blood Culture - Final Enterobacter cloacae 12/24/18 08:14 Blood - Peripheral Anaerobic Blood Culture - Final Enterobacter cloacae Lab - Chemistry Results 01/01/19 01/02/19 17:15 19:21 Creatinine 0.53 L Estimated GFR Greater than 89 POC Glucose 125 H Imaging: ITS Impressions Chest CTA 12/19/18 02:39 CONCLUSION: 1. No pulmonary embolus. 2. Diffuse process in interstitial markings which could suggest mild edema or underlying interstitial disease. Chest X-Ray 12/21/18 17:17 CONCLUSION: The lungs are clear. Abdomen/Pelvis CT 12/22/18 00:00 CONCLUSION: 1. Nonspecific, nonobstructive bowel gas pattern with no evidence of abscess. There is a moderate amount of stool in the distal colon. Could indicate mild fecal impaction. 2. Gastrostomy tube in place with the tip in the mid stomach. 3. Multiple small gallstones. 4. Cardiomegaly and small left pleural effusion. Soft Tissue Neck CT 12/22/18 00:00 CONCLUSION: 1. Extensive reconstruction with a mandibular large plate in this patient history of myelitis. 2. Small focal possible pointing abscess measuring less than 1 cm on the left in angle of the mandible. 3. Extensive artifact with distortion of normal tissue planes however I don't see a deep space abscess. 4. If subclinical infection suspected a bone gallium scanning may be the only way to sort this out. Lumbar Spine MRI 12/23/18 00:00 CONCLUSION: 1. Suspect postsurgical features of prior laminectomies at L2-L5 with peripherally calcified posterior paraspinal fluid intensity collection measuring 2.1 x 3.2 x 7.0 cm centered at L4-5 level. This may reflect a chronic resolved postoperative hematoma, complicated seroma or infection. Clinical correlation with prior surgical history is recommended. If patient has no history of previous surgery, differential consideration would include a expansile lesion involving the posterior processes of primarily L3-L5. 2. Multilevel degenerative spondylosis of the lumbar spine with moderate central canal narrowing at L3-4 level. 3. Please see above for detailed description of each level. WBC Scan Nuclear Medicine 12/24/18 00:00 CONCLUSION: 1. Nonspecific uptake along the anterior margin of the left mandibular remnant. 2. Nonspecific uptake in the soft tissues medially of the left leg at the level of the mid tibia shaft. Abscess Drainage X-Ray 12/27/18 00:00 CONCLUSION: 1. Uncomplicated image guided aspiration. Physical Exam: GENERAL: awake and alert, NAD. SKIN: Warm and dry. No generalized rash, no ecchymoses and no evidence of embolic lesions noted HEAD: Atraumatic. Normocephalic. No temporal wasting, or tenderness. EYES: [place] conjunctiva. No scleral icterus. No injection or drainage. EARS, NOSE AND THROAT: Nose without bleeding or purulent nasal discharge. Moist mucosa, secretions less today. The color on anterior mandible is normal, not indurated, healed incision, not swollen. NECK: Supple and not tender, no meningeal signs CARDIOVASCULAR: Regular rate and rhythm. HAs harsh systolic murmur L precordium and base of the heart RESPIRATORY: Coarse BS bilaterally. Decreased at bases ABDOMEN: Soft, non-tender, nondistended. Bowel sounds present and normoactive. No guarding. No rebound. PEG site ok. EXTREMITIES: No clubbing, cyanosis, or edema. Scars both knees, knees looks ok. NEUROLOGICAL: Stable, non-focal PSYCHIATRIC: Normal affect, calm and cooperative. 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 NSTEMI Hx oral CA, has had surgeries Risk for recurrent PNA Recommendation Continue Meropenem IV (more continuous regimen for endocarditis and spinal abscess treatment. Continue Amikacin IV Follow creatinine Follow for side effects of Amikacin (hearing, vestibular, nephrotoxicity) WBC still elevated not ready for PICC. Placement being looked into. [employer]. He will need a long course of IV Abx Explained plan to patient and daughter - told him that he will be referred to Dr Wilkinson for outpatient ID followup, and when he is ready for D/C, will need to find SNF that will take him with the two ABx.
--- NOTE | 2019-01-03 16:57 | P.DIET ---
Nutritional Evaluation Type of nutrition evaluation: follow-up Nutrition consult regarding: Tube Feeding Nutrition screening: [facility] [place]/20/2018) Subjective Subjective Comments: Pts family member seen at bedside w/ pt during RD visit. Family member had lengthy discussion w/ RD about pts food preferences and swallowing prior to admission. She mentioned that pt enjoyed drinking/eating cold drinks/foods d/t the mouth feel. Objective - Diagnosis NSTEMI, pulmonary edema - Objective [place] body weight: 78 kg (172lbs) % IBW: 102 Body Weight Used for Calculations: Actual (80kg) Energy Needs - Lower Range (kCal/kg): 25 Energy Needs - Upper Range (kCal/kg): 30 Lower Limit kCal/kg (kCals): 2,000 Upper Limit kCal/kg (kCals): 2,400 Lower Limit Protein Factor (Grams per Kg): 1.0 Upper Limit Protein Factor (Grams per Kg): 1.2 Lower Protein Needs (Protein): 80 Upper Protein Needs (Protein): 96 Dietitian Reviewed in Medical Record: Curent medications, Labs, Medical history , Tube feeding Diet Order: TF Objective Comments: PMH; extensive PMH Labs; Cr 0.53, POC glucose 123 130 125 Medications; insulin Assessment Assessment: Pt remains at nutritional risk related to dependence on TF. Pt receiving TF of Jevity 1.5 @ 50ml/hr via PEG now and tolerating. Pt mentioned that he is tolerating, w/o any GI symptoms. Spoke w/ RN Fancy on increasing TF for pt, RN will mention to MD to increase rate to 60mL/hr as recommended. ST recs reviewed , pt failed PO trials, remains strictly NPO and tube feeding via PEG. Will continue to monitor tolerance to TF, blood sugars and clinical course. Brought forward (12/20/18): Important to note pt is a diabetic however blood sugars are currently under good control which makes Jevity an appropriate formula at this time. Discussed TF order with RN. Labs and medications reviewed. Recommendations: 1. TF recs; Jevity 1.5 running at 60ml/hour to best meet pt's assessed nutritional needs 2. Monitor blood glucose 3. Monitor tolerance to TF Dietitian to Monitor: Lab values, Glucose level, Intake & Output, Tube feeding tolerance, Weight change, Medical course
[2019-01-03] MEDS ORDERED: Aluminum/Magnesium/Simethacone Susp 30 ML UDC G-TUBE ONE (19:10)
[2019-01-03] MEDS: SODIUM CHLOR 0.9% IV.SIG SCH (19:38)
[2019-01-03] MEDS: AMIKACIN IV.SIG SCH (19:38)
[2019-01-04] MEDS: Insulin NovoLOG Aspart Correctional Sugar Inj SQ SCH ×3 (05:07→22:10)
[2019-01-04] MEDS: Docusate Sodium Liq 100 MG/10 ML UDC G-TUBE SCH (08:59)
[2019-01-04] MEDS: Gabapentin Liq 250 MG/5 ML UDC PO SCH ×3 (08:59→18:20)
[2019-01-04] MEDS: Enoxaparin Inj 80 MG/0.8 ML Syringe SQ SCH ×2 (08:59→22:14)
[2019-01-04] MEDS: Metoprolol Tartrate 25 MG Tablet PO SCH ×2 (08:59→22:15)
[2019-01-04] MEDS: Finasteride 5 MG Tablet PO SCH (08:59)
[2019-01-04] MEDS: Famotidine 20 MG Tablet PO SCH (08:59)
[2019-01-04] MEDS: Chlorhexidine Gluconate 0.12% Liq 15 ML UDC SWISH-SPIT SCH ×2 (09:00→22:14)
[2019-01-04] MEDS: Acetaminophen-HYDROcodone 325/7.5 Liq 15 ML UDC NG/OG PRN ×3 (09:06→22:17)
--- NOTE | 2019-01-04 13:50 | P.PNIM ---
Subjective Interval history: Patient says he is feeling right. Denies any chest pain or shortness of breath. Physical Exam Vital signs: Vital Signs 01/03/19 14:00 01/03/19 15:00 01/03/19 16:00 Temperature 96.7 F L Pulse Rate 76 73 86 Respiratory Rate 18 Blood Pressure 106/76 Pulse Oximetry 100 01/03/19 17:00 01/03/19 18:00 01/03/19 19:00 Temperature Pulse Rate 74 68 85 Respiratory Rate Blood Pressure Pulse Oximetry 01/03/19 20:00 01/03/19 21:00 01/03/19 22:00 Temperature 97.8 F Pulse Rate 82 80 78 Respiratory Rate 17 Blood Pressure 110/78 Pulse Oximetry 100 01/03/19 23:00 01/03/19 23:49 01/04/19 00:00 Temperature 98 F Pulse Rate 80 107 H 89 Respiratory Rate 16 18 Blood Pressure 116/81 Pulse Oximetry 94 L 01/04/19 01:00 01/04/19 02:00 01/04/19 03:00 Temperature Pulse Rate 92 H 80 86 Respiratory Rate Blood Pressure Pulse Oximetry 01/04/19 03:39 01/04/19 04:00 01/04/19 05:00 Temperature 97.8 F Pulse Rate 109 H 85 94 H Respiratory Rate 18 18 Blood Pressure 113/76 Pulse Oximetry 95 01/04/19 06:00 01/04/19 07:00 01/04/19 08:00 Temperature 97.9 F Pulse Rate 82 76 95 H Respiratory Rate 18 Blood Pressure 118/75 Pulse Oximetry 99 01/04/19 09:00 01/04/19 10:00 01/04/19 11:00 Temperature Pulse Rate 75 103 H 83 Respiratory Rate Blood Pressure Pulse Oximetry 01/04/19 12:00 01/04/19 13:00 Temperature 97.6 F Pulse Rate 84 87 Respiratory Rate 18 Blood Pressure 96/65 L Pulse Oximetry 99 Intake & Output 01/03/19 01/04/19 01/04/19 18:59 06:59 18:59 Intake Total 100 / 100 1184 / 1184 100 / 100 Output Total 1800 / 1800 1100 / 1100 Balance -1700 / -1700 84 / 84 100 / 100 Weight 76 kg Intake: IV 100 / 100 704 / 704 100 / 100 Amikin Inj 1,000 MG In NS Inj 504 / 504 500 ML @ 250 mls/hr IV.SIG Q24H [facility] Rx#:[id number] Merrem Inj 1,000 MG In NS Inj 100 / 100 200 / 200 100 / 100 100 ML @ 200 mls/hr IV.SIG Q8H [facility] Rx#:[id number] Oral 480 / 480 Output: Urine 1800 / 1800 1100 / 1100 Other: Date of Last Bowel Movement 12/31/18 12/31/18 01/02/19 Narrative: GENERAL: Patient lying in bed. Appears comfortable. Impaired speech due to jaw surgery. SKIN: Warm and dry. HEAD: Normocephalic. EYES: No scleral icterus. No injection or drainage. NECK: Supple, trachea midline. No JVD. CARDIOVASCULAR: Regular rate and rhythm without gallops, or rubs. Systolic murmur. RESPIRATORY: Breath sounds equal bilaterally. No accessory muscle use. GASTROINTESTINAL: Abdomen soft, non-tender, nondistended. MUSCULOSKELETAL: No cyanosis, or edema. BACK: Nontender without obvious deformity. No CVA tenderness. Urinary Catheter Management Condom: Cath placed during this visit: no Results Labs CBC & Chem 7: 12/29/18 15:33 01/02/19 19:21 Labs: Microbiology 12/27/18 11:57 Fluid - Other Fungal Smear - Final No fungal elements seen 12/27/18 11:57 Fluid - Other Fungal Culture - Preliminary No growth in 1 week 12/27/18 11:57 Fluid - Other Acid Fast Bacilli Smear - Final No acid fast bacilli seen 12/27/18 11:57 Fluid - Other Mycobacterial Culture - Preliminary No growth in 1 week Assessment and Plan Plan 73-year-old male admitted w/ encephaloapthy, elevated troponins, and pulmonary edema. Cardiology recommended medical management setting the patient was a poor candidate for left heart cath. Patient was found to be bacteremic from recurrent Enterobacter cloacae. Was started on antibiotics w/ ID assistance, also had a fluid collection around his lumbar spine which is likely secondary to a postoperative hematoma as this was also negative cultures after an IR procedure for drainage. Patient's encephalopathy significantly improved. 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 Pending placement for halfway facility. Bacteremia Blood cultures positive for Enterobacter cloacae. ID consult appreciated. CT abdomen/pelvis negative. CT neck with ? small abscess left mandible. Oral surgery consult appreciated, no infection identified. Echo without obvious evidence of vegetation. MRI L spine: Suspect postsurgical features of prior laminectomies at L2-L5 with peripherally calcified posterior paraspinal fluid intensity collection measuring 2.1 x 3.2 x 7.0 cm centered at L4-5 level; This may reflect a chronic resolved postoperative hematoma, complicated seroma or infection. Neurosurgery consult appreciated. Fluid collection unlikely related to infection. White blood cell scan with nonspecific uptake along the anterior margin of the left mandibular remnant as well as nonspecific uptake in the soft tissues medially of the left leg at the level of the mid tibia shaft. -Continue meropenem and amikacin per ID. -follow repeat BCs neg -s/p lumbar fluid collection drainage, negative culture results -considering МАРИНА. = Continue antibiotics as per ID. Appreciate assistance. Tracy aguayo with RVR/NSTEMI/CAD/ Cardiology consult appreciated. - aspirin, continue to hold eliquis while inhouse, cover with lovenox until discharge Stable at this time with Lopressor twice daily -possible outpt stress test Possible HealthCare associated Pneumonia Repeat CXR with clear lungs. -continue antibiotics per ID - merrem. Mycobacterial cultures pending. Otherwise all other are negative so far. -Anticipate PICC line once SNF secured //Cancer of the neck/Tongue cancer/History of skin cancer Has copious secretions. -Levsin as needed. -Speech following. peg tube placed -continue tube feeds. -PT and OT. = Jevity at 60 as per dietary. //Diabetes mellitus type 2 Well controlled. -Follow blood sugars. -Insulin sliding scale. -Diabetic diet. COPD CTA indicative of mild edema or ILD. -nebs. -Patient counseled to quit smoking. Social issues Pt's daughter would like to become the health care proxy. -case management consult has been placed. DVT prophylaxis: lovenox while inpt, eliquis to resume upon discharge Pending placement for halfway facility. PICC line to be ordered by ID once SNF secured that is willing to accept abx. Discussed Condition With: Patient, nurse. Progress Note: Quality VTE Deep Vein Thrombosis/Pulmonary Embolism Present on Admission: No
--- NOTE | 2019-01-04 14:49 | ECG ---
Date Performed: 01/03/2019 Time Performed: 17:19:32 PTAGE: 73 years EKG: Atrial fibrillation Right bundle branch block Anterolateral infarct - age undetermined Infe rior T wave changes are nonspecific Abnormal ECG Since the PREVIOUS TRACING , no significant change noted PREVIOUS TRACIN12/19/2018 16.09 DOCTOR: Alex Merida Interpretating Date/Time 01/04/2019 14:47:59
--- NOTE | 2019-01-04 15:22 | P.PNWCN ---
Wound Care Nurse Consult Description: Wound care consulted for wound management to a LUE skin tear by Dr. Rain. Communicated with: Spoke with bedside nurse Sandie Alvarez RN. Recommendation: 1. Cleanse wound with normal saline and pat dry. 2. Apply Cavilon skin barrier spray to becky wound. 3. Apply Versatel one over wounds. 4. Apply Optilock dressing over versatel one. 5. Apply rolled gauze to secure dressing. 6. Change dressing daily and PRN for saturation or dislodgment. 7. Verstal one may be left in place for 5 days. Additional information: Patient seen today by wound care. Dressing removed from left arm. Moderate amount of drainage noted. Skin tears observed to left anterior elbow. Open areas cleansed with normal saline and patted dry. Cavilon skin barrier spray applied to becky wound. Versatel one contact dressing then applied.Covered versatel with Optilock dressing for moderate drainage. Secured dressing with rolled gauze. Patient tolerated well. Recommendations given to bedside nurse. Wound/Pressure Injury - Patient Status Premedicated for Pain Prior to Dressing Change: No (Not Needed) - Wound Left Upper Anterior Elbow Wound Assessment: Ongoing Wound Type: Skin Tear Is This a Chronic Wound: No Requested from Provider a Wound Care Consult: Yes (Patinet seen today by wound care nurse.) Length (cm): 1.8 Width (cm): 2.8 Depth (cm): 0.1 (~<0.1 cm) Wound Bed Appearance: Red Wound Bed Appearance: 100% red tissue Surrounding Tissue Appearance: Blanched/Dull Surrounding Tissue Temperature: Warm Drainage Description: Sanguinous Drainage Amount: Moderate Drainage Odor: No Odor Dressing Status: Changed Cleansing Solution: Saline Primary Dressing: Versatel one the Optilock Cover Dressing: Gauze Roll/Wrap Tape Type: Transparent Wound Dressing Change Date: 01/04/19 Wound Margin Description: Margins are un approximated. Left Lower Anterior Elbow Wound Assessment: Ongoing Wound Type: Skin Tear Is This a Chronic Wound: No Requested from Provider a Wound Care Consult: Yes (Patient seen today by wound care nurse) Length (cm): 1.4 Width (cm): 2.0 Depth (cm): 0.1 (~<0.1 cm) Wound Bed Appearance: Red Wound Bed Appearance: 100% Red tissue Surrounding Tissue Appearance: Blanched/Dull Surrounding Tissue Temperature: Warm Drainage Description: Sanguinous Drainage Amount: Moderate Drainage Odor: No Odor Dressing Status: Changed Cleansing Solution: Saline Primary Dressing: Versatel One then Optilock Cover Dressing: Gauze Roll/Wrap Tape Type: Transparent Wound Dressing Change Date: 01/04/19 Wound Margin Description: Margins are un approximated.
[2019-01-04] MEDS ORDERED: Pharmacy Ordered Lab Info OTHER ONE (19:45)
[2019-01-04] MEDS: SODIUM CHLOR 0.9% IV.SIG SCH (22:12)
[2019-01-04] MEDS: AMIKACIN IV.SIG SCH (22:12)
--- NOTE | 2019-01-04 23:24 | P.PN ---
Subjective Interval history: Pt seen and examined this morning 73-year-old male admitted secondary to shortness of breath/ altered mental status/ cough. A. Fib RVR present at admission. Increased WBC. s/p scca/mandible resection with reconstruction Nov 2018 - discharged home; then subsequent admission for AFIB/ PEG placed and discharged to rehab AAOx3, NAD, no complaints Physical Exam Vital signs: Vital Signs 01/03/19 23:49 01/04/19 00:00 01/04/19 01:00 Temperature 98 F Pulse Rate 107 H 89 92 H Respiratory Rate 16 18 Blood Pressure 116/81 Pulse Oximetry 94 L 01/04/19 02:00 01/04/19 03:00 01/04/19 03:39 Temperature 97.8 F Pulse Rate 80 86 109 H Respiratory Rate 18 Blood Pressure 113/76 Pulse Oximetry 95 01/04/19 04:00 01/04/19 05:00 01/04/19 06:00 Temperature Pulse Rate 85 94 H 82 Respiratory Rate 18 Blood Pressure Pulse Oximetry 01/04/19 07:00 01/04/19 08:00 01/04/19 09:00 Temperature 97.9 F Pulse Rate 76 95 H 75 Respiratory Rate 18 Blood Pressure 118/75 Pulse Oximetry 99 01/04/19 10:00 01/04/19 11:00 01/04/19 12:00 Temperature 97.6 F Pulse Rate 103 H 83 84 Respiratory Rate 18 Blood Pressure 96/65 L Pulse Oximetry 99 01/04/19 13:00 01/04/19 14:00 01/04/19 15:00 Temperature Pulse Rate 87 80 83 Respiratory Rate Blood Pressure Pulse Oximetry 01/04/19 16:00 01/04/19 17:00 01/04/19 18:00 Temperature 97.5 F L Pulse Rate 85 69 71 Respiratory Rate 20 Blood Pressure 104/73 Pulse Oximetry 99 01/04/19 19:00 01/04/19 20:00 01/04/19 21:00 Temperature 97.8 F Pulse Rate 69 74 68 Respiratory Rate 17 Blood Pressure 88/60 L Pulse Oximetry 99 01/04/19 22:00 01/04/19 23:00 Temperature Pulse Rate 72 70 Respiratory Rate Blood Pressure Pulse Oximetry Intake & Output 01/04/19 01/04/19 01/05/19 06:59 18:59 06:59 Intake Total 1184 / 1184 200 / 200 Output Total 1100 / 1100 1300 / 1300 Balance 84 / 84 -1100 / -1100 Weight 76 kg Intake: IV 704 / 704 200 / 200 Amikin Inj 1,000 MG In NS Inj 504 / 504 500 ML @ 250 mls/hr IV.SIG Q24H [facility] Rx#:[id number] Merrem Inj 1,000 MG In NS Inj 200 / 200 200 / 200 100 ML @ 200 mls/hr IV.SIG Q8H [facility] Rx#:[id number] Oral 480 / 480 0 / 0 Output: Urine 1100 / 1100 1300 / 1300 Other: Date of Last Bowel Movement 12/31/18 01/04/19 12/31/18 # Bowel Movements 1 - Constitutional no acute distress - Routine HEENT Exam Head: Absent: normocephalic ENT: Present: oropharynx clear Comments: no neck edema. trach midline no discharge noted neck/ no palpable collection noted no erythema/no tenderness intraorally , tissues pink/well perfused, small area of plate exposure inside right lower lip region hardware/mandible stable mouth/neck - all wound margins well approximated no signs of infection bleeding pus edema better movement of tongue, tissues pink/well perfused ct scan neck - no drainable collection noted, hardware in place - Urinary Catheter Management Condom Cath placed during this visit: no Results - Labs CBC & Chem 7: 12/29/18 15:33 01/02/19 19:21 Assessment and Plan - Plan 73-year-old male admitted secondary to shortness of breath/ cough/ altered mental status A. fib RVR present at admission s/p scca/mandible resection with reconstruction Nov 2018- discharged home; then subsequent admission for AFIB/ PEG placed and discharged to rehab now with increased wbc/ + blood cultures does not appear to be from oral/neck wounds/surgery- no clinical/radiograph signs of infection, pus, edema d/w dr. gutierrez/dr. Ochoa
[2019-01-05] MEDS: Insulin NovoLOG Aspart Correctional Sugar Inj SQ SCH ×3 (05:05→21:51)
[2019-01-05 05:36] LABS: Baso % (Auto) 0.2 % (0.0-2.0); Eos # (Auto) 0.1 th/mm3 (0.0-0.4); Eos % (Auto) 0.7 % (0.0-4.0); Hematocrit 36.5 % (39.0-51.0); Lymph # (Auto) 2.3 th/mm3 (1.0-4.8); Lymph % (Auto) 21.2 % (9.0-44.0); Mean Corpuscular HGB Conc 32.8 % (32.0-36.0); Mean Corpuscular Hemoglobin 31.1 pg (27.0-34.0); Mean Corpuscular Volume 94.9 fL (80.0-100.0); Mean Platelet Volume 9.6 fL (7.0-11.0); Mono # (Auto) 0.7 th/mm3 (0.0-0.9); Mono % (Auto) 6.3 % (0.0-8.0); Neut # (Auto) 7.9 th/mm3 (1.8-7.7); Neut % (Auto) 71.6 % (16.0-70.0); Platelet Count 199 th/mm3 (150-450); Red Blood Count 3.85 mil/mm3 (4.50-5.90); Red Cell Distribution Width 16.7 % (11.6-17.2)
[2019-01-05 05:59] LABS: Albumin 2.3 g/dL (3.4-5.0); Anion Gap 6 meq/L (5-15); Aspartate Aminotransferase 21 U/L (15-37); Blood Urea Nitrogen 16 mg/dL (7-18); Calcium 8.4 mg/dL (8.5-10.1); Carbon Dioxide 30.7 meq/L (21.0-32.0); Chloride 105 meq/L (98-107); Glomerular Filtration Rate Greater Than 89 mL/min (>89); Glucose,Random 114 mg/dL (74-106); Magnesium 2.2 mg/dL (1.5-2.5); Potassium 4.6 meq/L (3.5-5.1); Sodium 142 meq/L (136-145)
[2019-01-05 06:00] LABS: Alanine Aminotransferase 26 U/L (12-78); Phosphorus 2.8 mg/dL (2.5-4.9)
[2019-01-05 06:02] LABS: Alkaline Phosphatase 119 U/L (45-117); Total Protein 7.3 g/dL (6.4-8.2)
[2019-01-05] MEDS: Gabapentin Liq 250 MG/5 ML UDC PO SCH ×3 (09:45→17:41)
[2019-01-05] MEDS: Chlorhexidine Gluconate 0.12% Liq 15 ML UDC SWISH-SPIT SCH ×2 (09:49→21:50)
[2019-01-05] MEDS: Docusate Sodium Liq 100 MG/10 ML UDC G-TUBE SCH (09:50)
[2019-01-05] MEDS: Enoxaparin Inj 80 MG/0.8 ML Syringe SQ SCH ×2 (09:50→21:50)
[2019-01-05] MEDS: Metoprolol Tartrate 25 MG Tablet PO SCH ×2 (09:50→21:50)
[2019-01-05] MEDS: Famotidine 20 MG Tablet PO SCH (09:51)
[2019-01-05] MEDS: Finasteride 5 MG Tablet PO SCH (09:51)
[2019-01-05] MEDS: Acetaminophen-HYDROcodone 325/7.5 Liq 15 ML UDC NG/OG PRN (14:00)
--- NOTE | 2019-01-05 18:59 | P.PNIM ---
Subjective Interval history: Patient says he is feeling right. Denies any chest pain or shortness of breath. Physical Exam Vital signs: Vital Signs 01/04/19 19:00 01/04/19 20:00 01/04/19 21:00 Temperature 97.8 F Pulse Rate 69 74 68 Respiratory Rate 17 Blood Pressure 88/60 L Pulse Oximetry 99 01/04/19 22:00 01/04/19 23:00 01/05/19 00:00 Temperature 98 F Pulse Rate 72 70 77 Respiratory Rate 18 Blood Pressure 100/72 Pulse Oximetry 99 01/05/19 01:00 01/05/19 02:00 01/05/19 03:00 Temperature Pulse Rate 78 61 83 Respiratory Rate Blood Pressure Pulse Oximetry 01/05/19 03:41 01/05/19 04:00 01/05/19 05:00 Temperature 97.5 F L Pulse Rate 80 76 76 Respiratory Rate 18 Blood Pressure 97/66 L Pulse Oximetry 98 01/05/19 06:00 01/05/19 07:00 01/05/19 08:00 Temperature Pulse Rate 88 79 88 Respiratory Rate Blood Pressure Pulse Oximetry 01/05/19 09:00 01/05/19 09:26 01/05/19 10:00 Temperature 97.6 F Pulse Rate 96 H 88 96 H Respiratory Rate 19 Blood Pressure 99/65 L Pulse Oximetry 97 01/05/19 11:00 01/05/19 12:00 01/05/19 12:53 Temperature 97.5 F L Pulse Rate 82 84 81 Respiratory Rate 17 Blood Pressure 104/58 L Pulse Oximetry 100 01/05/19 13:00 01/05/19 14:00 01/05/19 15:00 Temperature Pulse Rate 76 78 77 Respiratory Rate Blood Pressure Pulse Oximetry 01/05/19 16:00 01/05/19 16:35 01/05/19 17:00 Temperature 97.7 F Pulse Rate 84 76 76 Respiratory Rate 18 Blood Pressure 110/69 Pulse Oximetry 98 01/05/19 18:00 Temperature Pulse Rate 76 Respiratory Rate Blood Pressure Pulse Oximetry Intake & Output 01/04/19 01/05/19 01/05/19 18:59 06:59 18:59 Intake Total 200 / 200 844 / 844 340 / 340 Output Total 1300 / 1300 1225 / 1225 825 / 825 Balance -1100 / -1100 -381 / -381 -485 / -485 Weight 78.7 kg Intake: IV 200 / 200 604 / 604 100 / 100 Amikin Inj 1,000 MG In NS Inj 504 / 504 500 ML @ 250 mls/hr IV.SIG Q24H [facility] Rx#:[id number] Merrem Inj 1,000 MG In NS Inj 200 / 200 100 / 100 100 / 100 100 ML @ 200 mls/hr IV.SIG Q8H [facility] Rx#:[id number] Oral 0 / 0 240 / 240 240 / 240 Output: Urine 1300 / 1300 1225 / 1225 825 / 825 Other: Date of Last Bowel Movement 01/04/19 12/31/18 # Bowel Movements 1 Narrative: GENERAL: Patient lying in bed. Appears comfortable. Impaired speech due to jaw surgery. As before. SKIN: Warm and dry. HEAD: Normocephalic. EYES: No scleral icterus. No injection or drainage. NECK: Supple, trachea midline. No JVD. CARDIOVASCULAR: Regular rate and rhythm without gallops, or rubs. Systolic murmur. RESPIRATORY: Breath sounds equal bilaterally. No accessory muscle use. GASTROINTESTINAL: Abdomen soft, non-tender, nondistended. MUSCULOSKELETAL: No cyanosis, or edema. BACK: Nontender without obvious deformity. No CVA tenderness. Urinary Catheter Management Condom: Cath placed during this visit: no Results Labs CBC & Chem 7: 01/05/19 05:27 01/05/19 05:27 Assessment and Plan Plan 73-year-old male admitted w/ encephaloapthy, elevated troponins, and pulmonary edema. Cardiology recommended medical management setting the patient was a poor candidate for left heart cath. Patient was found to be bacteremic from recurrent Enterobacter cloacae. Was started on antibiotics w/ ID assistance, also had a fluid collection around his lumbar spine which is likely secondary to a postoperative hematoma as this was also negative cultures after an IR procedure for drainage. Patient's encephalopathy significantly improved. 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 Pending placement for group home facility. Bacteremia Blood cultures positive for Enterobacter cloacae. ID consult appreciated. CT abdomen/pelvis negative. CT neck with ? small abscess left mandible. Oral surgery consult appreciated, no infection identified. Echo without obvious evidence of vegetation. MRI L spine: Suspect postsurgical features of prior laminectomies at L2-L5 with peripherally calcified posterior paraspinal fluid intensity collection measuring 2.1 x 3.2 x 7.0 cm centered at L4-5 level; This may reflect a chronic resolved postoperative hematoma, complicated seroma or infection. Neurosurgery consult appreciated. Fluid collection unlikely related to infection. White blood cell scan with nonspecific uptake along the anterior margin of the left mandibular remnant as well as nonspecific uptake in the soft tissues medially of the left leg at the level of the mid tibia shaft. -Continue meropenem and amikacin per ID. -follow repeat BCs neg -s/p lumbar fluid collection drainage, negative culture results -considering МАРИНА. = Patient seen and examined on 01/05. Discussed with nursing, case management, patient. Continue current management. = Continue antibiotics as per ID. Appreciate assistance. Tracy fib with RVR/NSTEMI/CAD/ Cardiology consult appreciated. - aspirin, continue to hold eliquis while inhouse, cover with lovenox until discharge Stable at this time with Lopressor twice daily -possible outpt stress test Possible HealthCare associated Pneumonia Repeat CXR with clear lungs. -continue antibiotics per ID - merrem. Mycobacterial cultures pending. Otherwise all other are negative so far. -Anticipate PICC line once SNF secured //Cancer of the neck/Tongue cancer/History of skin cancer Has copious secretions. -Levsin as needed. -Speech following. peg tube placed -continue tube feeds. -PT and OT. Continue Jevity at 60 as per dietary. //Diabetes mellitus type 2 Well controlled. -Follow blood sugars. -Insulin sliding scale. -Diabetic diet. COPD CTA indicative of mild edema or ILD. -nebs. -Patient counseled to quit smoking. Social issues Pt's daughter would like to become the health care proxy. -case management consult has been placed. DVT prophylaxis: lovenox while inpt, eliquis to resume upon discharge Pending placement for group home facility. PICC line to be ordered by ID once SNF secured that is willing to accept abx. Progress Note: Quality VTE Deep Vein Thrombosis/Pulmonary Embolism Present on Admission: No
[2019-01-05] MEDS: AMIKACIN IV.SIG SCH (21:49)
[2019-01-05] MEDS: SODIUM CHLOR 0.9% IV.SIG SCH (21:49)
[2019-01-06] MEDS ORDERED: Aluminum/Magnesium/Simethacone Susp 30 ML UDC G-TUBE ONE (00:50)
[2019-01-06 01:31] LABS: Glomerular Filtration Rate Greater Than 89 mL/min (>89)
[2019-01-06 01:34] LABS: Troponin I 0.24 ng/mL (0.02-0.05)
[2019-01-06 01:37] LABS: Creatine Kinase 31 U/L (39-308)
[2019-01-06] MEDS: Insulin NovoLOG Aspart Correctional Sugar Inj SQ SCH ×3 (05:24→21:03)
[2019-01-06] MEDS: Acetaminophen-HYDROcodone 325/7.5 Liq 15 ML UDC NG/OG PRN ×2 (05:26→12:16)
[2019-01-06] MEDS: Famotidine 20 MG Tablet PO SCH (08:09)
[2019-01-06] MEDS: Gabapentin Liq 250 MG/5 ML UDC PO SCH ×3 (08:09→18:50)
[2019-01-06] MEDS: Enoxaparin Inj 80 MG/0.8 ML Syringe SQ SCH ×2 (08:09→21:03)
[2019-01-06] MEDS: Docusate Sodium Liq 100 MG/10 ML UDC G-TUBE SCH (08:09)
[2019-01-06] MEDS: Metoprolol Tartrate 25 MG Tablet PO SCH ×2 (08:09→21:02)
[2019-01-06] MEDS: Finasteride 5 MG Tablet PO SCH (08:10)
--- NOTE | 2019-01-06 08:40 | P.DS ---
DS: Providers Date of admission: 12/19/18 04:13 Primary care physician: No Primary Care Physician Consults: 12/19/18 04:16 Consult to Cardiology Routine Consulting Provider: Ange Fitzpatrick Does the patient have a Public Health Social Worker who follows them?: Yes Preferred Petroleum Engineering Professor:: [employer] Director Physician Reason for Consultation: NSTEMI - pt does not know who his student life vice president is Notified:: Service Spoke with:: aPul Date Notified:: 12/19/18 Time Notified:: 04:27 Ordering Provider: KRISTI 12/19/18 10:49 HUB Only Consult Order Routine Consulting Provider: Kerri Manning 12/21/18 12:00 HUB Only Consult Order Routine Consulting Provider: Jesi Forde,Agency 12/21/18 14:45 Consult to Infectious Diseases Routine Consulting Provider: Shelbie Blake Reason for Consultation: Gram negative bacteremia Notified:: Service Spoke with:: Arti Date Notified:: 12/21/18 Time Notified:: 14:58 Ordering Provider: DAYANA 12/22/18 11:15 HUB Only Consult Order Routine Consulting Provider: Luciano Vegas,Agency 12/24/18 09:51 Consult to Neurosurgery Routine Consulting Provider: Ethan James Reason for Consultation: patient with high grade Enterobacter sepsis, no clear source, has abnormal fluid collection on lumbar spine MRI, please evaluate Notified:: Physician Spoke with:: zaid armando Date Notified:: 12/24/18 Time Notified:: 10:01 Ordering Provider: AFIA 12/28/18 15:13 Consult to Cardiology Routine Consulting Provider: Andre Brady Does the patient have a Public Health Social Worker who follows them?: Yes Preferred Petroleum Engineering Professor:: Ange Fitzpatrick Reason for Consultation: evaluate for МАРИНА Notified:: Office Spoke with:: Zeynep Date Notified:: 12/28/18 Time Notified:: 15:29 Comments:: Office said to give it to regional guide doctor. YVETTE Ordering Provider: AFIA 12/29/18 13:30 Consult to Oromaxillofacial Surgery Routine Consulting Provider: Pedro Luis Acosta Preferred Pathology Teacher:: Pedro Luis Acosta Patient known to:: Pedro Luis Acosta Reason for Consultation: Please reevaluate mandible, ?osteo, has hardware for possible source of high grade bacteremia, increased uptake on WBC scan Notified:: Office Spoke with:: JODI Date Notified:: 12/29/18 Time Notified:: 13:35 Ordering Provider: AFIA 12/31/18 15:57 HUB Only Consult Order Routine Consulting Provider: [facility],Agency 01/03/19 15:46 HUB Only Consult Order Routine Consulting Provider: [facility],Agency 01/03/19 15:47 HUB Only Consult Order Routine Consulting Provider: [facility],Agency 01/03/19 15:48 HUB Only Consult Order Routine Consulting Provider: Counts Include 234 B[facility] At [facility] Brief History from admission: Mr. Worrell is a 73-year-old male. He was sent here from his care facility due to altered mental status in the precense of cough and congestion. He came in secondary to cough and congestion and a change in his mental status. He is found to have A. fib RVR at time of admit. Evidence for NSTEMI is present. Pulmonary Edema is present. 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 fib, hyperlipidemia, diabetes type 2, and COPD. On treatment he is improving thus far. DS: Summary 73-year-old male admitted w/ encephaloapthy, elevated troponins, and pulmonary edema. Cardiology recommended medical management setting the patient was a poor candidate for left heart cath. Patient was found to be bacteremic from recurrent Enterobacter cloacae. Was started on antibiotics w/ ID assistance, also had a fluid collection around his lumbar spine which is likely secondary to a postoperative hematoma as this was also negative cultures after an IR procedure for drainage. Patient's encephalopathy significantly improved. 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 Pending placement for alf facility. Bacteremia Blood cultures positive for Enterobacter cloacae. ID consult appreciated. CT abdomen/pelvis negative. CT neck with ? small abscess left mandible. Oral surgery consult appreciated, no infection identified. Echo without obvious evidence of vegetation. MRI L spine: Suspect postsurgical features of prior laminectomies at L2-L5 with peripherally calcified posterior paraspinal fluid intensity collection measuring 2.1 x 3.2 x 7.0 cm centered at L4-5 level; This may reflect a chronic resolved postoperative hematoma, complicated seroma or infection. Neurosurgery consult appreciated. Fluid collection unlikely related to infection. White blood cell scan with nonspecific uptake along the anterior margin of the left mandibular remnant as well as nonspecific uptake in the soft tissues medially of the left leg at the level of the mid tibia shaft. -Continue meropenem and amikacin per ID. -follow repeat BCs neg -s/p lumbar fluid collection drainage, negative culture results -considering МАРИНА. = Patient seen and examined on 01/05. Discussed with nursing, case management, patient. Continue current management. = Continue antibiotics as per ID. Appreciate assistance. A. fib with RVR/NSTEMI/CAD/ Cardiology consult appreciated. - aspirin, continue to hold eliquis while inhouse, cover with lovenox until discharge Stable at this time with Lopressor twice daily -possible outpt stress test Possible HealthCare associated Pneumonia Repeat CXR with clear lungs. -continue antibiotics per ID - merrem. Mycobacterial cultures pending. Otherwise all other are negative so far. -Anticipate PICC line once SNF secured //Cancer of the neck/Tongue cancer/History of skin cancer Has copious secretions. -Levsin as needed. -Speech following. peg tube placed -continue tube feeds. -PT and OT. Continue Jevity at 60 as per dietary. //Diabetes mellitus type 2 Well controlled. -Follow blood sugars. -Insulin sliding scale. -Diabetic diet. COPD CTA indicative of mild edema or ILD. -nebs. -Patient counseled to quit smoking. Social issues Pt's daughter would like to become the health care proxy. -case management consult has been placed. DVT prophylaxis: lovenox while inpt, eliquis to resume upon discharge Pending placement for alf facility. PICC line for abx. Consult Dr Escamilla from rehab at [place]. Patient is accepted to [facility]. He is discharged to inpatient rehab fairly stable condition to follow with PCP P and consultants as outpatient Time Spent with Patient Total time spent providing and/or coordinating discharge services: > 30 min Quality: VTE Deep Vein Thrombosis/Pulmonary Embolism Present on Admission: No Exam Narrative Exam Narrative: GA: Patient is a 73-year-old male, cachectic, impaired speech due to jaw surgery, at baseline. SKIN: Warm and dry. CARDIOVASCULAR: Regular rate and rhythm without gallops, or rubs. Systolic murmur. RESPIRATORY: Breath sounds equal bilaterally. No accessory muscle use. GASTROINTESTINAL: Abdomen soft, non-tender, nondistended. PEG in place. MUSCULOSKELETAL: No cyanosis, or edema. BACK: Nontender without obvious deformity. No CVA tenderness. Results Labs on day of discharge: Labs from last 24 hours 01/06/19 01/04/19 01:05 21:30 Creatinine 0.57 L Estimated GFR Greater than 89 Total Creatine Kinase 31 L Troponin I 0.24 H Amikacin Trough 1.8 Preliminary micro results at discharge 12/27/18 11:57 Fungal Culture - Preliminary Fluid - Other No growth in 1 week 12/27/18 11:57 Mycobacterial Culture - Preliminary Fluid - Other No growth in 1 week Impressions ITS Impressions Chest CTA 12/19/18 02:39 CONCLUSION: 1. No pulmonary embolus. 2. Diffuse process in interstitial markings which could suggest mild edema or underlying interstitial disease. Chest X-Ray 12/21/18 17:17 CONCLUSION: The lungs are clear. Abdomen/Pelvis CT 12/22/18 00:00 CONCLUSION: 1. Nonspecific, nonobstructive bowel gas pattern with no evidence of abscess. There is a moderate amount of stool in the distal colon. Could indicate mild fecal impaction. 2. Gastrostomy tube in place with the tip in the mid stomach. 3. Multiple small gallstones. 4. Cardiomegaly and small left pleural effusion. Soft Tissue Neck CT 12/22/18 00:00 CONCLUSION: 1. Extensive reconstruction with a mandibular large plate in this patient history of myelitis. 2. Small focal possible pointing abscess measuring less than 1 cm on the left in angle of the mandible. 3. Extensive artifact with distortion of normal tissue planes however I don't see a deep space abscess. 4. If subclinical infection suspected a bone gallium scanning may be the only way to sort this out. Lumbar Spine MRI 12/23/18 00:00 CONCLUSION: 1. Suspect postsurgical features of prior laminectomies at L2-L5 with peripherally calcified posterior paraspinal fluid intensity collection measuring 2.1 x 3.2 x 7.0 cm centered at L4-5 level. This may reflect a chronic resolved postoperative hematoma, complicated seroma or infection. Clinical correlation with prior surgical history is recommended. If patient has no history of previous surgery, differential consideration would include a expansile lesion involving the posterior processes of primarily L3-L5. 2. Multilevel degenerative spondylosis of the lumbar spine with moderate central canal narrowing at L3-4 level. 3. Please see above for detailed description of each level. WBC Scan Nuclear Medicine 12/24/18 00:00 CONCLUSION: 1. Nonspecific uptake along the anterior margin of the left mandibular remnant. 2. Nonspecific uptake in the soft tissues medially of the left leg at the level of the mid tibia shaft. Abscess Drainage X-Ray 12/27/18 00:00 CONCLUSION: 1. Uncomplicated image guided aspiration. Discharge Plan Discharge Disposition Patient Disposition: Discharge to SNF Discharge Condition Condition: Stable Discharge Order Discharge Orders: Discharge Order (Routine); Ordered 01/06/19 Ordered By: Ange Choi Discharge Details Anticipated Discharge Date: 01/06/19 Discharge Comment: DC when arrangements done Physicians Team Primary Care Provider: Primary Care Physici,Shilpi Attending Provider: Ange Choi Other Providers: Ange Fitzpatrick ; Kerri Manning ; Jesi Forde,Agency ; Shelbie Blake ; [facility],Agency ; Ethan James ; Andre Brady ; Pedro Luis Acosta ; [facility],Ag[facility] ; [facility],Agency ; [facility] ,Agency ; [facility],Agency ; Taya Escamilla Rxs /Orders / Referrals /Forms Prescriptions: New meropenem 1 gram Recon Soln 1,000 mg IV Q8H RF: 0 amikacin 1,000 mg/4 mL Solution 1,000 mg IV Q24H RF: 0 Continue ranitidine HCl 300 mg Tablet 300 mg PO DAILY RF: 0 lovastatin 20 mg Tablet 20 mg PO HS RF: 0 chlorhexidine gluconate [Paroex Oral Rinse] 0.12 % Mouthwash 1 dose Mucous Membrane DIRECTED RF: 0 docusate sodium 50 mg Capsule 50 mg PO DAILY RF: 0 apixaban [Eliquis] 5 mg Tablet 5 mg PO BID 30 Days Qty: 60 RF: 3 clotrimazole 10 mg Xavi 10 mg MUCOUS MEMBRANE 5 TIMES A DAY RF: 0 gabapentin 250 mg/5 mL Solution 300 mg PO TID RF: 0 finasteride 5 mg Tablet 5 mg PO DAILY RF: 0 aspirin 81 mg Tablet,Delayed Release (Dr/Ec) 81 mg PO DAILY RF: 0 metoprolol tartrate 25 mg Tablet 12.5 mg PO BID Qty: 60 RF: 0 alprazolam 2 mg Tablet 2 mg PO HS Qty: 10 RF: 0 acetaminophen [Tylenol] 325 mg Tablet 650 mg PO Q6H PRN (Reason: Fever Or Pain) RF: 0 hydrocodone-acetaminophen [Portal] 7.5-325 mg Tablet 1 tab PO Q6H PRN (Reason: Acute Pain) RF: 0 insulin lispro [Humalog U-100 Insulin] 100 unit/mL Solution 1 sliding scale dose SUBCUT UD RF: 0 Referrals: [facility],Re[facility] [OT/PT/ST Therapy Services] - See Instructions [facility],Agency [Agency] - See Instructions Primary Care RosetteiShilpi [Primary Care Provider] - See Instructions Discharge Instructions Patient Printed Instructions: Heart Attack (DC), A-fib (Atrial Fibrillation) ( DC), Pneumonia (DC), Dysphagia (ED), Bacteremia (DC) Status ED Status: Left Department Discharge Information Discharge Date/Time: 01/07/19 15:05
[2019-01-06] MEDS: Chlorhexidine Gluconate 0.12% Liq 15 ML UDC SWISH-SPIT SCH ×2 (10:08→21:02)
--- NOTE | 2019-01-06 10:53 | P.PNID ---
Subjective Remarks: Patient is a 73-year-old male, came from a rehab facility, brought into the hospital for evaluation of altered mental status. He was also having cough and congestion. 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 The last surgery was done the first week in November and he had an anterior mandibular resection. He was readmitted December 01 and at that time he had A. fib with RVR. He was evaluated by maxillofacial surgery and he had a PEG tube done to increase his nutrition. Of note during that admission he had 2+ blood cultures with Enterobacter. Patient was felt to have a pneumonia at that time and he was given Levaquin when he was discharged from the hospital. On this admission, patient's mental status seems to have improved. He is awake and interacting. He tries to speak, but his speech is very difficult to understand. He has a cough, and he is pooling a lot of oral secretions that he suctions. He has a cough. He has some shortness of breath, and notes some chest pain in the lower quadrants. He was ruled in for MA during this admission , and cardiology evaluated the patient and was not a good candidate for cardiac catheterization. He had a fever of 102. CT of the chest did not show any pulmonary embolism, but it did show some interstitial infiltrates which could be congestion or interstitial disease. He denies any abdominal pain. He has not had any vomiting. No diarrhea. Patient is voiding without any problem. He currently has a condom cath in place. His urinalysis on this admission is unremarkable. His WBC was 14 on admission, and it is up to 19. 2 blood cultures done on admission are now reported as growing gram-negative neo, possibly on Enterobacter. During his last admission he had an echocardiogram and he has evidence of multiple calcifications in his valve namely mitral and aortic valve. Infectious disease consultation has been requested to assist with evaluation and treatment. Notes reviewed Temps ok Complains of pain in the mandibular area Is being evaluated by Marvin. WBC now normal Repeat blood cultures negative Echo with significant calcifications in his AV and MV CT A/P no abscess CT neck noted - no deep abscess seen. has large plate anteriorly WBC scan with some uptake in anterior mandible, and L leg Surgery on the mandible - 11/18 Gastrostomy - 12/07 His first (+) BC 12/01 Antibiotics: Meropenem Amikacin Lines: Line sites with no evidence of infection. Past Medical History: Reviewed Allergies/Adverse Reactions: Allergies No Known Allergies Allergy (Verified 12/01/18 17:43) Objective Vital Signs 01/05/19 11:00 01/05/19 12:00 01/05/19 12:53 Temperature 97.5 F L Pulse Rate 82 84 81 Respiratory Rate 17 Blood Pressure 104/58 L Pulse Oximetry 100 01/05/19 13:00 01/05/19 14:00 01/05/19 15:00 Temperature Pulse Rate 76 78 77 Respiratory Rate Blood Pressure Pulse Oximetry 01/05/19 16:00 01/05/19 16:35 01/05/19 17:00 Temperature 97.7 F Pulse Rate 84 76 76 Respiratory Rate 18 Blood Pressure 110/69 Pulse Oximetry 98 01/05/19 18:00 01/05/19 19:00 01/05/19 20:00 Temperature Pulse Rate 76 76 76 Respiratory Rate 18 Blood Pressure 100/70 Pulse Oximetry 97 01/05/19 21:00 01/05/19 22:00 01/05/19 23:00 Temperature Pulse Rate 82 78 84 Respiratory Rate Blood Pressure Pulse Oximetry 01/06/19 00:00 01/06/19 01:00 01/06/19 02:00 Temperature Pulse Rate 91 H 84 80 Respiratory Rate 22 Blood Pressure 122/79 Pulse Oximetry 98 01/06/19 03:00 01/06/19 04:00 01/06/19 05:00 Temperature Pulse Rate 84 91 H 83 Respiratory Rate 18 Blood Pressure 108/77 Pulse Oximetry 97 01/06/19 06:00 01/06/19 07:00 01/06/19 08:04 Temperature Pulse Rate 88 82 91 H Respiratory Rate 17 Blood Pressure 110/68 Pulse Oximetry 97 Intake & Output 01/05/19 01/06/19 01/06/19 18:59 06:59 18:59 Intake Total 440 / 440 504 / 504 100 / 100 Output Total 825 / 825 950 / 950 Balance -385 / -385 -446 / -446 100 / 100 Weight 78.9 kg Intake: IV 200 / 200 504 / 504 100 / 100 Amikin Inj 1,000 MG In NS Inj 504 / 504 500 ML @ 250 mls/hr IV.SIG Q24H [facility] Rx#:[id number] Merrem Inj 1,000 MG In NS Inj 200 / 200 100 / 100 100 ML @ 200 mls/hr IV.SIG Q8H [facility] Rx#:[id number] Oral 240 / 240 Output: Urine 825 / 825 950 / 950 Other: Date of Last Bowel Movement 12/31/18 12/27/18 11:57 Fluid - Other Fungal Smear - Final No fungal elements seen 12/27/18 11:57 Fluid - Other Fungal Culture - Preliminary No growth in 1 week 12/27/18 11:57 Fluid - Other Acid Fast Bacilli Smear - Final No acid fast bacilli seen 12/27/18 11:57 Fluid - Other Mycobacterial Culture - Preliminary No growth in 1 week Lab - Hematology Results 01/05/19 05:27 WBC 11.0 RBC 3.85 L Hgb 12.0 L Hct 36.5 L MCV 94.9 MCH 31.1 MCHC 32.8 RDW 16.7 Plt Count 199 MPV 9.6 Neut % (Auto) 71.6 H Lymph % (Auto) 21.2 Callahan % (Auto) 6.3 Eos % (Auto) 0.7 Baso % (Auto) 0.2 Neut # (Auto) 7.9 H Lymph # (Auto) 2.3 Callahan # (Auto) 0.7 Eos # (Auto) 0.1 Baso # (Auto) 0.0 WBC Differential . Differential Comment Auto diff final Lab - Chemistry Results 01/05/19 01/06/19 05:27 01:05 Sodium 142 Potassium 4.6 Chloride 105 Carbon Dioxide 30.7 Anion Gap 6 BUN 16 Creatinine 0.52 L 0.57 L Estimated GFR Greater than 89 Greater than 89 Random Glucose 114 H Calcium 8.4 L Phosphorus 2.8 Magnesium 2.2 Total Bilirubin 1.1 H Direct Bilirubin 0.7 H Indirect Bilirubin 0.4 AST 21 ALT 26 Alkaline Phosphatase 119 H Total Creatine Kinase 31 L Troponin I 0.24 H Total Protein 7.3 Albumin 2.3 L Imaging: ITS Impressions Chest CTA 12/19/18 02:39 CONCLUSION: 1. No pulmonary embolus. 2. Diffuse process in interstitial markings which could suggest mild edema or underlying interstitial disease. Chest X-Ray 12/21/18 17:17 CONCLUSION: The lungs are clear. Abdomen/Pelvis CT 12/22/18 00:00 CONCLUSION: 1. Nonspecific, nonobstructive bowel gas pattern with no evidence of abscess. There is a moderate amount of stool in the distal colon. Could indicate mild fecal impaction. 2. Gastrostomy tube in place with the tip in the mid stomach. 3. Multiple small gallstones. 4. Cardiomegaly and small left pleural effusion. Soft Tissue Neck CT 12/22/18 00:00 CONCLUSION: 1. Extensive reconstruction with a mandibular large plate in this patient history of myelitis. 2. Small focal possible pointing abscess measuring less than 1 cm on the left in angle of the mandible. 3. Extensive artifact with distortion of normal tissue planes however I don't see a deep space abscess. 4. If subclinical infection suspected a bone gallium scanning may be the only way to sort this out. Lumbar Spine MRI 12/23/18 00:00 CONCLUSION: 1. Suspect postsurgical features of prior laminectomies at L2-L5 with peripherally calcified posterior paraspinal fluid intensity collection measuring 2.1 x 3.2 x 7.0 cm centered at L4-5 level. This may reflect a chronic resolved postoperative hematoma, complicated seroma or infection. Clinical correlation with prior surgical history is recommended. If patient has no history of previous surgery, differential consideration would include a expansile lesion involving the posterior processes of primarily L3-L5. 2. Multilevel degenerative spondylosis of the lumbar spine with moderate central canal narrowing at L3-4 level. 3. Please see above for detailed description of each level. WBC Scan Nuclear Medicine 12/24/18 00:00 CONCLUSION: 1. Nonspecific uptake along the anterior margin of the left mandibular remnant. 2. Nonspecific uptake in the soft tissues medially of the left leg at the level of the mid tibia shaft. Abscess Drainage X-Ray 12/27/18 00:00 CONCLUSION: 1. Uncomplicated image guided aspiration. Physical Exam: GENERAL: awake and alert, NAD. SKIN: Warm and dry. No generalized rash, no ecchymoses and no evidence of embolic lesions noted HEAD: Atraumatic. Normocephalic. No temporal wasting, or tenderness. EYES: [place] conjunctiva. No scleral icterus. No injection or drainage. EARS, NOSE AND THROAT: Nose without bleeding or purulent nasal discharge. Moist mucosa, secretions less today. The color on anterior mandible is normal, not indurated, healed incision, not swollen. NECK: Supple and not tender, no meningeal signs CARDIOVASCULAR: Regular rate and rhythm. HAs harsh systolic murmur L precordium and base of the heart RESPIRATORY: Coarse BS bilaterally. Decreased at bases ABDOMEN: Soft, non-tender, nondistended. Bowel sounds present and normoactive. No guarding. No rebound. PEG site ok. EXTREMITIES: No clubbing, cyanosis, or edema. Scars both knees, knees looks ok. NEUROLOGICAL: Stable, non-focal PSYCHIATRIC: Normal affect, calm and cooperative. 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 NSTEMI Hx oral CA, has had surgeries Risk for recurrent PNA Recommendation Continue Meropenem IV (more continuous regimen for endocarditis and spinal abscess treatment. Continue Amikacin IV (please ask MD at rehab or [facility] to place an Amikacin pharmacy consult) Follow creatinine Follow for side effects of Amikacin (hearing, vestibular, nephrotoxicity) Post hospital infusion orders placed in chart. PICC line consult placed. Please have be consulted on Thursday01/10/2019 for continuity of care at [facility].
--- NOTE | 2019-01-06 16:10 | ECG ---
Date Performed: 01/05/2019 Time Performed: 23:20:40 PTAGE: 73 years EKG: Atrial fibrillation. Right axis deviation Right bundle branch block Anterolateral infarct - age undetermined Inferior ST-T changes are nonspecific Abnormal ECG Since PREVIOUS TRACING , no significant change noted DOCTOR: Kirti Mallory Interpretating Date/Time 01/06/2019 16:07:51
--- NOTE | 2019-01-06 18:30 | P.PNIM ---
Subjective Interval history: In bed he appears in not acute distress. Family at bedside awaiting for evaluation from [facility] as he is hoping to be discharged to [facility] rehab. Patient says he has nausea on and off however he is tolerating tube feedings. No fever or chills. No abdominal pain. No diarrhea or constipation. Physical Exam Vital signs: Vital Signs 01/05/19 19:00 01/05/19 20:00 01/05/19 21:00 Temperature Pulse Rate 76 76 82 Respiratory Rate 18 Blood Pressure 100/70 Pulse Oximetry 97 01/05/19 22:00 01/05/19 23:00 01/06/19 00:00 Temperature Pulse Rate 78 84 91 H Respiratory Rate 22 Blood Pressure 122/79 Pulse Oximetry 98 01/06/19 01:00 01/06/19 02:00 01/06/19 03:00 Temperature Pulse Rate 84 80 84 Respiratory Rate Blood Pressure Pulse Oximetry 01/06/19 04:00 01/06/19 05:00 01/06/19 06:00 Temperature Pulse Rate 91 H 83 88 Respiratory Rate 18 Blood Pressure 108/77 Pulse Oximetry 97 01/06/19 07:00 01/06/19 08:04 01/06/19 09:00 Temperature Pulse Rate 82 91 H 92 H Respiratory Rate 17 Blood Pressure 110/68 Pulse Oximetry 97 01/06/19 10:00 01/06/19 11:00 01/06/19 12:00 Temperature 94.5 F L Pulse Rate 76 81 78 Respiratory Rate 18 Blood Pressure 116/81 Pulse Oximetry 99 01/06/19 13:00 01/06/19 14:00 01/06/19 15:00 Temperature Pulse Rate 88 78 83 Respiratory Rate Blood Pressure Pulse Oximetry 01/06/19 16:00 01/06/19 16:11 Temperature 96.8 F L Pulse Rate 86 79 Respiratory Rate 17 Blood Pressure 106/79 Pulse Oximetry 100 Intake & Output 01/05/19 01/06/19 01/06/19 18:59 06:59 18:59 Intake Total 440 / 440 504 / 504 200 / 200 Output Total 825 / 825 950 / 950 375 / 375 Balance -385 / -385 -446 / -446 -175 / -175 Weight 78.9 kg Intake: IV 200 / 200 504 / 504 200 / 200 Amikin Inj 1,000 MG In NS Inj 504 / 504 500 ML @ 250 mls/hr IV.SIG Q24H [facility] Rx#:[id number] Merrem Inj 1,000 MG In NS Inj 200 / 200 200 / 200 100 ML @ 200 mls/hr IV.SIG Q8H [facility] Rx#:[id number] Oral 240 / 240 Output: Urine 825 / 825 950 / 950 375 / 375 Other: # Voids 1 Date of Last Bowel Movement 12/31/18 # Bowel Movements 1 Narrative: GENERAL: Patient lying in bed. Appears comfortable. Impaired speech due to jaw surgery, at baseline. SKIN: Warm and dry. CARDIOVASCULAR: Regular rate and rhythm without gallops, or rubs. Systolic murmur. RESPIRATORY: Breath sounds equal bilaterally. No accessory muscle use. GASTROINTESTINAL: Abdomen soft, non-tender, nondistended. MUSCULOSKELETAL: No cyanosis, or edema. BACK: Nontender without obvious deformity. No CVA tenderness. Urinary Catheter Management Condom: Cath placed during this visit: no Results Labs CBC & Chem 7: 01/05/19 05:27 01/06/19 01:05 Assessment and Plan Plan 73-year-old male admitted w/ encephaloapthy, elevated troponins, and pulmonary edema. Cardiology recommended medical management setting the patient was a poor candidate for left heart cath. Patient was found to be bacteremic from recurrent Enterobacter cloacae. Was started on antibiotics w/ ID assistance, also had a fluid collection around his lumbar spine which is likely secondary to a postoperative hematoma as this was also negative cultures after an IR procedure for drainage. Patient's encephalopathy significantly improved. 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 Pending placement for senior living facility. Bacteremia Blood cultures positive for Enterobacter cloacae. ID consult appreciated. CT abdomen/pelvis negative. CT neck with ? small abscess left mandible. Oral surgery consult appreciated, no infection identified. Echo without obvious evidence of vegetation. MRI L spine: Suspect postsurgical features of prior laminectomies at L2-L5 with peripherally calcified posterior paraspinal fluid intensity collection measuring 2.1 x 3.2 x 7.0 cm centered at L4-5 level; This may reflect a chronic resolved postoperative hematoma, complicated seroma or infection. Neurosurgery consult appreciated. Fluid collection unlikely related to infection. White blood cell scan with nonspecific uptake along the anterior margin of the left mandibular remnant as well as nonspecific uptake in the soft tissues medially of the left leg at the level of the mid tibia shaft. -Continue meropenem and amikacin per ID. -follow repeat BCs neg -s/p lumbar fluid collection drainage, negative culture results -considering МАРИНА. = Patient seen and examined on 01/05. Discussed with nursing, case management, patient. Continue current management. = Continue antibiotics as per ID. Appreciate assistance. A. fib with RVR/NSTEMI/CAD/ Cardiology consult appreciated. - aspirin, continue to hold eliquis while inhouse, cover with lovenox until discharge Stable at this time with Lopressor twice daily -possible outpt stress test Possible HealthCare associated Pneumonia Repeat CXR with clear lungs. -continue antibiotics per ID - merrem. Mycobacterial cultures pending. Otherwise all other are negative so far. -Anticipate PICC line once SNF secured //Cancer of the neck/Tongue cancer/History of skin cancer Has copious secretions. -Levsin as needed. -Speech following. peg tube placed -continue tube feeds. -PT and OT. Continue Jevity at 60 as per dietary. //Diabetes mellitus type 2 Well controlled. -Follow blood sugars. -Insulin sliding scale. -Diabetic diet. COPD CTA indicative of mild edema or ILD. -nebs. -Patient counseled to quit smoking. Social issues Pt's daughter would like to become the health care proxy. -case management consult has been placed. DVT prophylaxis: lovenox while inpt, eliquis to resume upon discharge Pending placement for senior living facility. PICC line to be ordered by ID once SNF secured that is willing to accept abx. Consult Dr Escamilla from rehab at [facility] Discussed with the patient, family at bedside, case management Progress Note: Quality VTE Deep Vein Thrombosis/Pulmonary Embolism Present on Admission: No
--- NOTE | 2019-01-06 19:59 | P.DCO ---
Post Hospital Infusion Therapy - Infusion Therapy Location of Infusion Therapy: [facility] Infusion Therapy Order Appointment Date: 01/06/19 - Patient Information Patient Weight: 78.9 kg - Diagnosis (1) Enterococcal bacteremia Code(s): R78.81 - Bacteremia; B95.2 - Enterococcus as the cause of diseases classified elsewhere (2) Epidural abscess Code(s): G06.2 - Extradural and subdural abscess, unspecified - Administer Medication Meropenem Dose: 1 gram IV Directions: q 8 hours Start Treatment: 01/06/19 Stop Treatment: 02/17/19 Amikacin Dose: 1 gram IV Directions: q 24 hours Start Treatment: 01/06/19 Stop Treatment: 02/17/19 - Additional Information Venous Access: PICC Line Additional Instructions: [x] Peripheral flush and dressing changes per protocol [x] Implanted port and central supervisor pipeline: * Implanted port: 10 ml Normal Saline followed by 5 ml Heparin 100 units/ml Heparin flush after each use and monthly to maintain. [] May leave port accessed during therapy. [] May leave peripheral site accessed for duration of therapy. [x] If patient has SOB or respiratory distress, check oxygen saturation. If less than 90% or clinical signs of respiratory distress, administer oxygen at 2 L/min. via nasal cannula and notify physician. [x] Anaphylaxis/Reaction orders: * Stop infusion. * Keep IV line open with saline flush. * Notify physician. * Monitor vital signs every 15 minutes until symptoms resolve. * Check Oxygen saturation; Oxygen at 2 L/min. via nasal cannula if less than 90% or clinical signs of respiratory distress. * Administer diphenhydramine (Benadryl) 25 mg IV STAT, (unless patient has received as pre-med). May repeat once, if necessary. * Solu-Cortef 250 mg IVP over 30-60 seconds, use 100 mg vials for each dissolution. * Epinephrine (1mg/1 ml) 0.3 mg subcutaneously or IVP now with any signs of respiratory distress. * Check with physician for new additional pre-med orders if patient is re- challenged or re-treated. [x] May remove PICC line when treatment complete, after confirming with Physician. [x] If the patient is admitted to the hospital, the ED, or transferred via [facility] , complete transfer form including medication reconciliation order sheet. Weekly Labs: CBC w/diff, Creatinine, CRP, LFTs (Hepatic Function Test) Additional Information: Please draw weekly labs and fax to following numbers. Please call with abnormal lab values or change in clinical condition to following number. Attn: Dr.Eloisa Blake [facility] Call center - Case Management Consult Case Management Consult-IVF: Yes - Patient Information Allergies No Known Allergies Allergy (Verified 12/01/18 17:43)
[2019-01-06] MEDS: AMIKACIN IV.SIG SCH (21:00)
[2019-01-06] MEDS: SODIUM CHLOR 0.9% IV.SIG SCH (21:00)
[2019-01-07] MEDS: Insulin NovoLOG Aspart Correctional Sugar Inj SQ SCH (05:28)
--- NOTE | 2019-01-07 08:13 | P.PNID ---
Subjective Remarks: Patient is a 73-year-old male, came from a rehab facility, brought into the hospital for evaluation of altered mental status. He was also having cough and congestion. 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 The last surgery was done the first week in November and he had an anterior mandibular resection. He was readmitted December 01 and at that time he had A. fib with RVR. He was evaluated by maxillofacial surgery and he had a PEG tube done to increase his nutrition. Of note during that admission he had 2+ blood cultures with Enterobacter. Patient was felt to have a pneumonia at that time and he was given Levaquin when he was discharged from the hospital. On this admission, patient's mental status seems to have improved. He is awake and interacting. He tries to speak, but his speech is very difficult to understand. He has a cough, and he is pooling a lot of oral secretions that he suctions. He has a cough. He has some shortness of breath, and notes some chest pain in the lower quadrants. He was ruled in for HI during this admission , and cardiology evaluated the patient and was not a good candidate for cardiac catheterization. He had a fever of 102. CT of the chest did not show any pulmonary embolism, but it did show some interstitial infiltrates which could be congestion or interstitial disease. He denies any abdominal pain. He has not had any vomiting. No diarrhea. Patient is voiding without any problem. He currently has a condom cath in place. His urinalysis on this admission is unremarkable. His WBC was 14 on admission, and it is up to 19. 2 blood cultures done on admission are now reported as growing gram-negative neo, possibly on Enterobacter. During his last admission he had an echocardiogram and he has evidence of multiple calcifications in his valve namely mitral and aortic valve. Infectious disease consultation has been requested to assist with evaluation and treatment. Notes reviewed Am[facility] ok Complains of pain in the mandibular area Complains of edema legs. UO ok,Cr ok. Is being evaluated by [facility]. WBC now normal Repeat blood cultures negative Echo with significant calcifications in his AV and MV CT A/P no abscess CT neck noted - no deep abscess seen. has large plate anteriorly WBC scan with some uptake in anterior mandible, and L leg Surgery on the mandible - 11/18 Gastrostomy - 12/07 His first (+) BC 12/01 Antibiotics: Meropenem Amikacin Lines: Line sites with no evidence of infection. Past Medical History: Reviewed Allergies/Adverse Reactions: Allergies No Known Allergies Allergy (Verified 12/01/18 17:43) Objective Vital Signs 01/06/19 09:00 01/06/19 10:00 01/06/19 11:00 Temperature Pulse Rate 92 H 76 81 Respiratory Rate Blood Pressure Pulse Oximetry 01/06/19 12:00 01/06/19 13:00 01/06/19 14:00 Temperature 94.5 F L Pulse Rate 78 88 78 Respiratory Rate 18 Blood Pressure 116/81 Pulse Oximetry 99 01/06/19 15:00 01/06/19 16:00 01/06/19 16:11 Temperature 96.8 F L Pulse Rate 83 86 79 Respiratory Rate 17 Blood Pressure 106/79 Pulse Oximetry 100 01/06/19 17:00 01/06/19 18:00 01/06/19 19:00 Temperature Pulse Rate 86 80 96 H Respiratory Rate Blood Pressure Pulse Oximetry 01/06/19 19:33 01/06/19 20:00 01/06/19 21:00 Temperature 97.9 F Pulse Rate 88 104 H 90 Respiratory Rate 18 Blood Pressure 118/81 Pulse Oximetry 100 01/06/19 22:00 01/06/19 23:00 01/07/19 00:00 Temperature 98.1 F Pulse Rate 89 89 86 Respiratory Rate 16 Blood Pressure 111/76 Pulse Oximetry 100 01/07/19 01:00 01/07/19 02:00 01/07/19 03:00 Temperature Pulse Rate 80 79 87 Respiratory Rate Blood Pressure Pulse Oximetry 01/07/19 03:20 01/07/19 04:00 01/07/19 05:00 Temperature 98.2 F Pulse Rate 102 H 102 H 96 H Respiratory Rate 14 Blood Pressure 108/72 Pulse Oximetry 95 01/07/19 06:00 01/07/19 07:00 Temperature Pulse Rate 71 77 Respiratory Rate Blood Pressure Pulse Oximetry Intake & Output 01/06/19 01/07/19 01/07/19 18:59 06:59 18:59 Intake Total 300 / 300 604 / 604 Output Total 375 / 375 950 / 950 Balance -75 / -75 -346 / -346 Weight 78.6 kg Intake: IV 300 / 300 604 / 604 Amikin Inj 1,000 MG In NS Inj 504 / 504 500 ML @ 250 mls/hr IV.SIG Q24H [facility] Rx#:[id number] Merrem Inj 1,000 MG In NS Inj 300 / 300 100 / 100 100 ML @ 200 mls/hr IV.SIG Q8H [facility] Rx#:[id number] Output: Urine 375 / 375 950 / 950 Other: # Voids 1 Date of Last Bowel Movement 01/06/19 # Bowel Movements 1 Lab - Chemistry Results 01/06/19 01:05 Creatinine 0.57 L Estimated GFR Greater than 89 Total Creatine Kinase 31 L Troponin I 0.24 H Imaging: ITS Impressions Chest CTA 12/19/18 02:39 CONCLUSION: 1. No pulmonary embolus. 2. Diffuse process in interstitial markings which could suggest mild edema or underlying interstitial disease. Chest X-Ray 12/21/18 17:17 CONCLUSION: The lungs are clear. Abdomen/Pelvis CT 12/22/18 00:00 CONCLUSION: 1. Nonspecific, nonobstructive bowel gas pattern with no evidence of abscess. There is a moderate amount of stool in the distal colon. Could indicate mild fecal impaction. 2. Gastrostomy tube in place with the tip in the mid stomach. 3. Multiple small gallstones. 4. Cardiomegaly and small left pleural effusion. Soft Tissue Neck CT 12/22/18 00:00 CONCLUSION: 1. Extensive reconstruction with a mandibular large plate in this patient history of myelitis. 2. Small focal possible pointing abscess measuring less than 1 cm on the left in angle of the mandible. 3. Extensive artifact with distortion of normal tissue planes however I don't see a deep space abscess. 4. If subclinical infection suspected a bone gallium scanning may be the only way to sort this out. Lumbar Spine MRI 12/23/18 00:00 CONCLUSION: 1. Suspect postsurgical features of prior laminectomies at L2-L5 with peripherally calcified posterior paraspinal fluid intensity collection measuring 2.1 x 3.2 x 7.0 cm centered at L4-5 level. This may reflect a chronic resolved postoperative hematoma, complicated seroma or infection. Clinical correlation with prior surgical history is recommended. If patient has no history of previous surgery, differential consideration would include a expansile lesion involving the posterior processes of primarily L3-L5. 2. Multilevel degenerative spondylosis of the lumbar spine with moderate central canal narrowing at L3-4 level. 3. Please see above for detailed description of each level. WBC Scan Nuclear Medicine 12/24/18 00:00 CONCLUSION: 1. Nonspecific uptake along the anterior margin of the left mandibular remnant. 2. Nonspecific uptake in the soft tissues medially of the left leg at the level of the mid tibia shaft. Abscess Drainage X-Ray 12/27/18 00:00 CONCLUSION: 1. Uncomplicated image guided aspiration. Physical Exam: GENERAL: awake and alert, NAD. SKIN: Warm and dry. No generalized rash, no ecchymoses and no evidence of embolic lesions noted HEAD: Atraumatic. Normocephalic. No temporal wasting, or tenderness. EYES: [place] conjunctiva. No scleral icterus. No injection or drainage. EARS, NOSE AND THROAT: Nose without bleeding or purulent nasal discharge. Moist mucosa, secretions less today. The color on anterior mandible is normal, not indurated, healed incision, not swollen. NECK: Supple and not tender, no meningeal signs CARDIOVASCULAR: Regular rate and rhythm. HAs harsh systolic murmur L precordium and base of the heart RESPIRATORY: Coarse BS bilaterally. Decreased at bases ABDOMEN: Soft, non-tender, nondistended. Bowel sounds present and normoactive. No guarding. No rebound. PEG site ok. EXTREMITIES: No clubbing, cyanosis, or edema. Scars both knees, knees looks ok. NEUROLOGICAL: Stable, non-focal PSYCHIATRIC: Normal affect, calm and cooperative. 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 NSTEMI Hx oral CA, has had surgeries Risk for recurrent PNA Recommendation Continue Meropenem IV (more continuous regimen for endocarditis and spinal abscess treatment. Continue Amikacin IV ([facility] or [place] to place an Amikacin pharmacy consult) Follow creatinine Follow for side effects of Amikacin (hearing, vestibular, nephrotoxicity) Post hospital infusion orders placed in chart. PICC line consult placed. Please have be consulted on Thursday01/10/2019 for continuity of care at [facility].
[2019-01-07] MEDS: Acetaminophen-HYDROcodone 325/7.5 Liq 15 ML UDC NG/OG PRN (09:10)
[2019-01-07] MEDS: Gabapentin Liq 250 MG/5 ML UDC PO SCH ×2 (09:11→13:43)
[2019-01-07] MEDS: Docusate Sodium Liq 100 MG/10 ML UDC G-TUBE SCH (09:12)
[2019-01-07] MEDS: Enoxaparin Inj 80 MG/0.8 ML Syringe SQ SCH (09:13)
[2019-01-07] MEDS: Finasteride 5 MG Tablet PO SCH (09:13)
[2019-01-07] MEDS: Metoprolol Tartrate 25 MG Tablet PO SCH (09:13)
[2019-01-07] MEDS: Famotidine 20 MG Tablet PO SCH (09:13)
[2019-01-07] MEDS: Chlorhexidine Gluconate 0.12% Liq 15 ML UDC SWISH-SPIT SCH (09:15)
[2019-01-07 11:29] VITALS: BP 102/77; RESP 18; TEMP 97.8; O2SAT 100
[2019-01-07 14:56] VITALS: PULSE 84
== END 2019-01-07 15:05 | DRG 853 ==
LOC: NEPC 00:32 → NEDA 04:13 → HCIS 07:08
PROVIDERS: ADMIT Hospitalist; ATTEND Hospitalist
DX: I48.2 Chronic atrial fibrillation; Z93.1 Gastrostomy status; K21.9 Gastro-esophageal reflux disease without esophagitis; I50.1 Left ventricular failure, unspecified; J18.9 Pneumonia, unspecified organism; Z98.1 Arthrodesis status; Z85.810 Personal history of malignant neoplasm of tongue; Y95 Nosocomial condition; E78.5 Hyperlipidemia, unspecified; M79.7 Fibromyalgia; N40.0 Benign prostatic hyperplasia without lower urinary tract symptoms; Z96.653 Presence of artificial knee joint, bilateral; I42.9 Cardiomyopathy, unspecified; F41.9 Anxiety disorder, unspecified; G06.1 Intraspinal abscess and granuloma; M54.9 Dorsalgia, unspecified; Z79.4 Long term (current) use of insulin; M27.2 Inflammatory conditions of jaws; Z85.830 Personal history of malignant neoplasm of bone; I25.2 Old myocardial infarction; G93.41 Metabolic encephalopathy; F03.90 Unspecified dementia, unspecified severity, without behavioral disturbance, psychotic disturbance, mood disturbance, and anxiety; R13.10 Dysphagia, unspecified; A41.59 Other Gram-negative sepsis; I21.4 Non-ST elevation (NSTEMI) myocardial infarction; M19.90 Unspecified osteoarthritis, unspecified site; N18.9 Chronic kidney disease, unspecified; E11.22 Type 2 diabetes mellitus with diabetic chronic kidney disease; Z85.828 Personal history of other malignant neoplasm of skin; Z66 Do not resuscitate; I13.0 Hypertensive heart and chronic kidney disease with heart failure and stage 1 through stage 4 chronic kidney disease, or unspecified chronic kidney disease; J44.0 Chronic obstructive pulmonary disease with (acute) lower respiratory infection; I08.0 Rheumatic disorders of both mitral and aortic valves; I25.10 Atherosclerotic heart disease of native coronary artery without angina pectoris; B95.2 Enterococcus as the cause of diseases classified elsewhere; Z98.890 Other specified postprocedural states; R47.9 Unspecified speech disturbances; C02.9 Malignant neoplasm of tongue, unspecified; F41.1 Generalized anxiety disorder; I45.10 Unspecified right bundle-branch block
CPT/HCPCS: 10160; 36569; 70491; 71010; 71045; 71275; 72158; 74177; 76937; 76942; 78807; 78999; 80048; 80053; 80069; 80076; 80150; 81001; 82140; 82550; 82565; 82607; 82948; 82962; 83520; 83605; 83735; 83880; 84100; 84443; 84484; 85025; 85610; 85730; 87015; 87040; 87070; 87077; 87102; 87116; 87149; 87186; 87205; 87206; 87275; 87276; 87804; 90765; 90768; 92526; 92610; 93005; 93308; 96365; 96368; 97110; 97116; 97162; 97166; 97530; 97535; 99145; 99152; 99153; 99291; A9569; A9585; C9116; G0195; J0278; J1335; J1644; J1650; J2060; J2185; J2270; J2405; J2543; J3010; J3370; J3480; J7040; J7050; Q9963; Q9967